=== PATIENT | female | born 1955 | race Caucasian/White ===

== ENCOUNTER → 2017-10-01 | Outpatient (CLI) | payer OTHER ==
[~2017-10-01] MED LIST: ACEON8 MG PO; ALIGN4 MG PO; ALINIA500 MG PO; ATIVAN1 MG PO; BENEFIBER; BENEFIBER1 EACH; BENTYL10 MG PO; BUDESONIDE EC3 MG PO; CARAFATE1 GM PO; CARAFATE1 GM/10 ML PO; CRESTOR20 MG PO; DEXILANT60 MG PO; DIFLUCAN100 MG PO; DIFLUCAN200 MG PO; DOMPERIDONE1 GM PO; ENTOCORT EC3 MG PO; FLAGYL250 MG PO; FLORASTOR250 MG; FLORASTOR250 MG PO; FUROSEMIDE20 MG PO; GLIMEPIRIDE2 MG PO; GLIMEPIRIDE4 MG PO; HUMIRA SQ; HYOSCYAMINE0.125 MG SL; HYOSCYAMINE0.375 MG PO; IRON325 M1; JANUVIA100 MG; JANUVIA100 MG PO; KEFLEX500 MG PO; LAMOTRIGINE PO; LAMOTRIGINE100 MG PO; LAMOTRIGINE25 MG PO; LASIX20 MG PO; LEVOTHYROXINE112 MCG PO; LEVOXYL112 MCG PO; LEVSIN0.125 MG; LIBRAX CAPSULE1 EACH PO; LORAZEPAM2 MG PO; MAXALT10 MG PO; METFORMIN HCL1000 MG PO; METFORMIN HCL500 MG PO; METOCLOPRAMIDE10 MG PO; MIRALAX PO; MIRALAX17 GM; MIRALAX17 GM PO; MULTI-VITAMIN1 EACH; MULTIVITAMIN; MULTIVITAMINS1 EAC7 PO; NORCO; NORCO 10-325 T1 EACH PO; NORCO PO; OSCIMIN SL0.125 MG SL; PAXIL20 MG PO; PENTASA250 MG PO; PENTASA500 MG PO; PERINDOPRIL ERBU8 MG PO; PREDNISONE10 MG PO; PREDNISONE5 MG PO; PRESTIQ PO; PRISTIQ ER100 MG; PRISTIQ ER100 MG PO; PRISTIQ50 MG PO; PROBIOTIC & AC1 EACH; PROTONIX IV40 MG PO; QUETIAPINE FUM100 MG PO; QUETIAPINE FUMA50 MG; REGLAN10 MG PO; REMICADE100 MG/VIA IM; SEROQUEL100 MG PO; SEROQUEL50 MG PO; SUMATRIPTAN INJ; Sumatriptan PO; TOPAMAX100 MG PO; TOPAMAX50 MG PO; TOPIRAGEN50 MG; TOPIRAMATE100 MG PO; TREXIMET 85-501 EACH PO; TRICOR145 MG PO; Z LAMICTAL PO; Z LEVOXYL PO; Z.0.AMARYL4 MG PO; Z.0.AMITIZA8 MCG PO; Z.0.CRESTOR20 MG PO; Z.0.DEXILANT60 MG PO; Z.0.JANUVIA100 MG PO; Z.0.MAXALT10 MG PO; Z.0.NAPROXEN500 MG PO; Z.0.SEROQUEL25 MG PO; Z.0.TOPIRAMATE50 MG PO; Z.0.TRICOR145 MG PO; Z.1.METFORMIN HCL100 PO; ZOFRAN ODT4 MG; ZOFRAN ODT4 MG SL; [UNRECOGNIZED DRUG - OTHER]; [UNRECOGNIZED DRUG - OTHER] PO; [UNRECOGNIZED DRUG - OTHER] PO; [UNRECOGNIZED DRUG - OTHER] PO; [UNRECOGNIZED DRUG - OTHER] PO; [UNRECOGNIZED DRUG - OTHER] PO; [UNRECOGNIZED DRUG - OTHER] PO; miralax PO; viberzi PO
--- NOTE | 2017-10-01 14:06 | Diagnostic Imaging Report ---
PROCEDURE: CT ABDOMEN AND PELVIS WITHOUT CONTRAST COMPARISON:[facility], CT, CT ABDOMEN/PELVIS WO, 12/28/2015, 17:12. INDICATIONS:Lower abdominal pain. TECHNIQUE: Routine protocol Volumetric CT abdomen after ministration of 900 mL dilute positive enteric contrast. No intravenous contrast. Multiplanar reformatted images. DLP: 613.75 FINDINGS: Two sub-4 mm pulmonary nodules at the right lower lobe. Lung bases otherwise clear. lung bases. No pleural effusions. Normal heart size. Liver: Diffuse low-attenuation; otherwise, normal Gallbladder: Cholecystectomy Pancreas: Normal Spleen: Normal Adrenal glands: Normal Kidneys: Normal Ureters and urinary bladder: Normal Uterus and adnexa: Normal Bowel: Normal caliber. Mild jejunal wall thickening without dilation. Moderate stool volume in a redundant sigmoid colon. Appendectomy. Peritoneum: Normal Vasculature: Trace infrarenal aortic atherosclerosis. Mild multifocal diffuse arteriosclerosis. Normal caliber. Lymph nodes: Normal Skeleton: Intact. Mild degenerative changes in the shoulders. Mild multilevel degenerative disc disease and facet arthropathy with post notable on the left at L5-S1. Soft tissues: Normal CONCLUSION: 1. Mild thickening of the jejunum which may be secondary to enteritis. 2. Otherwise, no conspicuous etiology for lower abdominal pain. 3. Study is limited by lack of intravenous contrast. Dictated by: Mika Remy M.D. on 10/01/2017 at 14:14 Electronically approved by: Mika Remy M.D. on 10/01/2017 at 14:14
== END ==
LOC: CT 11:53
PROVIDERS: ATTEND Internal Medicine Gastroenterology
DX: R10.9 Unspecified abdominal pain (principal)
CPT/HCPCS: 74176

== ENCOUNTER → 2017-10-23 | Outpatient (CLI) | payer OTHER ==
[~2017-10-23] MED LIST changes: +FUROSEMIDE40 MG PO
--- NOTE | 2017-10-23 11:56 | Diagnostic Imaging Report ---
PROCEDURE: SMALL BOWEL SERIES Fluoroscopy time: 0.4 minutes Air Kerma: 28.34 mGy Comparison: CT abdomen and pelvis without contrast 10/01/2017, fluoroscopic small bowel series 12/21/2016.. Indications: ENTERITIS Technique: Small bowel follow through exam was performed using oral barium. Preliminary image was obtained before administration of contrast and serial overhead images were obtained after administration of oral barium. Fluoroscopy was performed and spot images were obtained. Findings: SMALL BOWEL FOLLOW THROUGH: Small bowel loops are normal in caliber and distribution. Spot compression views of the terminal ileum are normal. The transit time was normal. IMPRESSION: Unremarkable fluoroscopic small bowel series. Dictated by: Luis A Saunders M.D. on 10/23/2017 at 11:55 Electronically approved by: Lui sA Saunders M.D. on 10/23/2017 at 11:55
== END ==
LOC: DX 07:04
PROVIDERS: ATTEND Internal Medicine Gastroenterology
DX: K52.9 Noninfective gastroenteritis and colitis, unspecified (principal)
CPT/HCPCS: 74250

== ENCOUNTER → 2017-12-10 | Outpatient (CLI) | payer OTHER ==
[~2017-12-10] MED LIST changes: -FUROSEMIDE40 MG PO
--- NOTE | 2017-12-10 17:47 | Diagnostic Imaging Report ---
PROCEDURE:ABDOMEN COMP INCL UPR OR DECUB INDICATION:Colitis, Crohn's, Abdominal pain. COMPARISON:CT 10/01/2017 FINDINGS: Large amount of stool in the colon. Non-obstructed bowel gas pattern. No free air under the diaphragm or suspicious air-fluid levels on upright view. Cholecystectomy clips. No calcifications project over the renal silhouettes or expected course of the ureters or bladder. Hepatic silhouette appears enlarged, likely related to hepatic steatosis on prior CT. Bones and soft tissues are grossly unremarkable. CONCLUSION: Non-obstructed bowel gas pattern. Large amount of stool in the colon. Dictated by: Omar Dinh M.D. on 12/10/2017 at 17:48 Electronically approved by: Omar Dinh M.D. on 12/10/2017 at 17:48
== END ==
LOC: RAD 15:32
PROVIDERS: ATTEND Internal Medicine Gastroenterology
DX: R11.0 Nausea (principal); K50.90 Crohn's disease, unspecified, without complications

== ENCOUNTER → 2018-04-18 | Day surgery (SDC) | payer OTHER ==
[~2018-04-18] MED LIST changes: +FENTANYL CITRATE/PF 100MCG/2 ML INJ ONE; +FUROSEMIDE40 MG PO; +LIDOCAINE HCL 2% LOCAL INJ 5 ML SDV VIAL INJ ONE; +MIDAZOLAM HCL 2 MG/2 ML VIAL ONE; +PROPOFOL IV EMULSION 10 MG/ML 50 ML VIAL ONE
[2018-04-18 13:15] VITALS: BP 117/77
[2018-04-18 13:33] LABS: WBC,FECAL (FECAL LACTOFERRIN) NEGATIVE (NEGATIVE)
--- NOTE | 2018-04-18 14:05 | Operative Report ---
DATE OF PROCEDURE: April 18, 2018 REFERRING PHYSICIAN: Dr. Luis A Tinoco. PROCEDURES PERFORMED: 1. Esophagogastroduodenoscopy with esophageal dilatation and biopsies. 2. Colonoscopy with polypectomy and biopsies. INDICATIONS FOR ESOPHAGOGASTRODUODENOSCOPY: Dysphagia, upper abdominal pain, nausea. INDICATIONS FOR COLONOSCOPY: Lower abdominal pain, history of colon polyps, loose stools. MEDICATION: Patient was done under MAC. Please see anesthesiologist's note. PROCEDURE: With the patient in the left lateral decubitus position, the flexible fiberoptic Olympus gastroscope was introduced into the esophagus under direct visualization without any difficulty. There was some patchy erythema noted in the distal esophagus. There was a mild stricture noted at the GE junction, and the esophagus was dilated to size 52-Dominican Chapa. The scope was then advanced with ease into the stomach. Mucosa overlying the antrum and the body revealed some diffuse erythema and moderate edema, and biopsies were obtained and sent to stain for H. pylori. The pylorus was of normal contour and shape, was intubated with ease, and the scope was advanced all the way to the 2nd portion of the duodenum. The scope was withdrawn slowly. The duodenum was somewhat irritable. Biopsies were obtained from the proximal 2nd portion to rule out sprue. Mucosa overlying the duodenal bulb appeared to be within normal limits. The scope was then withdrawn back into the stomach and retroflexed, and the mucosa overlying the fundus and the cardia appeared to be within normal limits. The scope was then straightened out. It was subsequently withdrawn. Patient tolerated the procedure well. IMPRESSION: 1. Distal esophagitis. 2. Esophageal stricture at gastroesophageal junction dilated to a size 52-Dominican Chapa. 3. Gastritis biopsied. Biopsies sent to stain for H. pylori. 4. Rule out sprue. PLAN: Follow up histology. Initiate Carafate 1 gram p.o. a.c. t.i.d. and nightly. Continue Dexilant 60 mg 1 p.o. a.c. b.i.d. Patient was then turned around and after adequate lubrication of the anal canal, a flexible fiberoptic Olympus colonoscope was inserted into the rectum with ease and advanced all the way to the cecum. The ileocecal valve was intubated, and the scope was advanced into the terminal ileum. Biopsies were obtained. The scope was then withdrawn slowly. Mucosa overlying the ascending, transverse, descending, sigmoid and rectum revealed some patchy areas of intense erythema and low-grade to moderate edema, and random biopsies were obtained. One polyp was snared from the descending colon. The scope was then retroflexed into the distal rectum and small internal hemorrhoids were noted, none of which was actively bleeding. The scope was then straightened out. It was subsequently withdrawn. Patient tolerated the procedure well. IMPRESSION: 1. Colitis, mild, patchy. Random biopsies obtained. 2. Descending colon polyp snared. 3. Small internal hemorrhoids, none actively bleeding. PLAN: Follow up histology. Follow up stool studies. Patient might benefit from a followup colonoscopy in 5 years. Job#: [id number] EV cc:LUIS A TINOCO MD
[2018-04-19 14:36] LABS: C DIFFICILE TOXIN A&B AMP PROB NEGATIVE (NEGATIVE)
== END | disposition home or self-care (01) ==
LOC: ENDO 09:54
PROVIDERS: ATTEND Internal Medicine Gastroenterology
DX: K52.9 Noninfective gastroenteritis and colitis, unspecified (principal); K63.5 Polyp of colon; K29.70 Gastritis, unspecified, without bleeding; K22.2 Esophageal obstruction; K20.9 Esophagitis, unspecified; K64.8 Other hemorrhoids; E03.9 Hypothyroidism, unspecified; E78.6 Lipoprotein deficiency; E11.9 Type 2 diabetes mellitus without complications; I10 Essential (primary) hypertension; F31.9 Bipolar disorder, unspecified; F41.9 Anxiety disorder, unspecified; Z88.6 Allergy status to analgesic agent; Z88.8 Allergy status to other drugs, medicaments and biological substances; Z91.041 Radiographic dye allergy status; Z91.013 Allergy to seafood; Z01.810 Encounter for preprocedural cardiovascular examination; Z79.84 Long term (current) use of oral hypoglycemic drugs; Z87.01 Personal history of pneumonia (recurrent)
CPT/HCPCS: 36415; 43239; 43450; 45380; 45385; 82948; 83630; 83993; 87045; 87177; 87328; 87493; 93005; J2001; J2250

== ENCOUNTER → 2019-02-05 | Outpatient (CLI) | payer OTHER ==
[~2019-02-05] MED LIST changes: -FENTANYL CITRATE/PF 100MCG/2 ML INJ ONE; -LIDOCAINE HCL 2% LOCAL INJ 5 ML SDV VIAL INJ ONE; -MIDAZOLAM HCL 2 MG/2 ML VIAL ONE; -PROPOFOL IV EMULSION 10 MG/ML 50 ML VIAL ONE
[2019-02-05 12:14] LABS: BILIRUBIN,URINE NEGATIVE (NEGATIVE); CLARITY,URINE CLEAR (CLEAR); COLOR,URINE YELLOW (YELLOW); KETONES,URINE NEGATIVE (NEGATIVE); LEUKOCYTE ESTERASE ,URINE NEGATIVE (NEGATIVE); NITRITE,URINE NEGATIVE (NEGATIVE); PROTEIN,URINE DIPSTICK NEGATIVE (NEGATIVE); URINE UROBILINOGEN 0.2 mg/dL (0.2 - 1)
[2019-02-05 12:15] LABS: BASOPHILS % 0.5 % (0.0-1.0); EOSINOPHILS # (AUTO) 0.4 (0.0-0.4); EOSINOPHILS % 9.5 % (0.0-6.0); HEMATOCRIT 36.1 % (34.2-44.1); HEMOGLOBIN 11.7 g/dL (12.0-16.0); LYMPHOCYTES # (AUTO) 1.3 (1.0-3.2); LYMPHOCYTES % 35.4 % (18.0-39.1); MEAN CORPUSCULAR HEMOGLOBIN 28.5 pg (28-32); MEAN CORPUSCULAR HGB CONC 32.4 g/dL (31-35); MEAN CORPUSCULAR VOLUME 87.8 fL (81-99); MONOCYTES # (AUTO) 0.3 (0.2-0.8); MONOCYTES % 6.9 % (4.4-11.3); NEUTROPHILS # (AUTO) 1.8 (2.1-6.9); NEUTROPHILS % 47.2 % (38.7-80.0); PLATELET COUNT 198 x10e3/uL (140-360); RED BLOOD COUNT 4.11 x10e6/uL (3.6-5.1); RED CELL DISTRIBUTION WIDTH 13.9 % (11.7-14.4)
[2019-02-05 12:48] LABS: ALBUMIN 4.3 g/dL (3.5-5.0); ALBUMIN/GLOBULIN RATIO 1.1 (0.8-2.0); ANION GAP 14.1 mmol/L (8-16); CALCIUM 10.6 mg/dL (8.4-10.2); CREATININE, SERUM 1.64 mg/dL (0.57-1.11)
[2019-02-05 13:21] LABS: POTASSIUM 5.1 mmol/L (3.5-5.1)
--- NOTE | 2019-02-05 15:49 | Diagnostic Imaging Report ---
EXAM: CT ABDOMEN AND PELVIS without IV CONTRAST DATE: 02/05/2019 Time stamp on Exam: 1:02 PM INDICATION: Abdominal pain COMPARISON: 04/17/2015 TECHNIQUE: The abdomen and pelvis were scanned using a multidetector helical scanner. Coronal and sagittal reformations were obtained. Routine protocol performed. Technique modification was utilized to maintain the lowest dose possible to the patient. IV Contrast: None Oral Contrast: Gastrografin intermixed with water Radiation Dose: Total DLP 732.81 mGy*cm Estimated effective dose: DLP x 0.015 x size factor FINDINGS: LOWER THORAX: No consolidations LIVER: No masses BILIARY: The gallbladder is absent. No ductal dilatation. SPLEEN: No masses PANCREAS: No masses ADRENALS: No nodules KIDNEYS: Symmetric perfusion. No enhancing masses. No hydronephrosis. GI TRACT: No distention, wall thickening or evidence of obstruction. VESSELS: Splenic artery calcification and scattered calcification within the aorta. PERITONEUM/RETROPERITONEUM: No free air or fluid LYMPH NODES: No lymphadenopathy REPRODUCTIVE ORGANS: Unremarkable BLADDER: Unremarkable SOFT TISSUES: Unremarkable BONES: No suspicious bone lesions. Degenerative changes of the spine. IMPRESSION: No significant abnormality within the abdomen or pelvis. Signed by: Dr. Emigdio Hernandez DO on 02/05/2019 3:45 PM
== END ==
LOC: CT 11:20
PROVIDERS: ATTEND Internal Medicine Gastroenterology
DX: R10.9 Unspecified abdominal pain (principal)
CPT/HCPCS: 36415; 74176; 80053; 81003; 85025

== ENCOUNTER → 2019-07-29 | Outpatient (CLI) | payer OTHER ==
[2019-07-29 14:19] LABS: CREATININE, SERUM 1.34 mg/dL (0.57-1.11)
--- NOTE | 2019-07-29 17:46 | Diagnostic Imaging Report ---
MRI abdomen/pelvis without contrast HISTORY: Abdominal pain Comparison: CT abdomen/pelvis without contrast from 02/05/2019, MRI abdomen/pelvis without with contrast from 11/26/2012. Technique: Multiplanar and multisequence MRI images of the abdomen were obtained without contrast. FINDINGS: The visualized intrathoracic contents are unremarkable. There is dropout of signal on out of phase imaging compatible with hepatic steatosis. The liver is otherwise normal in size and attenuation. No focal lesion is identified on this noncontrast enhanced examination. The gallbladder is surgically absent. There is no intra or extrahepatic biliary ductal dilatation. There is a stable small hiatal hernia present. The stomach is otherwise unremarkable. The spleen and bilateral adrenal glands are unremarkable. The pancreas demonstrates no significant abnormalities. There is no pancreatic ductal dilatation. The kidneys are normal in size and location. There is no evidence for hydronephrosis. The urinary bladder demonstrates no significant abnormalities. The uterus and adnexa are unremarkable. The abdominal aorta is normal course and caliber. The IVC is normal in caliber. The visualized loops of small and large bowel demonstrate no evidence for wall thickening, adjacent findings are unchanged, or obstruction. Please note the examination is limited without the use of contrast material. There is no ascites. No abnormally enlarged lymph nodes are identified within the abdomen or pelvis. There are degenerative changes of the spine. There is no evidence for acute fracture or destructive process. Impression: Diffuse hepatic steatosis. Otherwise, no significant abnormality identified on this noncontrast enhanced MRI of the abdomen and pelvis. Signed by: Dr. Jimy Atkins MD on 07/29/2019 5:42 PM
== END ==
LOC: MRI 13:33
PROVIDERS: ATTEND Internal Medicine Gastroenterology
DX: R10.9 Unspecified abdominal pain (principal)
CPT/HCPCS: 36415; 72195; 74181; 82565; 84520

== ENCOUNTER → 2020-01-13 | Day surgery (SDC) | payer OTHER ==
[~2020-01-13] MED LIST changes: +CALTRATE 600 W1 EACH PO; +FENTANYL CITRATE/PF 100MCG/2 ML INJ ONE; +LIDOCAINE HCL 2% LOCAL INJ 5 ML SDV VIAL INJ ONE; +LOMOTIL TABLET1 EACH PO; +METOCLOPRAMIDE HCL 10 MG/2ML VIAL ONE; +MIDAZOLAM HCL 2 MG/2 ML VIAL ONE; +PANTOPRAZOLE 40 MG 10ML VIAL ONE; +PROPOFOL IV EMULSION 10 MG/ML 20 ML VIAL ONE; +iron PO; +vit c PO
--- OUTSIDE RECORDS SUMMARY | 2020-01-13 11:04 | XMS REPORT ---
Author Author [facility] t Organization [facility] Address [address] [place] [address] Phone Unavailable Care Team Providers Care Freight Inspector Name Role Phone CHOLO SINGH Zohaib Unavailable Payers Payer Name Policy Type Policy Number Effective Date Expiration Date S ource Problems This patient has no known problems. Allergies, Adverse Reactions, Alerts Allergy Name Allergy Type Status Severity Reaction(s) Onset Date Inacti ve Date Treating Clinician Comments Source Iodinated Contrast Media - IV Dye DA Active U 2017-12-19 00:00:00 [facility] NSAIDS (Non-Steroidal Anti-Inflamma DA Active U 2017-11-26 5 00:00:00 [facility] iodine DA Active U 2017-12-19 00:00:00 [facility] mesalamine DA Active U 2017-12-19 00:00:00 [facility] cephalexin DA Active U 2017-12-19 00:00:00 [facility] promethazine DA Active U 2017-12-19 00:00:00 [facility] meperidine DA Active U 2017-12-19 00:00:00 [facility] shellfish derived DA Active U 2017-12-19 00:00:00 [facility] Medications This patient has no known medications. Procedures This patient has no known procedures. Results Test Description Test Time Test Comments Results Result Comments Source MRI ABDOMEN WO 2019-07-29 17:35:00 [facility] [address] [id number] Patient Name: ROBBIE GILES MR #: [id number] : 1955 Age/Sex: 64/F Req #: [id number] Adm Physician: Ordered by: CHOLO SINGH MD Report #: [id number] Location: MRI Room/Bed: Procedure: [id number] MRI/MRI ABDOMEN WO Exam Date: Exam Time: REPORT STATUS: Signed MRI abdomen/pelvis without contrast HISTORY: Abdominal pain Comparison: CT abdomen/pelvis without contrast from 02/05/2019, MRI abdomen/pelvis without with contrast from 11/26/2012. Technique: Multiplanar and multisequence MRI images of the abdomen were obt ained without contrast. FINDINGS: The visualized intrathoracic contents are unremarkable. There is dropout of signal on out of phase imaging compatible with hepatic steatosis. The liver is otherwise normal in size and attenuation. No focal lesion is identified on this noncontrast enhanced examination. The gallbladder is surgically absent. There is no intra or extrahepatic biliary ductal dilatation. There is a stable small hiatal hernia present. The stomach is otherwise unremarkable. The spleen and bilateral adrenal glands are unremarkable. The pancreas demonstrates no s ignificant abnormalities. There is no pancreatic ductal dilatation. The kidneys are normal in size and location. There is no evidence for hydronephrosis. The urinary bladder demonstrates no significant abnormalities. The uterus and adnexa are unremarkable. The abdominal aorta is normal course and caliber. The IVC is normal in caliber. The visualized loops of small and large bowel demonstrate no evidence for wall thickening, adjacent findings are unchanged, or obstruction. Please note the examination is limited without the use of contrast material. There is no ascites. No abnormally enlarged lymph nodes are identified within the abdomen or pelvis. There are degenerative changes of the spine. There is no evidence for acute fracture or destructive process. Impression: Diffuse hepatic steatosis. Otherwise, no significant abnormality identified on this noncontrast enhanced MRI of the abdomen and pelvis. Signed by: Dr. Jimy Atkins MD on 07/29/2019 5:42 PM Dictated By: JIMY ATKINS MD 41 Transcribed By: CAMELIA on 07/29/191741 COPY TO: CHOLO SINGH MD MRI PELVIS WO 2019-07-29 17:35:00 [place] [address] Patient Name: ROBBIE GILES MR #: [id number] : 1955 Age/Sex: 64/F Req #: [id number] Adm Physician: Ordered by: CHOLO SINGH MD Report #: [id number] Location: MRI Room/Bed: Procedure: [id number] MRI/MRI PELVIS WO Exam Date: Exam Time: REPORT STATUS: Signed MRI abdomen/pelvis without contrast HISTORY: Abdominal pain Comparison: CT abdomen/pelvis without contrast from 02/05/2019, MRI abdomen/pelvis without with contrast from 11/26/2012. Technique: Multiplanar and multisequence MRI images of the abdomen were obta ined without contrast. FINDINGS: The visualized intrathoracic contents are unremarkable. There is dropout of signal on out of phase imaging compatible with hepatic steatosis. The liver is otherwise normal in size and attenuation. No focal lesion is identified on this noncontrast enhanced examination. The gallbladder is surgically absent. There is no intra or extrahepatic biliary ductal dilatation. There is a stable small hiatal hernia present. The stomach is otherwise unremarkable. The spleen and bilateral adrenal glands are unremarkable. The pancreas demonstrates no si gnificant abnormalities. There is no pancreatic ductal dilatation. The kidneys are normal in size and location. There is no evidence for hydronephrosis. The urinary bladder demonstrates no significant abnormalities. The uterus and adnexa are unremarkable. The abdominal aorta is normal course and caliber. The IVC is normal in caliber. The visualized loops of small and large bowel demonstrate no evidence for wall thickening, adjacent findings are unchanged, or obstruction. Please note the examination is limited without the use of contrast material. There is no ascites. No abnormally enlarged lymph nodes are identified within the abdomen or pelvis. There are degenerative changes of the spine. There is no evidence for acute fracture or destructive process. Impression: Diffuse hepatic steatosis. Otherwise, no significant abnormality identified on this noncontrast enhanced MRI of the abdomen and pelvis. Signed by: Dr. Jimy Atkins MD on 07/29/2019 5:42 PM Dictated By: JIMY ATKINS MD 41 Transcribed By: CAMELIA on 07/29/191741 COPY TO: CHOLO SINGH MD CT ABDOMEN/PELVIS WO 2019-02-05 15:36:00 [place] [address] Patient Name: ROBBIE GILES MR #: [id number] : 1955 Age/Sex: 63/F Req #: [id number] Adm Physician: Ordered by: CHOLO SINGH MD Report #: [id number] Location: CT Room/Bed: Procedure: [id number] CT/CT ABDOMEN/PELVIS WO Exam Date: 02/05/19 Exam Time: 1300 REPORT STATUS: Signed EXAM: CT ABDOMEN AND PELVIS without IV CONTRAST DATE: 02/05/2019 Time stamp on Exam: 1:02 PM INDICATION: Abdominal pain COMPARISON: 04/17/2015 TECHNIQUE: The abdomen and pelvis were scanned using a multidetector helical scanner. Coronal and sagittal reformations were obtained. Routine protocol performed. Technique modification was utilized to maintain the lowest dose possible to the patient. IV Contrast: None Oral Contrast: Gastrografin intermixed with water Radiation Dose: Total DLP 732.81 mGy*cm Estimated effective dose: DLP x 0.015 x size factor FINDINGS: LOWER THORAX: No consolidations LIVER: No masses BILIARY: The gallbladder is absent. No ductal dilatation. SPLEEN: No masses PANCREAS: No masses ADRENALS: No nodules KIDNEYS: Symmetric perfusion. No enhancing masses. No hydronephrosis. GI TRACT: No distention, wall thickening or evidence of obstruction. VESSELS: Splenic artery calcification and scattered calcification within the aorta. PERITONEUM/RETROPERITONEUM: No tremaine e air or fluid LYMPH NODES: No lymphadenopathy REPRODUCTIVE ORGANS: Unremarkable BLADDER: Unremarkable SOFT TISSUES: Unremarkable BONES: No suspicious bone lesions. Degenerative changes of the spine. IMPRESSION: No significant abnormality within the abdomen or pelvis. Signed by: Dr. Emigdio Hernandez DO on 02/05/2019 3:45 PM Dictated By: EMIGDIO HERNANDEZ DO 1541 Transcribed By: CAMELIA on 02/05/19 1548 COPY TO: CHOLO SINGH MD ABDOMEN COMP INCL UPR or DECUB [place] [address] Patient Name: ROBBIE GILES MR #: [id number] : 1955 Age/Sex: 62/F Req #: [id number] Adm Physician: Ordered by: CHOLO SINGH MD Report #: [id number] Location: [facility] Room/Bed: Procedure: [id number] DX/ABDOMEN COMP INCL UPR or DECUB Exam Date: 12/10/17 Exam Time: 1610 REPORT STATUS: Signed PROCEDURE: ABDOMEN COMP INCL UPR OR DECUB INDICATION: Colitis, Crohn's, Abdominal pain. COMPARISON: CT 10/01/2017 FINDINGS: Large amount of stool in the colon. Non-obstructed bowel gas pattern. No free air under the diaphragm or suspicious air-fluid levels on upright view. Cholecystectomy clips. No calcifications project over the renal silhouettes or expected course of the ureters or bladder. Hepatic silhouette appears enlarged, likely related to hepatic steatosis on prior CT. Bones and soft tissues are grossly unremarkable. CONCLUSION: Non-obstructed bowel gas pattern. Large amount of stool in the colon. Dictated by: Omar Cárdenas M.D. on 12/10/2017 at 17:48 Electronically approved by: Omar Cárdenas M.D. on 12/10/2017 at 17:48 Dictated By: OMAR CÁRDENAS MD 47 Transcribed By: RAMAN on 12/10/171747 COPY TO: CHOLO SINGH MD SMALL BOWEL SERIES [place] [address] Patient Name: ROBBIE GILES MR #: [id number] : 1955 Age/Sex: 62/F Req #: [id number] Adm Physician: Ordered by: CHOLO SINGH MD Report #: [id number] Location: DX Room/Bed: Procedure: [id number] DX/SMALL BOWEL SERIES Exam Date: 10/23/17 Exam Time: 0800 REPORT STATUS: Signed PROCEDURE: SMALL BOWEL SERIES Fluoroscopy time: 0.4 minutes Air Kerma: 28.34 mGy Comparison: CT abdomen and pelvis without contrast 10/01/2017, fluoroscopic small bowel series 12/21/2016.. Indications: ENTERITIS Technique: Small bowel follow through exam was performed using oral barium. Preliminary image was obtained before administration of contrast and serial overhead images were obtained after administration of oral barium. Fluoroscopy was performed and spot images were obtained. Findings: SMALL BOWEL FOLLOW THROUGH: Small bowel loops are normal in caliber and distribution. Spot compression views of the terminal ileum are normal. The transit time was normal. IMPRESSION: Unremarkable fluoroscopic small bowel series. Dictated by: Freedom Perry M.D. on 10/23/2017 at 11:55 Electronically approved by: Freedom Perry M.D. on 10/23/2017 at 11:55 Dictated By: FREEDOM PERRY MD 1155 Transcribed By: RAMAN on 10/23/17 1155 COPY TO: CHOLO SINGH MD CT ABDOMEN/PELVIS WO [place] [address] Patient Name: ROBBIE GILES MR #: [id number] : 1955 Age/Sex: 62/F Req #: [id number] Adm Physician: Ordered by: CHOLO SINGH MD Report #: [id number] Location: CT Room/Bed: Procedure: [id number] CT/CT ABDOMEN/PELVIS WO Exam Date: 10/01/17 Exam Time: 1337 REPORT STATUS: Signed PROCEDURE: CT ABDOMEN AND PELVIS WITHOUT CONTRAST COMPARISON: [facility], CT, CT ABDOMEN/PELVIS WO, 12/28/2015, 17:12. INDICATIONS: Lower abdominal pain. TECHNIQUE: Routine protocol Volumetric CT abdomen after ministration of 900 mL dilute positive enteric contrast. No intravenous contrast. Multiplanar reformatted images. DLP: 613.75 FINDINGS: Two sub-4 mm pulmonary nodules at the right lower lobe. Lung bases otherwise clear. lung bases. No pleural effusions. Normal heart size. Liver: Diffuse low-attenuation; otherwise, normal Gallbladder: Cholecystectomy Pancreas: Normal Spleen: Normal Adrenal glands: Normal Kidneys: Normal Ureters and urinary bladder: Normal Uterus and adnexa: Normal Bowel: Normal caliber. Mild jejunal wall thickening without dilation. Moderate stool volume in a redundant sigmoid colon. Appendectomy. Peritoneum: Normal Vasculature: Trace infrarenal aortic atherosclerosis. Mild multifocal diffuse arteriosclerosis. Normal caliber. Lymph nodes: Normal Skeleton: Intact. Mild degenerative changes in the shoulders. Mild multilevel degenerative disc disease and facet arthropathy with post notable on the left at L5-S1. Soft tissues: Normal CONCLUSION: 1. Mild thickening of the jejunum which may be secondary to enteritis. 2. Otherwise, no conspicuous etiology for lower abdominal pain. 3. Study is limited by lack of intravenous contrast. Dictated by: John Remy M.D. on 10/01/2017 at 14:14 Electronically approved by: John Remy M.D. on 10/01/2017 at 14:14 Dictated By: JOHN REMY MD 1414 Transcribed By: RAMAN on 10/01/17 1414 COPY TO: CHOLO SINGH MD
--- OUTSIDE RECORDS SUMMARY | 2020-01-13 11:04 | XMS REPORT | Continuity of Care Document ---
Author Author [facility] Address Unknown Phone Unavailable Care Team Providers Care Balance Clerk Name Role Phone [employer] Unavailable Un available Problems Problem Status Onset Date Classification Date Reported Comments Source CROHN'S DISEASE 555.9 Active 09/27/2012 [facility] 388.70 - [place] NOS Active 02/23/2012 [facility] CHRONIC LEFT EAR PAIN Active 02/23/2012 [facility] Medications Medication Details Route Status Patient Instructions Ordering Provider Order Date Source Remicade + Sodium Chloride 0.9% IV 250 mL 400 mg, Route: IV, Drug form: PDR/INJ, ONCALL, Start date: 10/28/12 10:00:00, Stop date: 03/31/13 10:59:00 IV No Longer Active Mackenzie 10/28/2012 [facility] Sodium Chloride 0.9% IV IV, 50 0 ml/hr, PRN, PRN Other - See Comment, Start date: 10/25/12 12:57:00, Duration: 30, 500 ml IV No Longer Active Mackenzie 10/25/2012 [facility] SoluCortef 100 mg, 2 mL, Route : IVP, Drug form: PDR/INJ, PRN, PRN Other -See Comment, Start date: 10/25/12 12:56:00, Duration: 30 day, Stop date: 11/24/12 13:55:00 IVP No Longer Active Mackenzie 10/25/2012 [facility] Benadryl 50 mg, 1 mL, Route: I LOG SAWYER, Drug form: INJ, PRN, PRN Other -See Comment, Start date: 10/25/12 12:55:00, Duration: 30 day, Stop date: 11/24/12 13:54:00 IVP No Longer Active Mackenzie 10/25/2012 [facility] epinephrine 0.5 mg, 0.5 mL, Ro [place]: SUB-Q, Drug form: INJ, PRN, PRN Other -See Comment, Start date: 10/25/12 12:54:00, Duration: 30 day, Stop date: 11/24/12 13:53:00 SUB-Q No Longer Active Mackenzie 10/25/2012 [facility] Tylenol 650 mg, 2 tab, Route: PO, Drug form: TAB, PRN, PRN Other -See Comment, Start date: 10/25/12 12:52:00, Duration: 30 day, Stop date: 11/24/12 13:51:00 PO No Longer Active Mackenzie 10/25/2012 [facility] Benadryl 25 mg, 1 tab, Route: PO, Drug form: TAB, PRN, PRN Other -See Comment, Start date: 10/25/12 12:51:00, Duration: 30 day, Stop date: 11/24/12 13:50:00 PO No Longer Active Mackenzie 10/25/2012 [facility] Allergies, Adverse Reactions, Alerts Substance Category Reaction Severity Reaction type Status Date Reported Comments Source Demerol HCl [facility] Immunizations No Data Provided for This Section Results No Data Provided for This Section Pathology Reports No Data Provided for This Section Diagnostic Reports No Data Provided for This Section Consultation Notes No Data Provided for This Section Discharge Summaries No Data Provided for This Section History and Physicals No Data Provided for This Section Vital Signs Vital Sign Value Date Comments Source Height 149.86 cm 10/25/2012 [facility] Weight 80.909 10/25/2012 [facility] Encounters Location Location Details Encounter Type Encounter Number Reason For Visit Attending Provider ADM Date DC Date Status Source [facility] Outpatient [id number] CHRONIC LEFT EAR PAIN TERRYL CROSS 02/24/2012 [facility] [place] [id number] CROHN'S DISEASE 5 55.9 CHOLO MACKENZIE 10/28/2012 Active [facility] [id number] ARELIS DAVIS 03/24/2015 Active [facility] Outpatient [id number] ARELISSUSAN DAVIS 06/14/2015 Active [facility] OD [id number] 388.70 - [place] NOS [facility]YL CROSS [facility] Procedures No Data Provided for This Section Assessment and Plan No Data Provided for This Section Plan of Care No Data Provided for This Section Social History No Data Provided for This Section Family History No Data Provided for This Section Advance Directives No Data Provided for This Section Functional Status No Data Provided for This Section
[2020-01-13 14:10] VITALS: BP 116/82
--- NOTE | 2020-01-13 15:44 | Operative Report ---
DATE OF PROCEDURE: 01/13/2020 SURGEON: Wu Mackenzie MD PROCEDURE: An EGD with balloon dilatation of the pyloric channel and biopsies. INDICATIONS FOR EGD: Upper abdominal pain, nausea, vomiting, bloating. MEDICATIONS: The patient was done under MAC. Please see anesthesiologist's note. PROCEDURE IN DETAIL: With the patient in the left lateral decubitus position, a flexible fiberoptic Olympus gastroscope was introduced into the esophagus under direct visualization without any difficulty. There was some patchy erythema noted in distal esophagus. The scope was then advanced with ease into the stomach. Mucosa overlying the antrum and the body revealed some patchy intense erythema and low-grade to moderate edema and biopsies were obtained, sent to stain for H. pylori. Pylorus was probably mildly stenotic and that was dilated to size 20 mm per TTS balloon dilators. The scope was then advanced with ease into the second portion of the duodenum. Biopsies were obtained from the proximal second portion and duodenal bulb to rule out sprue. The scope was then withdrawn back into the stomach and retroflexed, and mucosa overlying the fundus and the cardia appeared to be within normal limits. The scope was then straightened out. Of note, there was a significant amount of retained fluids in the stomach in the beginning of the exam, which was sectioned. This could be reflective of some degree of gastroparesis. The scope was subsequently withdrawn. The patient tolerated the procedure well. IMPRESSION: 1. Distal esophagitis, mild. 2. Gastritis, biopsied. Biopsies sent to stain for Helicobacter pylori. 3. Xtjcnwrg-ch-zikag amount of retained fluid in the stomach, reflective of some degree of gastroparesis. 4. Pyloric channel, dilated to size 20 mm per TTS balloon dilators. 5. Rule out sprue. PLAN: Follow up histology. Continue Dexilant 60 mg one p.o. a.c. b.i.d. and add Carafate 2 g p.o. a.c. b.i.d. Wu Mackenzie MD [facility] [place]/MODL /[id number] cc: Luis A Tinoco
== END | disposition home or self-care (01) ==
LOC: OR 10:55
PROVIDERS: ATTEND Internal Medicine Gastroenterology
DX: K29.70 Gastritis, unspecified, without bleeding (principal); K31.7 Polyp of stomach and duodenum; K31.84 Gastroparesis; K21.0 Gastro-esophageal reflux disease with esophagitis; K31.89 Other diseases of stomach and duodenum; K50.90 Crohn's disease, unspecified, without complications; E11.9 Type 2 diabetes mellitus without complications; I45.10 Unspecified right bundle-branch block; I10 Essential (primary) hypertension; Z88.8 Allergy status to other drugs, medicaments and biological substances; Z88.6 Allergy status to analgesic agent; Z91.041 Radiographic dye allergy status; Z01.810 Encounter for preprocedural cardiovascular examination; Z01.812 Encounter for preprocedural laboratory examination; Z11.59 Encounter for screening for other viral diseases; Z79.84 Long term (current) use of oral hypoglycemic drugs; Z68.31 Body mass index [BMI] 31.0-31.9, adult
CPT/HCPCS: 36415; 43239; 43245; 82948; 87635; 93005 ×2; C9113; J2001; J2250; J2704; J2765; J3010

== ENCOUNTER 2020-02-02 17:52 | Emergency (ER) | payer OTHER ==
[~2020-02-02] VITALS: Ht 147.3 cm; Wt 69.4 kg
[~2020-02-02 17:52] MED LIST changes: -FENTANYL CITRATE/PF 100MCG/2 ML INJ ONE; -LIDOCAINE HCL 2% LOCAL INJ 5 ML SDV VIAL INJ ONE; -METOCLOPRAMIDE HCL 10 MG/2ML VIAL ONE; -MIDAZOLAM HCL 2 MG/2 ML VIAL ONE; -PANTOPRAZOLE 40 MG 10ML VIAL ONE; -PROPOFOL IV EMULSION 10 MG/ML 20 ML VIAL ONE
--- OUTSIDE RECORDS SUMMARY | 2020-02-02 17:57 | XMS REPORT | Continuity of Care Document ---
Author Author [facility] Address Unknown Phone Unavailable Care Team Providers Care Qualification Engineer Name Role Phone [employer] Unavailable Un available Problems Problem Status Onset Date Classification Date Reported Comments Source CROHN'S DISEASE 555.9 Active 09/27/2012 [facility] 388.70 - OT[place] NOS Active 02/23/2012 [facility] [place] CHRONIC LEFT EAR PAIN Active 02/23/2012 [facility] Medications Medication Details Route Status Patient Instructions Ordering Provider Order Date Source Remicade + Sodium Chloride 0.9% IV 250 mL 400 mg, Route: IV, Drug form: PDR/INJ, ONCALL, Start date: 10/28/12 10:00:00, Stop date: 03/31/13 10:59:00 IV No Longer Active Mackenzie 10/28/2012 [facility] Sodium Chloride 0.9% IV IV, 50 0 ml/hr, PRN, PRN Other - See Comment, Start date: 10/25/12 12:57:00, Duration: 30, 500 ml IV No Longer Active Mackenzie 10/25/2012 [facility] SoluCortef 100 mg, 2 mL, Route : IVP, Drug form: PDR/INJ, PRN, PRN Other -See Comment, Start date: 10/25/12 12:56:00, Duration: 30 day, Stop date: 11/24/12 13:55:00 IVP No Longer Active Mackenzie 10/25/2012 [facility] Benadryl 50 mg, 1 mL, Route: I 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, Drug form: INJ, PRN, PRN Other -See Comment, Start date: 10/25/12 12:55:00, Duration: 30 day, Stop date: 11/24/12 13:54:00 IVP No Longer Active Mackenzie 10/25/2012 [facility] epinephrine 0.5 mg, 0.5 mL, Ro [place]: SUB-Q, Drug form: INJ, PRN, PRN Other -See Comment, Start date: 10/25/12 12:54:00, Duration: 30 day, Stop date: 11/24/12 13:53:00 SUB-Q No Longer Active Mackenzie 10/25/2012 [facility] Tylenol 650 mg, 2 tab, Route: PO, Drug form: TAB, PRN, PRN Other -See Comment, Start date: 10/25/12 12:52:00, Duration: 30 day, Stop date: 11/24/12 13:51:00 PO No Longer Active Mackenzie 10/25/2012 [facility] Benadryl 25 mg, 1 tab, Route: PO, Drug form: TAB, PRN, PRN Other -See Comment, Start date: 10/25/12 12:51:00, Duration: 30 day, Stop date: 11/24/12 13:50:00 PO No Longer Active Mackenzie 10/25/2012 [facility] Allergies, Adverse Reactions, Alerts Substance Category Reaction Severity Reaction type Status Date Reported Comments Source Demerol HCl drug [facility] Immunizations No Data Provided for This Section [...] Date Comments Source Height 149.86 cm 10/25/2012 [facility] Weight 80.909 10/25/2012 [facility] Encounters Location Location Details Encounter Type Encounter Number Reason For Visit Attending Provider ADM Date DC Date Status Source [facility] Outpatient [id number] CHRONIC LEFT EAR PAIN TERRYL CROSS 02/24/2012 [place] [facility] [place] [id number] CROHN'S DISEASE 5 55.9 CHOLO MACKENZIE 10/28/2012 Active [facility] Outpatient [id number] ARELIS DAVIS 03/24/[address] [facility] Outpatient [id number] ARELISSUSAN DAVIS 06/14/[address] [facility] OD [id number] 388.70 - [place] NOS TERRYL CROSS Cancel [facility] [place] Procedures No Data Provided for This Section [...]
--- OUTSIDE RECORDS SUMMARY | 2020-02-02 17:57 | XMS REPORT | Continuity of Care Document ---
Author Author [facility] t Organization [facility] Address [address] [place] [address] Phone Unavailable Care Team Providers Care Retail Store Assistant Name Role Phone CHOLO MACKENZIE Unavailable Payers Payer Name Policy Type Policy Number Effective Date Expiration Date S ource Problems Condition Name Condition Details Condition Category Status Onset Date Resolution Date Last Treatment Date Treating Clinician Comments Source CROHN'S DISEASE 555.9 CRO N'S DISEASE 555.9 Active 09/27/2012 [facility] Active 2012-09-27 08:00:00 2012-10-28 10:44: 00 Soto Kowalski 388.70 - [place] NOS 388. 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 LEFT EAR PAIN Active 02/23/2012 [facility] Diagnosis Active 2012-02-23 00:00:00 2012-02-24 11:02: 00 Soto Kowalski Allergies, Adverse Reactions, Alerts Allergy Name Allergy Type Status Severity Reaction(s) Onset Date Inacti ve Date Treating Clinician Comments Source Iodinated Contrast Media - IV Dye DA Active U 2017-12-19 00:00:00 [facility] NSAIDS (Non-Steroidal Anti-Inflamma DA Active U 2017-11-26 00:00:00 [facility] iodine DA Active U 2017-12-19 00:00:00 [facility] mesalamine DA Active U 2017-12-19 00:00:00 [facility] cephalexin DA Active U 2017-12-19 00:00:00 [facility] promethazine DA Active U 2017-12-19 00:00:00 [facility] meperidine DA Active U 2017-12-19 00:00:00 [facility] shellfish derived DA Active U 2017-12-19 00:00:00 [facility] Demerol HCl Demerol HCl Active [facility] iodine iodine Active [facility] Medications Ordered Medication Name Filled Medication Name Start Date Stop Da te Current Medication? Ordering Clinician Indication Dosage Frequency Signature (SIG) Comments Components Source Remicade + Sodium Chloride 0.9% IV 250 mL 2012-10-28 16:00 :00 No Cholo Sadik Mackenzie 400 mg, Route: I V, Drug form: PDR/INJ, ONCALL, Start date: 10/28/12 10:00:00, Stop date: 03/31/13 10:59:00 [facility] Sodium Chloride 0.9% IV 2012-10-25 18:57:00 No Cholo Sadik Mackenzie IV, 500 ml/hr, PRN, PRN Other -See Comment, Start date: 10/25/12 12:57:00, Duration: 30, 500 ml [facility] SoluCortef 2012-10-25 18:56:00 No Cholo Sadik Mackenzie 100 mg, 2 mL, Route: IVP, Drug form: PDR/INJ, PRN, PRN Other -See Comment, Start date: 10/25/12 12:56:00, Duration: 30 day, Stop date: 11/24/12 13:55:00 [facility] Benadryl 2012-10-25 18:55:00 No Cholo Sadik Mackenzie 50 mg, 1 mL, Route: IVP, Drug form: INJ, PRN, PRN Other -See Comment, Start date: 10/25/12 12:55:00, Duration: 30 day, Stop date: 11/24/12 13:54:00 [facility] epinephrine 2012-10-25 18:54:00 No Cholo Sadik Mackenzie 0.5 mg, 0.5 mL, Route: SUB-Q, Drug form: INJ, PRN, PRN Other -See Comment, Start date: 10/25/12 12:54:00, Duration: 30 day, Stop date: 11/24/12 13:53:00 [facility] Tylenol 2012-10-25 18:52:00 No Cholo Pulido Mackenzie 650 mg, 2 tab, Route: PO, Drug form: TAB, PRN, PRN Other -See Comment, Start date: 10/25/12 12:52:00, Duration: 30 day, Stop date: 11/24/12 13:51:00 [facility] Benadryl 2012-10-25 18:51:00 No Chologeni Pulido Mackenzie 25 mg, 1 tab, Route: PO, Drug form: TAB, PRN, PRN Other -See Comment, Start date: 10/25/12 12:51:00, Duration: 30 day, Stop date: 11/24/12 13:50:00 [facility] Vital Signs Vital Name Observation Time Observation Value Comments Source Height 2012-10-25 17:17:00 149.86 cm [facility] Weight 2012-10-25 17:17:00 [facility] Procedures This patient has no known procedures. Results Test Description Test Time Test Comments Results Result Comments Source MRI ABDOMEN WO 2019-07-29 17:35:00 [place] [address] Patient Name: ROBBIE GILES MR #: [id number] : 1955 Age/Sex: 64/F Req #: [id number] Adm Physician: Ordered by: CHOLO MACKENZIE MD Report #: [id number] Location: MRI Room/Bed: Procedure: [id number] MRI/MRI ABDOMEN WO Exam Date: Exam Time: [...] By: CAMELIA on 07/29/191741 COPY TO: CHOLO MACKENZIE MD MRI PELVIS WO 2019-07-29 17:35:00 [place] [address] Patient Name: ROBBIE GILES MR #: [id number] : 1955 Age/Sex: 64/F Req #: [id number] Adm Physician: Ordered by: CHOLO MACKENZIE MD Report #: [id number] Location: MRI Room/Bed: Procedure: [id number] MRI/MRI PELVIS WO Exam Date: Exam Time: [...] By: CAMELIA on 07/29/191741 COPY TO: CHOLO MACKENZIE MD CT ABDOMEN/PELVIS WO 2019-02-05 15:36:00 [facility] [address] [place] [address] Patient Name: ROBBIE GILES MR #: [id number] : 1955 Age/Sex: 63/F Req #: [id number] Adm Physician: Ordered by: CHOLO MACKENZIE MD Report #: [id number] Location: CT Room/Bed: Procedure: [id number] CT/CT ABDOMEN/PELVIS WO Exam Date: 02/05/19 Exam [...] 3:45 PM Dictated By: EMIGDIO HERNANDEZ DO 154 Transcribed By: CAMELIA on 02/05/191544 COPY TO: CHOLO MACKENZIE MD ABDOMEN COMP INCL UPR or DECUB [place] [address] Patient Name: ROBBIE GILES MR #: [id number] : 1955 Age/Sex: 62/F Req #: [id number] Adm Physician: Ordered by: CHOLO MACKENZIE MD Report #: [id number] Location: [facility] Room/Bed: Procedure: [id number] DX/ABDOMEN COMP INCL UPR or DECUB Exam [...] By: RAMAN on 12/10/171747 COPY TO: CHOLO MACKENZIE MD SMALL BOWEL SERIES [place] [address] Patient Name: ROBBIE GILES MR #: [id number] : 1955 Age/Sex: 62/F Req #: [id number] Adm Physician: Ordered by: CHOLO MACKENZIE MD Report #: [id number] Location: DX Room/Bed: Procedure: [id number] DX/SMALL BOWEL SERIES Exam Date: 10/23/17 Exam [...] RAMAN on 10/23/17 1155 COPY TO: CHOLO MACKENZIE MD CT ABDOMEN/PELVIS WO [place] [id number] [place] [address] Patient Name: ROBBIE GILES MR #: [id number] : 1955 Age/Sex: 62/F Req #: [id number] Adm Physician: Ordered by: CHOLO MACKENZIE MD Report #: [id number] Location: CT Room/Bed: Procedure: [id number] CT/CT ABDOMEN/PELVIS WO Exam Date: 10/01/17 Exam Time: 1337 REPORT STATUS: Signed PROCEDURE: CT ABDOMEN AND PELVIS WITHOUT CONTRAST COMPARISON: [facility], CT, CT ABDOMEN/PELVIS WO, 12/28/2015, 17:12. [...] lack of intravenous contrast. Dictated by: John Liang M.D. on 10/01/2017 at 14:14 Electronically approved by: John Liang M.D. on 10/01/2017 at 14:14 Dictated By: JOHN LIANG MD 1414 Transcribed By: RAMAN on 10/01/17 1414 COPY TO: CHOLO MACKENZIE MD
[2020-02-02] MEDS ORDERED: SODIUM CHLORIDE 0.9% 1000ML 1,000 ML ONE (18:40)
--- NOTE | 2020-02-02 18:54 | Emergency Department Note ---
History of Present Illnes History of Present Illness Chief Complaint: Abdominal Complaints History of Present Illness This is a 64 year old female with a history of hypertension, [id number] diabetes mellitus, Crohn's disease, lupus, depression, bipolar disorder and migraine headaches who was sent here by her GI doctor, Dr. Mackenzie, after evaluation in the clinic where she was seen for a one-week history of diarrhea, nausea, and worsening lower abdominal pain. Patient states over the weekend she had 10-12 small stools per day containing mucus, but no blood or melena. She was taking up to 5 Lomotil per day, and she has had no diarrhea today. Pt has continued to have lower abdominal pain that is "sharp, stabbing, and crampy." She denies any fever, chills, vomiting, or dysuria. She has had some urinary frequency. Patient had an EGD in December 2019 that showed "distal esophagitis" and the pyloric channel was dilated. Patient has not had a colonoscopy in several years. Patient takes an injectable biologic for treatment of Crohn's disease. Dr. Mackenzie was concerned that patient may be dehydrated and/or have an electrolyte disturbance because she was complaining of feeling "weak and dizzy," when in his office. Patient states that she has felt "lightheaded" upon standing, but no vertigo and no syncopal or presyncopal symptoms. Patient's abdominal surgeries include a cholecystectomy, appendectomy, and lysis of adhesions. She denies any history of hysterectomy or bowel resection. Historian: Patient, Family Member (spouse) Arrival Mode: Car Perfumer Required: No Onset (how long ago): week(s) (1) Location: lower abdomen Quality: sharp, stabbing, crampy pain Radiation: non-radiation Severity: moderate Onset quality: gradual Duration (how long): week(s) (1) Timing of current episode: constant Progression: worsening Chronicity: recurrent Context: other (denies recent illness, surgery, travel, trauma or new medications. ) Relieving factors: none (various medications that she takes has not been effe ctive) Exacerbating factors: none Associated symptoms: denies other symptoms Treatments prior to arrival: none Risk factors: hx if crohn's disease Past Medical/Family History Physician Review I have reviewed the patient's past medical and family history. Any updates have been documented here. Past Medical History Recent Fever: No Clinical Suspicion of Infectio: No New/Unexplained Change in Ment: No Past Medical History: Hypertension, Diabetes, Anxiety, Depression, GERD Other Medical History: ANXIETY DEPRESSION BIPOLAR PANIC ATTACKS THYROID D/O CROHN'S IBS LUPUS-2016 Other Surgery: ADHESIONS OVARIAN CYST HEMRHOIDECTOMY FISSURE REPAIR LEFT KNEE SURGERY Social History Smoking Cessation: Never Smoker Counseling Performed: No Alcohol Use: None Any Illegal Drug Use: No TB Exposure/Symptoms: No Physically hurt or threatened: No Family History Family history of heart diseas: No Other Last Tetanus: OOD Any Pre-Existing Lines (PICC,: No Is patient up to date on immun: Yes Last Flu: unk Last Pneumovax: unk Review of Systems Review of Systems Constitutional: no symptoms EENTM: no symptoms Cardiovascular: no symptoms Respiratory: no symptoms Gastrointestinal: abdominal pain, diarrhea (Pt with "10 episodes of diarrhea" each day over the weekend, with mucous without blood. She took Lomotil, without any diarrhea today. ), nausea Genitourinary: frequency (without dysuria) Musculoskeletal: no symptoms Neurological: no symptoms Psychological: no symptoms Endocrine: no symptoms Review of other systems All other systems reviewed and negative. Physical Exam Related Data Allergies: Coded Allergies: Shellfish (Verified Allergy, Severe, RED, ITCHING, 04/17/18) SHELLFISH ALLERGY iodine (Verified Allergy, Intermediate, RED, ITCHING, 04/17/18) meperidine (Verified Allergy, Intermediate, anxiety attack, itching, 04/17/18) promethazine (Verified Allergy, Unknown, ANXIETY, RASH, 04/17/18) Triage Vital Signs Vital Signs Date Time Temp Pulse Resp B/P (MAP) Pulse Ox O2 Delivery O2 Flow Rate FiO2 02/02/20 18:43 99.6 97 18 120/67 98 Vital signs reviewed: Yes Physical Exam CONSTITUTIONAL Constitutional: well-developed, well-nourished, obese HENT HENT: normocephalic, atraumatic, oropharynx clear/moist, nose normal HENT L/R: left ext ear normal, right ext ear normal EYES Eyes: PERRL, conjunctivae normal NECK Neck: ROM normal PULMONARY Pulmonary: effort normal, breath sounds normal CARDIOVASCULAR Cardiovascular: regular rhythm, heart sounds normal, capillary refill normal, normal rate GASTROINTESTINAL Abdominal: soft, tender (hyperactive bowel sounds, with diffuse lower abdominal tenderness to palpation with no rebound or guarding.) GENITOURINARY Genitourinary: exam deferred SKIN Skin: warm, dry MUSCULOSKELETAL Musculoskeletal: ROM normal NEUROLOGICAL Neurological: alert, oriented x 3, no gross motor or sensory deficits PSYCHOLOGICAL Psychological: mood/affect normal, judgement normal Results Laboratory Laboratory cbc nl ,except for mild anemia, H/H = 11.5/35.4 CMP - nl, except for gluc = 213, Ca = 10.4, TP = 8.5 UA - blo - small, kayleigh - large (urine sent for C&S) Lab results reviewed: Yes Imaging Imaging results reviewed: Yes Impressions [place] [address] Patient Name: ROBBIE GILES MR #: [id number] : 1955 Age/Sex: 64/F Req #: [id number] Adm Physician: Ordered by: ABEBE CLEMENTS MD Report #: [id number] Location: [facility] Room/Bed: Procedure: [id number] HOPD/CT ABD/PEL WO CONTRAST-HOPD Exam Date: 02/02/20 Exam Time: 1940 REPORT STATUS: Signed EXAM: CT Abdomen and Pelvis WITHOUT contrast INDICATION: ^lower abdominal pain, low grade fever, hx of chron's ^[id number] ^1940 COMPARISON: Abdominal MRI, 07/29/2019; CT abdomen/pelvis, 02/05/2019 TECHNIQUE: Abdomen and pelvis were scanned utilizing a multidetector helical scanner from the lung base to the pubic symphysis without administration of IV contrast. Absence of intravenous contrast decreases sensitivity for detection of focal lesions and vascular pathology. Coronal and sagittal reformations were obtained. Routine protocol was performed. Dose modulation, iterative reconstruction, and/or weight based adjustment of the mA/kV was utilized to reduce the radiation dose to as low as reasonably achievable. IV CONTRAST: None. ORAL CONTRAST: None RADIATION DOSE: Total DLP: 1024.31 mGy*cm Estimated effective dose: (DLP x 0.015 x size factor) mSv COMPLICATIONS: None FINDINGS: LINES and TUBES: None. LOWER THORAX: Lung bases are clear. There are scattered 2 to 3 mm nodular densities in the right middle lobe which are unchanged from previous exam. Heart size normal. Calcifications at the aortic valve are seen. Small hiatus hernia. HEPATOBILIARY: No focal hepatic lesions. No biliary ductal dilation. GALLBLADDER: Surgical absence of the gallbladder with cholecystectomy clips. SPLEEN: No splenomegaly. PANCREAS: No focal masses or ductal dilatation. ADRENALS: No adrenal nodules KIDNEYS/URETERS: No hydronephrosis. No cystic or solid mass lesions. No stones. GI TRACT: No abnormal distention, wall thickening, or evidence of bowel obstruction. Again noted is suture from apparent bowel surgery in the distal small bowel with adjacent mild distention of a bowel loop. Proximally there is no small bowel dilatation and there is moderately large volume of stool throughout the colon with no specific evidence for bowel obstruction. The appendix is not visualized. PELVIC ORGANS/BLADDER: Urinary bladder unremarkable. Uterus is anteverted. LYMPH NODES: No dominant lymph node mass is seen in the abdomen, retroperitoneum or pelvis. VESSELS: The abdominal aorta is atherosclerotic with scattered calcified plaques. No aneurysm. PERITONEUM / RETROPERITONEUM: No pneumoperitoneum or ascites. BONES: No acute or suspicious bony lesions. There are degenerative changes in the thoracolumbar spine. SOFT TISSUES: Superficial surrounding soft tissue unremarkable. IMPRESSION: 1. There is no evidence for bowel obstruction, but there is fluid-filled mild distention of the distal small bowel, possibly terminal ileum, adjacent to an apparent surgical anastomosis in the right lower quadrant. There is a moderately large volume of stool throughout the colon which may be seen with constipation. There is a moderately large volume of fluid in the nondilated small bowel. 2. No other change from previous exam. Staff: Arturo Signed by: Dr. Hernesto Thayer M.D. on 02/02/2020 8:30 PM Dictated By: HERNESTO THAYER MD 29 Transcribed By: CAMELIA on 02/02/202029 COPY TO: ABEBE CLEMENTS MD~ Diagnostics Tests Diagnostic test(s) reviewed: Yes Procedures 12 Lead ECG Interpretation Perfumer: Interpreted by ED physician Date: Feb 02, 2020 Time: 18:07 Prior MOGUL OPERATOR tracings: reviewed Rhythm: sinus rhythm Rate: normal BPM: 94 QRS axis: left ST segments normal: No ST segment flattening: II, V5, V6 T waves normal: No T waves flattening: V4, V5, V6 Clinical Impression: abnormal ECG Critical Care Time Subsequent provider I assumed direction of critical care for this patient from another provider of my specialty. Assessment & Plan Assessment & Plan Final Impression: (1) Acute abdominal pain (2) Diarrhea (3) UTI (urinary tract infection) (4) Nausea & vomiting (5) Generalized weakness (6) Crohn's disease Assessment & Plan - Discussed results of diagnostic evaluation in the ED with the patient and sp ouse. Explained that her labs looked good, with no evidence of anemia, elevated white blood cell count, electrolyte abnormality or significant dehydration. Her urine suggestive of possible urinary tract infection. Her primary symptom is urinary frequency. Patient received 1 g of Rocephin IV, while in the ED, and will complete a course of Macrobid. This antibiotic was chosen, as it had a lower risk of interaction with her various medications. Urine culture has been sent. - Discussed that the CT scan did not reveal any signs of obstruction or definite colitis. There are several "fluid-filled areas of the distal small bowel," of unclear significance. There is also a "large volume of stool seen throughout the colon," which can be seen with constipation. It is unclear, if patient is having multiple loose stools due to a possible flare of her colitis, though there were no inflammatory changes seen around the bowel the CT scan, versus patient could be passing liquid stool around an area of firm stool. Explained that patient needs to follow up with Dr. Mackenzie tomorrow, either in the clinic or by phone, for further direction. Pt and spouse voiced understanding of the plan. Call placed through Dr. Mackenzie's answering service. Drink plenty of fluids. Williamson Diet. Follow-up with Dr. Wu Mackenzie tomorrow, regarding ER evaluation and results of CT scan of abdomen. Return to the ER, if symptoms worsen. Depart Disposition: HOME, SELF-CARE Last Vital Signs Date Time Temp Pulse Resp B/P (MAP) Pulse Ox O2 Delivery O2 Flow Rate FiO2 02/02/20 18:43 99.6 97 18 120/67 98 Home Meds Active Scripts Fluconazole (DIFLUCAN) 150 Mg Tablet, 150 MG PO ONCE for yeast infection, #1 TAB 0 Refills Prov:ABEBE CLEMENTS MD 02/02/20 Nitrofurantoin Monohyd/M-Cryst (MACROBID 100 MG CAPSULE) 100 Mg Capsule, 1 TAB PO BID for urine infection, #10 20ML 0 Refills Prov:ABEBE CLEMENTS MD 02/02/20 Reported Medications Diphenoxylate Hcl/Atropine (LOMOTIL TABLET) 1 Each Tablet, 1 TAB PO Q6HR PRN for DIARRHEA, TAB 01/09/20 [vit c] No Conflict Check, PO DAILY 01/09/20 [iron ] No Conflict Check, PO DAILY 01/09/20 Calcium Carbonate/Vitamin D3 (CALTRATE 600 W-D TABLET) 1 Each Tablet, PO DAILY 01/09/20 [viberzi] No Conflict Check, 100 MG PO DAILY 02/10/16 [miralax] No Conflict Check, 1 CAP PO BID 02/07/16 Lamotrigine (LAMOTRIGINE) 100 Mg Tablet, 75 MG PO BID, #30 TAB 02/07/16 [Humira] No Conflict Check, 40 MG SQ UD ONCE A WEEK ON 12/28/15 Chlordiazepoxide/Clidinium Br (LIBRAX CAPSULE) 1 Each Capsule, PO PRN 08/06/15 Hyoscyamine Sulfate (LEVSIN) 0.125 Mg Tablet, 2 TAB .ROUTE PRN 08/06/15 [Yakult] No Conflict Check, 2.7 OZ PO DAILY 08/06/15 Glimepiride (GLIMEPIRIDE) 4 Mg Tablet, 4 MG PO DAILY 08/06/15 Desvenlafaxine Succinate (PRISTIQ ER) 100 Mg Tab.er.24h, 100 MG PO DAILY 05/24/15 Quetiapine Fumarate (SEROQUEL) 100 Mg Tablet, 100 MG PO BID 05/24/15 Multivitamin (MULTI-VITAMIN DAILY) 1 Each Tablet 03/10/15 Metformin Hcl (METFORMIN HCL) 500 Mg Tablet, 1000 MG PO BID, #60 TAB 03/10/15 Topiramate (TOPIRAMATE) 100 Mg Tablet, 100 MG PO DAILY, #30 TAB 03/10/15 Hydrocodone Bit/Acetaminophen (NORCO 10-325 TABLET) 1 Each Tablet, 1 TAB PO Q6 HRS PRN 03/31/14 Ondansetron (ZOFRAN ODT) 4 Mg Tab.rapdis, 8 MG SL QID PRN NAUSEA 01/24/14 Lorazepam (LORAZEPAM) 2 Mg Tablet, 1 MG PO QID PRN ANXIETY 01/24/14 Rosuvastatin Calcium (CRESTOR) 20 Mg Tablet, 20 MG PO EVERY EVENING 01/24/14 Levothyroxine Sodium (LEVOTHYROXINE SODIUM) 112 Mcg Tablet, 125 MCG PO DAILY 01/24/14 Fenofibrate (TRICOR) 145 Mg Tab, 145 MG PO DAILY 01/24/14 Sitagliptin Phosphate (JANUVIA) 100 Mg Tablet, 100 MG PO DAILY 01/24/14 Perindopril Erbumine (ACEON) 8 Mg Tablet, 8 MG PO DAILY 01/24/14 Dexlansoprazole (DEXILANT) 60 Mg Gilbert.mp, 60 MG PO BID 01/24/14 Medications in the ED Sodium Chloride 1,000 ml @ [facility]-MED ONCE .ROUTE ; Start 02/02/20 at 18:40; Stop 02/02/20 at 18:37; Status DC ABEBE CLEMENTS MD Feb 02, 2020 18:54
[2020-02-02] MEDS ORDERED: SODIUM CHLORIDE 0.9% 1000ML 1,000 ML IV SCH (19:00)
[2020-02-02] MEDS ORDERED: MORPHINE SULFATE INJ 4 MG/ML INJ 1ML IV STA (19:17)
[2020-02-02] MEDS ORDERED: ONDANSETRON HCL INJ 2MG/ML 2ML 2 MG/ML VIAL IV STA (19:17)
[2020-02-02] MEDS ORDERED: MORPHINE SULFATE INJ 4 MG/ML INJ 1ML ONE (19:27)
[2020-02-02] MEDS ORDERED: SODIUM CHLORIDE 0.9% 500ML 500 ML ONE (19:29)
[2020-02-02] MEDS ORDERED: SODIUM CHLORIDE 0.9% 500ML 500 ML IV ONE (19:30)
--- NOTE | 2020-02-02 20:34 | Diagnostic Imaging Report ---
EXAM: CT Abdomen and Pelvis WITHOUT contrast INDICATION: ^lower abdominal pain, low grade fever, hx of chron's ^[id number] ^1940 COMPARISON: Abdominal MRI, 07/29/2019; CT abdomen/pelvis, 02/05/2019 TECHNIQUE: Abdomen and pelvis were scanned utilizing a multidetector helical scanner from the lung base to the pubic symphysis without administration of IV contrast. Absence of intravenous contrast decreases sensitivity for detection of focal lesions and vascular pathology. Coronal and sagittal reformations were obtained. Routine protocol was performed. Dose modulation, iterative reconstruction, and/or weight based adjustment of the mA/kV was utilized to reduce the radiation dose to as low as reasonably achievable. IV CONTRAST: None. ORAL CONTRAST: None RADIATION DOSE: Total DLP: 1024.31 mGy*cm Estimated effective dose: (DLP x 0.015 x size factor) mSv COMPLICATIONS: None FINDINGS: LINES and TUBES: None. LOWER THORAX: Lung bases are clear. There are scattered 2 to 3 mm nodular densities in the right middle lobe which are unchanged from previous exam. Heart size normal. Calcifications at the aortic valve are seen. Small hiatus hernia. HEPATOBILIARY: No focal hepatic lesions. No biliary ductal dilation. GALLBLADDER: Surgical absence of the gallbladder with cholecystectomy clips. SPLEEN: No splenomegaly. PANCREAS: No focal masses or ductal dilatation. ADRENALS: No adrenal nodules KIDNEYS/URETERS: No hydronephrosis. No cystic or solid mass lesions. No stones. GI TRACT: No abnormal distention, wall thickening, or evidence of bowel obstruction. Again noted is suture from apparent bowel surgery in the distal small bowel with adjacent mild distention of a bowel loop. Proximally there is no small bowel dilatation and there is moderately large volume of stool throughout the colon with no specific evidence for bowel obstruction. The appendix is not visualized. PELVIC ORGANS/BLADDER: Urinary bladder unremarkable. Uterus is anteverted. LYMPH NODES: No dominant lymph node mass is seen in the abdomen, retroperitoneum or pelvis. VESSELS: The abdominal aorta is atherosclerotic with scattered calcified plaques. No aneurysm. PERITONEUM / RETROPERITONEUM: No pneumoperitoneum or ascites. BONES: No acute or suspicious bony lesions. There are degenerative changes in the thoracolumbar spine. SOFT TISSUES: Superficial surrounding soft tissue unremarkable. IMPRESSION: 1. There is no evidence for bowel obstruction, but there is fluid-filled mild distention of the distal small bowel, possibly terminal ileum, adjacent to an apparent surgical anastomosis in the right lower quadrant. There is a moderately large volume of stool throughout the colon which may be seen with constipation. There is a moderately large volume of fluid in the nondilated small bowel. 2. No other change from previous exam. Staff: Arturo Signed by: Dr. Bao Morris M.D. on 02/02/2020 8:30 PM
--- NOTE | 2020-02-02 21:15 | NUR ---
CALLED DR SINGH, ANSWERING SERVICE WILL PAGE HIM. AT DR CLEMENTS REQUEST.
--- NOTE | 2020-02-02 21:20 | NUR ---
PT RESTING QUIETLY, BOTH RAILS UP. SPOUSE AT BEDSIDE
--- NOTE | 2020-02-02 21:30 | NUR ---
UP TO RESTROOM ASSISTED BY SPOUSE
[2020-02-02] MEDS ORDERED: MACROBID 100 M100 MG PO (22:10)
[2020-02-02] MEDS ORDERED: DIFLUCAN150 MG PO (22:12)
[2020-02-02 22:34] VITALS: BP 117/70
[2020-02-03] MEDS ORDERED: BACITRACIN ZINC 15 GM OINT TOP SCH (09:00)
== END 2020-02-02 22:30 | disposition home or self-care (01) ==
LOC: FSED 17:52
DX: R10.30 Lower abdominal pain, unspecified (principal); R11.2 Nausea with vomiting, unspecified; R19.7 Diarrhea, unspecified; N39.0 Urinary tract infection, site not specified; R53.1 Weakness; K50.90 Crohn's disease, unspecified, without complications
CPT/HCPCS: 74176; 80053; 81003; 85025; 87086; 93005; 96374; 96376; 99283; J2270; J2405; J7030; J7040

== ENCOUNTER → 2020-02-17 | Outpatient (CLI) | payer OTHER ==
[~2020-02-17] MED LIST changes: +DIFLUCAN150 MG PO; +MACROBID 100 M100 MG PO
--- NOTE | 2020-02-17 17:13 | Diagnostic Imaging Report ---
EXAM: Abdomen Radiograph INDICATION: Abdominal pain. COMPARISON: CT abdomen and pelvis dated 02/02/2020. FINDINGS: TUBES and LINES: None. LOWER CHEST: No abnormalities in the lower chest. ABDOMEN: Cholecystectomy clips are seen. The bowel loops are unremarkable with no dilatation or signs of obstruction. volume of stool in the colon. No pneumoperitoneum. No abnormal abdominal calcifications. BONES AND SOFT TISSUES: No acute osseous lesion. Soft tissues are unremarkable. IMPRESSION: No acute abdominal radiographic abnormality. Signed by: Wallace Brannon MD on 02/17/2020 5:10 PM
== END ==
LOC: RAD 16:35
PROVIDERS: ATTEND Internal Medicine Gastroenterology
DX: R19.7 Diarrhea, unspecified (principal); K20.9 Esophagitis, unspecified; K29.70 Gastritis, unspecified, without bleeding
CPT/HCPCS: 74018

== ENCOUNTER 2020-02-18 17:32 | Inpatient (IN) | payer OTHER ==
[~2020-02-18] VITALS: Ht 147.3 cm; Wt 69.4 kg
[2020-02-18] MEDS ORDERED: ONDANSETRON HCL INJ 2MG/ML 2ML 2 MG/ML VIAL IV STA (17:40)
[2020-02-18] MEDS ORDERED: MORPHINE SULFATE 2 MG/ML SYR 1ML IV STA (17:40)
[2020-02-18] MEDS ORDERED: DICYCLOMINE HCL 20 MG/2 ML VIAL IM ONE ×2 (17:45→18:19)
[2020-02-18] MEDS ORDERED: ONDANSETRON HCL INJ 2MG/ML 2ML 2 MG/ML VIAL ONE ×2 (18:18→19:32)
[2020-02-18] MEDS ORDERED: MORPHINE SULFATE INJ 4 MG/ML INJ 1ML ONE (18:19)
--- NOTE | 2020-02-18 18:52 | Diagnostic Imaging Report ---
EXAM: CT Abdomen and Pelvis WITHOUT contrast INDICATION: ^pain COMPARISON: Abdominal MRI, 07/29/2019; CT abdomen/pelvis, 02/17/2019 TECHNIQUE: Abdomen and pelvis were scanned utilizing a multidetector helical scanner from the lung base to the pubic symphysis without administration of IV contrast. Absence of intravenous contrast decreases sensitivity for detection of focal lesions and vascular pathology. Coronal and sagittal reformations were obtained. Routine protocol was performed. IV CONTRAST: None. ORAL CONTRAST: None RADIATION DOSE: Total DLP: 841.32 mGy*cm Estimated effective dose: (DLP x 0.015 x size factor) mSv COMPLICATIONS: None FINDINGS: LINES and TUBES: None. LOWER THORAX: Lung bases are clear. The previously reported 2 to 3 mm nodular densities in the right middle lobe is not seen on this exam. HEPATOBILIARY: No focal hepatic lesions. No biliary ductal dilation. GALLBLADDER: Surgical absence of the gallbladder with cholecystectomy clips. A dropped cholecystectomy clip is seen abutting the posterior medial aspect of the liver capsule. SPLEEN: No splenomegaly. PANCREAS: No focal masses or ductal dilatation. ADRENALS: No adrenal nodules KIDNEYS/URETERS: No hydronephrosis. No cystic or solid mass lesions. No stones. GI TRACT: No abnormal distention, wall thickening, or evidence of bowel obstruction. PELVIC ORGANS/BLADDER: Urinary bladder unremarkable. Uterus is anteverted. LYMPH NODES: Slightly prominent mesenteric lymph nodes measuring up to 0.6 cm (series 2, image 33) unchanged from prior exam and nonspecific could be infectious or inflammatory. VESSELS: The abdominal aorta is atherosclerotic with scattered calcified plaques. No aneurysm. PERITONEUM / RETROPERITONEUM: No pneumoperitoneum or ascites. Mild haziness of the retroperitoneal is unchanged. (series 2, image 26) Foci of calcifications in the right lower quadrant could represent vascular or lymph node calcifications. BONES: There are degenerative changes in the lumbar spine. SOFT TISSUES: Superficial surrounding soft tissue unremarkable. IMPRESSION: Mild haziness of the retroperitoneum and slightly prominent mesenteric lymph nodes are unchanged could be infectious or inflammatory. A dropped cholecystectomy clip is seen abutting the posterior medial aspect of the liver capsule. Signed by: Wallace Brannon MD on 02/18/2020 6:48 PM
[2020-02-18] MEDS ORDERED: SODIUM CHLORIDE 0.9% 1000ML 1,000 ML IV SCH (19:15)
--- NOTE | 2020-02-18 19:15 | Emergency Department Note ---
History of Present Illnes History of Present Illness Chief Complaint: Abdominal Complaints History of Present Illness This is a 64 year old female . Chief Complaint Comment ABD PAIN SEVERAL DAYS. THIRD TRIP TO ER FOR SAME. STATES CT DONE AND HAS RETAINED STOOL. STATES HX OF CHRONIC CONSTIPATION. NO N/V/D/F/ Historian: Patient, Family Member Arrival Mode: Car Onset (how long ago): day(s) (3) Location: ABDOMEN Quality: SHARP Radiation: Reports non-radiation Severity: moderate Onset quality: gradual Duration (how long): day(s) (3) Timing of current episode: constant Progression: worsening Chronicity: new Context: Denies recent illness, Denies recent surgery, Denies recent immobilization, Denies recent travel, Denies trauma/injury, Denies new medications, Denies hx of DVT/PE, Denies non-compliance w/ medications, Denies other Relieving factors: none Exacerbating factors: none Associated symptoms: Reports denies other symptoms Treatments prior to arrival: none Past Medical/Family History Physician Review I have reviewed the patient's past medical and family history. Any updates have been documented here. Past Medical History Recent Fever: No Clinical Suspicion of Infectio: No New/Unexplained Change in Ment: No Past Medical History: Hypertension, Diabetes, Anxiety, Depression, GERD Other Medical History: ANXIETY DEPRESSION BIPOLAR PANIC ATTACKS THYROID D/O CROHN'S IBS LUPUS-2016 Other Surgery: ADHESIONS OVARIAN CYST HEMRHOIDECTOMY FISSURE REPAIR LEFT KNEE SURGERY Social History Smoking Cessation: Never Smoker Family History Family history of heart diseas: No Other Last Tetanus: OOD Review of Systems Review of Systems Constitutional: Reports no symptoms EENTM: Reports no symptoms Cardiovascular: Reports no symptoms Respiratory: Reports no symptoms Gastrointestinal: Reports abdominal pain Genitourinary: Reports no symptoms Musculoskeletal: Reports no symptoms Integumentary: Reports no symptoms Neurological: Reports no symptoms Psychological: Reports no symptoms Endocrine: Reports no symptoms Hematological/Lymphatic: Reports no symptoms Physical Exam Related Data Allergies: Coded Allergies: Shellfish (Verified Allergy, Severe, RED, ITCHING, 04/17/18) SHELLFISH ALLERGY iodine (Verified Allergy, Intermediate, RED, ITCHING, 04/17/18) meperidine (Verified Allergy, Intermediate, anxiety attack, itching, 04/17/18) promethazine (Verified Allergy, Unknown, ANXIETY, RASH, 04/17/18) Triage Vital Signs Vital Signs Date Time Temp Pulse Resp B/P (MAP) Pulse Ox O2 Delivery O2 Flow Rate FiO2 02/18/20 17:32 97.8 88 16 146/81 97 Vital signs reviewed: Yes Physical Exam CONSTITUTIONAL Constitutional: Present well-developed, Present well-nourished HENT HENT: Present normocephalic, Present atraumatic, Present oropharynx clear/moist, Present nose normal HENT L/R: Present left ext ear normal, Present right ext ear normal EYES Eyes: Reports PERRL, Reports conjunctivae normal NECK Neck: Present ROM normal PULMONARY Pulmonary: Present effort normal, Present breath sounds normal CARDIOVASCULAR Cardiovascular: Present regular rhythm, Present heart sounds normal, Present capillary refill normal, Present normal rate GASTROINTESTINAL Abdominal: Present soft, Present bowel sounds normal GENITOURINARY Genitourinary: Present exam deferred SKIN Skin: Present warm, Present dry MUSCULOSKELETAL Musculoskeletal: Present ROM normal NEUROLOGICAL Neurological: Present alert, Present oriented x 3, Present no gross motor or sensory deficits PSYCHOLOGICAL Psychological: Present mood/affect normal, Present judgement normal Results Laboratory Lab results reviewed: Yes Imaging Imaging results reviewed: Yes Assessment & Plan Medical Decision Making MDM BOOWEL OBSTRUCTION ,, CONSTIPATION Reassessment Reassessment time: 19:12 Reassessment BETTER Assessment & Plan Final Impression: (1) Abdominal pain (2) Acute abdominal pain Depart Disposition: ADMITTED Last Vital Signs Date Time Temp Pulse Resp B/P (MAP) Pulse Ox O2 Delivery O2 Flow Rate FiO2 02/18/20 17:32 97.8 88 16 146/81 97 Home Meds Active Scripts Fluconazole (DIFLUCAN) 150 Mg Tablet, 150 MG PO ONCE for yeast infection, #1 TAB 0 Refills Prov:ABEBE CLEMENTS MD 02/02/20 Nitrofurantoin Monohyd/M-Cryst (MACROBID 100 MG CAPSULE) 100 Mg Capsule, 1 TAB PO BID for urine infection, #10 20ML 0 Refills Prov:ABEBE CLEMENTS MD 02/02/20 Reported Medications Diphenoxylate Hcl/Atropine (LOMOTIL TABLET) 1 Each Tablet, 1 TAB PO Q6HR PRN for DIARRHEA, TAB 01/09/20 [vit c] No Conflict Check, PO DAILY 01/09/20 [iron ] No Conflict Check, PO DAILY 01/09/20 Calcium Carbonate/Vitamin D3 (CALTRATE 600 W-D TABLET) 1 Each Tablet, PO DAILY 01/09/20 [viberzi] No Conflict Check, 100 MG PO DAILY 02/10/16 [miralax] No Conflict Check, 1 CAP PO BID 02/07/16 Lamotrigine (LAMOTRIGINE) 100 Mg Tablet, 75 MG PO BID, #30 TAB 02/07/16 [Humira] No Conflict Check, 40 MG SQ UD ONCE A WEEK ON 12/28/15 Chlordiazepoxide/Clidinium Br (LIBRAX CAPSULE) 1 Each Capsule, PO PRN 08/06/15 Hyoscyamine Sulfate (LEVSIN) 0.125 Mg Tablet, 2 TAB .ROUTE PRN 08/06/15 [Yakult] No Conflict Check, 2.7 OZ PO DAILY 08/06/15 Glimepiride (GLIMEPIRIDE) 4 Mg Tablet, 4 MG PO DAILY 08/06/15 Desvenlafaxine Succinate (PRISTIQ ER) 100 Mg Tab.er.24h, 100 MG PO DAILY 05/24/15 Quetiapine Fumarate (SEROQUEL) 100 Mg Tablet, 100 MG PO BID 05/24/15 Multivitamin (MULTI-VITAMIN DAILY) 1 Each Tablet 03/10/15 Metformin Hcl (METFORMIN HCL) 500 Mg Tablet, 1000 MG PO BID, #60 TAB 03/10/15 Topiramate (TOPIRAMATE) 100 Mg Tablet, 100 MG PO DAILY, #30 TAB 03/10/15 Hydrocodone Bit/Acetaminophen (NORCO 10-325 TABLET) 1 Each Tablet, 1 TAB PO Q6 HRS PRN 03/31/14 Ondansetron (ZOFRAN ODT) 4 Mg Tab.rapdis, 8 MG SL QID PRN NAUSEA 01/24/14 Lorazepam (LORAZEPAM) 2 Mg Tablet, 1 MG PO QID PRN ANXIETY 01/24/14 Rosuvastatin Calcium (CRESTOR) 20 Mg Tablet, 20 MG PO EVERY EVENING 01/24/14 Levothyroxine Sodium (LEVOTHYROXINE SODIUM) 112 Mcg Tablet, 125 MCG PO DAILY 01/24/14 Fenofibrate (TRICOR) 145 Mg Tab, 145 MG PO DAILY 01/24/14 Sitagliptin Phosphate (JANUVIA) 100 Mg Tablet, 100 MG PO DAILY 01/24/14 Perindopril Erbumine (ACEON) 8 Mg Tablet, 8 MG PO DAILY 01/24/14 Dexlansoprazole (DEXILANT) 60 Mg , 60 MG PO BID 01/24/14 Medications in the ED Morphine Sulfate 2 mg NOW STAT IV Last administered on 02/18/20at 18:46; Admin Dose 2 MG; Start 02/18/20 at 17:40; Stop 02/18/20 at 17:45; Status DC Ondansetron HCl 4 mg NOW STAT IV Last administered on 02/18/20at 18:46; Admin Dose 4 MG; Start 02/18/20 at 17:40; Stop 02/18/20 at 17:45; Status DC Dicyclomine HCl 20 mg ONCE ONCE IM Last administered on 02/18/20at 18:46; Admin Dose 20 MG; Start 02/18/20 at 17:45; Stop 02/18/20 at 17:46; Status DC Ondansetron HCl 4 mg STK-MED ONCE .ROUTE ; Start 02/18/20 at 18:18; Stop 02/18/20 at 18:13; Status DC Dicyclomine HCl 20 mg STK-MED ONCE IM ; Start 02/18/20 at 18:19; Stop 02/18/20 at 18:13; Status DC Morphine Sulfate 4 mg STK-MED ONCE .ROUTE ; Start 02/18/20 at 18:19; Stop 02/18/20 at 18:14; Status DC CARMELLA GRIFFITHS MD Feb 18, 2020 19:15
[2020-02-18] MEDS ORDERED: ONDANSETRON HCL INJ 2MG/ML 2ML 2 MG/ML VIAL IV ONE (19:21)
[2020-02-18] MEDS ORDERED: CEFTRIAXONE SOD 1 GM/NS 50 ML 50 ML IV ONE ×2 (19:30→20:02)
[2020-02-18] MEDS ORDERED: PROMETHAZINE HCL (IM) 25 MG/ML VIAL IM ONE (19:30)
[2020-02-18] MEDS ORDERED: CEFTRIAXONE SOD 1 GM VIAL IV SCH (19:30)
[2020-02-18] MEDS ORDERED: DIPHENHYDRAMINE HCL INJ 50 MG/ML VIAL IV ONE (19:45)
[2020-02-18] MEDS ORDERED: DIPHENHYDRAMINE HCL INJ 50 MG/ML VIAL ONE (19:48)
--- NOTE | 2020-02-18 21:55 | NUR ---
PATIENT RECEIVED FROM [facility]. PATIENT IS AAOX3, RESP EVEN AND UNLABORED. NO ACUTE DISTRESS NOTED. REPORT RECEIVED THAT ER NURSE HAD GIVEN PATIENT PHENERGAN WHICH PATIENT IS ALLERGIC TO. NO SIGN AND SYMPTOM OF REACTION NOTED. CONTINUE TO MONITOR CLOSELY. ORIENTED TO ROOM. BED LOW/LOCKED. SIDE RAIL UP X2.
[2020-02-18 22:00] VITALS: BP 109/66
[2020-02-18] MEDS: MORPHINE SULFATE 2 MG/ML SYR 1ML IV PRN (22:30)
[2020-02-18] MEDS: ONDANSETRON HCL INJ 2MG/ML 2ML 2 MG/ML VIAL IV PRN (22:30)
[2020-02-18] MEDS ORDERED: PANTOPRAZOLE 40 MG 10ML VIAL IV STA (23:38)
[2020-02-19] VITALS (8 sets, daily range): BP systolic 109–130; BP diastolic 62–76
[2020-02-19] MEDS ORDERED: METRONIDAZOLE 500MG/NS 100ML 100 ML IV SCH
--- NOTE | 2020-02-19 00:05 | NUR ---
DR SINGH MADE ROUND. NEW ORDER RECEIVED
[2020-02-19] MEDS: LACTATED RINGER'S 1,000 ML INJ SCH ×4 (00:29→23:45)
[2020-02-19] MEDS: PANTOPRAZOLE INJ 40 MG in SODIUM CHLORIDE 0.9% 50ML 50 ML IV SCH ×5 (00:29→19:45)
[2020-02-19] MEDS: METOCLOPRAMIDE HCL 10 MG/2ML VIAL IV SCH ×4 (00:29→17:50)
[2020-02-19] MEDS: ONDANSETRON HCL INJ 2MG/ML 2ML 2 MG/ML VIAL IV PRN ×3 (04:45→21:30)
[2020-02-19] MEDS: MORPHINE SULFATE 2 MG/ML SYR 1ML IV PRN ×3 (04:45→21:30)
[2020-02-19] MEDS: METRONIDAZOLE 500MG/NS 100ML 100 ML IV SCH ×3 (05:10→17:49)
[2020-02-19 06:06] LABS: BASOPHILS # (AUTO) 0.1 (0.0-0.1); BASOPHILS % 0.8 % (0.0-1.0); EOSINOPHILS # (AUTO) 0.6 (0.0-0.4); EOSINOPHILS % 10.2 % (0.0-6.0); HEMATOCRIT 31.7 % (34.2-44.1); HEMOGLOBIN 9.9 g/dL (12.0-16.0); LYMPHOCYTES % 31.9 % (18.0-39.1); MEAN CORPUSCULAR HEMOGLOBIN 27.2 pg (28-32); MEAN CORPUSCULAR HGB CONC 31.2 g/dL (31-35); MEAN CORPUSCULAR VOLUME 87.1 fL (81-99); MONOCYTES # (AUTO) 0.5 (0.2-0.8); MONOCYTES % 8.5 % (4.4-11.3); PLATELET COUNT 209 x10e3/uL (140-360); RED BLOOD COUNT 3.64 x10e6/uL (3.6-5.1); RED CELL DISTRIBUTION WIDTH 14.5 % (11.7-14.4)
[2020-02-19 06:51] LABS: ALBUMIN 3.5 g/dL (3.5-5.0); ALBUMIN/GLOBULIN RATIO 1.1 (0.8-2.0); ANION GAP 12.3 mmol/L (8-16); CALCIUM 8.6 mg/dL (8.4-10.2); CREATININE, SERUM 1.33 mg/dL (0.57-1.11); POTASSIUM 4.3 mmol/L (3.5-5.1)
[2020-02-19 07:07] LABS: RETICULOCYTE % 2.1 % (0.8-2.2)
[2020-02-19 07:32] LABS: FERRITIN 75.1 ng/mL (4.63-204.00)
--- NOTE | 2020-02-19 13:18 | NUR ---
ASSESSMENT: Spiritual distress Director Decision Support referred by staff. Pt overwhelmed by chronic illness and news of niece's COVID-19 diagnosis. Pt expressed emotions thru words and tears. Pt states she has suffered from illness since she was 16. Pt states her 18 y/o niece was just diagnosed as COVID positive. 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 Intervention: Provided unhurried empathic listening and prayer. Facilitated storytelling. Outcome: Pt expressed appreciation for visit. Provided information on how to reach schedule clerk, if needed. SANTANA DELEON Director Decision Support Spiritual Care Department O: [phone]
[2020-02-19] MEDS: LORAZEPAM 1 MG TAB PO PRN (13:21)
[2020-02-19] MEDS ORDERED: CHLORDIAZEPOXIDE/CLIDINIUM 1 CAP PO PRN (15:45)
[2020-02-19] MEDS ORDERED: DIPHENOXYLATE/ATROPINE TAB PO PRN (15:45)
[2020-02-19] MEDS ORDERED: PANTOPRAZOLE SOD 40 MG TABEC PO SCH (17:00)
[2020-02-19] MEDS: METFORMIN HCL 500 MG TAB PO SCH (17:49)
[2020-02-19] MEDS: LAMOTRIGINE 25 MG TAB PO SCH (17:49)
[2020-02-19] MEDS: NITROFURANTOIN MACROCRYSTALS 100 MG CAP PO SCH (17:49)
[2020-02-19] MEDS: QUETIAPINE FUMARATE 100 MG TAB PO SCH (17:49)
--- NOTE | 2020-02-19 18:47 | NUR ---
patient resting in bed, alert with no distress, Dr Cleve Mackenzie had rounds this afternoon, call light in reach, on IV Protonix and IV fluids
[2020-02-19] MEDS: CEFTRIAXONE SOD 1 GM/NS 50 ML 50 ML IV SCH (19:30)
--- NOTE | 2020-02-19 19:36 | NUR ---
Received change of shift report from AM nurse. Walking rounds completed.
[2020-02-19] MEDS: HYOSCYAMINE 0.125 MG TAB PO PRN (21:30)
[2020-02-19] MEDS ORDERED: RIFAXIMIN 550 MG TABLET PO STA (23:45)
[2020-02-20] VITALS (9 sets, daily range): BP systolic 128–154; BP diastolic 51–74
--- NOTE | 2020-02-20 | NUR ---
Patient received pain meds as needed for abdominal pain. Also received ativan for anxiety. Continue monitor.
[2020-02-20] MEDS: PANTOPRAZOLE INJ 40 MG in SODIUM CHLORIDE 0.9% 50ML 50 ML IV SCH ×5 (00:45→20:15)
[2020-02-20] MEDS: LORAZEPAM 1 MG TAB PO PRN ×3 (01:30→20:31)
--- NOTE | 2020-02-20 02:00 | NUR ---
Patient states she feel better. Patient resting quitly at this time.
[2020-02-20 03:43] LABS: CLARITY,URINE CLEAR (CLEAR); COLOR,URINE YELLOW (YELLOW)
[2020-02-20 03:44] LABS: BACTERIA,URINE FEW /HPF; BILIRUBIN,URINE NEGATIVE (NEGATIVE); EPITHELIAL CELLS,URINE FEW /LPF; KETONES,URINE NEGATIVE (NEGATIVE); LEUKOCYTE ESTERASE ,URINE NEGATIVE (NEGATIVE); NITRITE,URINE NEGATIVE (NEGATIVE); PROTEIN,URINE DIPSTICK NEGATIVE (NEGATIVE); RBC,URINE 0-5 /HPF (0-5); URINE UROBILINOGEN 0.2 mg/dL (0.2 - 1)
[2020-02-20 04:21] LABS: RENAL EPITHELIAL CELLS,URINE FEW; TRANSITIONAL EPI CELLS,URINE FEW
[2020-02-20] MEDS: METRONIDAZOLE 500MG/NS 100ML 100 ML IV SCH ×4 (05:39→18:13)
[2020-02-20] MEDS: LEVOTHYROXINE SODIUM 125 MCG TAB PO SCH (05:39)
[2020-02-20] MEDS: METOCLOPRAMIDE HCL 10 MG/2ML VIAL IV SCH ×4 (05:39→18:13)
[2020-02-20] MEDS: MORPHINE SULFATE 2 MG/ML SYR 1ML IV PRN (05:40)
[2020-02-20] MEDS: ONDANSETRON HCL INJ 2MG/ML 2ML 2 MG/ML VIAL IV PRN (05:40)
[2020-02-20] MEDS ORDERED: RIFAXIMIN 200 MG TAB PO SCH (06:00)
[2020-02-20 06:26] LABS: FERRITIN 92.38 ng/mL (4.63-204.00)
[2020-02-20] MEDS: LACTATED RINGER'S 1,000 ML INJ SCH ×2 (07:45→13:46)
[2020-02-20] MEDS: METFORMIN HCL 500 MG TAB PO SCH ×2 (08:00→18:13)
--- NOTE | 2020-02-20 08:54 | NUR ---
spoke with Radiology who will come get pt for small bowel series at 0930.
[2020-02-20] MEDS: NITROFURANTOIN MACROCRYSTALS 100 MG CAP PO SCH ×2 (09:00→18:13)
[2020-02-20] MEDS: QUETIAPINE FUMARATE 100 MG TAB PO SCH ×2 (09:00→18:13)
[2020-02-20] MEDS: LAMOTRIGINE 25 MG TAB PO SCH ×2 (09:00→18:13)
--- NOTE | 2020-02-20 09:39 | NUR ---
PT LEFT FOR SMALL BOWEL SERIES. ESCORTED WITH ROLL FORMING MACHINE SET UP MECHANIC VIA WHEELCHAIR, LEFT IN STABLE CONDITION.
[2020-02-20 09:51] LABS: WBC,FECAL (FECAL LACTOFERRIN) POSITIVE (NEGATIVE)
--- NOTE | 2020-02-20 12:02 | NUR ---
pt back to room, in stable condition.
[2020-02-20] MEDS: HYDROCODONE/APAP 10MG-325MG TAB PO PRN (12:18)
[2020-02-20] MEDS: RIFAXIMIN 550 MG TABLET PO SCH ×2 (13:47→21:30)
[2020-02-20] MEDS: TOPIRAMATE 100 MG TAB PO SCH (13:48)
[2020-02-20] MEDS: SITAGLIPTIN 100 MG TAB PO SCH (13:48)
[2020-02-20] MEDS: FENOFIBRATE 145 MG TAB PO SCH (13:48)
[2020-02-20 14:52] LABS: C DIFFICILE TOXIN A&B AMP PROB NEGATIVE (NEGATIVE)
--- NOTE | 2020-02-20 15:12 | Diagnostic Imaging Report ---
SMALL BOWEL FOLLOW THROUGH HISTORY: Abdominal pain DAIRY EQUIPMENT INSTALLER(S): Stephanie Wooten MD Comparison: CT abdomen/Pelvis 02/18/2020 Procedure: Small bowel follow through exam was performed using oral barium. Preliminary image was obtained before administration of contrast and serial overhead images were obtained after administration of oral barium. Fluoroscopy was performed and spot images were obtained. DISCUSSION: TAXATION CONSULTANT: The bowel gas pattern is non-obstructive. ESOPHAGUS: Within normal limits. GASTROESOPHAGEAL JUNCTION: No evidence of hiatal hernia. GASTROESOPHAGEAL REFLUX: None observed. STOMACH: Normally distensible and demonstrates normal contours and mucosal pattern. DUODENUM: Bulb and sweep are normal. Duodenal-jejunal junction is in the normal expected position. Small bowel loops are normal in caliber and distribution. There is no evidence of fistula, mucosal changes, stricture or dilation. The transit time was within normal limits. IMPRESSION: Unremarkable exam. Signed by: Stephanie Wooten MD on 02/20/2020 3:08 PM
--- NOTE | 2020-02-20 19:00 | NUR ---
change of shift report given to night shift manager nurse. pt in stable condition.
--- NOTE | 2020-02-20 19:15 | NUR ---
RECEIVED REPORT FROM PREVIOUS NURSE. CALL LIGHT WITHIN REACH. PATIENT IN BED. PATIENT IN NO PAIN OR DISTRESS.
[2020-02-20] MEDS: CEFTRIAXONE SOD 1 GM/NS 50 ML 50 ML IV SCH (20:03)
[2020-02-20] MEDS ORDERED: CYANOCOBALAMIN INJ 1,000 MCG/ML VIAL IM STA (23:58)
[2020-02-21] VITALS (8 sets, daily range): BP systolic 128–157; BP diastolic 68–88
[2020-02-21] MEDS ORDERED: IRON SUCROSE 100 MG in SODIUM CHLORIDE 0.9% 100 ML 100 ML IV SCH ×2
[2020-02-21] MEDS: METOCLOPRAMIDE HCL 10 MG/2ML VIAL IV SCH ×5 (00:37→23:49)
[2020-02-21] MEDS: METRONIDAZOLE 500MG/NS 100ML 100 ML IV SCH ×5 (00:37→23:49)
[2020-02-21] MEDS: PANTOPRAZOLE INJ 40 MG in SODIUM CHLORIDE 0.9% 50ML 50 ML IV SCH ×4 (03:13→22:51)
[2020-02-21] MEDS: LEVOTHYROXINE SODIUM 125 MCG TAB PO SCH (06:14)
[2020-02-21] MEDS: RIFAXIMIN 550 MG TABLET PO SCH ×3 (06:14→21:41)
[2020-02-21] MEDS: LACTATED RINGER'S 1,000 ML INJ SCH ×2 (06:23→08:39)
--- NOTE | 2020-02-21 07:00 | NUR ---
RECEIVED PATIENT AWAKE RESTING IN BED NO S/S OF DISTRESS. BED LOW, WHEELS LOCKED, SIDE RAILS X2. CALL LIGHT IN REACH WILL CONTINUE TO MONITOR PATIENT.
--- NOTE | 2020-02-21 07:22 | NUR ---
GAVE BEDSIDE SHIFT REPORT TO ONCOMING NURSE. CALL LIGHT WITHIN REACH. PATIENT IN BED. HOURLY ROUNDING PERFORMED.
[2020-02-21] MEDS: FENOFIBRATE 145 MG TAB PO SCH (08:41)
[2020-02-21] MEDS: LAMOTRIGINE 25 MG TAB PO SCH ×2 (08:42→18:07)
[2020-02-21] MEDS: METFORMIN HCL 500 MG TAB PO SCH ×2 (08:42→18:06)
[2020-02-21] MEDS: CYANOCOBALAMIN INJ 1,000 MCG/ML VIAL IM SCH (08:42)
[2020-02-21] MEDS: TOPIRAMATE 100 MG TAB PO SCH (08:42)
[2020-02-21] MEDS: QUETIAPINE FUMARATE 100 MG TAB PO SCH ×2 (08:42→18:07)
[2020-02-21] MEDS: NITROFURANTOIN MACROCRYSTALS 100 MG CAP PO SCH ×2 (08:42→18:07)
[2020-02-21] MEDS: SITAGLIPTIN 100 MG TAB PO SCH (08:42)
[2020-02-21] MEDS: HYDROCODONE/APAP 10MG-325MG TAB PO PRN ×2 (08:51→15:40)
[2020-02-21] MEDS: IRON SUCROSE 100 MG in SODIUM CHLORIDE 0.9% 100 ML 100 ML IV SCH (09:59)
--- NOTE | 2020-02-21 13:45 | Progress Note ---
DATE: Internal Medicine Progress Note SUBJECTIVE: The patient is complaining of feeling well. Having abdominal pain, frequent urination. PHYSICAL EXAMINATION: VITAL SIGNS: Blood pressure 142/78, temperature 98.1, heart rate 78 per minute, respiratory rate 18 per minute, and O2 saturation 99%. HEART: Showed regular rhythm. Normal S1, S2 sound. LUNGS: Clear bilaterally. ABDOMEN: Soft. EXTREMITIES: Show no edema. LABORATORY STUDIES: CBC; white count 6.27, hemoglobin 9.9, hematocrit 31.7, and platelet count 208,000. Blood sugar 148. The last BMP; sodium 138, potassium 4.3, chloride 106, CO2 of 24, BUN 22, creatinine 1.33, glucose 76. Iron 39, TIBC 483, transferrin 345, ferritin normal at 75. AST 32, ALT 18, alkaline phosphatase 434, total protein 6.8, albumin 3.5 globin 3.3. Vitamin B12 is 403, which is completely normal and folic acid is 20, which is normal. IMPRESSION: 1. Crohn disease exacerbation. 2. Abdominal pain most likely secondary to Crohn disease exacerbation. 3. Hypertension. 4. Uncontrolled diabetes mellitus type 2 with diabetic nephropathy. 5. Chronic renal failure, stage 3, most likely due to diabetic nephropathy. 6. Anemia of chronic disease. PLAN: The patient denied infusion. Continue the current IV antibiotic therapy, supervised by Dr. Wu Mackenzie, tour conductor. Continue ceftriaxone 1 g IV once a day. Continue iron sucrose which is Venofer 100 mg IV once a day. Continue taking lactated Ringer's 125 mL an hour, continue metronidazole 500 mg IV q.6 hours, Protonix drip, continue Librax one tablet daily as needed, vitamin B12 of 1000 mcg once and then 1000 mcg IM daily, Lomotil 1 tablet q.6 hours as needed for diarrhea, fenofibrate 145 mg daily, [place] 10/325 q.6 hours as needed for moderate pain. Levsin 0.125 mg daily as needed for GI disorder. Lamictal 75 mg twice a day, levothyroxine 125 mcg daily, lorazepam 1 mg q.6 hours as needed for anxiety, metformin 1000 mg twice a day, metoclopramide IV 10 mg IV q.6 hours, morphine 2 mg IV q.6 hours as needed, nitrofurantoin 100 mg twice a day, Zofran 4 mg IV q.4 hours as needed for nausea and vomiting, Seroquel 100 mg twice a day, Xifaxan 550 mg q.8 hours, Januvia 100 mg daily, Topamax 100 mg daily. The patient is complaining of overactive bladder, so we are going to start her on VESIcare. I am going to discontinue the fluid as she is taking. I am going to continue with her frequent urination. Dr. Wu Mackenzie is on the case for Gastroenterology since this is a very difficult case. MD ROJAS Dela Cruz/AKHIL /[id number]
[2020-02-21] MEDS: LORAZEPAM 1 MG TAB PO PRN ×2 (14:11→20:26)
[2020-02-21] MEDS: ONDANSETRON HCL INJ 2MG/ML 2ML 2 MG/ML VIAL IV PRN ×2 (15:40→20:30)
--- NOTE | 2020-02-21 15:40 | NUR ---
PATIENT COMPLAINING OF ABDOMINAL PAIN AND DRY HEAVING. MEDICATED PATIENT WITH ZOFRAN AND HYDROCODONE. AT BEDSIDE. CALL LIGHT IN REACH WILL CONTINUE TO MONITOR PATIENT.
--- NOTE | 2020-02-21 19:00 | NUR ---
RECEIVED REPORT FROM PREVIOUS NURSE. CALL LIGHT WITHIN REACH. PATIENT IN BED. BEDSIDE REPORT PERFORMED
[2020-02-21] MEDS: CEFTRIAXONE SOD 1 GM/NS 50 ML 50 ML IV SCH (19:34)
[2020-02-21] MEDS: HYOSCYAMINE 0.125 MG TAB PO PRN (19:54)
[2020-02-21] MEDS: MORPHINE SULFATE 2 MG/ML SYR 1ML IV PRN (20:29)
[2020-02-22] VITALS (8 sets, daily range): BP systolic 128–152; BP diastolic 66–80
[2020-02-22] MEDS: HYDROCODONE/APAP 10MG-325MG TAB PO PRN ×3 (01:25→16:37)
[2020-02-22] MEDS: PANTOPRAZOLE INJ 40 MG in SODIUM CHLORIDE 0.9% 50ML 50 ML IV SCH ×5 (04:32→21:59)
[2020-02-22] MEDS: METRONIDAZOLE 500MG/NS 100ML 100 ML IV SCH ×4 (05:45→23:24)
[2020-02-22] MEDS: LEVOTHYROXINE SODIUM 125 MCG TAB PO SCH (05:45)
[2020-02-22] MEDS: RIFAXIMIN 550 MG TABLET PO SCH ×3 (05:45→21:59)
[2020-02-22] MEDS: METOCLOPRAMIDE HCL 10 MG/2ML VIAL IV SCH ×4 (05:45→23:24)
[2020-02-22 06:01] LABS: BASOPHILS % 0.6 % (0.0-1.0); EOSINOPHILS # (AUTO) 0.4 (0.0-0.4); EOSINOPHILS % 7.7 % (0.0-6.0); HEMATOCRIT 32.9 % (34.2-44.1); HEMOGLOBIN 10.4 g/dL (12.0-16.0); LYMPHOCYTES # (AUTO) 1.6 (1.0-3.2); LYMPHOCYTES % 31.9 % (18.0-39.1); MEAN CORPUSCULAR HEMOGLOBIN 27.3 pg (28-32); MEAN CORPUSCULAR HGB CONC 31.6 g/dL (31-35); MEAN CORPUSCULAR VOLUME 86.4 fL (81-99); MONOCYTES # (AUTO) 0.4 (0.2-0.8); MONOCYTES % 7.5 % (4.4-11.3); NEUTROPHILS # (AUTO) 2.6 (2.1-6.9); NEUTROPHILS % 51.9 % (38.7-80.0); PLATELET COUNT 199 x10e3/uL (140-360); RED BLOOD COUNT 3.81 x10e6/uL (3.6-5.1); RED CELL DISTRIBUTION WIDTH 14.5 % (11.7-14.4)
[2020-02-22] MEDS: MORPHINE SULFATE 2 MG/ML SYR 1ML IV PRN ×2 (06:03→22:00)
[2020-02-22] MEDS: ONDANSETRON HCL INJ 2MG/ML 2ML 2 MG/ML VIAL IV PRN (06:03)
--- NOTE | 2020-02-22 06:21 | NUR ---
CALLED DR. QUIROS OFFICE AND TALKED TO ROBBIE AND TOLD HER THAT DR. Bernard SINGH CONSULTED DR. QUIROS FOR HAZINESS OF RETROPERITONEUM, MESENTERIC LN
[2020-02-22 06:23] LABS: ALBUMIN 3.9 g/dL (3.5-5.0); ALBUMIN/GLOBULIN RATIO 1.1 (0.8-2.0); ANION GAP 14.7 mmol/L (8-16); CALCIUM 9.3 mg/dL (8.4-10.2); CREATININE, SERUM 1.18 mg/dL (0.57-1.11); POTASSIUM 3.7 mmol/L (3.5-5.1)
--- NOTE | 2020-02-22 07:00 | NUR ---
RECEIVED PATIENT AWAKE RESTING IN BED NO S/S OF DISTRESS. BED LOW, WHEELS LOCKED, SIDE RAILS X2. CALL LIGHT IN REACH WILL CONTINUE TO MONITOR PATIENT.
[2020-02-22] MEDS: LORAZEPAM 1 MG TAB PO PRN ×2 (07:09→14:48)
--- NOTE | 2020-02-22 07:10 | NUR ---
GAVE BEDSIDE SHIFT REPORT TO ONCOMING NURSE. CALL LIGHT WITHIN REACH. PATIENT IN BED. HOURLY ROUNDING PERFORMED
[2020-02-22] MEDS: FENOFIBRATE 145 MG TAB PO SCH (08:40)
[2020-02-22] MEDS: LAMOTRIGINE 25 MG TAB PO SCH ×2 (08:40→16:37)
[2020-02-22] MEDS: METFORMIN HCL 500 MG TAB PO SCH ×2 (08:40→16:37)
[2020-02-22] MEDS: TOPIRAMATE 100 MG TAB PO SCH (08:40)
[2020-02-22] MEDS: QUETIAPINE FUMARATE 100 MG TAB PO SCH ×2 (08:40→16:37)
[2020-02-22] MEDS: IRON SUCROSE 100 MG in SODIUM CHLORIDE 0.9% 100 ML 100 ML IV SCH (08:40)
[2020-02-22] MEDS: NITROFURANTOIN MACROCRYSTALS 100 MG CAP PO SCH ×2 (08:40→16:37)
[2020-02-22] MEDS: SITAGLIPTIN 100 MG TAB PO SCH (08:40)
[2020-02-22] MEDS: CYANOCOBALAMIN INJ 1,000 MCG/ML VIAL IM SCH (08:40)
[2020-02-22] MEDS: SOLIFENACIN SUCCINATE 5 MG TAB PO SCH (09:44)
--- NOTE | 2020-02-22 14:04 | Progress Note ---
DATE: Internal Medicine Progress Note SUBJECTIVE: The patient is doing well. No significant complaint. PHYSICAL EXAMINATION: HEART: Showed regular rhythm. Normal S1 and S2 sound. LUNGS: Clear bilaterally. ABDOMEN: Soft. EXTREMITIES: Show no edema. VITAL SIGNS: Blood pressure 147/66, temperature 98 degrees, heart rate 92 per minute, respiratory rate 18 per minute, and oxygen saturation 100%. LABORATORY DATA: On the CBC; white blood count 4.95, hemoglobin 10.4, hematocrit 32.9, and platelet count 199,000. On the BMP; sodium 140, potassium 3.7, chloride 109, CO2 20, BUN 5, creatinine 1.18, GFR 46, calcium 9.3, and blood sugar 133. AST 33, ALT 22, and total bilirubin 0.2. Globulin 3.6, albumin 3.9, and total protein 7.5. COVID-19 is still pending. CBC negative. FINAL IMPRESSION: 1. Crohn disease exacerbation. 2. Abdominal pain. 3. Obesity. 4. Hypertension. 5. Uncontrolled diabetes mellitus type 2 with diabetic nephropathy. 6. Chronic renal failure, stage 3 secondary to diabetic nephropathy. 7. Anemia of chronic disease. PLAN OF TREATMENT: We will continue with current medication regimen, which include ceftriaxone 1 g IV once a day, iron sucrose 100 mg IV once a day, metronidazole 500 g IV q.6 hours, Protonix drip, Librax one tablet daily, vitamin B12 1000 mcg IM daily, Lomotil one tablet q.6 hours as needed for diarrhea, fenofibrate 145 mg daily, [place] 10/325 q.6 hours as needed for [id number]-[id number] pain, Lamictal 75 mg twice a day, levothyroxine 125 mcg daily, lorazepam 1 mg as needed q.6 hours as needed for anxiety, metformin 1000 mg twice a day, metoclopramide 10 mg IV q.6 hours, morphine 2 mg IV q.6 hours as needed, nitrofurantoin 100 mg twice a day, Seroquel 100 mg twice a day, Zofran 4 mg IV q.4 hours as needed for nausea and vomiting, Xifaxan 550 mg q.8 hours, Januvia 100 mg daily, VESIcare 10 mg daily, and Topamax 100 mg daily. MD ROJAS Dela Cruz/AKHIL /[id number]
[2020-02-22] MEDS: CEFTRIAXONE SOD 1 GM/NS 50 ML 50 ML IV SCH (19:40)
--- NOTE | 2020-02-22 19:43 | NUR ---
RECEIVED ORDER FROM DR. Bernard SINGH TO CONSULT DR. Cody SMITH FOR POSSIBLE LAPAROSCOPY. SPOKE WITH DR. Aron SMITH LOGISTICS MANAGER FOR TODAY. WILL SEE PATIENT TOMORROW.
--- NOTE | 2020-02-22 19:54 | Diagnostic Imaging Report ---
Exam: Abdominal film Clinical History: Abdominal discomfort, lower abdomen Comparison: CT abdomen and pelvis without contrast 6 02/18/2020, fluoroscopy exam 02/20/2020 DISCUSSION: Frontal view of the abdomen shows a nonobstructive bowel gas pattern with mild amount of retained stool.There are no dilated, air-filled loops of bowel. No pneumoperitoneum. Scattered radiopaque densities projecting in the right lower quadrant likely represent previously administered oral contrast.No acute bone abnormality. IMPRESSION: 1. Nonobstructive bowel gas pattern. The staff physician below has personally reviewed this exam on the date of dictation. Signed by: Dr. Last Marrero M.D. on 02/22/2020 7:51 PM
[2020-02-23] VITALS (8 sets, daily range): BP systolic 126–148; BP diastolic 60–79
[2020-02-23] MEDS: LORAZEPAM 1 MG TAB PO PRN ×3 (00:50→18:05)
[2020-02-23] MEDS: PANTOPRAZOLE INJ 40 MG in SODIUM CHLORIDE 0.9% 50ML 50 ML IV SCH ×4 (03:45→21:28)
[2020-02-23] MEDS: HYDROCODONE/APAP 10MG-325MG TAB PO PRN ×3 (04:34→22:05)
[2020-02-23] MEDS: METRONIDAZOLE 500MG/NS 100ML 100 ML IV SCH ×4 (05:52→23:58)
[2020-02-23] MEDS: LEVOTHYROXINE SODIUM 125 MCG TAB PO SCH (05:52)
[2020-02-23] MEDS: METOCLOPRAMIDE HCL 10 MG/2ML VIAL IV SCH ×4 (05:52→23:58)
[2020-02-23] MEDS: RIFAXIMIN 550 MG TABLET PO SCH ×3 (05:53→21:28)
[2020-02-23] MEDS: SITAGLIPTIN 100 MG TAB PO SCH (09:06)
[2020-02-23] MEDS: METFORMIN HCL 500 MG TAB PO SCH ×2 (09:06→18:05)
[2020-02-23] MEDS: QUETIAPINE FUMARATE 100 MG TAB PO SCH ×2 (09:07→18:05)
[2020-02-23] MEDS: FENOFIBRATE 145 MG TAB PO SCH (09:07)
[2020-02-23] MEDS: TOPIRAMATE 100 MG TAB PO SCH (09:07)
[2020-02-23] MEDS: LAMOTRIGINE 25 MG TAB PO SCH ×2 (09:07→18:05)
[2020-02-23] MEDS: NITROFURANTOIN MACROCRYSTALS 100 MG CAP PO SCH ×2 (09:07→18:05)
[2020-02-23] MEDS: SOLIFENACIN SUCCINATE 5 MG TAB PO SCH (09:09)
[2020-02-23] MEDS: IRON SUCROSE 100 MG in SODIUM CHLORIDE 0.9% 100 ML 100 ML IV SCH (09:13)
[2020-02-23] MEDS: CYANOCOBALAMIN INJ 1,000 MCG/ML VIAL IM SCH (09:13)
--- NOTE | 2020-02-23 11:27 | Consultation ---
DATE OF CONSULTATION: 02/22/[address] Efrain Mackenzie. HISTORY OF PRESENT ILLNESS: Nina Solis is a 64-year-old white female, who has been referred to me for possible peritoneal metastases. The patient had presented with abdominal pain, subsequently had a CT scan of the abdomen and pelvis. A comparison was made to 07/29/2019. This was done on 02/18/2020. The patient's liver did not show any lesions. Gallbladder was absent. Spleen was normal. Pancreas, adrenal gland, kidney, and GI tract were normal. Pelvic organs were reported essentially normal, however, there were slightly prominent mesenteric lymph nodes up to 0.6 cm, unchanged from the previous exams. Peritoneum, there was mild haziness of the retroperitoneal structures, foci of calcifications in the right lower quadrant. There was no significant change in the lumbar spine. There was a drop cholecystectomy clip in the posterior medial aspect of the liver capsule. The patient also had a small-bowel follow-through. This was reported essentially normal. Abdominal x-rays were done, which were also reported essentially normal. SOCIAL HISTORY: Noncontributory. FAMILY HISTORY: Noncontributory. ALLERGIES: REPORTED NONE. MEDICATIONS: At this time, 1. Topamax. 2. VESIcare. 3. Januvia. 4. Xifaxan. 5. Seroquel. 6. Ondansetron. 7. Nitrofurantoin. 8. Morphine. 9. Metformin. 10. Ativan. 11. Synthroid. 12. Lamictal. 13. Levaquin. 14. Hydrocodone. 15. Fenofibrate. 16. Librax. 17. Cyanocobalamin. 18. Protonix drip. 19. Metronidazole. 20. Venofer. 21. Ceftriaxone. REVIEW OF SYSTEMS: HEENT: Normal. CARDIAC: Normal. RESPIRATORY: Normal. GI: History of Crohn disease. The patient has been on biologics for the last seven years. : Normal. MUSCULOSKELETAL: Normal. SKIN AND BREAST: The patient did not have a mammogram for the last two years. NEUROENDOCRINE: History of hypothyroidism and diabetes mellitus. PHYSICAL EXAMINATION: GENERAL: A moderately built female. No adenopathy. HEART: Within normal limits. LUNGS: Clear. BREASTS: Normal. ABDOMEN: Soft. RECTAL: Deferred. VAGINAL: Deferred. CENTRAL NERVOUS SYSTEM: Essentially normal. EXTREMITIES: Essentially normal. LABORATORY DATA: Hemoglobin of 9.9, hematocrit of 31.7, white count of 6270, platelets are reported at 209,000, MCV 87.1, MCHC 31.2, RDW slightly high at 14.5, ESR high at 42, and retic response is reasonable at 2.1%. Chemistry shows sodium of 138, potassium 4.3, chloride 106, CO2 of 24, BUN 22, and creatinine 1.3, bilirubin 0.2, SGOT 32, SGPT 18, and alkaline phosphatase 34. B12 level high at 921. Folic acid level is not available at this time for review. ANCA has been done. However, this is not available at this time for review. Clostridium difficile antitoxin was reported essentially negative. IMPRESSION: 1. History of Crohn disease, on Humira. 2. History of hypertension. 3. History of diabetes mellitus. 4. Chronic renal failure with a slightly high creatinine of 1.33. 5. Iron deficiency anemia. 6. Transient hyperglobulinemia. 7. Degenerative arthritis of lumbar spine. 8. Slightly prominent mesenteric lymph nodes, however, 0.6 cm. PLAN, COMMENTS, AND SUGGESTIONS: Suggest an LDH level as this is a marker for lymphoma. However, I am not suspecting lymphoma in this patient as the lymph nodes are still 0.6 cm. The LDH is reported low at 4. CA-125 is not available at this time for review. Index of suspicion for an underlying malignancy is low. However, if any findings laparoscopy would be suggested at this time. At this time, I do not suggest laparoscopy. I will follow this patient closely with you. If any lymph nodes outside would crop up, the patient should require a biopsy. However, again index of suspicion is low that the patient has any underlying malignancy. MD ISAAC Holland/MODL /[id number] cc: Wu Mackenzie MD
--- NOTE | 2020-02-23 14:54 | Progress Note ---
DATE: 02/23/2020 SUBJECTIVE: Ms. Solis is a 64-year-old female, referred to me for possible peritoneal metastases and/or lymphoma. The patient's CA-125 is still missing LDH; however, which is a marker for lymphoma, is normal. Since the lymph nodes are only 0.6 cm, this is not in the definition of malignant adenopathy, which should be more than 2 cm, however, I realize the lymphoma starts at some place. The patient is at high risk also because of being on biologics for Crohn disease for the last approximately 7 years. If the CA-125 remains normal, the patient does not require any laparoscopy. However, the patient should be followed up closely as she is on biologics. MD ISAAC Holland/MODL /[id number] cc: MD Efrain Heath MD
[2020-02-23] MEDS: ONDANSETRON HCL INJ 2MG/ML 2ML 2 MG/ML VIAL IV PRN ×2 (15:19→20:02)
--- NOTE | 2020-02-23 19:00 | NUR ---
RECEIVED PATIENT IN BEDSIDE SHIFT REPORT. PATIENT AMBULATING AT THIS TIME, MILD ABDOMINAL PAIN REPORTED. STEADY GAIT NOTED. NO S&S OF DISTRESS NOTED. BED LOCKED IN LOWEST POSITION, SIDE RAILS UPX2, CALL LIGHT IN REACH.
[2020-02-23] MEDS: CEFTRIAXONE SOD 1 GM/NS 50 ML 50 ML IV SCH (20:02)
[2020-02-24] VITALS: BP 138/73
[2020-02-24] MEDS: ONDANSETRON HCL INJ 2MG/ML 2ML 2 MG/ML VIAL IV PRN (00:51)
[2020-02-24] MEDS: LORAZEPAM 1 MG TAB PO PRN ×3 (00:51→17:19)
--- NOTE | 2020-02-24 00:51 | NUR ---
PATIENT CALLED, STATING HER STOMACH HURT AGAIN AND SHE "JUST FELT SICK," STATES IT BEGAN WHEN MIDNIGHT DOSE OF FLAGYL STARTED. STOPPED MEDICATION AT THIS TIME. PATIENT STATES SHE DOES NOT THINK SHE WANTS TO TAKE THE FLAGYL ANY MORE.
[2020-02-24] MEDS: PANTOPRAZOLE INJ 40 MG in SODIUM CHLORIDE 0.9% 50ML 50 ML IV SCH ×4 (03:00→16:55)
[2020-02-24] MEDS: HYDROCODONE/APAP 10MG-325MG TAB PO PRN (04:15)
[2020-02-24] MEDS: METRONIDAZOLE 500MG/NS 100ML 100 ML IV SCH ×3 (06:00→17:07)
[2020-02-24] MEDS: RIFAXIMIN 550 MG TABLET PO SCH ×2 (06:07→13:13)
[2020-02-24] MEDS: LEVOTHYROXINE SODIUM 125 MCG TAB PO SCH (06:07)
[2020-02-24] MEDS: METOCLOPRAMIDE HCL 10 MG/2ML VIAL IV SCH ×3 (06:07→17:07)
--- NOTE | 2020-02-24 07:06 | NUR ---
ASSESSMENT: Spiritual concern Pt anxious. Pt states she feels anxious and isn't sure of why. Pt visited in [facility] office. Pt states she wasn't able to sleep and feels uneasy. Pt hopeful to be d/c home soon. Pt looking to marli for support. Intervention: Provided calming presence and encouragement. Outcome: Will follow as able. SANTANA DELEON [facility] Spiritual Care Department O: [phone]
[2020-02-24 08:00] VITALS: BP 90/69
[2020-02-24] MEDS: METFORMIN HCL 500 MG TAB PO SCH ×2 (09:06→16:55)
[2020-02-24] MEDS: SITAGLIPTIN 100 MG TAB PO SCH (09:06)
[2020-02-24] MEDS: IRON SUCROSE 100 MG in SODIUM CHLORIDE 0.9% 100 ML 100 ML IV SCH (09:06)
[2020-02-24] MEDS: CYANOCOBALAMIN INJ 1,000 MCG/ML VIAL IM SCH (09:06)
[2020-02-24] MEDS: LAMOTRIGINE 25 MG TAB PO SCH ×2 (09:07→16:55)
[2020-02-24] MEDS: NITROFURANTOIN MACROCRYSTALS 100 MG CAP PO SCH ×2 (09:07→16:55)
[2020-02-24] MEDS: TOPIRAMATE 100 MG TAB PO SCH (09:07)
[2020-02-24] MEDS: SOLIFENACIN SUCCINATE 5 MG TAB PO SCH (09:07)
[2020-02-24] MEDS: FENOFIBRATE 145 MG TAB PO SCH (09:07)
[2020-02-24] MEDS: QUETIAPINE FUMARATE 100 MG TAB PO SCH ×2 (09:07→16:55)
[2020-02-24 09:33] VITALS: BP 90/69
[2020-02-24] MEDS ORDERED: DESVENLAFAXINE SUCCINATE 50 MG TAB.SR.24H PO SCH (11:00)
[2020-02-24 11:14] VITALS: BP 146/67
[2020-02-24 15:21] VITALS: BP 139/72
--- NOTE | 2020-02-24 16:57 | NUR ---
Nutrition Screen Note RD Recommendation for Physician: - Recommend adding 1500 ADA to current diet per BG trend and hx of DM Plan of Care: RD following, monitoring for tolerance and adequacy Nutrition reason for involvement: LOS Primary Diagnose(s): acute abd pain PMH: crohn's disease, IBS, HTN, DM2, CKD3, anemia Ht: 58 in Wt: 153 lb BMI: 32 kg/m2 IBW: [address] Assessment: (02/23) 64 YOF admitted for acute abdominal pain, pt seen today for LOS. Pt reports fluctuating po intake x 3 months [employer] 2/2 crohn's fare. Pt reports tolerating diet and eating well currently. Pt denies any N/V/C/D. Pt reports UBW of 150-155#, no wt loss noted. Pt with no questions or concerns at time of visit. Chart reviewed. Labs and meds reviewed. Will continue to monitor. Current Diet: GI Soft Malnutrition Evaluation (02/24/20) The patient does not meet criteria for a specified degree of malnutrition at this time. Will re-evaluate at follow-up as appropriate. Energy intake: moderate <75% of estimated energy requirements for >3 months Weight loss: none No wt loss reported, UBW 150-155# Fat loss: none, ample skinfold thickness Muscle loss: none, clavicle not visible Supporting Evidence: Fluid accumulation: none Functional Status: not assessed Diet Education Needs Assessment: Diet education not indicated. Diet tolerance: tolerating po Nutrition Care Level: low Signed: Odalis Mcbride RD, LD, [facility]
--- NOTE | 2020-02-24 19:51 | NUR ---
pt discharged home resp even and unlabored at this time no distress noted, no prescriptions, pt was asked to follow up with PCP. iv site removed at this time no swelling no redness to site.
[2020-02-25] MEDS ORDERED: DESVENLAFAXINE SUCCINATE 50 MG TAB.SR.24H PO SCH (09:00)
--- NOTE | 2020-03-22 12:43 | Discharge Summary ---
CHIEF COMPLAINT: Abdominal pain. FINAL DIAGNOSIS: Abdominal pain. HOSPITAL COURSE: A 64-year-old female with past medical history of hypertension, diabetes type 2, anxiety, major depressive disorder, and hypothyroidism brought to the ER with 3 to 4 day history of generalized abdominal pain associated with nausea and occasional vomiting. Had been seen in the ER 2 times prior to this review, having no chest pains or shortness of breath, no fever or chills. She was demonstrating diffuse tenderness, with review of the abdomen there was no rebound noted and following further evaluation the patient was admitted for treatment regarding the complaints of abdominal pain, constipation, major depressive disorder, anxiety, diabetes type 2, and hypertension. We will maintain n.p.o. status with admission and will be requesting a GI followup. Home medications will continue. The patient was being seen by Dr. Mace during the stay for Oncology to evaluation for possible findings of peritoneal metastasis and with his review his findings were history of Crohn disease on Humira, history of hypertension, history of diabetes mellitus, chronic renal failure with a slightly high creatinine of 1.33, iron deficiency anemia, transit hyperglobulinemia, degenerative arthritis of the lumbar spine, slightly prominent mesenteric lymph nodes however at 0.6 cm. Suggest an LDH level as this is a marker for lymphoma, however, not suspecting lymphoma. We will review CA-125 level when it is available, index of suspicion for an underlying malignancy is low, however, currently do not suggest a laparoscopy, would benefit from a biopsy of lymph node if suspicion is high. She was also reviewed by GI with her history of Crohn disease with the complaints currently of nausea and vomiting along with some diarrhea and following Dr. Wu Mackenzie's evaluation, impression was made of critical Crohn's disease. We will be checking CRP, sedimentation rate, calcium currently on Humira weekly, was started on Xifaxan. We will check small bowel series. The patient was on the Med-Surg floor receiving a clear liquid diet, continuing to have the complaints of abdominal pain and nausea. Medications are being presented. The patient was on IV fluids. Lab studies were being reviewed. Home medications were continued as well. She was developing continued abdominal pain with abdominal bloating, concerned for findings of prominent mesenteric lymph nodes, which led to Her diet was being slowly advanced, she was showing to be tolerant. Discussion to be placed for discharge planning. She improved. She was in no further acute distress, abdominal pain had subsided. She was clear for discharge and she was released home in stable condition. IMAGING: Abdomen and pelvis CT reveals mild haziness of the retroperitoneum and slightly prominent mesenteric lymph nodes, could be infectious or inflammatory. A cholecystectomy clip is seen abutting the posterior medial aspect of the liver capsule. Small bowel x-ray reveals an unremarkable study. Final image, followup abdomen compared to previous study reveals nonobstructive bowel gas pattern. Blood studies begin with a CBC showing initial study to be unremarkable. Followup CBC was stable. Urinalysis shows 11-20 wbc's by high-power field, few bacteria electrolytes appeared stable. Kidney function stable. Iron studies were conducted regarding the patient's slightly low hemoglobin that was in the 9s. Iron was low at 39, TIBC was elevated at 43, percent saturation was low at 8. Followup imaging reveals a followup iron panel to be normal. Glucose levels were as high as 203, final glucose 140. Final electrolytes stable. CA-125 returned at 18.8. The patient responded to care and was discharged in good condition. She was released home. She will continue on her current diet. No equipments or supplies are necessary. No drains or [place] was needed. Activity level as directed by myself as well as Dr. Wu Macknezie, Dr. Mace as well as Dr. Jones. She will be following up with her PCP within 7-10 days. She will continue on her multiple home medications. If the symptoms return or if she has any further questions that develop she will contact her PCP. Dictated by [employer] [employer] Efrain Mackenzie MD CC/AKHIL /[id number]
--- OUTSIDE RECORDS SUMMARY | 2020-03-26 00:53 | XMS REPORT | Continuity of Care Document ---
Author Author [facility] t Organization [facility] Address 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[facility] [id number] 2016 00:00:00 [facility] Cdc Review [id number] [facility] [id number] 2019 00:00:00 [facility] Problems Condition Name Condition Details Condition Category Status Onset Date Resolution Date Last Treatment Date Treating Clinician Comments Source Nausea and vomiting Problem Active 2015-04-17 00:00:00 [facility] Weakness Problem Active 2015-04-17 00:00:00 [facility] Diabetes mellitus Problem Active 2015-04-17 00:00:00 [facility] Acute abdominal pain Problem Active 2014-06-13 00:00:00 [facility] Crohn's disease Problem Active 2014-06-13 00:00:00 [facility] CROHN'S DISEASE 555.9 CROH N'S DISEASE 555.9 Active 09/27/2012 [facility] Active 2012-09-27 08:00:00 2012-10-28 10:44: 00 [facility] 388.70 - OTALGIA NOS 388. 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 LEFT EAR PAIN Active 02/23/2012 [facility] Active 2012-02-23 00:00:00 2012-02-24 11:02: 00 [facility] Diarrhea Problem Active [facility] Urinary tract infection Problem Active [facility] Abdominal pain Problem Active [facility] Injury of head Problem Active [facility] Neck sprain Problem Active [facility] Contusion of shoulder Problem Active [facility] Allergies, Adverse Reactions, Alerts Allergy Name Allergy Type Status Severity Reaction(s) Onset Date Inacti ve Date Treating Clinician Comments Source Shellfish Allergy to substance Active Severe RED, ITCHING 2018-04-17 0 0:00:00 [facility] Iodine Allergy to substance Active Moderate RED, ITCHING 2018-04-17 00 :00:00 [facility] Promethazine Allergy to substance Active ANXIETY, RASH 00:00:00 [facility] Meperidine Allergy to substance Active Moderate anxiety attack, itching 2018-04-17 00:00:00 [facility] Iodinated Contrast Media - IV Dye DA Active U 2017-12-19 00:00:00 [facility] NSAIDS (Non-Steroidal Anti-Inflamma DA Active U 2017-11-26 5 00:00:00 [facility] iodine DA Active U 2017-12-19 00:00:00 [facility] mesalamine DA Active U 2017-12-19 00:00:00 [facility] cephalexin DA Active U 2017-12-19 00:00:00 [facility] promethazine DA Active U 2017-12-19 00:00:00 [facility] meperidine DA Active U 2017-12-19 00:00:00 [facility] shellfish derived DA Active U 2017-12-19 00:00:00 [facility] Demerol HCl Demerol HCl Active [facility] iodine iodine Active [facility] Social History Social Habit Start Date Stop Date Quantity Comments Source Sex Assigned At 1955 00:00:00 1955 00:00:00 Female [facility] Medications Ordered Medication Name Filled Medication Name Start Date Stop Da te Current Medication? Ordering Clinician Indication Dosage Frequency Signature (SIG) Comments Components Source Fluconazole (Diflucan) 150 Mg TABLET Fluconazole (Diflucan) 150 Mg TABLET 2020-02-02 22:12:00 Yes 150 Once for Yeast Inf ection [facility] Nitrofurantoin Monohyd/M-Cryst (Macrobid 100 Mg Capsul e) 100 Mg CAPSULE Nitrofurantoin Monohyd/M-Cryst (Macrobid 100 Mg Capsule) 100 Mg CAPSULE 2020-02-02 22:10:00 Yes 1 Twice A Day for Ur ine Infection [facility] Remicade + Sodium Chloride 0.9% IV 250 mL 2012-10-28 16:00 :00 No Wu Sadik Mackenzie 400 mg, Route: I V, Drug form: PDR/INJ, ONCALL, Start date: 10/28/12 10:00:00, Stop date: 03/31/13 10:59:00 [facility] Sodium Chloride 0.9% IV 2012-10-25 18:57:00 No Wu Sadik Mackenzie IV, 500 ml/hr, PRN, PRN Other -See Comment, Start date: 10/25/12 12:57:00, Duration: 30, 500 ml [facility] SoluCortef 2012-10-25 18:56:00 No Wu Sadik Mackenzie 100 mg, 2 mL, Route: IVP, Drug form: PDR/INJ, PRN, PRN Other -See Comment, Start date: 10/25/12 12:56:00, Duration: 30 day, Stop date: 11/24/12 13:55:00 [facility] Benryl 2012-10-25 18:55:00 No Uw Sadik Mackenzie 50 mg, 1 mL, Route: IVP, Drug form: INJ, PRN, PRN Other -See Comment, Start date: 10/25/12 12:55:00, Duration: 30 day, Stop date: 11/24/12 13:54:00 [facility] 2012-10-25 18:54:00 No Wu Sadik Mackenzie 0.5 mg, 0.5 mL, Route: SUB-Q, Drug form: INJ, PRN, PRN Other -See Comment, Start date: 10/25/12 12:54:00, Duration: 30 day, Stop date: 11/24/12 13:53:00 [facility] Tylenol 2012-10-25 18:52:00 No Wu Sadik Mackenzie 650 mg, 2 tab, Route: PO, Drug form: TAB, PRN, PRN Other -See Comment, Start date: 10/25/12 12:52:00, Duration: 30 day, Stop date: 11/24/12 13:51:00 [facility] 2012-10-25 18:51:00 No Wu Sadik Mackenzie 25 mg, 1 tab, Route: PO, Drug form: TAB, PRN, PRN Other -See Comment, Start date: 10/25/12 12:51:00, Duration: 30 day, Stop date: 11/24/12 13:50:00 [facility] Calcium Carbonate/Vitamin D3 (Caltrate 600 W-D Tablet) 1 Each TABLET Calcium Carbonate/Vitamin D3 (Caltrate 600 W-D Tablet) 1 Each TABLET Yes Daily [facility] Chlordiazepoxide/Clidinium Br (Librax Capsule) 1 Each CAPSULE Chlordiazepoxide/Clidinium Br (Librax Capsule) 1 Each CAPSULE Ye s As Needed [facility] Desvenlafaxine Succinate (Pristiq Er) 100 Mg TAB.ER.24 H Desvenlafaxine Succinate (Pristiq Er) 100 Mg TAB.ER.24H Yes 100 Daily [facility] Dexlansoprazole (Dexilant) 60 Mg CAP. Dexlansopra zole (Dexilant) 60 Mg CAP. Yes 60 Twice A Day [facility] Diphenoxylate Hcl/Atropine (Lomotil Tablet) 1 Each TAB LET Diphenoxylate Hcl/Atropine (Lomotil Tablet) 1 Each TABLET Yes 1 Every 6 Hours as needed for Diarrhea [facility] Fenofibrate (Tricor) 145 Mg TAB Fenofibrate (Tricor) 145 Mg TAB Yes 145 Daily [facility] Glimepiride Glimepiride Yes 4 Daily [facility] Humira Humira Yes 40 Use As Directed [facility] Hydrocodone Bit/Acetaminophen ([place] 10-325 Tablet) 1 Each TABLET Hydrocodone Bit/Acetaminophen ([place] 10-325 Tablet) 1 Each TABLET Yes 1 Q6 Hrs Prn [facility] Hyoscyamine Sulfate (Levsin) 0.125 Mg TABLET Hyoscyami ne Sulfate (Levsin) 0.125 Mg TABLET Yes 2 As Needed [facility] Iron Iron Yes Daily [facility] Lamotrigine Lamotrigine Yes 75 Twice A Day [facility] Levothyroxine Sodium Levothyroxine Sodium Yes 125 Daily [facility] Lorazepam Lorazepam Yes 1 Qid Prn Anxiety [facility] Metformin Hcl Metformin Hcl Yes 1000 Twice A Day [facility] Miralax Miralax Yes 1 Twice A Day [facility] Multivitamin (Multi-Vitamin Daily) 1 Each TABLET Multi vitamin (Multi-Vitamin Daily) 1 Each TABLET Yes [facility] Ondansetron (Zofran Odt) 4 Mg TAB.RAPDIS Ondansetron ( Zofran Odt) 4 Mg TAB.RAPDIS Yes 8 Qid Prn Nausea [facility] Perindopril Erbumine (Aceon) 8 Mg TABLET Perindopril E rbumine (Aceon) 8 Mg TABLET Yes 8 Daily [facility] Quetiapine Fumarate (Seroquel) 100 Mg TABLET Quetiapin e Fumarate (Seroquel) 100 Mg TABLET Yes 100 Twice A Day [facility] Rosuvastatin Calcium (Crestor) 20 Mg TABLET Rosuvastat in Calcium (Crestor) 20 Mg TABLET Yes 20 [facility] Sitagliptin Phosphate (Januvia) 100 Mg TABLET Sitaglip tin Phosphate (Januvia) 100 Mg TABLET Yes 100 Daily [facility] Topiramate Topiramate Yes 100 Daily [facility] Viberzi Viberzi Yes 100 Daily [facility] Vit C Vit C Yes Daily [facility] Yakult Yakult Yes 2.7 Daily [facility] Furosemide Furosemide 2020-01-09 00:00:00 No 20 Daina ly [facility] Mesalamine (Pentasa) 500 Mg CAPCR Mesalamine (Pentasa) 500 Mg CA PCR 2020-01-09 00:00:00 No 2 Four Times Daily [facility] Topiramate Topiramate 2020-01-09 00:00:00 No 150 Bed time [facility] Sumatriptan Sumatriptan 2018-04-18 00:00:00 No 2 Daily as needed for Migraine [facility] Bifidobacterium Infantis (Align) 4 Mg CAPSULE Bifidoba cterium Infantis (Align) 4 Mg CAPSULE 2018-04-17 00:00:00 No 4 Daily [facility] Rizatriptan Benzoate (Maxalt) 10 Mg TABLET Rizatriptan Benzoate (Maxalt) 10 Mg TABLET 2018-04-17 00:00:00 No 2 Q24hr Prn Migrain e [facility] Furosemide Furosemide 2016-02-07 00:00:00 No 20 As Needed [facility] Lamotrigine Lamotrigine 2016-02-07 00:00:00 No T wice A Day [facility] Polyethylene Glycol 3350 (Miralax) 17 Gm POWD.PACK [place] yethylene Glycol 3350 (Miralax) 17 Gm POWD.PACK 2016-02-07 00:00:00 No 1 Twice A Day [facility] Chlordiazepoxide/Clidinium Br (Librax Capsule) 1 Each CAPSULE Chlordiazepoxide/Clidinium Br (Librax Capsule) 1 Each CAPSULE 2015-08-06 00:00:00 No Three Times A Day [facility] Glimepiride Glimepiride 2015-08-06 00:00:00 No 2 D aily [facility] Guar Gum (Benefiber) 1 Each PACKET Guar Gum (Benefiber) 1 Each P ACKET 2015-08-06 00:00:00 No Daily [facility] Lamotrigine Lamotrigine 2015-08-06 00:00:00 No 50 T wice A Day [facility] Sumatriptan Succ/Naproxen Sod (Treximet 85-500 Mg Tabl et) 1 Each TABLET Sumatriptan Succ/Naproxen Sod (Treximet 85-500 Mg Tablet) 1 Each TABLET 2015-08-06 00:00:00 No 2 As Needed as needed for Migraine [facility] Topiramate (Topamax*) 100 Mg TABLET Topiramate (Topamax*) 100 Mg TABLET 2015-08-06 00:00:00 No 150 Bedtime [facility] Budesonide (Budesonide Ec) 3 Mg CAPDR...ER Budesonide (Budesonide Ec) 3 Mg CAPDR...ER 2015-05-24 00:00:00 No 9 Daily [facility] Fluconazole (Diflucan) 200 Mg TABLET Fluconazole (Diflucan) 200 Mg TABLET 2015-05-24 00:00:00 No 1 Daily [facility] Hyoscyamine Sulfate Hyoscyamine Sulfate 2015-05-24 00:00:00 No 1 Q4hrs Prn Cramping [facility] Lactobac Cmb #3/Fos/Pantethine (Probiotic & Acidophilu s Cap) 1 Each CAPSULE Lactobac Cmb #3/Fos/Pantethine (Probiotic & Acidophilus Cap) 1 Each CAPSULE 2015-05-24 00:00:00 No [facility] Prednisone Prednisone 2015-05-24 00:00:00 No 10 Daina ly [facility] Prestiq Sr Prestiq Sr 2015-05-24 00:00:00 No 100 Daina ly [facility] Quetiapine Fumarate (Seroquel) 50 Mg TABLET Quetiapine Fumarate (Seroquel) 50 Mg TABLET 2015-05-24 00:00:00 No 50 Daily [facility] Mesalamine (Pentasa) 250 Mg CAPSULE.ER Mesalamine (Pentasa) 250 Mg CAPSULE.ER 2015-04-17 00:00:00 No Daily [facility] Prednisone Prednisone 2015-04-17 00:00:00 No Daina ly [facility] Topiramate Topiramate 2015-04-17 00:00:00 No 150 Bed time [facility] Budesonide (Budesonide Ec) 3 Mg CAPDR...ER Budesonide (Budesonide Ec) 3 Mg CAPDR...ER 2015-03-20 00:00:00 No 6 Daily [facility] Budesonide (Budesonide Ec) 3 Mg CAPDR...ER Budesonide (Budesonide Ec) 3 Mg CAPDR...ER 2015-03-10 00:00:00 No 9 Every Morning [facility] Desvenlafaxine Succinate (Pristiq Er) 100 Mg TAB.ER.24 H Desvenlafaxine Succinate (Pristiq Er) 100 Mg TAB.ER.24H 2015-03-10 00:00:00 No 100 Every Morning [facility] Dicyclomine Hcl (Bentyl) 10 Mg CAPSULE Dicyclomine Hcl (Bentyl) 10 Mg CAPSULE 2015-03-10 00:00:00 No 20 Four Times Daily [facility] Ferrous Sulfate (Iron) 325 Mg TABLET Ferrous Sulfate (Iron) 325 Mg TABLET 2015-03-10 00:00:00 No Daily [facility] Fluconazole (Diflucan) 200 Mg TABLET Fluconazole (Diflucan) 200 Mg TABLET 2015-03-10 00:00:00 No Daily [facility] Furosemide (Lasix) 20 Mg TABLET Furosemide (Lasix) 20 Mg TABLET 2015-03-10 00:00:00 No 20 Daily [facility] Lamotrigine Lamotrigine 2015-03-10 00:00:00 No 50 T wice A Day [facility] Metformin Hcl Metformin Hcl 2015-03-10 00:00:00 No 1000 Twice A Day [facility] Multivitamin (Multivitamins) 1 Each CAPSULE Multivitam in (Multivitamins) 1 Each CAPSULE 2015-03-10 00:00:00 No 1 Daily [facility] Quetiapine Fumarate (Seroquel) 100 Mg TABLET Quetiapin e Fumarate (Seroquel) 100 Mg TABLET 2015-03-10 00:00:00 No 100 Every Night [facility] Saccharomyces Boulardii (Florastor) 250 Mg CAPSULE Sac charomyces Boulardii (Florastor) 250 Mg CAPSULE 2015-03-10 00:00:00 No 250 Twice A Day [facility] Sucralfate (Carafate) 1 Gm/10 Ml ORAL.SUSP Sucralfate (Carafate) 1 Gm/10 Ml ORAL.SUSP 2015-03-10 00:00:00 No 1 Before Meals A nd At Bedtime [facility] Sumatriptan Injection Sumatriptan Injection 2015-03-10 00:00:00 No 2 Q24hr Prn Migraine [facility] Topiramate Topiramate 2015-03-10 00:00:00 No 100 Twi ce A Day [facility] Pantoprazole Sodium (Protonix Iv) 40 Mg VIAL Pantopraz ole Sodium (Protonix Iv) 40 Mg VIAL 2014-06-22 00:00:00 No 40 Before Meals And At Bedtime [facility] Chlordiazepoxide/Clidinium Br (Librax Capsule) 1 Each CAPSULE Chlordiazepoxide/Clidinium Br (Librax Capsule) 1 Each CAPSULE 2014-06-13 00:00:00 No Three Times A Day [facility] Valentni Daily Vitamin Valentin Daily Vitamin 2014-03-10 00:00:00 No Daily [facility] Florastar Florastar 2014-03-10 00:00:00 No 250 Twice A Day [facility] Miralax Miralax 2014-03-10 00:00:00 No Daily [facility] [place] 2014-03-10 00:00:00 No [facility] Rosuvastatin Calcium (Crestor) 20 Mg TABLET Rosuvastat in Calcium (Crestor) 20 Mg TABLET 2014-03-10 00:00:00 No 20 Daily [facility] Fluconazole (Diflucan) 100 Mg TABLET Fluconazole (Diflucan) 100 Mg TABLET 2014-02-06 00:00:00 No 100 Daily [facility] Nitazoxanide (Alinia) 500 Mg TABLET Nitazoxanide (Alinia) 500 Mg TABLET 2014-01-25 00:00:00 No 500 Twice A Day [facility] Domperidone Domperidone 2013-08-12 00:00:00 No 2 0 Before Meals And At Bedtime [facility] Levothyroxine Sodium (Levoxyl) 150 Mcg TABLET Levothyr oxine Sodium (Levoxyl) 150 Mcg TABLET 2013-08-12 00:00:00 No 150 Mon-Sat [facility] Hyoscyamine Sulfate Hyoscyamine Sulfate 2013-07-26 00:00:00 No 1 Twice A Day [facility] Lubiprostone (Amitiza) 8 Mcg CAPSULE Lubiprostone (Amitiza) 8 Mc g CAPSULE 2013-07-26 00:00:00 No 8 Twice A Day [facility] Mesalamine (Pentasa) 500 Mg CAPCR Mesalamine (Pentasa) 500 Mg CA PCR 2013-07-26 00:00:00 No 1000 Four Times Daily [facility] Metoclopramide Hcl (Reglan) 10 Mg TABLET Metoclopramid e Hcl (Reglan) 10 Mg TABLET 2013-07-26 00:00:00 No 1 Before Meals And At Bedtime [facility] Sucralfate (Carafate) 1 Gm TABLET Sucralfate (Carafate) 1 Gm TAB LET 2013-07-26 00:00:00 No 1 Before Meals And At Bedtime [facility] Budesonide (Budesonide Ec) 3 Mg CAPDR...ER Budesonide (Budesonide Ec) 3 Mg CAPDR...ER 2013-01-28 00:00:00 No 3 Daily [facility] Cephalexin Monohydrate (Keflex) 500 Mg CAPSULE Cephale magaly Monohydrate (Keflex) 500 Mg CAPSULE 2013-01-28 00:00:00 No 500 Twice A D ay [facility] Infliximab (Remicade) 100 Mg/Vial VIAL Infliximab (Remicade) 100 Mg/Vial VIAL 2013-01-28 00:00:00 No 100 Every Other Month [facility] Metronidazole (Flagyl) 250 Mg TABLET Metronidazole (Flagyl) 250 Mg TABLET 2013-01-28 00:00:00 No 250 Three Times A Day [facility] Naproxen Naproxen 2013-01-28 00:00:00 No 500 As Need ed [facility] Paroxetine Hcl (Paxil) 20 Mg TABLET Paroxetine Hcl (Paxil) 20 Mg TABLET 2013-01-28 00:00:00 No 20 Daily [facility] Metoclopramide Hcl Metoclopramide Hcl 2013-01-27 00:00:00 No 10 Before Meals And At Bedtime [facility] Pregabalin (Lyrica) 25 Mg CAPSULE Pregabalin (Lyrica) 25 Mg CAPS ULE 2013-01-27 00:00:00 No 25 Twice A Day [facility] Topiramate Topiramate 2013-01-27 00:00:00 No 50 Twi ce A Day [facility] Desvenlafaxine Succinate (Pristiq) 50 Mg TAB.SR.24H De svenlafaxine Succinate (Pristiq) 50 Mg TAB.SR.24H 2012-12-02 00:00:00 No 100 Daily [facility] Quetiapine Fumarate (Seroquel) 25 Mg TABLET Quetiapine Fumarate (Seroquel) 25 Mg TABLET 2012-12-02 00:00:00 No 25 Four Times Daily as needed [facility] Calcium Carb/Vit D3/Minerals (Caltrate 600+D Plus Tab Chew) 1 Each TAB.CHEW Calcium Carb/Vit D3/Minerals (Caltrate 600+D Plus Tab Chew) 1 Each TAB.CHEW 2012-05-20 00:00:00 No [facility] Vital Signs Vital Name Observation Time Observation Value Comments Source Body Temperature 2020-03-17 15:05:00 98.1 [degF] [facility] Weight 2020-03-17 13:15:00 154 [lb_av] [facility] BMI (Body Mass Index) 2020-03-17 13:15:00 31.1 kg/m2 [facility] Body Temperature 2020-02-24 15:21:00 97.6 [degF] [facility] BMI (Body Mass Index) 2020-02-18 22:00:00 32.0 kg/m2 [facility] Weight 2020-02-18 17:32:00 153 [lb_av] [facility] Body Temperature 2020-02-02 22:34:00 98.8 [degF] [facility] Weight 2020-02-02 18:43:00 153 [lb_av] [facility] BMI (Body Mass Index) 2020-02-02 18:43:00 32.0 kg/m2 [facility] Height 2012-10-25 17:17:00 149.86 cm [facility] Weight 2012-10-25 17:17:00 [facility] Procedures Procedure Date / Time Performed Performing Clinician Sourc e EMERGENCY DEPT VISIT 2020-02-02 00:00:00 [facility] EGD BIOPSY SINGLE/MULTIPLE 2020-01-13 00:00:00 [facility] EGD DILATE STRICTURE 2020-01-13 00:00:00 [facility] Magnetic resonance imaging of abdomen without contrast 3 00:00:00 [facility] Magnetic resonance imaging of pelvis without contrast 2019-07-29 00:00:00 [facility] Plan of Care Planned Activity Planned Date Details Comments Source Instructions Concussion/Head Injury - Adult [facility] Instructions Contusion [facility] Encounters Start Date/Time End Date/Time Encounter Type Admission Type Attendi [facility] Care Department Encounter ID Source 2020-03-17 13:41:00 2020-03-17 15:10:00 Departed Emergency Room 1 CARMELLA GRIFFITHS [facility] [id number] [facility] 2020-02-18 19:19:00 2020-02-24 21:25:00 Discharged Inpatient 1 SAMANTHAANNI [facility] [id number] [facility] 2020-02-17 16:35:00 2020-02-17 16:35:00 Registered Clinic 3 MACKENZIE [facility] [id number] [facility] 2020-02-02 17:52:00 2020-02-02 22:30:00 Departed Emergency Room 1 TRUYADIRAAronABEBE [facility] [id number] [facility] 2020-01-13 10:55:00 2020-01-13 10:55:00 Registered Surgical Day Care [facility] [id number] [facility] 2019-07-29 12:33:00 2019-07-29 12:33:00 Registered Clinic 3 WU MACKENZIE [facility] [id number] [facility] Results Test Description Test Time Test Comments Results Result Comments Source CT C-SPINE W/O - HOPD 2020-03-17 14:38:00 [facility] [address] [address] Patient Name: ROBBIE GILES MR #: [id number] : 1955 Age/Sex: 64/F Req #: [id number] Adm Physician: Ordered by: CARMELLA GRIFFITHS MD Report #: [id number] Location: [facility] Room/Bed: Procedure: [id number] HOPD/CT C-SPINE W/O - HOPD Exam Date: 03/17/20 Exam Time: 1400 REPORT STATUS: Signed EXAMINATION: Head and cervical spine CT without contrast. HISTORY: Status post fall, hit the headache 2 hours ago, trauma, pain COMPARISON: Not available TECHNIQUE: Multidetector axial images were obtained without contrast from the foramen magnum to the vertex and through the cervical spine. Thin section brain and C-spine images were reformatted into coronal and sagittal planes. Dose modulation, iterative reconstruction, and/or weight based adjustment of the mA/kV was utilized to reduce the radiation dose to as low as reasonably achievable. HEAD CT FINDINGS: Skull/scalp: Right frontotemporal scalp swelling/hematoma with out underlying fractures or contrecoup injuries. Parenchyma: Normal. No mass, hemorrhage or CT evidence of acute vascular insult. Brain volume: Normal for age. Ventricles: No hydrocephalus or displacement. Arteries: No density suggestive of thrombus. Dural sinuses: No abnormal density. Extra-axial spaces: No abnormal density. Foramen magnum: No mass, Chiari malformation, or basilar invagination. Sella: No obvious mass. Paranasal/mastoid sinuses: Imaged portions unremarkable. CERVICAL SPINE CT FINDINGS: Alignment:Normal alignment and lordosis. Soft tissues: Normal. Vertebrae: Normal height and density. No acute fracture, infection or neoplasm. 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 Degenerative changes: C1-C2: Normal C2-C3: Disc osteophyte complex formation. Moderate canal stenosis. C3-C4: Disc osteophyte complex formation. Mild ca nal stenosis. C4-C5: Disc osteophyte complex formation and OPLL resulting being moderately severe spinal canal stenosis and flattening of the ventral cord. C5-C6: Disc osteophyte complex formation and OPLL as well as uncovertebral. Moderate spinal canal and right greater than left foraminal stenoses. C6-C7: Disc osteophyte complex formation, uncovertebral and facet arthrosis. Moderately severe spinal canal stenosis in the left. Mild foraminal stenoses C7-T1: Normal IMPRESSION: Head CT: 1. No acute postraumatic intracranial hemorrhage. 2. Right frontotemporal scalp hematoma without underlying fractures. Cervical spine CT: 1. No acute fractures or dislocations. 2. Chronic degenerative changes and OPLL as described. Note: Acute post traumatic spinal cord, vascular or ligamentous injury cannot adequately be assessed with CT. Signed by: Dr. Chilo Sanchez M.D. on 03/17/2020 2:48 PM Dictated By: CHILO SANCHEZ MD [id number] Transcribed By: CAMELIA on 03/17/20 1448 COPY TO: CARMELLA GRIFFITHS MD CT [facility]IN [facility] 2020-03-17 14:38:[address] [address] Patient Name: ROBBIE GILES MR #: [id number] : 1955 Age/Sex: 64/F Req #: [id number] Adm Physician: Ordered by: CARMELLA GRIFFITHS MD Report #: [id number] Location: [facility] Room/Bed: Procedure: [id number] HOPD/CT BRAIN WO-HOP Exam Date: 03/17/20 Exam Time: 1400 REPORT STATUS: Signed EXAMINATION: Head and cervical spine CT without contrast. HISTORY: Status post fall, hit the headache 2 hours ago, trauma, pain COMPARISON: Not available TECHNIQUE: Multidetector axial images were obtained without contrast from the foramen magnum to the vertex and through the cervical spine. Thin section brain and C-spine images were reformatted into coronal and sagittal planes. Dose modulation, iterative reconstruction, and/or weight based adjustment of the mA/kV was utilized to reduce the radiation dose to as low as reasonably achievable. HEAD CT FINDINGS: Skull/scalp: Right frontotemporal scalp swelling/hematoma without underlying fractures or contrecoup injuries. Parenchyma: Normal. No mass, hemorrhage or CT evidence of acute vascular insult. Brain volume: Normal for age. Ventricles: No hydrocephalus or displacement. Arteries: No density suggestive of thrombus. Dural sinuses: No abnormal density. Extra-axial spaces: No abnormal density. Foramen magnum: No mass, Chiari malformation, or basilar invagination. Sella: No obvious mass. Paranasal/mastoid sinuses: Imaged portions unremarkable. CERVICAL SPINE CT FINDINGS: Alignment:Normal alignment and lordosis. Soft tissues: Normal. Vertebrae: Normal height and density. No acute fracture, infection or neoplasm. 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 Degenerative changes: C1-C2: Normal C2-C3: Disc osteophyte complex formation. Moderate canal stenosis. C3-C4: Disc osteophyte complex formation. Mild canal stenosis. C4-C5: Disc osteophyte complex formation and OPLL resulting being moderately severe spinal canal stenosis and flattening of the ventral cord. C5-C6: Disc osteophyte complex formation and OPLL as well as uncovertebral. Moderate spinal canal and right greater than left foraminal stenoses. C6-C7: Disc osteophyte complex formation, uncovertebral and facet arthrosis. Moderately severe spinal canal stenosis in the left. Mild foraminal stenoses C7-T1: Normal IMPRESSION: Head CT: 1. No acute postraumatic intracranial hemorrhage. 2. Right frontotemporal scalp hematoma without underlying fractures. Cervical spine CT: 1. No acute fractures or dislocations. 2. Chronic degenerative changes and OPLL as described. Note: Acute post traumatic spin al cord, vascular or ligamentous injury cannot adequately be assessed with CT. Signed by: Dr. Chilo Sanchez M.D. on 03/17/2020 2:48 PM Dictated By: CHILO SANCHEZ MD 1448 Transcribed By: CAMELIA on 03/17/20 1448 COPY TO: CARMELLA GRIFFITHS MD SHOULDER 2+VW RT - HOPD 2020-03-17 14:29:00 [place] [address] Patient Name: ROBBIE GILES MR #: [id number] : 1955 Age/Sex: 64/F Req #: [id number] Adm Physician: Ordered by: CARMELLA GRIFFITHS MD Report #: [id number] Location: [facility] Room/Bed: Procedure: [id number] HOPD/SHOULDER 2+VW RT - HOPD Exam Date: Exam Time: REPORT STATUS: Signed Exam: Right shoulder 2 views History: Pain, fall Comparison: None. Findings: No displaced fracture. Glenohumeral joint aligned. Acromioclavicular arthrosis with inferior projecting osteophytes and subacromial spurring. Enthesophyte change at the greater tuberosity. Focus of calcific tendinopathy overlying the infraspinatus. Impression: No acute osseous abnormality Signed by: Dr. Ni Rosario M.D. on 03/17/2020 2:30 PM Dictated By: NI ROSARIO MD 1430 Transcribed By: CAMELIA on 03/17/201429 COPY TO: CARMELLA GRIFFITHS MD Capillary blood glucose measurement by glucometer (mas s/volume) 2020-02-24 15:06:00 Test Item Bedside Glucose (test code = 39198-0) 140 70-120 Meter ID: [id number] [facility] by [facility] (mass/volume)2020-02-24 15:06:00* Test Item Value Reference Range Interpretation Comments Bedside Glucose (test code = 70147-3) 140 70-120 Meter ID: [id number] [facility] Centererum or plasma cancer antigen 125 measurement (units/volume)2020-02-23 06:40:00* Test Item Value Reference Range Interpretation Comments CA 125 Antigen (test code = 79543-0) 18.8 0.0-38.1 [facility] Electrochemiluminescence Immunoassay(ECLIA)Values obtained wit h different assay methods or kits cannotbe used interchangeably. Results cannot be interpreted asabsolute evidence of the presence or absence of malignantdisea se.Performed at: [facility] [facility] [id number] City Council Member: Lewis Torrez MD, Phone: [phone] Memorial Hospitalerum or plasma cancer antigen 125 measurement (units/volume)2020-02-23 06:40:00* Test Item Value Reference Range Interpretation Comments CA 125 Antigen (test code = 94698-9) 18.8 0.0-38.1 [facility] Electrochemiluminescence Immunoassay(ECLIA)Values obtained wit h different assay methods or kits cannotbe used interchangeably. Results cannot be interpreted asabsolute evidence of the presence or absence of malignantdisea se.Performed at: - [facility] [id number] City Council Member: Lewis Torrez MD, Phone: [phone] 2 [id number] 19:49:00 [place] [address] Patient Name: ROBBIE GILES MR #: [id number] : 1955 Age/Sex: 64/F Req #: [id number] Adm Physician: ANNI MACKENZIE MD Ordered by: WU MACKENZIE MD Report #: [id number] Location: MED/SURG2 Room/Bed: [facility] Procedure: [id number] DX/ABD OMEN 2 VIEW Exam Date: 02/22/20 Exam Time: 0755 REPORT STATUS: Signed Exam: Abdom inal film Clinical History: Abdominal discomfort, lower abdomen Garret rison: CT abdomen and pelvis without contrast 6 02/18/2020, fluoroscopy exam DISCUSSION: Frontal view of the abdomen shows a nonobstructive rickey l gas pattern with mild amount of retained stool.There are no dilated, air-weston led loops of bowel. No pneumoperitoneum. Scattered radiopaque densities projec ting in the right lower quadrant likely represent previously administered oral contrast.No acute bone abnormality. IMPRESSION: 1. Nonobstructive b owel gas pattern. The staff physician below has personally reviewed this ex am on the date of dictation. Signed by: Dr. Last doherty M.D. on 02/22/2020 7:51 PM Dictated By: LAST GONZALEZ MD Electronic ally Signed By: LAST GONZALEZ MD on 02/22/201950 Transcribed By: CAMELIA on 0 02/22/201950 COPY TO: WU MACKENZIE MD Serum or plasma lactate dehydrogenase measurement (enzymatic activity/volume)2020-02-22 13:45:00* Test Item Value Reference Range Interpretation Comments Lactate Dehydrogenase (test code = 417242562) 148 125-220 [facility] Hospitalerum or plasma lactate dehydrogenase measurement (enzymatic activity/volume)2020-02-22 13:45:00* Test Item Value Reference Range Interpretation Comments Lactate Dehydrogenase (test code = 414547594) 148 125-220 [facility] leukocytes automated count (number/volume)2020-02-22 05:05:00* Test Item Value Reference Range Interpretation Comments White Blood Count (test code = 6690-2) 4.95 4.8-10.8 [facility]Blood erythrocytes automated count (number/volume)2020-02-22 05:05:00* Test Item Value Reference Range Interpretation Comments Red Blood Count (test code = 789-8) 3.81 3.6-5.1 [facility] HospitalBlood hemoglobin measurement (moles/volume)2020-02-22 05:05:00* Test Item Value Reference Range Interpretation Comments Hemoglobin (test code = 72229-9) 10.4 12.0-16.0 [facility] HospitalAutomated blood hematocrit (volume fraction)2020-02-22 05:05:00* Test Item Value Reference Range Interpretation Comments Hematocrit (test code = 4544-3) 32.9 34.2-44.1 [facility] HospitalAutomated erythrocyte mean corpuscular asiwpw0958-65-83 05:05:00* Test Item Value Reference Range Interpretation Comments Mean Corpuscular Volume (test code = 787-2) 86.4 81-99 [facility] HospitalAutomated erythrocyte mean corpuscular hemoglobin (mass per erythrocyte)2020-02-22 05:05:00* Test Item Value Reference Range Interpretation Comments Mean Corpuscular Hemoglobin (test code = 785-6) 27.3 28-32 [facility] HospitalAutomated erythrocyte mean corpuscular hemoglobin concentration measurement (mass/volume)2020-02-22 05:05:00* Test Item Value Reference Range Interpretation Comments Mean Corpuscular Hemoglobin Concent (test code = 786-4) 31.6 31-35 [facility] HospitalRDW DkvAw-Mli7263-23-28 05:05:00* Test Item Value Reference Range Interpretation Comments Red Cell Distribution Width (test code = 78548-1) 14.5 11.7 -14.4 [facility] HospitalAutomated blood platelet count (count/volume)2020-02-22 05:05:00* Test Item Value Reference Range Interpretation Comments Platelet Count (test code = 777-3) 199 140-360 [facility] HospitalAutomated blood segmented neutrophil count as percentage of total nifrqxsfih9312-33-64 05:05:00* Test Item Value Reference Range Interpretation Comments Neutrophils (%) (Auto) (test code = 69157-1) 51.9 38.7-80.0 [facility] HospitalAutomated blood lymphocyte count as percentage ot total wfkfmiodtc3675-91-89 05:05:00* Test Item Value Reference Range Interpretation Comments Lymphocytes (%) (Auto) (test code = 736-9) 31.9 18.0-39.1 [facility] HospitalAutomated blood monocyte count as percentage of total tegyzuadmj5020-52-07 05:05:00* Test Item Value Reference Range Interpretation Comments Monocytes (%) (Auto) (test code = 5905-5) 7.5 4.4-11.3 [facility] HospitalAutomated blood eosinophil count as percentage of total uyhkbbszbd3020-96-35 05:05:00* Test Item Value Reference Range Interpretation Comments Eosinophils (%) (Auto) (test code = 713-8) 7.7 0.0-6.0 [facility] HospitalAutomated blood basophil count as percentage of total xjppsuaeyk4101-35-50 05:05:00* Test Item Value Reference Range Interpretation Comments Basophils (%) (Auto) (test code = 706-2) 0.6 0.0-1.0 [facility] HospitalFluoroscopic procedure less than one hour iekorpiy7320-19-56 05:05:00* Test Item Value Reference Range Interpretation Comments IM GRANULOCYTES % (test code = IM GRANULOCYTES %) 0.4 0.0- 1.0 [facility] HospitalAutomated blood neutrophil count 2020-02-22 05:05:00* Test Item Value Reference Range Interpretation Comments Neutrophils # (Auto) (test code = 751-8) 2.6 2.1-6.9 [facility] HospitalBlood lymphocytes count (number/volume) 2020-02-22 05:05:00* Test Item Value Reference Range Interpretation Comments Lymphocytes # (Auto) (test code = 70365-5) 1.6 1.0-3.2 [facility] HospitalBlood monocytes automated count (number/volume)2020-02-22 05:05:00* Test Item Value Reference Range Interpretation Comments Monocytes # (Auto) (test code = 742-7) 0.4 0.2-0.8 [facility] HospitalAutomated blood eosinophil count 2020-02-22 05:05:00* Test Item Value Reference Range Interpretation Comments Eosinophils # (Auto) (test code = 711-2) 0.4 0.0-0.4 [facility] HospitalAutomated blood basophil count (count/volume)2020-02-22 05:05:00* Test Item Value Reference Range Interpretation Comments Basophils # (Auto) (test code = 704-7) 0.0 0.0-0.1 [facility] HospitalFluoroscopic procedure less than one hour vxhmeika7231-72-95 05:05:00* Test Item Value Reference Range Interpretation Comments Absolute Immature Granulocyte (auto (christie t code = Absolute Immature Granulocyte (auto) 0.02 0-0.1 [facility] Hospitalerum or plasma sodium measurement (moles/volume)2020-02-22 05:05:00* Test Item Value Reference Range Interpretation Comments Sodium Level (test code = 2951-2) 140 136-145 [facility] Hospitalerum or plasma potassium measurement (moles/volume)2020-02-22 05:05:00* Test Item Value Reference Range Interpretation Comments Potassium Level (test code = 2823-3) 3.7 3.5-5.1 [facility] Hospitalerum or plasma chloride measurement (moles/volume)2020-02-22 05:05:00* Test Item Value Reference Range Interpretation Comments Chloride Level (test code = 2075-0) 109 98-107 [facility] Hospitalerum or plasma carbon dioxide, total measurement (moles/volume)2020-02-22 05:05:00* Test Item Value Reference Range Interpretation Comments Carbon Dioxide Level (test code = 2028-9) 20 22-29 [facility] Hospitalerum or plasma anion raf8889-15-72 05:05:00* Test Item Value Reference Range Interpretation Comments Anion Gap (test code = 60114-3) 14.7 8-16 [facility] Hospitalerum or plasma urea nitrogen measurement (mass/volume)2020-02-22 05:05:00* Test Item Value Reference Range Interpretation Comments Blood Urea Nitrogen (test code = 3094-0) 5 7-26 [facility] Hospitalerum or plasma creatinine measurement (mass/volume)2020-02-22 05:05:00* Test Item Value Reference Range Interpretation Comments Creatinine (test code = 2160-0) 1.18 0.57-1.11 [facility] Hospitalerum or plasma urea nitrogen/creatinine mass jfkjm5710-22-08 05:05:00* Test Item Value Reference Range Interpretation Comments BUN/Creatinine Ratio (test code = 3097-3) 4 6-25 [facility] HospitalEstimated glomerular filtration rate (GFR) koiivyxowzqwf5620-73-51 05:05:00* Test Item Value Reference Range Interpretation Comments Estimat Glomerular Filtration Rate (test code = 193480914) 46 >60 Ranges were taken from the National Kidney Disease Education Program and the [facility] literature.Reference ranges:60 or greater: Ivrosy12-26 ( for 3 consecutive months): Chronic kidney disease 15 or less: Kidney failureCHRISTUS Saint Michael HospitalGlucose vwdjbrsfkat4331-84-84 05:05:00* Test Item Value Reference Range Interpretation Comments Glucose Level (test code = PIF0022) 130 74-118 [facility] Hospitalerum or plasma calcium measurement (mass/volume)2020-02-22 05:05:00* Test Item Value Reference Range Interpretation Comments Calcium Level (test code = 16805-6) 9.3 8.4-10.2 [facility] Hospitalerum or plasma total bilirubin measurement (mass/volume)2020-02-22 05:05:00* Test Item Value Reference Range Interpretation Comments Total Bilirubin (test code = 1975-2) 0.2 0.2-1.2 [facility] HospitalFluoroscopic procedure less than one hour xomcqubt5493-61-44 05:05:00* Test Item Value Reference Range Interpretation Comments Aspartate Amino Transf (AST/SGOT) (test code = Aspartate Amino Transf (AST/SGOT)) 33 5-34 [facility] Hospitalerum or plasma alanine aminotransferase measurement (enzymatic activity/volume)2020-02-22 05:05:00* Test Item Value Reference Range Interpretation Comments Alanine Aminotransferase (ALT/SGPT) (test code = 1742-6) 22 0-55 [facility] Hospitalerum or plasma protein measurement (mass/volume)2020-02-22 05:05:00* Test Item Value Reference Range Interpretation Comments Total Protein (test code = 2885-2) 7.5 6.5-8.1 [facility] Hospitalerum or plasma albumin measurement (mass/volume)2020-02-22 05:05:00* Test Item Value Reference Range Interpretation Comments Albumin (test code = 1751-7) 3.9 3.5-5.0 [facility] HospitalPlasma globulin measurement (mass/volume) 2020-02-22 05:05:00* Test Item Value Reference Range Interpretation Comments Globulin (test code = 88712-0) 3.6 2.3-3.5 [facility] Hospitalerum or plasma albumin/globulin mass qjdhx8528-32-12 05:05:00* Test Item Value Reference Range Interpretation Comments Albumin/Globulin Ratio (test code = 1759-0) 1.1 0.8-2.0 [facility] Hospitalerum or plasma alkaline phosphatase measurement (enzymatic activity/volume)2020-02-22 05:05:00* Test Item Value Reference Range Interpretation Comments Alkaline Phosphatase (test code = 6768-6) 34 40-150 [facility] HospitalBlood leukocytes automated count (number/volume)2020-02-22 05:05:00* Test Item Value Reference Range Interpretation Comments White Blood Count (test code = 6690-2) 4.95 4.8-10.8 [facility] HospitalBlood erythrocytes automated count (number/volume)2020-02-22 05:05:00* Test Item Value Reference Range Interpretation Comments Red Blood Count (test code = 789-8) 3.81 3.6-5.1 [facility] HospitalBlood hemoglobin measurement (moles/volume)2020-02-22 05:05:00* Test Item Value Reference Range Interpretation Comments Hemoglobin (test code = 83060-2) 10.4 12.0-16.0 [facility] HospitalAutomated blood hematocrit (volume fraction)2020-02-22 05:05:00* Test Item Value Reference Range Interpretation Comments Hematocrit (test code = 4544-3) 32.9 34.2-44.1 [facility] HospitalAutomated erythrocyte mean corpuscular kukrti5452-57-83 05:05:00* Test Item Value Reference Range Interpretation Comments Mean Corpuscular Volume (test code = 787-2) 86.4 81-99 [facility] HospitalAutomated erythrocyte mean corpuscular hemoglobin (mass per erythrocyte)2020-02-22 05:05:00* Test Item Value Reference Range Interpretation Comments Mean Corpuscular Hemoglobin (test code = 785-6) 27.3 28-32 [facility] HospitalAutomated erythrocyte mean corpuscular hemoglobin concentration measurement (mass/volume)2020-02-22 05:05:00* Test Item Value Reference Range Interpretation Comments Mean Corpuscular Hemoglobin Concent (test code = 786-4) 31.6 31-35 [facility] HospitalRDW TztSw-Lnm9141-10-28 05:05:00* Test Item Value Reference Range Interpretation Comments Red Cell Distribution Width (test code = 97896-6) 14.5 11.7 -14.4 [facility] HospitalAutomated blood platelet count (count/volume)2020-02-22 05:05:00* Test Item Value Reference Range Interpretation Comments Platelet Count (test code = 777-3) 199 140-360 [facility] blood segmented neutrophil count as percentage of total atvmnwsqfy8811-34-30 05:05:00* Test Item Value Reference Range Interpretation Comments Neutrophils (%) (Auto) (test code = 66740-7) 51.9 38.7-80.0 [facility] HospitalAutomated blood lymphocyte count as percentage ot total jrcscpcarz7132-74-29 05:05:00* Test Item Value Reference Range Interpretation Comments Lymphocytes (%) (Auto) (test code = 736-9) 31.9 18.0-39.1 [facility] HospitalAutomated blood monocyte count as percentage of total dwonyywbyw8863-21-64 05:05:00* Test Item Value Reference Range Interpretation Comments Monocytes (%) (Auto) (test code = 5905-5) 7.5 4.4-11.3 [facility] HospitalAutomated blood eosinophil count as percentage of total dmvpinzcja0611-64-94 05:05:00* Test Item Value Reference Range Interpretation Comments Eosinophils (%) (Auto) (test code = 713-8) 7.7 0.0-6.0 [facility] HospitalAutwatauga medical centered blood basophil count as percentage of total chijmjmhlg7016-93-42 05:05:00* Test Item Value Reference Range Interpretation Comments Basophils (%) (Auto) (test code = 706-2) 0.6 0.0-1.0 [facility] HospitalFluoroscopic procedure less than one hour oxqrozip2905-26-25 05:05:00* Test Item Value Reference Range Interpretation Comments IM GRANULOCYTES % (test code = IM GRANULOCYTES %) 0.4 0.0- 1.0 [facility] HospitalAutwatauga medical centered blood neutrophil count 2020-02-22 05:05:00* Test Item Value Reference Range Interpretation Comments Neutrophils # (Auto) (test code = 751-8) 2.6 2.1-6.9 [facility] HospitalBlood lymphocytes count (number/volume) 2020-02-22 05:05:00* Test Item Value Reference Range Interpretation Comments Lymphocytes # (Auto) (test code = 49711-7) 1.6 1.0-3.2 [facility] HospitalBlood monocytes automated count (number/volume)2020-02-22 05:05:00* Test Item Value Reference Range Interpretation Comments Monocytes # (Auto) (test code = 742-7) 0.4 0.2-0.8 [facility] blood eosinophil count 2020-02-22 05:05:00* Test Item Value Reference Range Interpretation Comments Eosinophils # (Auto) (test code = 711-2) 0.4 0.0-0.4 [facility] HospitalAutomated blood basophil count (count/volume)2020-02-22 05:05:00* Test Item Value Reference Range Interpretation Comments Basophils # (Auto) (test code = 704-7) 0.0 0.0-0.1 [facility] HospitalFluoroscopic procedure less than one hour rdlkjlby2906-73-03 05:05:00* Test Item Value Reference Range Interpretation Comments Absolute Immature Granulocyte (auto (christie t code = Absolute Immature Granulocyte (auto) 0.02 0-0.1 [facility] Hospitalerum or plasma sodium measurement (moles/volume)2020-02-22 05:05:00* Test Item Value Reference Range Interpretation Comments Sodium Level (test code = 2951-2) 140 136-145 [facility] Hospitalerum or plasma potassium measurement (moles/volume)2020-02-22 05:05:00* Test Item Value Reference Range Interpretation Comments Potassium Level (test code = 2823-3) 3.7 3.5-5.1 [facility] Hospitalerum or plasma chloride measurement (moles/volume)2020-02-22 05:05:00* Test Item Value Reference Range Interpretation Comments Chloride Level (test code = 2075-0) 109 98-107 [facility] Hospitalerum or plasma carbon dioxide, total measurement (moles/volume)2020-02-22 05:05:00* Test Item Value Reference Range Interpretation Comments Carbon Dioxide Level (test code = 2028-9) 20 22-29 [facility] Hospitalerum or plasma anion mkk8811-22-15 05:05:00* Test Item Value Reference Range Interpretation Comments Anion Gap (test code = 19368-9) 14.7 8-16 [facility] Hospitalerum or plasma urea nitrogen measurement (mass/volume)2020-02-22 05:05:00* Test Item Value Reference Range Interpretation Comments Blood Urea Nitrogen (test code = 3094-0) 5 7-26 [facility] Hospitalerum or plasma creatinine measurement (mass/volume)2020-02-22 05:05:00* Test Item Value Reference Range Interpretation Comments Creatinine (test code = 2160-0) 1.18 0.57-1.11 [facility] Hospitalerum or plasma urea nitrogen/creatinine mass tjxsh2133-65-47 05:05:00* Test Item Value Reference Range Interpretation Comments BUN/Creatinine Ratio (test code = 3097-3) 4 6-25 [facility] HospitalEstimated glomerular filtration rate (GFR) xgbjjzinmkggc5572-46-41 05:05:00* Test Item Value Reference Range Interpretation Comments Estimat Glomerular Filtration Rate (test code = 543537331) 46 >60 Ranges were taken from the National Kidney Disease Education Program and the [facility] literature.Reference ranges:60 or greater: Xghonr19-77 ( for 3 consecutive months): Chronic kidney disease 15 or less: Kidney failureCHRISTUS Saint Michael HospitalGlucose utnkshwmquw3857-19-84 05:05:00* Test Item Value Reference Range Interpretation Comments Glucose Level (test code = FYP4635) 130 74-118 [facility] Hospitalerum or plasma calcium measurement (mass/volume)2020-02-22 05:05:00* Test Item Value Reference Range Interpretation Comments Calcium Level (test code = 86394-6) 9.3 8.4-10.2 [facility] Hospitalerum or plasma total bilirubin measurement (mass/volume)2020-02-22 05:05:00* Test Item Value Reference Range Interpretation Comments Total Bilirubin (test code = 1975-2) 0.2 0.2-1.2 [facility] HospitalFluoroscopic procedure less than one hour iwhnaoyw2590-91-06 05:05:00* Test Item Value Reference Range Interpretation Comments Aspartate Amino Transf (AST/SGOT) (test code = Aspartate Amino Transf (AST/SGOT)) 33 5-34 [facility] Hospitalerum or plasma alanine aminotransferase measurement (enzymatic activity/volume)2020-02-22 05:05:00* Test Item Value Reference Range Interpretation Comments Alanine Aminotransferase (ALT/SGPT) (test code = 1742-6) 22 0-55 [facility] Hospitalerum or plasma protein measurement (mass/volume)2020-02-22 05:05:00* Test Item Value Reference Range Interpretation Comments Total Protein (test code = 2885-2) 7.5 6.5-8.1 [facility] Hospitalerum or plasma albumin measurement (mass/volume)2020-02-22 05:05:00* Test Item Value Reference Range Interpretation Comments Albumin (test code = 1751-7) 3.9 3.5-5.0 [facility] HospitalPlasma globulin measurement (mass/volume) 2020-02-22 05:05:00* Test Item Value Reference Range Interpretation Comments Globulin (test code = 06659-9) 3.6 2.3-3.5 [facility] [facility] albumin/globulin mass ysdwy3357-55-36 05:05:00* Test Item Value Reference Range Interpretation Comments Albumin/Globulin Ratio (test code = 1759-0) 1.1 0.8-2.0 [facility] alkaline phosphatase measurement (enzymatic activity/volume)2020-02-22 05:05:00* Test Item Value Reference Range Interpretation Comments Alkaline Phosphatase (test code = 6768-6) 34 40-150 [facility] HospitalMALL BOWEL KEXRPB2630-70-17 15:06:00 [facility] [address] [address] Patient Name: ROBBIE GILES MR #: [id number] : 1955 Age/Sex: 64/F Req #: [id number] Adm Physician: ANNI MACKENZIE MD Ordered by: WU MACKENZIE MD Report #: [id number] Location: [facility] Room/Bed: [facility] Procedure: [id number] DX/SMA LL BOWEL SERIES Exam Date: 02/20/20 Exam Time: 1120 REPORT STATUS: Signed SMALL RICKEY L FOLLOW THROUGH HISTORY: Abdominal pain TOOL CHECKER(S): Bernard Patten Comparison: CT abdomen/Pelvis 02/18/2020 Procedure: Small bowel fol low through exam was performed using oral barium. Preliminary image was obtai latia before administration of contrast and serial overhead images were obtained after administration of oral barium. Fluoroscopy was performed and spot imag es were obtained. DISCUSSION: INJECTION MAINTENANCE TECHNICIAN: The bowel gas pattern is non-obst ructive. ESOPHAGUS: Within normal limits. GASTROESOPHAGEAL JUNCTION : No evidence of hiatal hernia. GASTROESOPHAGEAL REFLUX: None observed. STOMACH: Normally distensible and demonstrates normal contours and mucosal pattern. DUODENUM: Bulb and sweep are normal. Duodenal-jejunal j unction is in the normal expected position. Small bowel loops are normal in caliber and distribution. There is no evidence of fistula, mucosal mckeon es, stricture or dilation. The transit time was within normal limits. IMP RESSION: Unremarkable exam. Signed by: Aurora Nance MD on 02/20/2020 3: 08 PM Dictated By: AURORA NANCE MD 1508 Transcribed By: CAMELIA on 02/20/20 1508 COPY TO: WU ELAM MD Automated reticulocyte count as percentage of total wqhddtxzyjox9535-76-18 04:40:00* Test Item Value Reference Range Interpretation Comments Percent Reticulocyte Count (test code = 96238-0) 2.0 0.8-2 .2 [facility] iron measurement (mass/volume)2020-02-20 04:40:00* Test Item Value Reference Range Interpretation Comments Iron Level (test code = 2498-4) 83 50-170 [facility] plasma iron binding capacity measurement (mass/volume)2020-02-20 04:40:00* Test Item Value Reference Range Interpretation Comments Total Iron Binding Capacity (test code = 2500-7) 449 261-4 78 [facility] plasma iron saturation measurement (mass fraction)2020-02-20 04:40:00* Test Item Value Reference Range Interpretation Comments Percent Iron Saturation (test code = 2502-3) 18 15-50 [facility] or plasma transferrin measurement (mass/volume)2020-02-20 04:40:00* Test Item Value Reference Range Interpretation Comments Transferrin (test code = 3034-6) 321 180-382 [facility] plasma ferritin measurement (mass/volume)2020-02-20 04:40:00* Test Item Value Reference Range Interpretation Comments Ferritin (test code = 2276-4) 92.38 4.63-204.00 [facility] plasma lipase measurement (enzymatic activity/volume)2020-02-20 04:40:00* Test Item Value Reference Range Interpretation Comments Lipase (test code = 3040-3) 20 8-78 [facility] (vitamin B12) measurement (mass/volume)2020-02-20 04:40:00* Test Item Value Reference Range Interpretation Comments Vitamin B12 Level (test code = 35276-7) 403 213-816 [facility]er[facility] vernon's yeast IgG antibody assay (units/volume)2020-02-20 04:40:00* Test Item Value Reference Range Interpretation Comments Saccharomyces cerevisiae IgG Ab (test code = 6713-2) 41.9 0 .0-24.9 Negative <20.0 Equivocal 20.1 - 24.9 Positive >or= 25.0[facility] vernon's yeast IgA antibody assay (units/volume)2020-02-20 04:40:00* Test Item Value Reference Range Interpretation Comments Saccharomyces cerevisiae IgA Ab (test code = 80118-8) 29.6 0.0-24.9 Negative <20.0 Equivocal 20.1 - 24.9 Positive >or= 25.0IgA and IgG antibody testing for S. cerevisiae isuseful adjunct testing for differentiating Crohn'sdisease and ulcerative colitis. Close to 80% ofCrohn's disease patients are positive for eitherIgA or IgG. In ulcerative colitis, less than 15% arepositive for IgG and less than 2% are positive forIgA. Fewer than 5% are positive for either IgG orIgA antibody, and no healthy controls had antib odyfor both.[facility] Hospitalerum atypical perinuclear neutrophil cytoplasmic antibody titer by aiagymwitlkpnomizu5097-12-65 04:40:00* Test Item Value Reference Range Interpretation Comments Atypical p-ANCA (test code = 90216-1) <1:20 Neg:<1:20 The atypical pANCA pattern has been observed in asignificant percentage of patie nts with ulcerative colitis,primary sclerosing cholangitis and autoimmune hepati tis. ASCA+/PANCA- Suggestive of Crohn's disease ASCA-/PANCA+ S uggestive of Ulcerative colitisPerformed at: - [facility] [address] [id number] Director: Zohreh Laws MD, Phone: [phone]er[facility] plasma folate measurement (mass/volume)2020-02-20 04:40:00* Test Item Value Reference Range Interpretation Comments Folate (test code = 2284-8) >20.0 >3.0 A serum folate concentration of less than 3.1 ng/mL isconsidered to represent cl inical deficiency.Performed at: - [facility] [address] [id number] Director: Lewis Torrez MD, Phone: [phone] Saint [facility] HospitalAutomated reticulocyte count as percentage of total tleheelsjvkx2358-02-90 04:40:00* Test Item Value Reference Range Interpretation Comments Percent Reticulocyte Count (test code = 55229-2) 2.0 0.8-2 .2 [facility] plasma iron measurement (mass/volume)2020-02-20 04:40:00* Test Item Value Reference Range Interpretation Comments Iron Level (test code = 2498-4) 83 50-170 [facility] plasma iron binding capacity measurement (mass/volume)2020-02-20 04:40:00* Test Item Value Reference Range Interpretation Comments Total Iron Binding Capacity (test code = 2500-7) 449 261-4 78 [facility] plasma iron saturation measurement (mass fraction)2020-02-20 04:40:00* Test Item Value Reference Range Interpretation Comments Percent Iron Saturation (test code = 2502-3) 18 15-50 [facility] or plasma transferrin measurement (mass/volume)2020-02-20 04:40:00* Test Item Value Reference Range Interpretation Comments Transferrin (test code = 3034-6) 321 180-382 [facility] or plasma ferritin measurement (mass/volume)2020-02-20 04:40:00* Test Item Value Reference Range Interpretation Comments Ferritin (test code = 2276-4) 92.38 4.63-204.00 [facility] plasma lipase measurement (enzymatic activity/volume)2020-02-20 04:40:00* Test Item Value Reference Range Interpretation Comments Lipase (test code = 3040-3) 20 8-78 [facility] HospitalBlood cobalamin (vitamin B12) measurement (mass/volume)2020-02-20 04:40:00* Test Item Value Reference Range Interpretation Comments Vitamin B12 Level (test code = 31362-9) 403 213-816 [facility] vernon's yeast IgG antibody assay (units/volume)2020-02-20 04:40:00* Test Item Value Reference Range Interpretation Comments Saccharomyces cerevisiae IgG Ab (test code = 6713-2) 41.9 0 .0-24.9 Negative <20.0 Equivocal 20.1 - 24.9 Positive >or= 25.0[facility] vernon's yeast IgA antibody assay (units/volume)2020-02-20 04:40:00* Test Item Value Reference Range Interpretation Comments Saccharomyces cerevisiae IgA Ab (test code = 67595-8) 29.6 0.0-24.9 Negative <20.0 Equivocal 20.1 - 24.9 Positive >or= 25.0IgA and IgG antibody testing for S. cerevisiae isuseful adjunct testing for differentiating Crohn'sdisease and ulcerative colitis. Close to 80% ofCrohn's disease patients are positive for eitherIgA or IgG. In ulcerative colitis, less than 15% arepositive for IgG and less than 2% are positive forIgA. Fewer than 5% are positive for either IgG orIgA antibody, and no healthy controls had antib odyfor both.[facility] Hospitalerum atypical perinuclear neutrophil cytoplasmic antibody titer by tikdojmmsqlahakzcl5675-21-07 04:40:00* Test Item Value Reference Range Interpretation Comments Atypical p-ANCA (test code = 38678-0) <1:20 Neg:<1:20 The atypical pANCA pattern has been observed in asignificant percentage of patie nts with ulcerative colitis,primary sclerosing cholangitis and autoimmune hepati tis. ASCA+/PANCA- Suggestive of Crohn's disease ASCA-/PANCA+ S uggestive of Ulcerative colitisPerformed at: - [facility] [address] [id number] Director: Zohreh Laws MD, Phone: [phone] Hospitaler[facility] or plasma folate measurement (mass/volume)2020-02-20 04:40:00* Test Item Value Reference Range Interpretation Comments Folate (test code = 2284-8) >20.0 >3.0 A serum folate concentration of less than 3.1 ng/mL isconsidered to represent cl inical deficiency.Performed at: [facility] [id number] Director: Lewis Torrez MD, Phone: [phone] Saint [facility] HospitalUrine color gbjarwxeikgyc5021-40-73 03:26:00* Test Item Value Reference Range Interpretation Comments Urine Color (test code = 5778-6) YELLOW YELLOW [facility] HospitalUrine dqztsie2581-87-88 03:26:00* Test Item Value Reference Range Interpretation Comments Urine Clarity (test code = 18670-7) CLEAR CLEAR [facility] Hospitalpecific gravity of Urine by Test strip 2020-02-20 03:26:00* Test Item Value Reference Range Interpretation Comments Urine Specific [place] (test code = 5811-5) 1.015 1.010-1.02 5 [facility] HospitalU[facility] pH measurement by automated test nszac8254-11-05 03:26:00* Test Item Value Reference Range Interpretation Comments Urine pH (test code = 96490-1) 7 5-7 [facility] HospitalUrine leukocyte esterase detection by yezdozha7447-78-14 03:26:00* Test Item Value Reference Range Interpretation Comments Urine Leukocyte Esterase (test code = 5799-2) NEGATIVE NEGATIVE [facility] HospitalUrine nitrite jylaadydt0901-01-06 03:26:00* Test Item Value Reference Range Interpretation Comments Urine Nitrite (test code = 92516-2) NEGATIVE NEGATIVE [facility] HospitalU[facility] protein measurement by test strip (mass/volume)2020-02-20 03:26:00* Test Item Value Reference Range Interpretation Comments Urine Protein (test code = 5804-0) NEGATIVE NEGATIVE [facility] HospitalUrine glucose kmypzmwaq5343-02-91 03:26:00* Test Item Value Reference Range Interpretation Comments Urine Glucose (UA) (test code = 2349-9) NEGATIVE NEGATIVE [facility] HospitalUrine ketones detection by automated test mltjf9715-12-44 03:26:00* Test Item Value Reference Range Interpretation Comments Urine Ketones (test code = 69309-1) NEGATIVE NEGATIVE [facility] HospitalUrine urobilinogen measurement by test strip (mass/volume)2020-02-20 03:26:00* Test Item Value Reference Range Interpretation Comments Urine Urobilinogen (test code = 28927-8) 0.2 0.2-1 [facility] HospitalU[facility] total bilirubin measurement (mass/volume)2020-02-20 03:26:00* Test Item Value Reference Range Interpretation Comments Urine Bilirubin (test code = 1978-6) NEGATIVE NEGATIVE [facility] HospitalUrine erythrocytes riszwqgur5792-47-29 03:26:00* Test Item Value Reference Range Interpretation Comments Urine Blood (test code = 83074-8) NEGATIVE NEGATIVE [facility] HospitalAutomated urine sediment leukocyte count by microscopy (number/high power field)2020-02-20 03:26:00* Test Item Value Reference Range Interpretation Comments Urine WBC (test code = 5821-4) 11-20 0-5 [facility] HospitalErythrocytes detection in urine sediment by light iizcepunrs1330-19-48 03:26:00* Test Item Value Reference Range Interpretation Comments Urine RBC (test code = 10829-4) 0-5 0-5 [facility] HospitalBacteria detection in urine sediment by light vghaujxgoy9225-07-28 03:26:00* Test Item Value Reference Range Interpretation Comments Urine Bacteria (test code = 17493-9) FEW NONE [facility] HospitalEpithelial cells detection in urine sediment by light smcvfzvddd3474-02-76 03:26:00* Test Item Value Reference Range Interpretation Comments Urine Epithelial Cells (test code = 51500-7) FEW NONE [facility] HospitalTransitional cells detection in urine sediment by light lexnouiksy6903-18-29 03:26:00* Test Item Value Reference Range Interpretation Comments Urine Transitional Epithelial Cells (test code = 8249-5) FEW NONE [facility] HospitalRenal epithelial cells detection in urine sediment by light nspbdtbpsg5264-29-54 03:26:00* Test Item Value Reference Range Interpretation Comments Urine Renal Epithelial Cells (test code = 01970-3) FEW NON E [facility] HospitalUrine color hmyuvomwixwxk8193-41-64 03:26:00* Test Item Value Reference Range Interpretation Comments Urine Color (test code = 5778-6) YELLOW YELLOW [facility] HospitalUrine yvzktfu6213-02-82 03:26:00* Test Item Value Reference Range Interpretation Comments Urine Clarity (test code = 22424-9) CLEAR CLEAR [facility] Hospitalpecific gravity of Urine by Test strip 2020-02-20 03:26:00* Test Item Value Reference Range Interpretation Comments Urine Specific [place] (test code = 5811-5) 1.015 1.010-1.02 5 [facility] HospitalUrine pH measurement by automated test vfnfp0981-07-65 03:26:00* Test Item Value Reference Range Interpretation Comments Urine pH (test code = 00427-9) 7 5-7 [facility] HospitalUrine leukocyte esterase detection by xyubjlex0902-84-22 03:26:00* Test Item Value Reference Range Interpretation Comments Urine Leukocyte Esterase (test code = 5799-2) NEGATIVE NEGATIVE [facility] HospitalUrine nitrite nuxgtlyxs3631-65-33 03:26:00* Test Item Value Reference Range Interpretation Comments Urine Nitrite (test code = 40656-2) NEGATIVE NEGATIVE [facility] HospitalUrine protein measurement by test strip (mass/volume)2020-02-20 03:26:00* Test Item Value Reference Range Interpretation Comments Urine Protein (test code = 5804-0) NEGATIVE NEGATIVE [facility] HospitalUrine glucose fnodzcgwt3658-98-47 03:26:00* Test Item Value Reference Range Interpretation Comments Urine Glucose (UA) (test code = 2349-9) NEGATIVE NEGATIVE [facility] HospitalUrine ketones detection by automated test pqlni9535-00-16 03:26:00* Test Item Value Reference Range Interpretation Comments Urine Ketones (test code = 79029-4) NEGATIVE NEGATIVE [facility] HospitalUrine urobilinogen measurement by test strip (mass/volume)2020-02-20 03:26:00* Test Item Value Reference Range Interpretation Comments Urine Urobilinogen (test code = 34757-1) 0.2 0.2-1 [facility] HospitalUrine total bilirubin measurement (mass/volume)2020-02-20 03:26:00* Test Item Value Reference Range Interpretation Comments Urine Bilirubin (test code = 1978-6) NEGATIVE NEGATIVE [facility] HospitalUrine erythrocytes xyojvpzxt4997-02-40 03:26:00* Test Item Value Reference Range Interpretation Comments Urine Blood (test code = 62140-3) NEGATIVE NEGATIVE [facility] HospitalAutomated urine sediment leukocyte count by microscopy (number/high power field)2020-02-20 03:26:00* Test Item Value Reference Range Interpretation Comments Urine WBC (test code = 5821-4) 11-20 0-5 [facility] HospitalErythrocytes detection in urine sediment by light ujleubxwpw2651-66-30 03:26:00* Test Item Value Reference Range Interpretation Comments Urine RBC (test code = 37447-1) 0-5 0-5 [facility] HospitalBacteria detection in urine sediment by light bprnbhyrcv0116-56-79 03:26:00* Test Item Value Reference Range Interpretation Comments Urine Bacteria (test code = 49107-9) FEW NONE [facility] HospitalEpithelial cells detection in urine sediment by light wzlcakvdlv6812-97-96 03:26:00* Test Item Value Reference Range Interpretation Comments Urine Epithelial Cells (test code = 91136-7) FEW NONE [facility] HospitalTransitional cells detection in urine sediment by light lijipeiwar8850-91-86 03:26:00* Test Item Value Reference Range Interpretation Comments Urine Transitional Epithelial Cells (test code = 8249-5) FEW NONE [facility] HospitalRenal epithelial cells detection in urine sediment by light qxcmheeipr5349-54-78 03:26:00* Test Item Value Reference Range Interpretation Comments Urine Renal Epithelial Cells (test code = 66365-6) FEW NON E [facility] Hospitaltool lactoferrin ncgfkyovv2721-03-12 08:15:00* Test Item Value Reference Range Interpretation Comments Stool Lactoferrin (LAB) (test code = 82377-0) POSITIVE NEGATIVE Testing on stool aspirate specimens is outside drill rig operator helper claims since specime n type not validated on this assay.[facility] Clostridium difficile A and B toxin oaryv3290-20-73 08:15:00* Test Item Value Reference Range Interpretation Comments Clostridium Difficile Toxin A & B (test code = 803859032) NEGATIVE NEGATIVE Testing on stool aspirate specimens is outside drill rig operator helper claims since specime n type not validated on this assay.[facility] Hospitaltool lactoferrin gweotpmqq2744-63-59 08:15:00* Test Item Value Reference Range Interpretation Comments Stool Lactoferrin (LAB) (test code = 86019-8) POSITIVE NEGATIVE Testing on stool aspirate specimens is outside drill rig operator helper claims since specime n type not validated on this assay.[facility] Hospitaltool calprotectin measurement (mass/mass)2020-02-19 08:15:00* Test Item Value Reference Range Interpretation Comments Stool Calprotectin (test code = 31471-4) 33 0-120 Concentration Interpretation Follow-Up<16 - 50 ug/g Normal None>50 -120 ug/g Borderline Re-evaluate in 4-6 weeks >120 ug/g Abnormal Repeat as clinically indicatedPerformed at: [facility] [id number] Director: Zohreh Laws MD, Phone: [phone] Saint Michael HospitalClostridium difficile A and B toxin rdmek7246-49-16 08:15:00* Test Item Value Reference Range Interpretation Comments Clostridium Difficile Toxin A & B (test code = 873939851) NEGATIVE NEGATIVE Testing on stool aspirate specimens is outside drill rig operator helper claims since specime n type not validated on this assay.[facility] Erythrocyte sedimentation rate by Westergren nqnxwm8188-78-07 05:20:00* Test Item Value Reference Range Interpretation Comments Erythrocyte Sedimentation Rate (test code = 4537-7) 42 0- 20 [facility]er[facility] or plasma C reactive protein measurement (mass/volume)2020-02-19 05:20:00* Test Item Value Reference Range Interpretation Comments C-Reactive Protein (test code = 1988-5) 8 0-10 Performed at: [facility] [employer] [id number] Director: Lewis Torrez MD, Phone: [phone] Saint [facility] HospitalErythrocyte sedimentation rate by Westergren ozwiom8980-36-65 05:20:00* Test Item Value Reference Range Interpretation Comments Erythrocyte Sedimentation Rate (test code = 4537-7) 42 0- 20 [facility]er[facility] or plasma C reactive protein measurement (mass/volume)2020-02-19 05:20:00* Test Item Value Reference Range Interpretation Comments C-Reactive Protein (test code = 1987-5) 8 0-10 Performed at: [facility] [id number] Director: Lewis Torrez MD, Phone: [phone] Saint [facility] HospitalFluoroscopic procedure less than one hour hgsokygg5949-74-26 21:15:00* Test Item Value Reference Range Interpretation Comments Coronavirus (PCR) (test code = Coronavirus (PCR)) NOT DETECTED NOTD ETECTED SARS-COV-2 (COVID19), HIGHRISK, RT-PCRNegative results do not preclude SARS-CoV- 2 infection and should not be used as the sole basis for patient management deci sions. Negative results must be combined with clinical observations, patient his tory, and epidemiological information. Optimum specimen types and timing for pea k viral levels during infections caused by SARS-CoV-2 have not been determined. Collection of multiple specimens ot types of specimens may be necessary to detec t virus. Improper specimen collection and handling, sequence variability under p rimers/probes, or organism present below the limit of detection may lead to fals e negative results. Positive and negative predictive values of testing are highl y dependent on prevalance. False negative test results are more likely when prev alence is high.The expected result is negative (not detected).The SARS-CoV-2 christie t is intended for the qualitative detection of nucleic acid from SARS-CoV-2 in n asopharyngeal and oropharyngeal swab samples from patients who meet COVID-19 cli nical and or epidemiological criteria. For lower respiratory tract specimens, th e assay is submitted for authoriztion by FDA under an Emergency Use Authorizatio n (EUA). Testing methodology is real time RT-PCR. If received as separate collec tion devices, nasopharygeal and oropharyngeal specimens are combined for analysi s. Additional specimens may be split to a separate accession for analysi and rep orting as this test includes a single unit of service.Test results must be corre lated with clinical presentation and evaluated in the context of other laborator y and epidemiologic data. Test performance can be affected because the epidemiol ogy and clinical spectrum of infection caused by SARS-CoV-2 is not fully known. For example, the optimum types of specimens to collect and when during the cours e of infection these specimens are most likely to contain detectable viral RNA m ay not be known.This test has not been Food and Drug Administration (FDA) cleare d or approved and has been authorized by FDA under an Emergency Use Authorizatio n (EUA). The test is only authorized for the duration of the declaration that ci rcumstances exist justifying the authorization of emergency use of in vitro diag nostic tests for detection and/or diagnosis of SARS-CoV-2 under section 564(b) o f the Act, 21 U.S.C. section 360bbb-3(b)(1), unless the authorization is termina polina or revoked sooner. [facility] are certified under the C linical Laboratory Improvement Amendments of 1988 (CLIA), 42 U.S.C. section 263a , to perform high complexity tests.Testing performed by [facility] [address] [id number] Director: Jose E Pop M.D.CLIA # [id number] Fluoroscopic procedure less than one hour zjwsbcsy7708-45-37 21:15:00* Test Item Value Reference Range Interpretation Comments Coronavirus (PCR) (test code = Coronavirus (PCR)) NOT DETECTED NOTD ETECTED SARS-COV-2 (COVID19), HIGHRISK, RT-PCRNegative results do not preclude SARS-CoV- 2 infection and should not be used as the sole basis for patient management deci sions. Negative results must be combined with clinical observations, patient his tory, and epidemiological information. Optimum specimen types and timing for pea k viral levels during infections caused by SARS-CoV-2 have not been determined. Collection of multiple specimens ot types of specimens may be necessary to detec t virus. Improper specimen collection and handling, sequence variability under p rimers/probes, or organism present below the limit of detection may lead to fals e negative results. Positive and negative predictive values of testing are highl y dependent on prevalance. False negative test results are more likely when prev alence is high.The expected result is negative (not detected).The SARS-CoV-2 christie t is intended for the qualitative detection of nucleic acid from SARS-CoV-2 in n asopharyngeal and oropharyngeal swab samples from patients who meet COVID-19 cli nical and or epidemiological criteria. For lower respiratory tract specimens, th e assay is submitted for authoriztion by FDA under an Emergency Use Authorizatio n (EUA). Testing methodology is real time RT-PCR. If received as separate collec tion devices, nasopharygeal and oropharyngeal specimens are combined for analysi s. Additional specimens may be split to a separate accession for analysi and rep orting as this test includes a single unit of service.Test results must be corre lated with clinical presentation and evaluated in the context of other laborator y and epidemiologic data. Test performance can be affected because the epidemiol ogy and clinical spectrum of infection caused by SARS-CoV-2 is not fully known. For example, the optimum types of specimens to collect and when during the cours e of infection these specimens are most likely to contain detectable viral RNA m ay not be known.This test has not been Food and Drug Administration (FDA) cleare d or approved and has been authorized by FDA under an Emergency Use Authorizatio n (EUA). The test is only authorized for the duration of the declaration that ci rcumstances exist justifying the authorization of emergency use of in vitro diag nostic tests for detection and/or diagnosis of SARS-CoV-2 under section 564(b) o f the Act, 21 U.S.C. section 360bbb-3(b)(1), unless the authorization is termina polina or revoked sooner. [facility] are certified under the C linical Laboratory Improvement Amendments of 1988 (CLIA), 42 U.S.C. section 263a , to perform high complexity tests.Testing performed by [facility] [address] [phone] Director: Jose E Pop M.D.CLIA # [id number] [facility] [id number] 18:27:00 [place] [address] Patient Name: ROBBIE GILES MR #: [id number] : 1955 Age/Sex: 64/F Req #: [id number] Adm Physician: Ordered by: CARMELLA GRIFFITHS MD Report #: [id number] Location: [facility] Room/Bed: Procedure: [id number] HOPD/ CT ABD/PEL WO CONTRAST-HOPD Exam Date: 02/18/20 Exam Time: 1823 REPORT STATUS: Signed EXAM: CT Abdomen and Pelvis WITHOUT contrast INDICATION: pain COMPARISO N: Abdominal MRI, 07/29/2019; CT abdomen/pelvis, 02/17/2019 TECHNIQUE: Abdomen a nd pelvis were scanned utilizing a multidetector helical scanner from the lung base to the pubic symphysis without administration of IV contrast. Absence of intravenous contrast decreases sensitivity for detection of focal lesions and vascular pathology. Coronal and sagittal reformations were obtained. Routine protocol was performed. IV CONTRAST: None. ORAL CONTRAST: None RADIATION DOSE: Total DLP: 841.32 mGy*cm Estimated effective dose: (DLP x 0.015 x size factor) mSv COM PLICATIONS: None FINDINGS: LINES and TUBES: None. LOWER THORAX: Lung bases are clear. The previously reported 2 to 3 mm nodular densities in t he right middle lobe is not seen on this exam. HEPATOBILIARY: No foca l hepatic lesions. No biliary ductal dilation. GALLBLADDER: Surgical absen ce of the gallbladder with cholecystectomy clips. A dropped cholecystectomy c lip is seen abutting the posterior medial aspect of the liver capsule. SP JAMES: No splenomegaly. PANCREAS: No focal masses or ductal dilatation. ADRENALS: No adrenal nodules KIDNEYS/URETERS: No hydronephrosis. N o cystic or solid mass lesions. No stones. GI TRACT: No abnormal distent ion, wall thickening, or evidence of bowel obstruction. PELVIC ORGANS/SE DDER: Urinary bladder unremarkable. Uterus is anteverted. LYMPH NODES: Slig htly prominent mesenteric lymph nodes measuring up to 0.6 cm (series 2, image 33) unchanged from prior exam and nonspecific could be infectious or inflammat ory. VESSELS: The abdominal aorta is atherosclerotic with scattered calcifi ed plaques. No aneurysm. PERITONEUM / RETROPERITONEUM: No pneumoperitoneu m or ascites. Mild haziness of the retroperitoneal is unchanged. (series 2, im age 28) Foci of calcifications in the right lower quadrant could represent vas cular or lymph node calcifications. BONES: There are degenerative changes in the lumbar spine. SOFT TISSUES: Superficial surrounding soft tissue unr emarkable. IMPRESSION: Mild haziness of the retroperitone um and slightly prominent mesenteric lymph nodes are unchanged could be infect ious or inflammatory. A dropped cholecystectomy clip is seen abutting the p osterior medial aspect of the liver capsule. Signed by: Wallace anderson MD on 02/18/2020 6:48 PM Dictated By: WALLACE MICHELLE MD Electron ically Signed By: WALLACE MICHELLE MD on 02/18/20 9900 Transcribed By: CAMELIA on 02/18/201847 COPY TO: CARMELLA GRIFFITHS MD ABDOMEN-1VIEW (KUB)2020-02-17 17:08:00 [place] [address] Patient Name: ROBBIE GILES MR #: [id number] : 1955 Age/Sex: 64/F Req #: [id number] Adm Physician: Ordered by: WU MACKENZIE MD Report #: [id number] Location: [facility] Room/Bed: Procedure: [id number] DX/ABD OMEN-1VIEW (KUB) Exam Date: 02/17/20 Exam Time: 1650 REPORT STATUS: Signed EXAM: Abd omen Radiograph INDICATION: Abdominal pain. COMPARISON: CT abdomen and pelv is dated 02/02/2020. FINDINGS: TUBES and LINES: None. LOWE R CHEST: No abnormalities in the lower chest. ABDOMEN: Cholecystectomy clip s are seen. The bowel loops are unremarkable with no dilatation or signs of ob struction. volume of stool in the colon. No pneumoperitoneum. No abnormal abdominal calcifications. BONES AND SOFT TISSUES: No acute osseous lesion. Soft tissues are unremarkable. IMPRESSION: No acute abdominal radiogra phic abnormality. Signed by: Wallace Michelle MD on 02/17/2020 5:10 PM Dictated By: WALLACE MICHELLE MD 09 Transcribed By: CAMELIA on 02/17/201709 COPY TO: WU MACKENZIE MD CT ABD/PEL WO [id number] 20:17:00 [facility] [address] [place] [address] Patient Name: ROBBIE GILES MR #: [id number] : 1955 Age/Sex: 64/F Req #: [id number] Adm Physician: Ordered by: ABEBE CLEMENTS MD Report #: [id number] Location: [facility] Room/Bed: Procedure: [id number] HOPD/C T ABD/PEL WO CONTRAST-HOPD Exam Date: 02/02/20 Exam Time: 1940 REPORT STATUS: Signed EXAM: CT Abdomen and Pelvis WITHOUT contrast INDICATION: lower ab dominal pain, low grade fever, hx of chron's [id number] COMPARISON: A bdominal MRI, 07/29/2019; CT abdomen/pelvis, 02/05/2019 TECHNIQUE: Abdomen and p mimi were scanned utilizing a multidetector helical scanner from the lung bas e to the pubic symphysis without administration of IV contrast. Absence of int ravenous contrast decreases sensitivity for detection of focal lesions and vas cular pathology. Coronal and sagittal reformations were obtained. Routine prot ocol was performed. Dose modulation, iterative reconstruction, and/or weig ht based adjustment of the mA/kV was utilized to reduce the radiation dose to as low as reasonably achievable. IV CONTRAST: None. ORAL CONTRAST: None RADIATION DOSE: Total DLP: 1024.31 mGy*c m Estimated effective dose: (DLP x 0.015 x size factor) mSv COMPLICATIONS: None FINDINGS: LINES and TUBES: None. LOW ER THORAX: Lung bases are clear. There are scattered 2 to 3 mm nodular densit ies in the right middle lobe which are unchanged from previous exam. Heart siz e normal. Calcifications at the aortic valve are seen. Small hiatus hernia. HEPATOBILIARY: No focal hepatic lesions. No biliary ductal dilation. GALLBLADDER: Surgical absence of the gallbladder with cholecystectomy clips. SPLEEN: No splenomegaly. PANCREAS: No focal masses or ductal d ilatation. ADRENALS: No adrenal nodules KIDNEYS/URETERS: No hyd ronephrosis. No cystic or solid mass lesions. No stones. GI TRACT: No ab normal distention, wall thickening, or evidence of bowel obstruction. Again n oted is suture from apparent bowel surgery in the distal small bowel with palak cent mild distention of a bowel loop. Proximally there is no small bowel dilat ation and there is moderately large volume of stool throughout the colon with no specific evidence for bowel obstruction. The appendix is not visualized. PELVIC ORGANS/BLADDER: Urinary bladder unremarkable. Uterus is anteverted. LYMPH NODES: No dominant lymph node mass is seen in the abdomen, retroperi toneum or pelvis. VESSELS: The abdominal aorta is atherosclerotic with scat tered calcified plaques. No aneurysm. PERITONEUM / RETROPERITONEUM: No pn eumoperitoneum or ascites. BONES: No acute or suspicious bony lesions. Ther e are degenerative changes in the thoracolumbar spine. SOFT TISSUES: Supe rficial surrounding soft tissue unremarkable. IMPRESSION: 1. There is no evidence for bowel obstruction, but there is fluid-filled mild d istention of the distal small bowel, possibly terminal ileum, adjacent to an a pparent surgical anastomosis in the right lower quadrant. There is a moderatel y large volume of stool throughout the colon which may be seen with constipati on. There is a moderately large volume of fluid in the nondilated small bowel. 2. No other change from previous exam. Staff: Arturo Signed b y: Dr. Hernesto Morris M.D. on 02/02/2020 8:30 PM Dictated By: HERNESTO MORRIS MD 29 Transcribed By : CAMELIA on 02/02/202029 COPY TO: ABEBE CLEMENTS MD Capillary blood glucose measurement by glucometer (mass/volume)2020-01-13 11:22:00* Test Item Value Reference Range Interpretation Comments Bedside Glucose (test code = 26711-2) 161 70-120 Meter ID: [id number] [facility] HospitalFluoroscopic procedure less than one hour [id number] 13:10:00* Test Item Value Reference Range Interpretation Comments Coronavirus (PCR) (test code = Coronavirus (PCR)) NOT DETECTED NOTD ETECTED SARS-COV-2 (COVID19), HIGHRISK, RT-PCRNegative results do not preclude SARS-CoV- 2 infection and should not be used as the sole basis for patient management deci sions. Negative results must be combined with clinical observations, patient his tory, and epidemiological information. Optimum specimen types and timing for pea k viral levels during infections caused by SARS-CoV-2 have not been determined. Collection of multiple specimens ot types of specimens may be necessary to detec t virus. Improper specimen collection and handling, sequence variability under p rimers/probes, or organism present below the limit of detection may lead to fals e negative results. Positive and negative predictive values of testing are highl y dependent on prevalance. False negative test results are more likely when prev alence is high.The expected result is negative (not detected).The SARS-CoV-2 christie t is intended for the qualitative detection of nucleic acid from SARS-CoV-2 in n asopharyngeal and oropharyngeal swab samples from patients who meet COVID-19 cli nical and or epidemiological criteria. For lower respiratory tract specimens, th e assay is submitted for authoriztion by FDA under an Emergency Use Authorizatio n (EUA). Testing methodology is real time RT-PCR. If received as separate collec tion devices, nasopharygeal and oropharyngeal specimens are combined for analysi s. Additional specimens may be split to a separate accession for analysi and rep orting as this test includes a single unit of service.Test results must be corre lated with clinical presentation and evaluated in the context of other laborator y and epidemiologic data. Test performance can be affected because the epidemiol ogy and clinical spectrum of infection caused by SARS-CoV-2 is not fully known. For example, the optimum types of specimens to collect and when during the cours e of infection these specimens are most likely to contain detectable viral RNA m ay not be known.This test has not been Food and Drug Administration (FDA) cleare d or approved and has been authorized by FDA under an Emergency Use Authorizatio n (EUA). The test is only authorized for the duration of the declaration that ci rcumstances exist justifying the authorization of emergency use of in vitro diag nostic tests for detection and/or diagnosis of SARS-CoV-2 under section 564(b) o f the Act, 21 U.S.C. section 360bbb-3(b)(1), unless the authorization is termina polina or revoked sooner. [facility] are certified under the C linical Laboratory Improvement Amendments of 1988 (CLIA), 42 U.S.C. section 263a , to perform high complexity tests.Testing performed by [facility] [id number] [place], [place] [phone] Director: Jose E Pop M.D.CLIA # [id number] [facility] HospitalMRI ABDOMEN [id number] 17:35:00 [place] [address] Patient Name: ROBBIE GILES MR #: [id number] : 1955 Age/Sex: 64/F Req #: [id number] Adm Physician: Ordered by: WU MACKENZIE MD Report #: [id number] Location: MRI Room/Bed: Procedure: [id number] MRI /MRI ABDOMEN WO Exam Date: Exam Time: REPORT STATUS: Signed MRI abdomen/pelvis wit hout contrast HISTORY: Abdominal pain Comparison: CT abdomen/pelvis w ithout contrast from 02/05/2019, MRI abdomen/pelvis without with contrast from 11/26/2012. Technique: Multiplanar and multisequence MRI images of the abdome n were obtained without contrast. FINDINGS: The visualized intrathorac ic contents are unremarkable. There is dropout of signal on out of phase im aging compatible with hepatic steatosis. The liver is otherwise normal in size and attenuation. No focal lesion is identified on this noncontrast enhanced e xamination. The gallbladder is surgically absent. There is no intra or extrahe patic biliary ductal dilatation. There is a stable small hiatal hernia pr esent. The stomach is otherwise unremarkable. The spleen and bilateral adrenal glands are unremarkable. The pancreas demonstrates no significant abnormaliti es. There is no pancreatic ductal dilatation. The kidneys are normal in s ize and location. There is no evidence for hydronephrosis. The urinary bladder demonstrates no significant abnormalities. The uterus and adnexa are unremark able. The abdominal aorta is normal course and caliber. The IVC is normal i n caliber. The visualized loops of small and large bowel demonstrate no magen dence for wall thickening, adjacent findings are unchanged, or obstruction. Pl ease note the examination is limited without the use of contrast material. The re is no ascites. No abnormally enlarged lymph nodes are identified within the abdomen or pelvis. There are degenerative changes of the spine. There is no evidence for acute fracture or destructive process. Impression: Diffuse hepatic steatosis. Otherwise, no significant abnormality identi fied on this noncontrast enhanced MRI of the abdomen and pelvis. Signed b y: Dr. Jimy Atkins MD on 07/29/2019 5:42 PM Dictated By: JIMY ATKINS MD 41 Transcribed By: GALILEO JACKSON on 07/29/191741 COPY TO: WU MACKENZIE MD MRI PELVIS WO 2019-07-29 17:35:00 [place] [address] Patient Name: ROBBIE GILES MR #: [id number] : 1955 Age/Sex: 64/F Req #: [id number] Adm Physician: Ordered by: WU MACKENZIE MD Report #: [id number] Location: MRI Room/Bed: Procedure: [id number] MRI /MRI PELVIS WO Exam Date: Exam Time: REPORT STATUS: Signed MRI abdomen/pelvis with out contrast HISTORY: Abdominal pain Comparison: CT abdomen/pelvis wi thout contrast from 02/05/2019, MRI abdomen/pelvis without with contrast from . Technique: Multiplanar and multisequence MRI images of the abdomen were obtained without contrast. FINDINGS: The visualized intrathoraci c contents are unremarkable. There is dropout of signal on out of phase xochitl ging compatible with hepatic steatosis. The liver is otherwise normal in size and attenuation. No focal lesion is identified on this noncontrast enhanced ex amination. The gallbladder is surgically absent. There is no intra or extrahep atic biliary ductal dilatation. There is a stable small hiatal hernia pre sent. The stomach is otherwise unremarkable. The spleen and bilateral adrenal glands are unremarkable. The pancreas demonstrates no significant abnormalitie s. There is no pancreatic ductal dilatation. The kidneys are normal in si ze and location. There is no evidence for hydronephrosis. The urinary bladder demonstrates no significant abnormalities. The uterus and adnexa are unremarka ble. The abdominal aorta is normal course and caliber. The IVC is normal in caliber. The visualized loops of small and large bowel demonstrate no evid ence for wall thickening, adjacent findings are unchanged, or obstruction. Ple ase note the examination is limited without the use of contrast material. Ther e is no ascites. No abnormally enlarged lymph nodes are identified within the abdomen or pelvis. There are degenerative changes of the spine. There is no evidence for acute fracture or destructive process. Impression: Diffuse hepatic steatosis. Otherwise, no significant abnormality identif ied on this noncontrast enhanced MRI of the abdomen and pelvis. Signed by : Dr. Jimy Atkins MD on 07/29/2019 5:42 PM Dictated By: JIMY ATKINS MD 41 Transcribed By: MEAGAN STOUT on 07/29/191741 COPY TO: WU MACKENZIE MD Serum or plasma urea nitrogen measurement (mass/volume)2019-07-29 12:53:00* Test Item Value Reference Range Interpretation Comments Blood Urea Nitrogen (test code = 3094-0) 25 03-21 [facility] creatinine measurement (mass/volume)2019-07-29 12:53:00* Test Item Value Reference Range Interpretation Comments Creatinine (test code = 2160-0) 1.34 0.57-1.11 [facility] plasma urea nitrogen/creatinine mass [id number] 12:53:00* Test Item Value Reference Range Interpretation Comments BUN/Creatinine Ratio (test code = 3097-3) 02-18 [facility] HospitalEstimated [facility] filtration rate (GFR) [id number] 12:53:00* Test Item Value Reference Range Interpretation Comments Estimat Glomerular Filtration Rate (test code = 144066578) 40 >60 Ranges were taken from the National Kidney Disease Education Program and the [facility] literature.Reference ranges:60 or greater: Eyplzl06-71 ( for 3 consecutive months): Chronic kidney disease 15 or less: Kidney failureCHI [facility] HospitalCT ABDOMEN/PELVIS [id number] 15:36:00 [place] [address] Patient Name: ROBBIE GILES MR #: [id number] : 1955 Age/Sex: 63/F Req #: [id number] Adm Physician: Ordered by: WU MACKENZIE MD Report #: [id number] Location: CT Room/Bed: Procedure: [id number] CT/ CT ABDOMEN/PELVIS WO Exam Date: 02/05/19 Exam Time: 1300 REPORT STATUS: Signed EXAM: CT ABDOMEN AND PELVIS without IV CONTRAST DATE: 02/05/2019 Time stamp on Exam: 1:02 PM INDICATION: Abdominal pain COMPARISON: 04/17/2015 TECHNIQUE: The abdomen and pelvis were scanned using a multidetector helical scanner. [place] l and sagittal reformations were obtained. Routine protocol performed. Te chnique modification was utilized to maintain the lowest dose possible to the patient. IV Contrast: None Oral Contrast: Gastrografin intermixed with wa ter Radiation Dose: Total DLP 732.81 mGy*cm Estimated effective dose: DLP x 0.015 x size factor FINDINGS: LOWER THORAX: No consolidations LIVER: No masses BILIARY: The gallbladder is absent. No ductal dilatation. SPL EEN: No masses PANCREAS: No masses ADRENALS: No nodules KIDNEYS: Symmet isabel perfusion. No enhancing masses. No hydronephrosis. GI TRACT: No distent ion, wall thickening or evidence of obstruction. VESSELS: Splenic arter y calcification and scattered calcification within the aorta. PERITONEUM/RET ROPERITONEUM: No free air or fluid LYMPH NODES: No lymphadenopathy REPROD UCTIVE ORGANS: Unremarkable BLADDER: Unremarkable SOFT TISSUES: Unremarka ble BONES: No suspicious bone lesions. Degenerative changes of the spine. IMPRESSION: No significant abnormality within the abdomen or pelvis. Sig latia by: Dr. Aneesh Fam DO on 02/05/2019 3:45 PM Dictated By: ANEESH AMOS DO 1545 Transcribe d By: CAMELAI on 02/05/19 1547 COPY TO: WU MACKENZIE MD ABDOMEN COMP INCL UPR or DECUB [place] [address] Patient Name: ROBBIE GILES MR #: [id number] : 1955 Age/Sex: 62/F Req #: [id number] Adm Physician: Ordered by: WU MACKENZIE MD Report #: [id number] Location: [facility] Room/Bed: Procedure: [id number] DX/ABDOMEN COMP INCL UPR or D ECUB Exam Date: 12/10/17 Exam Time: 1610 REPOR T STATUS: Signed PROCEDURE: ABDOMEN COMP INCL UPR OR DECUB INDICATION: Colitis, Crohn's, Abdominal pain. COMPARISON: CT 10/01/2017 FINDINGS: Large amount of stool in the colon. Non-obstructed bowel gas pattern. No fr ee air under the diaphragm or suspicious air-fluid levels on upright view. Ch olecystectomy clips. No calcifications project over the renal silhouettes or expected course of the ureters or bladder. Hepatic silhouette appears enlarge d, likely related to hepatic steatosis on prior CT. Bones and soft tissues a re grossly unremarkable. CONCLUSION: Non-obstructed bowel gas patte rn. Large amount of stool in the colon. Dictated by: Omar Cárdenas M.D. on 12/10/2017 at 17:48 Electronically approved by: Omar santillan M.D. on 12/10/2017 at 17:48 Dictated By: OMAR CÁRDENAS MD 47 Transcribed By: RAIZA EATON on 12/10/171747 COPY TO: WU MACKENZIE MD SMALL BOWEL SERIES [place] [address] Patient Name: ROBBIE GILES MR #: [id number] : 0 1955 Age/Sex: 62/F Req #: [id number] Adm Physician: Ordered by: WU MACKENZIE MD Report #: [id number] Location: DX Room/Bed : Procedure: [id number] DX/SMALL BOWEL SERIES Exam Da te: 10/23/17 Exam Time: 0800 REPORT STATUS: Sig latia PROCEDURE: SMALL BOWEL SERIES Fluoroscopy time: 0.4 minutes Air Kerma: 28.34 mGy Comparison: CT abdomen and pelvis without contrast 10/01/2017 , fluoroscopic small bowel series 12/21/2016.. Indications: ENTERITI S Technique: Small bowel follow through exam was performed using oral barium. Preliminary image was obtained before administration of contrast and serial overhead images were obtained after administration of oral barium. F luoroscopy was performed and spot images were obtained. Findings: SMALL BOWEL FOLLOW THROUGH: Small bowel loops are normal in caliber and di stribution. Spot compression views of the terminal ileum are normal. Th e transit time was normal. IMPRESSION: Unremarkable fluoroscopi c small bowel series. Dictated by: Freedom Saunders M.D. on 10/23/2017 at 1 1:55 Electronically approved by: Freedom Saunders M.D. on 10/23/2017 at 11:55 Dictated By: FREEDOM SAUNDERS MD 1155 Transcribed By: RAMAN on 10/23/17 1155 COPY TO: WU MACKENZIE MD CT ABDOMEN/PELVIS [place] [address] Patient Name: ROBBIE GILES MR #: [id number] : 1955 Age/Sex: 62/F Req #: [id number] Adm Physician: Ordered by: WU MACKENZIE MD Report #: [id number] Location: CT Room/Bed: Procedure: [id number] CT/CT ABDOMEN/PELVIS WO Exam Date: 10/01/17 Exam Time: 1337 REPORT STATUS: S igned PROCEDURE: CT ABDOMEN AND PELVIS WITHOUT CONTRAST COMPARISON: [facility], CT, CT ABDOMEN/PELVIS WO, 12/28/2015, 17:12. INDICATI ONS: Lower abdominal pain. TECHNIQUE: Routine protocol Volumetric CT abdo men after ministration of 900 mL dilute positive enteric contrast. No intrave nous contrast. Multiplanar reformatted images. DLP: 613.75 FINDINGS: Two sub-4 mm pulmonary nodules at the right lower lobe. Lung bases otherwise clear. lung bases. No pleural effusions. Normal heart size. Liver: Diffuse low-attenuation; otherwise, normal Gallbladder: Cholecystectomy Pancreas: N ormal Spleen: Normal Adrenal glands: Normal Kidneys: Normal Ureters and urinary bladder: Normal Uterus and adnexa: Normal Bowel: Normal christa emy. Mild jejunal wall thickening without dilation. Moderate stool volume in a redundant sigmoid colon. Appendectomy. Peritoneum: Normal Vasculature: Trace infrarenal aortic atherosclerosis. Mild multifocal diffuse arterioscle rosis. Normal caliber. Lymph nodes: Normal Skeleton: Intact. Mild degene rative changes in the shoulders. Mild multilevel degenerative disc disease an d facet arthropathy with post notable on the left at L5-S1. Soft tissues: N ormal CONCLUSION: 1. Mild thickening of the jejunum which may be s econdary to enteritis. 2. Otherwise, no conspicuous etiology for lower abdomin al pain. 3. Study is limited by lack of intravenous contrast. Dicta polina by: John Remy M.D. on 10/01/2017 at 14:14 Electronically ap proved by: John Remy M.D. on 10/01/2017 at 14:14 Dic tated By: JOHN REMY MD [id number] COPY TO: ELICIA MACKENZIE MD
--- OUTSIDE RECORDS SUMMARY | 2020-03-26 00:58 | XMS REPORT | Continuity of Care Document ---
Author Author [facility] t Organization [facility] Address [address] [place] [address] Phone Unavailable Care Team Providers Care Claim Administrator Name Role Phone HILL, (NON STAFF) FREEDOM PCP [phone] CARMELLA GRIFFITHS Attphys Unavailable MACKENZIE, SOUHEIL Attphys Unavailable MACKENZIE, WU Attphys Unavailable DUCHAMP, A ABEBE Attphys Unavailable MACKENZIE, SOUHEIL Admphys Unavailable Payers Payer Name Policy Type Policy Number Effective Date Expiration Date Cleve [employer] [id number] 2016 00:00:00 [facility] Cdc Review Covid19 [id number] [facility] [id number] 2019 00:00:00 [facility] Problems Condition Name Condition Details Condition Category Status Onset Date Resolution Date Last Treatment Date Treating Clinician Comments Source Nausea and vomiting Problem Active 2015-04-17 00:00:00 [facility] Weakness Problem Active 2015-04-17 00:00:00 [facility] Diabetes mellitus Problem Active 2015-04-17 00:00:00 [facility] Acute abdominal pain Problem Active 2014-06-13 00:00:00 [facility] Crohn's disease Problem Active 2014-06-13 00:00:00 [facility] CROHN'S DISEASE 555.9 CROH N'S DISEASE 555.9 Active 09/27/2012 [facility] Active 2012-09-27 08:00:00 2012-10-28 10:44: 00 [facility] 388.70 - OTALGIA NOS 388. 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 02/23/2012 [facility] Active 2012-02-23 00:00:00 2012-02-24 11:02: 00 [facility] Diarrhea Problem Active [facility] Urinary tract infection Problem Active [facility] Abdominal pain Problem Active [facility] Injury of head Problem Active [facility] Neck sprain Problem Active [facility] Contusion of shoulder Problem Active [facility] Allergies, Adverse Reactions, Alerts Allergy Name Allergy Type Status Severity Reaction(s) Onset Date Inacti ve Date Treating Clinician Comments Source Shellfish Allergy to substance Active Severe RED, ITCHING 2018-04-17 0 0:00:00 [facility] Iodine Allergy to substance Active Moderate RED, ITCHING 2018-04-17 00 :00:00 [facility] Promethazine Allergy to substance Active ANXIETY, RASH 00:00:00 [facility] Meperidine Allergy to substance Active Moderate anxiety attack, itching 2018-04-17 00:00:00 [facility] Iodinated Contrast Media - IV Dye DA Active U 2017-12-19 00:00:00 [facility] NSAIDS (Non-Steroidal Anti-Inflamma DA Active U 2017-11-26 5 00:00:00 [facility] iodine DA Active U 2017-12-19 00:00:00 [facility] mesalamine DA Active U 2017-12-19 00:00:00 [facility] cephalexin DA Active U 2017-12-19 00:00:00 [facility] promethazine DA Active U 2017-12-19 00:00:00 [facility] meperidine DA Active U 2017-12-19 00:00:00 [facility] shellfish derived DA Active U 2017-12-19 00:00:00 [facility] Demerol HCl Demerol HCl Active [facility] iodine iodine Active [facility] Social History Social Habit Start Date Stop Date Quantity Comments Source Sex Assigned At 1955 00:00:00 1955 00:00:00 Female [facility] Medications Ordered Medication Name Filled Medication Name Start Date Stop Da te Current Medication? Ordering Clinician Indication Dosage Frequency Signature (SIG) Comments Components Source Fluconazole (Diflucan) 150 Mg TABLET Fluconazole (Diflucan) 150 Mg TABLET 2020-02-02 22:12:00 Yes 150 Once for Yeast Inf ection [facility] Nitrofurantoin Monohyd/M-Cryst (Macrobid 100 Mg Capsul e) 100 Mg CAPSULE Nitrofurantoin Monohyd/M-Cryst (Macrobid 100 Mg Capsule) 100 Mg CAPSULE 2020-02-02 22:10:00 Yes 1 Twice A Day for Ur ine Infection [facility] Remicade + Sodium Chloride 0.9% IV 250 mL 2012-10-28 16:00 :00 No Wu Sadik Mackenzie 400 mg, Route: I V, Drug form: PDR/INJ, ONCALL, Start date: 10/28/12 10:00:00, Stop date: 03/31/13 10:59:00 [facility] Sodium Chloride 0.9% IV 2012-10-25 18:57:00 No Wu Sadik Mackenzie IV, 500 ml/hr, PRN, PRN Other -See Comment, Start date: 10/25/12 12:57:00, Duration: 30, 500 ml [facility] SoluCortef 2012-10-25 18:56:00 No Wu Sadik Mackenzie 100 mg, 2 mL, Route: IVP, Drug form: PDR/INJ, PRN, PRN Other -See Comment, Start date: 10/25/12 12:56:00, Duration: 30 day, Stop date: 11/24/12 13:55:00 [facility] Benryl 2012-10-25 18:55:00 No Wu Sadik Mackenzie 50 mg, 1 mL, Route: IVP, Drug form: INJ, PRN, PRN Other -See Comment, Start date: 10/25/12 12:55:00, Duration: 30 day, Stop date: 11/24/12 13:54:00 [facility] 2012-10-25 18:54:00 No Wu Sadik Mackenzie 0.5 mg, 0.5 mL, Route: SUB-Q, Drug form: INJ, PRN, PRN Other -See Comment, Start date: 10/25/12 12:54:00, Duration: 30 day, Stop date: 11/24/12 13:53:00 [facility] Tylenol 2012-10-25 18:52:00 No Wu Sadik Mackenzie 650 mg, 2 tab, Route: PO, Drug form: TAB, PRN, PRN Other -See Comment, Start date: 10/25/12 12:52:00, Duration: 30 day, Stop date: 11/24/12 13:51:00 [facility] 2012-10-25 18:51:00 No Wu Sadik Mackenzie 25 mg, 1 tab, Route: PO, Drug form: TAB, PRN, PRN Other -See Comment, Start date: 10/25/12 12:51:00, Duration: 30 day, Stop date: 11/24/12 13:50:00 [facility] Calcium Carbonate/Vitamin D3 (Caltrate 600 W-D Tablet) 1 Each TABLET Calcium Carbonate/Vitamin D3 (Caltrate 600 W-D Tablet) 1 Each TABLET Yes Daily [facility] Chlordiazepoxide/Clidinium Br (Librax Capsule) 1 Each CAPSULE Chlordiazepoxide/Clidinium Br (Librax Capsule) 1 Each CAPSULE Ye s As Needed [facility] Desvenlafaxine Succinate (Pristiq Er) 100 Mg TAB.ER.24 H Desvenlafaxine Succinate (Pristiq Er) 100 Mg TAB.ER.24H Yes 100 Daily [facility] Dexlansoprazole (Dexilant) 60 Mg CAP. Dexlansopra zole (Dexilant) 60 Mg CAP. Yes 60 Twice A Day [facility] Diphenoxylate Hcl/Atropine (Lomotil Tablet) 1 Each TAB LET Diphenoxylate Hcl/Atropine (Lomotil Tablet) 1 Each TABLET Yes 1 Every 6 Hours as needed for Diarrhea [facility] Fenofibrate (Tricor) 145 Mg TAB Fenofibrate (Tricor) 145 Mg TAB Yes 145 Daily [facility] Glimepiride Glimepiride Yes 4 Daily [facility] Humira Humira Yes 40 Use As Directed [facility] Hydrocodone Bit/Acetaminophen (Carolina 10-325 Tablet) 1 Each TABLET Hydrocodone Bit/Acetaminophen (Carolina 10-325 Tablet) 1 Each TABLET Yes 1 Q6 Hrs Prn [facility] Hyoscyamine Sulfate (Levsin) 0.125 Mg TABLET Hyoscyami ne Sulfate (Levsin) 0.125 Mg TABLET Yes 2 As Needed [facility] Iron Iron Yes Daily [facility] Lamotrigine Lamotrigine Yes 75 Twice A Day [facility] Levothyroxine Sodium Levothyroxine Sodium Yes 125 Daily [facility] Lorazepam Lorazepam Yes 1 Qid Prn Anxiety [facility] Metformin Hcl Metformin Hcl Yes 1000 Twice A Day [facility] Miralax Miralax Yes 1 Twice A Day [facility] Multivitamin (Multi-Vitamin Daily) 1 Each TABLET Multi vitamin (Multi-Vitamin Daily) 1 Each TABLET Yes [facility] Ondansetron (Zofran Odt) 4 Mg TAB.RAPDIS Ondansetron ( Zofran Odt) 4 Mg TAB.RAPDIS Yes 8 Qid Prn Nausea [facility] Perindopril Erbumine (Aceon) 8 Mg TABLET Perindopril E rbumine (Aceon) 8 Mg TABLET Yes 8 Daily [facility] Quetiapine Fumarate (Seroquel) 100 Mg TABLET Quetiapin e Fumarate (Seroquel) 100 Mg TABLET Yes 100 Twice A Day [facility] Rosuvastatin Calcium (Crestor) 20 Mg TABLET Rosuvastat in Calcium (Crestor) 20 Mg TABLET Yes [address] [facility] Sitagliptin Phosphate (Januvia) 100 Mg TABLET Sitaglip tin Phosphate (Januvia) 100 Mg TABLET Yes 100 Daily [facility] Topiramate Topiramate Yes 100 Daily [facility] Viberzi Viberzi Yes 100 Daily [facility] Vit C Vit C Yes Daily [facility] Yakult Yakult Yes 2.7 Daily [facility] Furosemide Furosemide 2020-01-09 00:00:00 No 20 Daina ly [facility] Mesalamine (Pentasa) 500 Mg CAPCR Mesalamine (Pentasa) 500 Mg CA PCR 2020-01-09 00:00:00 No 2 Four Times Daily [facility] Topiramate Topiramate 2020-01-09 00:00:00 No 150 Bed time [facility] Sumatriptan Sumatriptan 2018-04-18 00:00:00 No 2 Daily as needed for Migraine [facility] Bifidobacterium Infantis (Align) 4 Mg CAPSULE Bifidoba cterium Infantis (Align) 4 Mg CAPSULE 2018-04-17 00:00:00 No 4 Daily [facility] Rizatriptan Benzoate (Maxalt) 10 Mg TABLET Rizatriptan Benzoate (Maxalt) 10 Mg TABLET 2018-04-17 00:00:00 No 2 Q24hr Prn Migrain e [facility] Furosemide Furosemide 2016-02-07 00:00:00 No 20 As Needed [facility] Lamotrigine Lamotrigine 2016-02-07 00:00:00 No T wice A Day [facility] Polyethylene Glycol 3350 (Miralax) 17 Gm POWD.PACK [place] yethylene Glycol 3350 (Miralax) 17 Gm POWD.PACK 2016-02-07 00:00:00 No 1 Twice A Day [facility] Chlordiazepoxide/Clidinium Br (Librax Capsule) 1 Each CAPSULE Chlordiazepoxide/Clidinium Br (Librax Capsule) 1 Each CAPSULE 2015-08-06 00:00:00 No Three Times A Day [facility] Glimepiride Glimepiride 2015-08-06 00:00:00 No 2 D aily [facility] Guar Gum (Benefiber) 1 Each PACKET Guar Gum (Benefiber) 1 Each P ACKET 2015-08-06 00:00:00 No Daily [facility] Lamotrigine Lamotrigine 2015-08-06 00:00:00 No 50 T wice A Day [facility] Sumatriptan Succ/Naproxen Sod (Treximet 85-500 Mg Tabl et) 1 Each TABLET Sumatriptan Succ/Naproxen Sod (Treximet 85-500 Mg Tablet) 1 Each TABLET 2015-08-06 00:00:00 No 2 As Needed as needed for Migraine [facility] Topiramate (Topamax*) 100 Mg TABLET Topiramate (Topamax*) 100 Mg TABLET 2015-08-06 00:00:00 No 150 Bedtime [facility] Budesonide (Budesonide Ec) 3 Mg CAPDR...ER Budesonide (Budesonide Ec) 3 Mg CAPDR...ER 2015-05-24 00:00:00 No 9 Daily [facility] Fluconazole (Diflucan) 200 Mg TABLET Fluconazole (Diflucan) 200 Mg TABLET 2015-05-24 00:00:00 No 1 Daily [facility] Hyoscyamine Sulfate Hyoscyamine Sulfate 2015-05-24 00:00:00 No 1 Q4hrs Prn Cramping [facility] Lactobac Cmb #3/Fos/Pantethine (Probiotic & Acidophilu s Cap) 1 Each CAPSULE Lactobac Cmb #3/Fos/Pantethine (Probiotic & Acidophilus Cap) 1 Each CAPSULE 2015-05-24 00:00:00 No [facility] Prednisone Prednisone 2015-05-24 00:00:00 No 10 Daina ly [facility] Prestiq Sr Prestiq Sr 2015-05-24 00:00:00 No 100 Daina ly [facility] Quetiapine Fumarate (Seroquel) 50 Mg TABLET Quetiapine Fumarate (Seroquel) 50 Mg TABLET 2015-05-24 00:00:00 No 50 Daily [facility] Mesalamine (Pentasa) 250 Mg CAPSULE.ER Mesalamine (Pentasa) 250 Mg CAPSULE.ER 2015-04-17 00:00:00 No Daily [facility] Prednisone Prednisone 2015-04-17 00:00:00 No Daina ly [facility] Topiramate Topiramate 2015-04-17 00:00:00 No 150 Bed time [facility] Budesonide (Budesonide Ec) 3 Mg CAPDR...ER Budesonide (Budesonide Ec) 3 Mg CAPDR...ER 2015-03-20 00:00:00 No 6 Daily [facility] Budesonide (Budesonide Ec) 3 Mg CAPDR...ER Budesonide (Budesonide Ec) 3 Mg CAPDR...ER 2015-03-10 00:00:00 No 9 Every Morning [facility] Desvenlafaxine Succinate (Pristiq Er) 100 Mg TAB.ER.24 H Desvenlafaxine Succinate (Pristiq Er) 100 Mg TAB.ER.24H 2015-03-10 00:00:00 No 100 Every Morning [facility] Dicyclomine Hcl (Bentyl) 10 Mg CAPSULE Dicyclomine Hcl (Bentyl) 10 Mg CAPSULE 2015-03-10 00:00:00 No 20 Four Times Daily [facility] Ferrous Sulfate (Iron) 325 Mg TABLET Ferrous Sulfate (Iron) 325 Mg TABLET 2015-03-10 00:00:00 No Daily [facility] Fluconazole (Diflucan) 200 Mg TABLET Fluconazole (Diflucan) 200 Mg TABLET 2015-03-10 00:00:00 No Daily [facility] Furosemide (Lasix) 20 Mg TABLET Furosemide (Lasix) 20 Mg TABLET 2015-03-10 00:00:00 No 20 Daily [facility] Lamotrigine Lamotrigine 2015-03-10 00:00:00 No 50 T wice A Day [facility] Metformin Hcl Metformin Hcl 2015-03-10 00:00:00 No 1000 Twice A Day [facility] Multivitamin (Multivitamins) 1 Each CAPSULE Multivitam in (Multivitamins) 1 Each CAPSULE 2015-03-10 00:00:00 No 1 Daily [facility] Quetiapine Fumarate (Seroquel) 100 Mg TABLET Quetiapin e Fumarate (Seroquel) 100 Mg TABLET 2015-03-10 00:00:00 No 100 Every Night [facility] Saccharomyces Boulardii (Florastor) 250 Mg CAPSULE Sac charomyces Boulardii (Florastor) 250 Mg CAPSULE 2015-03-10 00:00:00 No 250 Twice A Day [facility] Sucralfate (Carafate) 1 Gm/10 Ml ORAL.SUSP Sucralfate (Carafate) 1 Gm/10 Ml ORAL.SUSP 2015-03-10 00:00:00 No 1 Before Meals A nd At Bedtime [facility] Sumatriptan Injection Sumatriptan Injection 2015-03-10 00:00:00 No 2 Q24hr Prn Migraine [facility] Topiramate Topiramate 2015-03-10 00:00:00 No 100 Twi ce A Day [facility] Pantoprazole Sodium (Protonix Iv) 40 Mg VIAL Pantopraz ole Sodium (Protonix Iv) 40 Mg VIAL 2014-06-22 00:00:00 No 40 Before Meals And At Bedtime [facility] Chlordiazepoxide/Clidinium Br (Librax Capsule) 1 Each CAPSULE Chlordiazepoxide/Clidinium Br (Librax Capsule) 1 Each CAPSULE 2014-06-13 00:00:00 No Three Times A Day [facility] Valentin Daily Vitamin Valentin Daily Vitamin 2014-03-10 00:00:00 No Daily [facility] Florastar Florastar 2014-03-10 00:00:00 No 250 Twice A Day [facility] Miralax Miralax 2014-03-10 00:00:00 No Daily [facility] Carolina Carolina 2014-03-10 00:00:00 No [facility] Rosuvastatin Calcium (Crestor) 20 Mg TABLET Rosuvastat in Calcium (Crestor) 20 Mg TABLET 2014-03-10 00:00:00 No 20 Daily [facility] Fluconazole (Diflucan) 100 Mg TABLET Fluconazole (Diflucan) 100 Mg TABLET 2014-02-06 00:00:00 No 100 Daily [facility] Nitazoxanide (Alinia) 500 Mg TABLET Nitazoxanide (Alinia) 500 Mg TABLET 2014-01-25 00:00:00 No 500 Twice A Day [facility] Domperidone Domperidone 2013-08-12 00:00:00 No 2 0 Before Meals And At Bedtime [facility] Levothyroxine Sodium (Levoxyl) 150 Mcg TABLET Levothyr oxine Sodium (Levoxyl) 150 Mcg TABLET 2013-08-12 00:00:00 No 150 Mon-Sat [facility] Hyoscyamine Sulfate Hyoscyamine Sulfate 2013-07-26 00:00:00 No 1 Twice A Day [facility] Lubiprostone (Amitiza) 8 Mcg CAPSULE Lubiprostone (Amitiza) 8 Mc g CAPSULE 2013-07-26 00:00:00 No 8 Twice A Day [facility] Mesalamine (Pentasa) 500 Mg CAPCR Mesalamine (Pentasa) 500 Mg CA PCR 2013-07-26 00:00:00 No 1000 Four Times Daily [facility] Metoclopramide Hcl (Reglan) 10 Mg TABLET Metoclopramid e Hcl (Reglan) 10 Mg TABLET 2013-07-26 00:00:00 No 1 Before Meals And At Bedtime [facility] Sucralfate (Carafate) 1 Gm TABLET Sucralfate (Carafate) 1 Gm TAB LET 2013-07-26 00:00:00 No 1 Before Meals And At Bedtime [facility] Budesonide (Budesonide Ec) 3 Mg CAPDR...ER Budesonide (Budesonide Ec) 3 Mg CAPDR...ER 2013-01-28 00:00:00 No 3 Daily [facility] Cephalexin Monohydrate (Keflex) 500 Mg CAPSULE Cephale magaly Monohydrate (Keflex) 500 Mg CAPSULE 2013-01-28 00:00:00 No 500 Twice A D ay [facility] Infliximab (Remicade) 100 Mg/Vial VIAL Infliximab (Remicade) 100 Mg/Vial VIAL 2013-01-28 00:00:00 No 100 Every Other Month [facility] Metronidazole (Flagyl) 250 Mg TABLET Metronidazole (Flagyl) 250 Mg TABLET 2013-01-28 00:00:00 No 250 Three Times A Day [facility] Naproxen Naproxen 2013-01-28 00:00:00 No 500 As Need ed [facility] Paroxetine Hcl (Paxil) 20 Mg TABLET Paroxetine Hcl (Paxil) 20 Mg TABLET 2013-01-28 00:00:00 No 20 Daily [facility] Metoclopramide Hcl Metoclopramide Hcl 2013-01-27 00:00:00 No 10 Before Meals And At Bedtime [facility] Pregabalin (Lyrica) 25 Mg CAPSULE Pregabalin (Lyrica) 25 Mg CAPS ULE 2013-01-27 00:00:00 No 25 Twice A Day [facility] Topiramate Topiramate 2013-01-27 00:00:00 No 50 Twi ce A Day [facility] Desvenlafaxine Succinate (Pristiq) 50 Mg TAB.SR.24H De svenlafaxine Succinate (Pristiq) 50 Mg TAB.SR.24H 2012-12-02 00:00:00 No 100 Daily [facility] Quetiapine Fumarate (Seroquel) 25 Mg TABLET Quetiapine Fumarate (Seroquel) 25 Mg TABLET 2012-12-02 00:00:00 No 25 Four Times Daily as needed [facility] Calcium Carb/Vit D3/Minerals (Caltrate 600+D Plus Tab Chew) 1 Each TAB.CHEW Calcium Carb/Vit D3/Minerals (Caltrate 600+D Plus Tab Chew) 1 Each TAB.CHEW 2012-05-20 00:00:00 No [facility] Vital Signs Vital Name Observation Time Observation Value Comments Source Body Temperature 2020-03-17 15:05:00 98.1 [degF] [facility] Weight 2020-03-17 13:15:00 154 [lb_av] [facility] BMI (Body Mass Index) 2020-03-17 13:15:00 31.1 kg/m2 [facility] Body Temperature 2020-02-24 15:21:00 97.6 [degF] [facility] BMI (Body Mass Index) 2020-02-18 22:00:00 32.0 kg/m2 [facility] Weight 2020-02-18 17:32:00 153 [lb_av] [facility] Body Temperature 2020-02-02 22:34:00 98.8 [degF] [facility] Weight 2020-02-02 18:43:00 153 [lb_av] [facility] BMI (Body Mass Index) 2020-02-02 18:43:00 32.0 kg/m2 [facility] Height 2012-10-25 17:17:00 149.86 cm [facility] Weight 2012-10-25 17:17:00 [facility] Procedures Procedure Date / Time Performed Performing Clinician Sourc e EMERGENCY DEPT VISIT 2020-02-02 00:00:00 [facility] EGD BIOPSY SINGLE/MULTIPLE 2020-01-13 00:00:00 [facility] EGD DILATE STRICTURE 2020-01-13 00:00:00 [facility] Magnetic resonance imaging of abdomen without contrast 3 00:00:00 [facility] Magnetic resonance imaging of pelvis without contrast 2019-07-29 00:00:00 [facility] Plan of Care Planned Activity Planned Date Details Comments Source Instructions Concussion/Head Injury - Adult [facility] Instructions Contusion [facility] Encounters Start Date/Time End Date/Time Encounter Type Admission Type [facility] Care Department Encounter ID Source 2020-03-17 13:41:00 2020-03-17 15:10:00 Departed Emergency Room 1 CARMELLA GRIFFITHS [facility] [id number] [facility] 2020-02-18 19:19:00 2020-02-24 21:25:00 Discharged Inpatient 1 SAMANTHAANNI [facility] [id number] [facility] 2020-02-17 16:35:00 2020-02-17 16:35:00 Registered Clinic 3 MACKENZIE [facility] [id number] [facility] 2020-02-02 17:52:00 2020-02-02 22:30:00 Departed Emergency Room 1 TRUYADIRAAronABEBE [facility] [id number] [facility] 2020-01-13 10:55:00 2020-01-13 10:55:00 Registered Surgical Day Care [facility] [id number] [facility] 2019-07-29 12:33:00 2019-07-29 12:33:00 Registered Clinic 3 WU MACKENZIE [facility] [id number] [facility] Results Test Description Test Time Test Comments Results Result Comments Source CT C-SPINE W/O - HOPD 2020-03-17 14:38:00 [facility] [address] [address] Patient Name: ROBBIE GILES MR #: [id number] : 1955 Age/Sex: 64/F Req #: [id number] Adm Physician: Ordered by: CARMELLA GRIFFITHS MD Report #: [id number] Location: [facility] Room/Bed: Procedure: [id number] HOPD/CT C-SPINE W/O - [facility]OP[facility] Exam Date: [...] COPY TO: CARMELLA GRIFFITHS MD CT BRAIN -[facility] 2020-03-17 14:38:[address] [address] Patient Name: ROBBIE GILES MR #: [id number] : 1955 Age/Sex: 64/F Req #: [id number] Adm Physician: Ordered by: CARMELLA GRIFFITHS MD Report #: [id number] Location: [facility] Room/Bed: Procedure: [id number] HOPD/CT BRAIN WO-HOP Exam Date: 03/17/20 Exam [...] SHOULDER 2+VW RT - HOPD 2020-03-17 14:29:[address] [address] Patient Name: ROBBIE GILES MR #: [id number] : 1955 Age/Sex: 64/F Req #: [id number] Adm Physician: Ordered by: CARMELLA GRIFFITHS MD Report #: [id number] Location: [facility] Room/Bed: Procedure: [id number] HOPD/SHOULDER 2+VW RT - HOPD Exam Date: [...] Test Item Bedside Glucose (test code = 48402-4) 140 70-120 Meter ID: [id number] [facility] measurement by glucometer (mass/volume)2020-02-24 15:06:00* Test Item Value Reference Range Interpretation Comments Bedside Glucose (test code = 11045-4) 140 70-120 Meter ID: [id number] [facility] plasma cancer antigen 125 measurement (units/volume)2020-02-23 06:40:00* Test Item Value Reference Range Interpretation Comments [place] 125 Antigen (test code = 46709-7) 18.8 0.0-38.1 [facility] Electrochemiluminescence Immunoassay(ECLIA)Values obtained wit h different assay methods or kits cannotbe used interchangeably. Results cannot be interpreted asabsolute evidence of the presence or absence of malignantdisea se.Performed at: [id number] [id number] Supply Chain Director: Lewis Torrez MD, Phone: [phone] [facility] Hospitalerum or plasma cancer antigen 125 measurement (units/volume)2020-02-23 06:40:00* Test Item Value Reference Range Interpretation Comments CA 125 Antigen (test code = 07538-1) 18.8 0.0-38.1 [facility] Electrochemiluminescence Immunoassay(ECLIA)Values obtained wit h different assay methods or kits cannotbe used interchangeably. Results cannot be interpreted asabsolute evidence of the presence or absence of malignantdisea se.Performed at: - [facility] [id number] Supply Chain Director: Lewis Torrez MD, Phone: [phone] Regional [facility] 2 [id number] 19:49:00 [place] [address] Patient Name: ROBBIE GILES MR #: [id number] : 1955 Age/Sex: 64/F Req #: [id number] Adm Physician: ANNI MACKENZIE MD Ordered by: WU MACKENZIE MD Report #: [id number] Location: MED/SURG2 Room/Bed: [facility] Procedure: [id number] DX/ABD OMEN 2 VIEW Exam Date: 02/22/20 [...] Interpretation Comments Lactate Dehydrogenase (test code = 307128580) 148 125-220 [facility] or [facility] lactate dehydrogenase measurement (enzymatic activity/volume)2020-02-22 13:45:00* Test Item Value Reference Range Interpretation Comments Lactate Dehydrogenase (test code = 802512808) 148 125-220 [facility] leukocytes automated count (number/volume)2020-02-22 05:05:00* Test Item Value Reference Range Interpretation Comments White Blood Count (test code = 6690-2) 4.95 4.8-10.8 [facility] erythrocytes automated count (number/volume)2020-02-22 05:05:00* Test Item Value Reference Range Interpretation Comments Red Blood Count (test code = 789-8) 3.81 3.6-5.1 [facility]Blood hemoglobin measurement (moles/volume)2020-02-22 05:05:00* Test Item Value Reference Range Interpretation Comments Hemoglobin (test code = 31353-1) 10.4 12.0-16.0 [facility] CampusAutomated blood hematocrit (volume fraction)2020-02-22 05:05:00* Test Item Value Reference Range Interpretation Comments Hematocrit (test code = 4544-3) 32.9 34.2-44.1 [facility] CampusAutomated erythrocyte mean corpuscular uafdsy1337-12-21 05:05:00* Test Item Value Reference Range Interpretation Comments Mean Corpuscular Volume (test code = 787-2) 86.4 81-99 [facility] CampusAutomated erythrocyte mean corpuscular hemoglobin (mass per erythrocyte)2020-02-22 05:05:00* Test Item Value Reference Range Interpretation Comments Mean Corpuscular Hemoglobin (test code = 785-6) 27.3 28-32 [facility] CampusAutomated erythrocyte mean corpuscular hemoglobin concentration measurement (mass/volume)2020-02-22 05:05:00* Test Item Value Reference Range Interpretation Comments Mean Corpuscular Hemoglobin Concent (test code = 786-4) 31.6 31-35 [facility] CampusRDW EhxDa-Wcq2953-47-28 05:05:00* Test Item Value Reference Range Interpretation Comments Red Cell Distribution Width (test code = 33458-4) 14.5 11.7 -14.4 [facility] CampusAutomated blood platelet count (count/volume)2020-02-22 05:05:00* Test Item Value Reference Range Interpretation Comments Platelet Count (test code = 777-3) 199 140-360 [facility] CampusAutomated blood segmented neutrophil count as percentage of total pojoogsnnv2382-23-69 05:05:00* Test Item Value Reference Range Interpretation Comments Neutrophils (%) (Auto) (test code = 99462-0) 51.9 38.7-80.0 [facility] CampusAutomated blood lymphocyte count as percentage ot total wrqysxlgnh3250-05-28 05:05:00* Test Item Value Reference Range Interpretation Comments Lymphocytes (%) (Auto) (test code = 736-9) 31.9 18.0-39.1 [facility] CampusAutomated blood monocyte count as percentage of total kgugldvzrb7057-96-89 05:05:00* Test Item Value Reference Range Interpretation Comments Monocytes (%) (Auto) (test code = 5905-5) 7.5 4.4-11.3 [facility] CampusAutomated blood eosinophil count as percentage of total rapnbplvxd0700-34-32 05:05:00* Test Item Value Reference Range Interpretation Comments Eosinophils (%) (Auto) (test code = 713-8) 7.7 0.0-6.0 [facility] CampusAutomated blood basophil count as percentage of total izbrvyijuk2382-16-40 05:05:00* Test Item Value Reference Range Interpretation Comments Basophils (%) (Auto) (test code = 706-2) 0.6 0.0-1.0 [facility] CampusFluoroscopic procedure less than one hour tunwlflo2637-47-44 05:05:00* Test Item Value Reference Range Interpretation Comments IM GRANULOCYTES % (test code = IM GRANULOCYTES %) 0.4 0.0- 1.0 [facility] CampusAutomated blood neutrophil count 2020-02-22 05:05:00* Test Item Value Reference Range Interpretation Comments Neutrophils # (Auto) (test code = 751-8) 2.6 2.1-6.9 [facility] CampusBlood lymphocytes count (number/volume) 2020-02-22 05:05:00* Test Item Value Reference Range Interpretation Comments Lymphocytes # (Auto) (test code = 18781-3) 1.6 1.0-3.2 [facility] CampusBlood monocytes automated count (number/volume)2020-02-22 05:05:00* Test Item Value Reference Range Interpretation Comments Monocytes # (Auto) (test code = 742-7) 0.4 0.2-0.8 [facility] CampusAutomated blood eosinophil count 2020-02-22 05:05:00* Test Item Value Reference Range Interpretation Comments Eosinophils # (Auto) (test code = 711-2) 0.4 0.0-0.4 [facility] CampusAutomated blood basophil count (count/volume)2020-02-22 05:05:00* Test Item Value Reference Range Interpretation Comments Basophils # (Auto) (test code = 704-7) 0.0 0.0-0.1 [facility] CampusFluoroscopic procedure less than one hour wtpvicro0745-45-51 05:05:00* Test Item Value Reference Range Interpretation Comments Absolute Immature Granulocyte (auto (christie t code = Absolute Immature Granulocyte (auto) 0.02 0-0.1 [facility] Hospitaler[facility] or plasma sodium measurement (moles/volume)2020-02-22 05:05:00* Test Item Value Reference Range Interpretation Comments Sodium Level (test code = 2951-2) 140 136-145 [facility] Hospitalerum or plasma potassium measurement (moles/volume)2020-02-22 05:05:00* Test Item Value Reference Range Interpretation Comments Potassium Level (test code = 2823-3) 3.7 3.5-5.1 [facility] Hospitalerum or plasma chloride measurement (moles/volume)2020-02-22 05:05:00* Test Item Value Reference Range Interpretation Comments Chloride Level (test code = 2075-0) 109 98-107 [facility] Hospitalerum or plasma carbon dioxide, total measurement (moles/volume)2020-02-22 05:05:00* Test Item Value Reference Range Interpretation Comments Carbon Dioxide Level (test code = 2028-9) 20 22-29 [facility] Hospitalerum or plasma anion auz8997-47-28 05:05:00* Test Item Value Reference Range Interpretation Comments Anion Gap (test code = 94959-7) 14.7 8-16 [facility] Hospitalerum or plasma urea nitrogen measurement (mass/volume)2020-02-22 05:05:00* Test Item Value Reference Range Interpretation Comments Blood Urea Nitrogen (test code = 3094-0) 5 7-26 [facility] Hospitalerum or plasma creatinine measurement (mass/volume)2020-02-22 05:05:00* Test Item Value Reference Range Interpretation Comments Creatinine (test code = 2160-0) 1.18 0.57-1.11 [facility] Hospitalerum or plasma urea nitrogen/creatinine mass icfib3271-65-76 05:05:00* Test Item Value Reference Range Interpretation Comments BUN/Creatinine Ratio (test code = 3097-3) 4 6-25 [facility] CampusEstimated glomerular filtration rate (GFR) xfwootwkbycbq2567-85-30 05:05:00* Test Item Value Reference Range Interpretation Comments Estimat Glomerular Filtration Rate (test code = 369050931) 46 >60 Ranges were taken from the National Kidney Disease Education Program and the [facility] Kidney Foundation literature.Reference ranges:60 or greater: Ibojgs12-34 ( for 3 consecutive months): Chronic kidney disease 15 or less: Kidney failureThe Hospitals of Providence Memorial CampusGlucose xkkvueyyshi9741-34-37 05:05:00* Test Item Value Reference Range Interpretation Comments Glucose Level (test code = NJV3876) 130 74-118 [facility] Hospitalerum or plasma calcium measurement (mass/volume)2020-02-22 05:05:00* Test Item Value Reference Range Interpretation Comments Calcium Level (test code = 94699-6) 9.3 8.4-10.2 [facility] Hospitalerum or plasma total bilirubin measurement (mass/volume)2020-02-22 05:05:00* Test Item Value Reference Range Interpretation Comments Total Bilirubin (test code = 1975-2) 0.2 0.2-1.2 [facility] CampusFluoroscopic procedure less than one hour nxuuiaco2719-85-11 05:05:00* Test Item Value Reference Range Interpretation Comments Aspartate Amino Transf (AST/SGOT) (test code = Aspartate Amino Transf (AST/SGOT)) 33 5-34 [facility] Hospitalerum or plasma alanine aminotransferase measurement (enzymatic activity/volume)2020-02-22 05:05:00* Test Item Value Reference Range Interpretation Comments Alanine Aminotransferase (ALT/SGPT) (test code = 1742-6) 22 0-55 [facility] Hospitalerum or plasma protein measurement (mass/volume)2020-02-22 05:05:00* Test Item Value Reference Range Interpretation Comments Total Protein (test code = 2885-2) 7.5 6.5-8.1 [facility] Hospitalerum or plasma albumin measurement (mass/volume)2020-02-22 05:05:00* Test Item Value Reference Range Interpretation Comments Albumin (test code = 1751-7) 3.9 3.5-5.0 [facility] CampusPlasma globulin measurement (mass/volume) 2020-02-22 05:05:00* Test Item Value Reference Range Interpretation Comments Globulin (test code = 68527-5) 3.6 2.3-3.5 [facility] Hospitalerum or plasma albumin/globulin mass mhdtt7817-40-49 05:05:00* Test Item Value Reference Range Interpretation Comments Albumin/Globulin Ratio (test code = 1759-0) 1.1 0.8-2.0 [facility] Hospitalerum or plasma alkaline phosphatase measurement (enzymatic activity/volume)2020-02-22 05:05:00* Test Item Value Reference Range Interpretation Comments Alkaline Phosphatase (test code = 6768-6) 34 40-150 [facility] CampusBlood leukocytes automated count (number/volume)2020-02-22 05:05:00* Test Item Value Reference Range Interpretation Comments White Blood Count (test code = 6690-2) 4.95 4.8-10.8 [facility] CampusBlood erythrocytes automated count (number/volume)2020-02-22 05:05:00* Test Item Value Reference Range Interpretation Comments Red Blood Count (test code = 789-8) 3.81 3.6-5.1 [facility] CampusBlood hemoglobin measurement (moles/volume)2020-02-22 05:05:00* Test Item Value Reference Range Interpretation Comments Hemoglobin (test code = 81026-4) 10.4 12.0-16.0 [facility] CampusAutomated blood hematocrit (volume fraction)2020-02-22 05:05:00* Test Item Value Reference Range Interpretation Comments Hematocrit (test code = 4544-3) 32.9 34.2-44.1 [facility] CampusAutomated erythrocyte mean corpuscular tkfaie4415-38-12 05:05:00* Test Item Value Reference Range Interpretation Comments Mean Corpuscular Volume (test code = 787-2) 86.4 81-99 [facility] CampusAutomated erythrocyte mean corpuscular hemoglobin (mass per erythrocyte)2020-02-22 05:05:00* Test Item Value Reference Range Interpretation Comments Mean Corpuscular Hemoglobin (test code = 785-6) 27.3 28-32 [facility] CampusAutomated erythrocyte mean corpuscular hemoglobin concentration measurement (mass/volume)2020-02-22 05:05:00* Test Item Value Reference Range Interpretation Comments Mean Corpuscular Hemoglobin Concent (test code = 786-4) 31.6 31-35 [facility] CampusRDW XbbMx-Ovx7056-24-28 05:05:00* Test Item Value Reference Range Interpretation Comments Red Cell Distribution Width (test code = 49833-1) 14.5 11.7 -14.4 [facility] CampusAutomated blood platelet count (count/volume)2020-02-22 05:05:00* Test Item Value Reference Range Interpretation Comments Platelet Count (test code = 777-3) 199 140-360 [facility] blood segmented neutrophil count as percentage of total vxvnzkgytk9260-52-30 05:05:00* Test Item Value Reference Range Interpretation Comments Neutrophils (%) (Auto) (test code = 26716-5) 51.9 38.7-80.0 [facility] CampusAutomated blood lymphocyte count as percentage ot total twoufgktos3838-49-61 05:05:00* Test Item Value Reference Range Interpretation Comments Lymphocytes (%) (Auto) (test code = 736-9) 31.9 18.0-39.1 [facility] CampusAutomated blood monocyte count as percentage of total yfsyxwvnde2514-74-59 05:05:00* Test Item Value Reference Range Interpretation Comments Monocytes (%) (Auto) (test code = 5905-5) 7.5 4.4-11.3 [facility] CampusAutomated blood eosinophil count as percentage of total cajqnlkylk1228-20-88 05:05:00* Test Item Value Reference Range Interpretation Comments Eosinophils (%) (Auto) (test code = 713-8) 7.7 0.0-6.0 [facility] CampusAutfrye [facility] blood basophil count as percentage of total kjxaxnvgkf1354-47-42 05:05:00* Test Item Value Reference Range Interpretation Comments Basophils (%) (Auto) (test code = 706-2) 0.6 0.0-1.0 [facility] CampusFluoroscopic procedure less than one hour rbbzbdvz3827-80-59 05:05:00* Test Item Value Reference Range Interpretation Comments IM GRANULOCYTES % (test code = IM GRANULOCYTES %) 0.4 0.0- 1.0 [facility] CampusAutfrye [facility] blood neutrophil count 2020-02-22 05:05:00* Test Item Value Reference Range Interpretation Comments Neutrophils # (Auto) (test code = 751-8) 2.6 2.1-6.9 [facility] CampusBlood lymphocytes count (number/volume) 2020-02-22 05:05:00* Test Item Value Reference Range Interpretation Comments Lymphocytes # (Auto) (test code = 18557-3) 1.6 1.0-3.2 [facility] CampusBlood monocytes automated count (number/volume)2020-02-22 05:05:00* Test Item Value Reference Range Interpretation Comments Monocytes # (Auto) (test code = 742-7) 0.4 0.2-0.8 [facility] 2020-02-22 05:05:00* Test Item Value Reference Range Interpretation Comments Eosinophils # (Auto) (test code = 711-2) 0.4 0.0-0.4 [facility] CampusAutomated blood basophil count (count/volume)2020-02-22 05:05:00* Test Item Value Reference Range Interpretation Comments Basophils # (Auto) (test code = 704-7) 0.0 0.0-0.1 [facility] CampusFluoroscopic procedure less than one hour kctzyxav9621-76-24 05:05:00* Test Item Value Reference Range Interpretation Comments Absolute Immature Granulocyte (auto (christie t code = Absolute Immature Granulocyte (auto) 0.02 0-0.1 [facility] Hospitalerum or plasma sodium measurement (moles/volume)2020-02-22 05:05:00* Test Item Value Reference Range Interpretation Comments Sodium Level (test code = 2951-2) 140 136-145 [facility] Hospitalerum or plasma potassium measurement (moles/volume)2020-02-22 05:05:00* Test Item Value Reference Range Interpretation Comments Potassium Level (test code = 2823-3) 3.7 3.5-5.1 [facility] Hospitalerum or plasma chloride measurement (moles/volume)2020-02-22 05:05:00* Test Item Value Reference Range Interpretation Comments Chloride Level (test code = 2075-0) 109 98-107 [facility] Hospitalerum or plasma carbon dioxide, total measurement (moles/volume)2020-02-22 05:05:00* Test Item Value Reference Range Interpretation Comments Carbon Dioxide Level (test code = 2028-9) 20 22-29 [facility] Hospitalerum or plasma anion hvw7217-31-45 05:05:00* Test Item Value Reference Range Interpretation Comments Anion Gap (test code = 13369-4) 14.7 8-16 [facility] Hospitalerum or plasma urea nitrogen measurement (mass/volume)2020-02-22 05:05:00* Test Item Value Reference Range Interpretation Comments Blood Urea Nitrogen (test code = 3094-0) 5 7-26 [facility] Hospitalerum or plasma creatinine measurement (mass/volume)2020-02-22 05:05:00* Test Item Value Reference Range Interpretation Comments Creatinine (test code = 2160-0) 1.18 0.57-1.11 [facility] Hospitalerum or plasma urea nitrogen/creatinine mass hnyka0195-06-08 05:05:00* Test Item Value Reference Range Interpretation Comments BUN/Creatinine Ratio (test code = 3097-3) 4 6-25 [facility] CampusEstimated glomerular filtration rate (GFR) dusdxtpgbhvcs9137-18-10 05:05:00* Test Item Value Reference Range Interpretation Comments Estimat Glomerular Filtration Rate (test code = 922278441) 46 >60 Ranges were taken from the National Kidney Disease Education Program and the [facility] Kidney Foundation literature.Reference ranges:60 or greater: Rjeplb20-05 ( for 3 consecutive months): Chronic kidney disease 15 or less: Kidney failureThe Hospitals of Providence Memorial CampusGlucose pqnnydjogdu8505-06-41 05:05:00* Test Item Value Reference Range Interpretation Comments Glucose Level (test code = SJY0804) 130 74-118 [facility] Hospitaler[facility] or plasma calcium measurement (mass/volume)2020-02-22 05:05:00* Test Item Value Reference Range Interpretation Comments Calcium Level (test code = 21335-4) 9.3 8.4-10.2 [facility] Hospitalerum or plasma total bilirubin measurement (mass/volume)2020-02-22 05:05:00* Test Item Value Reference Range Interpretation Comments Total Bilirubin (test code = 1975-2) 0.2 0.2-1.2 [facility] CampusFluoroscopic procedure less than one hour pujgzzkx0232-04-24 05:05:00* Test Item Value Reference Range Interpretation Comments Aspartate Amino Transf (AST/SGOT) (test code = Aspartate Amino Transf (AST/SGOT)) 33 5-34 [facility] Hospitalerum or plasma alanine aminotransferase measurement (enzymatic activity/volume)2020-02-22 05:05:00* Test Item Value Reference Range Interpretation Comments Alanine Aminotransferase (ALT/SGPT) (test code = 1742-6) 22 0-55 [facility] Hospitalerum or plasma protein measurement (mass/volume)2020-02-22 05:05:00* Test Item Value Reference Range Interpretation Comments Total Protein (test code = 2885-2) 7.5 6.5-8.1 [facility] Hospitalerum or plasma albumin measurement (mass/volume)2020-02-22 05:05:00* Test Item Value Reference Range Interpretation Comments Albumin (test code = 1751-7) 3.9 3.5-5.0 [facility] CampusPlasma globulin measurement (mass/volume) 2020-02-22 05:05:00* Test Item Value Reference Range Interpretation Comments Globulin (test code = 32288-1) 3.6 2.3-3.5 [facility] Hospitalerum or plasma albumin/globulin mass tjtms2176-44-51 05:05:00* Test Item Value Reference Range Interpretation Comments Albumin/Globulin Ratio (test code = 1759-0) 1.1 0.8-2.0 [facility] Hospitalerum or plasma alkaline phosphatase measurement (enzymatic activity/volume)2020-02-22 05:05:00* Test Item Value Reference Range Interpretation Comments Alkaline Phosphatase (test code = 6768-6) 34 40-150 [facility] HospitalMALL BOWEL OOHDLB4727-07-30 15:06:00 [facility] [address] [address] Patient Name: ROBBIE GILES MR #: [id number] : 1955 Age/Sex: 64/F Req #: [id number] Adm Physician: ANNI MACKENZIE MD Ordered by: WU MACKENZIE MD Report #: [id number] Location: [facility] Room/Bed: [facility] Procedure: [id number] DX/SMA LL BOWEL SERIES Exam Date: 02/20/20 Exam Time: 1120 REPORT STATUS: Signed SMALL RICKEY L FOLLOW THROUGH HISTORY: Abdominal pain PRODUCT TESTER(S): Bernard Patten Comparison: CT abdomen/Pelvis 02/18/2020 Procedure: Small bowel fol low through exam was performed using oral barium. Preliminary image was [place] before administration of contrast and serial overhead images were obtained after administration of oral barium. Fluoroscopy was performed and spot imag es were obtained. 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 [...] Automated reticulocyte count as percentage of total ynngmxjzttcg3455-07-25 04:40:00* Test Item Value Reference Range Interpretation Comments Percent Reticulocyte Count (test code = 83185-4) 2.0 0.8-2 .2 [facility]erum or plasma iron measurement (mass/volume)2020-02-20 04:40:00* Test Item Value Reference Range Interpretation Comments Iron Level (test code = 2498-4) 83 50-170 [facility] Hospitalerum or plasma iron binding capacity measurement (mass/volume)2020-02-20 04:40:00* Test Item Value Reference Range Interpretation Comments Total Iron Binding Capacity (test code = 2500-7) 449 261-4 78 [facility] Hospitalerum or plasma iron saturation measurement (mass fraction)2020-02-20 04:40:00* Test Item Value Reference Range Interpretation Comments Percent Iron Saturation (test code = 2502-3) 18 15-50 [facility] Hospitalerum or plasma transferrin measurement (mass/volume)2020-02-20 04:40:00* Test Item Value Reference Range Interpretation Comments Transferrin (test code = 3034-6) 321 180-382 [facility] Hospitalerum or plasma ferritin measurement (mass/volume)2020-02-20 04:40:00* Test Item Value Reference Range Interpretation Comments Ferritin (test code = 2276-4) 92.38 4.63-204.00 [facility] Hospitalerum or plasma lipase measurement (enzymatic activity/volume)2020-02-20 04:40:00* Test Item Value Reference Range Interpretation Comments Lipase (test code = 3040-3) 20 8-78 [facility] CampusBlood cobalamin (vitamin B12) measurement (mass/volume)2020-02-20 04:40:00* Test Item Value Reference Range Interpretation Comments Vitamin B12 Level (test code = 76269-4) 403 213-816 [facility] Hospitalerum vernon's yeast IgG antibody assay (units/volume)2020-02-20 04:40:00* Test Item Value Reference Range Interpretation Comments Saccharomyces cerevisiae IgG Ab (test code = 6713-2) 41.9 0 .0-24.9 Negative <20.0 Equivocal 20.1 - 24.9 Positive >or= 25.0[facility] Hospitalerum vernon's yeast IgA antibody assay (units/volume)2020-02-20 04:40:00* Test Item Value Reference Range Interpretation Comments Saccharomyces cerevisiae IgA Ab (test code = 91790-6) 29.6 0.0-24.9 Negative <20.0 Equivocal 20.1 - [...] and no healthy controls had antib odyfor both.[facility] Hospitalerum atypical perinuclear neutrophil cytoplasmic antibody titer by tlmpxwiawnzcxcqesz7694-66-73 04:40:00* Test Item Value Reference Range Interpretation Comments Atypical p-ANCA (test code = 52199-6) <1:20 Neg:<1:20 The atypical pANCA pattern has been observed in asignificant percentage of patie nts with ulcerative colitis,primary sclerosing cholangitis and autoimmune hepati tis. ASCA+/PANCA- Suggestive of Crohn's disease ASCA-/PANCA+ S uggestive of Ulcerative colitisPerformed at: - [facility] [address] [id number] Director: Zohreh Laws MD, Phone: [phone] Hospitalerum or plasma folate measurement (mass/volume)2020-02-20 04:40:00* Test Item Value Reference Range Interpretation Comments Folate (test code = 2284-8) >20.0 >3.0 A serum folate concentration of less than 3.1 ng/mL isconsidered to represent cl inical deficiency.Performed at: - [facility] [address] [id number] Director: Lewis Torrez MD, Phone: [phone] Hospitals of Providence Memorial CampusAutomated reticulocyte count as percentage of total znzeaquojetn3334-60-63 04:40:00* Test Item Value Reference Range Interpretation Comments Percent Reticulocyte Count (test code = 25564-2) 2.0 0.8-2 .2 [facility] Hospitalerum or plasma iron measurement (mass/volume)2020-02-20 04:40:00* Test Item Value Reference Range Interpretation Comments Iron Level (test code = 2498-4) 83 50-170 [facility] Hospitaler[facility] or plasma iron binding capacity measurement (mass/volume)2020-02-20 04:40:00* Test Item Value Reference Range Interpretation Comments Total Iron Binding Capacity (test code = 2500-7) 449 261-4 78 [facility] Hospitalerum or plasma iron saturation measurement (mass fraction)2020-02-20 04:40:00* Test Item Value Reference Range Interpretation Comments Percent Iron Saturation (test code = 2502-3) 18 15-50 [facility] Hospitaler[facility] or plasma transferrin measurement (mass/volume)2020-02-20 04:40:00* Test Item Value Reference Range Interpretation Comments Transferrin (test code = 3034-6) 321 180-382 [facility] Hospitalerum or plasma ferritin measurement (mass/volume)2020-02-20 04:40:00* Test Item Value Reference Range Interpretation Comments Ferritin (test code = 2276-4) 92.38 4.63-204.00 [facility]er[facility] or plasma lipase measurement (enzymatic activity/volume)2020-02-20 04:40:00* Test Item Value Reference Range Interpretation Comments Lipase (test code = 3040-3) 20 8-78 [facility] CampusBlood cobalamin (vitamin B12) measurement (mass/volume)2020-02-20 04:40:00* Test Item Value Reference Range Interpretation Comments Vitamin B12 Level (test code = 45256-9) 403 213-816 [facility] Hospitalerum vernon's yeast IgG antibody assay (units/volume)2020-02-20 04:40:00* Test Item Value Reference Range Interpretation Comments Saccharomyces cerevisiae IgG Ab (test code = 6713-2) 41.9 0 .0-24.9 Negative <20.0 Equivocal 20.1 - 24.9 Positive >or= 25.0[facility] Hospitalerum vernon's yeast IgA antibody assay (units/volume)2020-02-20 04:40:00* Test Item Value Reference Range Interpretation Comments Saccharomyces cerevisiae IgA Ab (test code = 88073-9) 29.6 0.0-24.9 Negative <20.0 Equivocal 20.1 - [...] and no healthy controls had antib odyfor both.[facility] Hospitalerum atypical perinuclear neutrophil cytoplasmic antibody titer by zfwolsoeskxwlxlnuv3647-29-08 04:40:00* Test Item Value Reference Range Interpretation Comments Atypical p-ANCA (test code = 40360-0) <1:20 Neg:<1:20 The atypical pANCA pattern has been observed in asignificant percentage of patie nts with ulcerative colitis,primary sclerosing cholangitis and autoimmune hepati tis. ASCA+/PANCA- Suggestive of Crohn's disease ASCA-/PANCA+ S uggestive of Ulcerative colitisPerformed at: - [facility] [address] [id number] Director: Zohreh Laws MD, Phone: [phone] Hospitalerum or plasma folate measurement (mass/volume)2020-02-20 04:40:00* Test Item Value Reference Range Interpretation Comments Folate (test code = 2284-8) >20.0 >3.0 A serum folate concentration of less than 3.1 ng/mL isconsidered to represent cl inical deficiency.Performed at: [facility] - [facility] [id number] Director: Lewis Torrez MD, Phone: [phone] Hospitals of Providence Memorial CampusUrine color gdfamnhnsxsjj2672-40-05 03:26:00* Test Item Value Reference Range Interpretation Comments Urine Color (test code = 5778-6) YELLOW YELLOW [facility] CampusUrine dopsptn8659-37-78 03:26:00* Test Item Value Reference Range Interpretation Comments Urine Clarity (test code = 95393-5) CLEAR CLEAR [facility] Hospitalpecific gravity of Urine by Test strip 2020-02-20 03:26:00* Test Item Value Reference Range Interpretation Comments Urine Specific [place] (test code = 5811-5) 1.015 1.010-1.02 5 [facility] CampusUrine pH measurement by automated test yspam9720-34-13 03:26:00* Test Item Value Reference Range Interpretation Comments Urine pH (test code = 44174-3) 7 5-7 [facility] CampusUrine leukocyte esterase detection by bcklreiv4596-38-98 03:26:00* Test Item Value Reference Range Interpretation Comments Urine Leukocyte Esterase (test code = 5799-2) NEGATIVE NEGATIVE [facility] CampusUrine nitrite sgthtoxtt8819-46-32 03:26:00* Test Item Value Reference Range Interpretation Comments Urine Nitrite (test code = 94709-8) NEGATIVE NEGATIVE [facility] CampusUrine protein measurement by test strip (mass/volume)2020-02-20 03:26:00* Test Item Value Reference Range Interpretation Comments Urine Protein (test code = 5804-0) NEGATIVE NEGATIVE [facility] CampusUrine glucose ugeaxsxdc6464-14-75 03:26:00* Test Item Value Reference Range Interpretation Comments Urine Glucose (UA) (test code = 2349-9) NEGATIVE NEGATIVE [facility] CampusUrine ketones detection by automated test hiusk0568-23-89 03:26:00* Test Item Value Reference Range Interpretation Comments Urine Ketones (test code = 43807-3) NEGATIVE NEGATIVE [facility] CampusUrine urobilinogen measurement by test strip (mass/volume)2020-02-20 03:26:00* Test Item Value Reference Range Interpretation Comments Urine Urobilinogen (test code = 39170-7) 0.2 0.2-1 [facility] CampusUrine total bilirubin measurement (mass/volume)2020-02-20 03:26:00* Test Item Value Reference Range Interpretation Comments Urine Bilirubin (test code = 1978-6) NEGATIVE NEGATIVE [facility] CampusUrine erythrocytes oxjpxsfrj6430-80-94 03:26:00* Test Item Value Reference Range Interpretation Comments Urine Blood (test code = 22246-3) NEGATIVE NEGATIVE [facility] CampusAutomated urine sediment leukocyte count by microscopy (number/high power field)2020-02-20 03:26:00* Test Item Value Reference Range Interpretation Comments Urine WBC (test code = 5821-4) 11-20 0-5 [facility] CampusErythrocytes detection in urine sediment by light rdrrjecaea2029-10-94 03:26:00* Test Item Value Reference Range Interpretation Comments Urine RBC (test code = 20847-1) 0-5 0-5 [facility] CampusBacteria detection in urine sediment by light ixtbinfabd2700-32-42 03:26:00* Test Item Value Reference Range Interpretation Comments Urine Bacteria (test code = 90815-9) FEW NONE [facility] CampusEpithelial cells detection in urine sediment by light brzafgmbpt4950-70-14 03:26:00* Test Item Value Reference Range Interpretation Comments Urine Epithelial Cells (test code = 47695-8) FEW NONE [facility] CampusTransitional cells detection in urine sediment by light buesxfaqdl4268-44-25 03:26:00* Test Item Value Reference Range Interpretation Comments Urine Transitional Epithelial Cells (test code = 8249-5) FEW NONE [facility] CampusRenal epithelial cells detection in urine sediment by light blxllkaals0271-58-45 03:26:00* Test Item Value Reference Range Interpretation Comments Urine Renal Epithelial Cells (test code = 47920-3) FEW NON E [facility] CampusUrine color hslhhkvqmivps2339-34-99 03:26:00* Test Item Value Reference Range Interpretation Comments Urine Color (test code = 5778-6) YELLOW YELLOW [facility] CampusUrine iuuiogj2407-01-20 03:26:00* Test Item Value Reference Range Interpretation Comments Urine Clarity (test code = 42929-2) CLEAR CLEAR [facility] Hospitalpecific gravity of Urine by Test strip 2020-02-20 03:26:00* Test Item Value Reference Range Interpretation Comments Urine Specific [place] (test code = 5811-5) 1.015 1.010-1.02 5 [facility] CampusUrine pH measurement by automated test nilzc3716-52-46 03:26:00* Test Item Value Reference Range Interpretation Comments Urine pH (test code = 48231-7) 7 5-7 [facility] CampusUrine leukocyte esterase detection by kbvaghvt2848-00-50 03:26:00* Test Item Value Reference Range Interpretation Comments Urine Leukocyte Esterase (test code = 5799-2) NEGATIVE NEGATIVE [facility] CampusUrine nitrite pgmabvuhg6118-72-18 03:26:00* Test Item Value Reference Range Interpretation Comments Urine Nitrite (test code = 71693-2) NEGATIVE NEGATIVE [facility] CampusUrine protein measurement by test strip (mass/volume)2020-02-20 03:26:00* Test Item Value Reference Range Interpretation Comments Urine Protein (test code = 5804-0) NEGATIVE NEGATIVE [facility] CampusUrine glucose ityifruuz4581-06-04 03:26:00* Test Item Value Reference Range Interpretation Comments Urine Glucose (UA) (test code = 2349-9) NEGATIVE NEGATIVE [facility] CampusUrine ketones detection by automated test nkilh8410-80-50 03:26:00* Test Item Value Reference Range Interpretation Comments Urine Ketones (test code = 19742-2) NEGATIVE NEGATIVE [facility] CampusUrine urobilinogen measurement by test strip (mass/volume)2020-02-20 03:26:00* Test Item Value Reference Range Interpretation Comments Urine Urobilinogen (test code = 45769-9) 0.2 0.2-1 [facility] CampusUrine total bilirubin measurement (mass/volume)2020-02-20 03:26:00* Test Item Value Reference Range Interpretation Comments Urine Bilirubin (test code = 1978-6) NEGATIVE NEGATIVE [facility] CampusUrine erythrocytes zmoxxhddv7004-57-69 03:26:00* Test Item Value Reference Range Interpretation Comments Urine Blood (test code = 89609-0) NEGATIVE NEGATIVE [facility] CampusAutomated urine sediment leukocyte count by microscopy (number/high power field)2020-02-20 03:26:00* Test Item Value Reference Range Interpretation Comments Urine WBC (test code = 5821-4) 11-20 0-5 [facility] CampusErythrocytes detection in urine sediment by light naufyusgxi4524-12-80 03:26:00* Test Item Value Reference Range Interpretation Comments Urine RBC (test code = 25186-3) 0-5 0-5 [facility] CampusBacteria detection in urine sediment by light xplpdmbngy9193-15-22 03:26:00* Test Item Value Reference Range Interpretation Comments Urine Bacteria (test code = 33881-7) FEW NONE [facility] CampusEpithelial cells detection in urine sediment by light jpzfteugzl6935-19-99 03:26:00* Test Item Value Reference Range Interpretation Comments Urine Epithelial Cells (test code = 28387-6) FEW NONE [facility] CampusTransitional cells detection in urine sediment by light hxmtbzhrpm1805-87-96 03:26:00* Test Item Value Reference Range Interpretation Comments Urine Transitional Epithelial Cells (test code = 8249-5) FEW NONE [facility] CampusRenal epithelial cells detection in urine sediment by light uuznnjvisg5904-84-61 03:26:00* Test Item Value Reference Range Interpretation Comments Urine Renal Epithelial Cells (test code = 34421-3) FEW NON E [facility] Hospitaltool lactoferrin luusdshss6333-67-41 08:15:00* Test Item Value Reference Range Interpretation Comments Stool Lactoferrin (LAB) (test code = 15251-9) POSITIVE NEGATIVE Testing on stool aspirate specimens is outside wall taper helper claims since specime n type not validated on this assay.[facility] Clostridium difficile A and B toxin gfapn8409-78-81 08:15:00* Test Item Value Reference Range Interpretation Comments Clostridium Difficile Toxin A & B (test code = 522832275) NEGATIVE NEGATIVE Testing on stool aspirate specimens is outside wall taper helper claims since specime n type not validated on this assay.[facility] Hospitaltool lactoferrin yplwncalj3908-21-19 08:15:00* Test Item Value Reference Range Interpretation Comments Stool Lactoferrin (LAB) (test code = 46604-4) POSITIVE NEGATIVE Testing on stool aspirate specimens is outside wall taper helper claims since specime n type not validated on this assay.[facility] Hospitaltool calprotectin measurement (mass/mass)2020-02-19 08:15:00* Test Item Value Reference Range Interpretation Comments Stool Calprotectin (test code = 82159-8) 33 0-120 Concentration Interpretation Follow-Up<16 - 50 ug/g Normal None>50 -120 ug/g Borderline Re-evaluate in 4-6 weeks >120 ug/g Abnormal Repeat as clinically indicatedPerformed at: [facility] [id number] Director: Zohreh Laws MD, Phone: [phone] Hospitals of Providence Memorial CampusClostridium difficile A and B toxin tolgr6411-67-32 08:15:00* Test Item Value Reference Range Interpretation Comments Clostridium Difficile Toxin A & B (test code = 458301460) NEGATIVE NEGATIVE Testing on stool aspirate specimens is outside wall taper helper claims since specime n type not validated on this assay.[facility] Erythrocyte sedimentation rate by Westergren upiwfo0949-41-25 05:20:00* Test Item Value Reference Range Interpretation Comments Erythrocyte Sedimentation Rate (test code = 4537-7) 42 0- 20 [facility] Hospitalerum or plasma C reactive protein measurement (mass/volume)2020-02-19 05:20:00* Test Item Value Reference Range Interpretation Comments C-Reactive Protein (test code = 1988-5) 8 0-10 Performed at: [facility] [id number] Director: Lewis Torrez MD, Phone: [phone] Hospitals of Providence Memorial CampusErythrocyte sedimentation rate by Westergren hevcal2101-08-16 05:20:00* Test Item Value Reference Range Interpretation Comments Erythrocyte Sedimentation Rate (test code = 4537-7) 42 0- 20 [facility] Hospitalerum or plasma C reactive protein measurement (mass/volume)2020-02-19 05:20:00* Test Item Value Reference Range Interpretation Comments C-Reactive Protein (test code = 1987-5) 8 0-10 Performed at: [facility] [id number] Director: Lewis Torrez MD, Phone: [phone] Hospitals of Providence Memorial CampusFluoroscopic procedure less than one hour pfrfsfzv5076-53-39 21:15:00* Test Item Value Reference Range Interpretation [...] complexity tests.Testing performed by [facility] [address] [phone] Director: Jose E Pop M.D.CLIA # [id number] [facility] Fluoroscopic procedure less than one hour hrmgxrue4774-46-35 21:15:00* Test Item Value Reference Range Interpretation [...] complexity tests.Testing performed by [facility] [address] [phone] Director: Jose E Pop M.D.CLIA # [id number] [facility] PasoCT ABD/PEL WO ZVXSAAPR-WJZG2033-18-24 18:27:00 [place] [address] Patient Name: ROBBIE GILES MR #: [id number] : 1955 Age/Sex: 64/F Req #: [id number] Adm Physician: Ordered by: CARMELLA GRIFFITHS MD Report #: [id number] Location: [facility] Room/Bed: Procedure: [id number] HOPD/ CT ABD/PEL WO CONTRAST-HOPD Exam Date: [...] Signed By: WALLACE MICHELLE MD on 02/18/20 9896 Transcribed By: CAMELIA on 02/18/201847 COPY TO: CARMELLA GRIFFITHS MD ABDOMEN-1VIEW (KUB)2020-02-17 17:08:00 [place] [address] Patient Name: ROBBIE GILES MR #: [id number] : 1955 Age/Sex: 64/F Req #: [id number] Adm Physician: Ordered by: WU MACKENZIE MD Report #: [id number] Location: [facility] Room/Bed: Procedure: [id number] DX/ABD OMEN-1VIEW (KUB) Exam Date: 02/17/20 Exam [...] TO: WU MACKENZIE MD CT ABD/PEL WO WLFCRXIM-CAWG2845-53-08 20:17:00 [facility] [address] [place] [address] Patient Name: ROBBIE GILES MR #: [id number] : 1955 Age/Sex: 64/F Req #: [id number] Adm Physician: Ordered by: ABEBE CLEMENTS MD Report #: [id number] Location: [facility] Room/Bed: Procedure: [id number] HOPD/C T ABD/PEL WO CONTRAST-HOPD Exam Date: [...] Interpretation Comments Bedside Glucose (test code = 25094-8) 161 70-120 Meter ID: [id number] [facility] PasoFluoroscopic procedure less than one hour tmvngznq0004-41-62 13:10:00* Test Item Value Reference Range Interpretation [...] complexity tests.Testing performed by [facility] yxofvtr0225 [place], [place] [phone] Director: Jose E Pop M.D.CLIA # [id number] [facility] PasoMRI ABDOMEN RQ3192-02-00 17:35:00 [place] [address] Patient Name: ROBBIE GILES MR #: [id number] : 1955 Age/Sex: 64/F Req #: [id number] Adm Physician: Ordered by: WU MACKENZIE MD Report #: [id number] Location: MRI Room/Bed: Procedure: [id number] MRI /MRI ABDOMEN WO Exam Date: Exam [...] MACKENZIE MD MRI PELVIS WO 2019-07-29 17:35:00 [place] [address] Patient Name: ROBBIE GILES MR #: [id number] : 1955 Age/Sex: 64/F Req #: [id number] Adm Physician: Ordered by: WU MACKENZIE MD Report #: [id number] Location: MRI Room/Bed: Procedure: [id number] MRI /MRI PELVIS WO Exam Date: Exam [...] Nitrogen (test code = 3094-0) 25 03-21 [facility]er[facility] or plasma creatinine measurement (mass/volume)2019-07-29 12:53:00* Test Item Value Reference Range Interpretation Comments Creatinine (test code = 2160-0) 1.34 0.57-1.11 [facility] Hospitaler[facility] or plasma urea nitrogen/creatinine mass xgrco9932-61-36 12:53:00* Test Item Value Reference Range Interpretation Comments BUN/Creatinine Ratio (test code = 3097-3) 02-18 [facility] CampusEstimated glomerular filtration rate (GFR) omkknzraqbpzm0940-52-65 12:53:00* Test Item Value Reference Range Interpretation Comments Estimat Glomerular Filtration Rate (test code = 698465364) 40 >60 Ranges were taken from the National Kidney Disease Education Program and the [facility] Kid[facility] Foundation literature.Reference ranges:60 or greater: Jllnox64-32 ( for 3 consecutive months): Chronic kidney disease 15 or less: Kidney failureCHI [facility] PasoCT ABDOMEN/PELVIS WI3791-13-22 15:36:00 [place] [address] Patient Name: ROBBIE GILES MR #: [id number] : 1955 Age/Sex: 63/F Req #: [id number] Adm Physician: Ordered by: WU MACKENZIE MD Report #: [id number] Location: CT Room/Bed: Procedure: [id number] CT/ CT ABDOMEN/PELVIS WO Exam Date: 02/05/19 [...] ANEESH AMOS DO 1545 Transcribe d By: CAMELIA on 02/05/19 1540 COPY TO: WU MACKENZIE MD ABDOMEN COMP INCL UPR or DECUB [place] [address] Patient Name: ROBBIE GILES MR #: [id number] : 1955 Age/Sex: 62/F Req #: [id number] Adm Physician: Ordered by: WU MACKENZIE MD Report #: [id number] Location: [facility] Room/Bed: Procedure: [id number] DX/ABDOMEN COMP INCL UPR or D ECUB [...] TO: WU MACKENZIE MD SMALL BOWEL SERIES [place] [address] Patient Name: ROBBIE GILES MR #: [id number] : 0 1955 Age/Sex: 62/F Req #: [id number] Adm Physician: Ordered by: WU MACKENZIE MD Report #: [id number] Location: DX Room/Bed : Procedure: [id number] DX/SMALL BOWEL SERIES Exam Da te: 10/23/17 [...] COPY TO: WU MACKENZIE MD CT ABDOMEN/PELVIS [place] [address] Patient Name: ROBBIE GILES MR #: [id number] : 1955 Age/Sex: 62/F Req #: [id number] Adm Physician: Ordered by: WU MACKENZIE MD Report #: [id number] Location: CT Room/Bed: Procedure: [id number] CT/CT ABDOMEN/PELVIS WO Exam Date: 10/01/17 Exam Time: 1337 REPORT STATUS: S igned PROCEDURE: CT ABDOMEN AND PELVIS WITHOUT CONTRAST COMPARISON: [facility], CT, CT ABDOMEN/PELVIS WO, 12/28/2015, 17:12. INDICATI [...]
== END 2020-02-24 21:25 | disposition home or self-care (01) | DRG 386 ==
LOC: FSED 17:32 → ERHOLD 19:19 → MED/SURG2 22:03
DX: K50.90 Crohn's disease, unspecified, without complications (principal); F32.1 Major depressive disorder, single episode, moderate; E11.21 Type 2 diabetes mellitus with diabetic nephropathy; E11.22 Type 2 diabetes mellitus with diabetic chronic kidney disease; I12.9 Hypertensive chronic kidney disease with stage 1 through stage 4 chronic kidney disease, or unspecified chronic kidney disease; N18.3 Chronic kidney disease, stage 3 (moderate); F41.9 Anxiety disorder, unspecified; K21.9 Gastro-esophageal reflux disease without esophagitis; M32.9 Systemic lupus erythematosus, unspecified; K58.9 Irritable bowel syndrome, unspecified; Z88.8 Allergy status to other drugs, medicaments and biological substances; Z91.041 Radiographic dye allergy status; Z91.013 Allergy to seafood; D63.8 Anemia in other chronic diseases classified elsewhere; N32.81 Overactive bladder; E66.9 Obesity, unspecified; E03.9 Hypothyroidism, unspecified; D50.9 Iron deficiency anemia, unspecified; M47.816 Spondylosis without myelopathy or radiculopathy, lumbar region; Z11.59 Encounter for screening for other viral diseases; Z68.32 Body mass index [BMI] 32.0-32.9, adult; Z90.49 Acquired absence of other specified parts of digestive tract; F32.9 Major depressive disorder, single episode, unspecified; Z79.4 Long term (current) use of insulin
CPT/HCPCS: 36415; 74019; 74176; 74250; 80053; 80076; 81001; 81003; 82607; 82728; 82746; 82948; 83540; 83615; 83630; 83690; 83993; 84466; 85025; 85045; 85651; 86140; 86256; 86304; 86671; 87045; 87086; 87177; 87493; 96365; 96372; 96374; 96376; 99284; J0500; J0696; J1200; J1756; J2270; J2405; J2550; J2765; J3420; J7030; J7121; U0002

== ENCOUNTER 2020-04-12 14:52 | Emergency (ER) | payer OTHER ==
[~2020-04-12] VITALS: Ht 149.9 cm; Wt 69.9 kg
[2020-04-12] MEDS ORDERED: DONNATAL/LIDOCAINE/MAALOX 30 ML SUSP PO ONE (15:25)
[2020-04-12] MEDS ORDERED: KETOROLAC TROMETHAMINE 60 MG/2 ML VIAL IM ONE (15:25)
[2020-04-12] MEDS ORDERED: ALBUTEROL SULFATE HFA 8GM INHALATION AEROSOL INH STA (15:25)
[2020-04-12] MEDS ORDERED: LIDOCAINE VISC 2% SOLN 15 ML UDC ONE (15:43)
[2020-04-12] MEDS ORDERED: BELLADONNA ALK/PHENOBARBITAL 5 ML UDC ONE (15:43)
[2020-04-12] MEDS ORDERED: MAGNESIUM/ALUMINUM/SIMETHICONE 30 ML UDC ONE (15:43)
[2020-04-12] MEDS ORDERED: KETOROLAC TROMETHAMINE 60 MG/2 ML VIAL ONE (15:43)
[2020-04-12] MEDS ORDERED: ALBUTEROL SULFATE HFA 8GM INHALATION AEROSOL INH ONE (15:44)
--- NOTE | 2020-04-12 15:48 | Emergency Department Note ---
History of Present Illnes History of Present Illness Chief Complaint: substernal cp History of Present Illness This is a 64 year old female. was doing well prior to this. then s ubsternal chest tightness. +wheezing. Pt has had similarsymptoms for months and has seen pcp, gi and emergency medicine physician and has had a negative work up including an egd Historian: Patient Arrival Mode: Car History limited by: condition of the patient (normal) Manager Mall Required: No Onset (how long ago): week(s) (1) Location: substernal Quality: tightness Radiation: Reports non-radiation Severity: moderate Onset quality: gradual Duration (how long): week(s) (1) Timing of current episode: constant Progression: unchanged Chronicity: recurrent Context: Denies recent illness, Denies recent surgery, Denies recent immobilization, Denies trauma/injury, Denies new medications, Denies non- compliance w/ medications Relieving factors: none Exacerbating factors: none Associated symptoms: Reports denies other symptoms Treatments prior to arrival: none Past Medical/Family History Physician Review I have reviewed the patient's past medical and family history. Any updates have been documented here. Past Medical History Recent Fever: No Clinical Suspicion of Infectio: No New/Unexplained Change in Ment: No Past Medical History: Hypertension, Diabetes, Hypothyroidism, Migraines, Anxiety, GERD, Hyperlipedemia Other Medical History: CHRONS IBS BIPOLAR Past Surgical History: Cholecysctectomy, Appendectomy Other Surgery: KNEE SCOPE Social History Smoking Cessation: Never Smoker Alcohol Use: None Any Illegal Drug Use: No Other Last Tetanus: OOD Any Pre-Existing Lines (PICC,: No Review of Systems Review of Systems Constitutional: Reports no symptoms EENTM: Reports no symptoms Cardiovascular: Reports as per HPI Respiratory: Reports as per HPI Gastrointestinal: Reports no symptoms Genitourinary: Reports no symptoms Musculoskeletal: Reports no symptoms Integumentary: Reports no symptoms Neurological: Reports no symptoms Psychological: Reports no symptoms Endocrine: Reports no symptoms Hematological/Lymphatic: Reports no symptoms Review of other systems: All other systems negative Physical Exam Related Data Allergies: Coded Allergies: Shellfish (Verified Allergy, Severe, RED, ITCHING, 04/17/18) SHELLFISH ALLERGY iodine (Verified Allergy, Intermediate, RED, ITCHING, 04/17/18) meperidine (Verified Allergy, Intermediate, anxiety attack, itching, 04/17/18) promethazine (Verified Allergy, Unknown, ANXIETY, RASH, 04/17/18) Triage Vital Signs Vital Signs Date Time Temp Pulse Resp B/P (MAP) Pulse Ox O2 Delivery O2 Flow Rate FiO2 04/12/20 15:13 98.0 98 16 148/78 100 Room Air Vital signs reviewed: Yes Physical Exam CONSTITUTIONAL Constitutional: Present well-developed, Present well-nourished HENT HENT: Present normocephalic, Present atraumatic, Present oropharynx clear/moist, Present nose normal HENT L/R: Present left ext ear normal, Present right ext ear normal EYES Eyes: Reports PERRL, Reports conjunctivae normal NECK Neck: Present ROM normal PULMONARY Pulmonary: Present effort normal, Present chest tenderness (SUBSTERNAL/LEFT CW TENDERNESS), Present other (+bilateral wheezes) CARDIOVASCULAR Cardiovascular: Present regular rhythm, Present heart sounds normal, Present capillary refill normal, Present normal rate GASTROINTESTINAL Abdominal: Present soft, Present nontender, Present bowel sounds normal GENITOURINARY Genitourinary: Present exam deferred SKIN Skin: Present warm, Present dry MUSCULOSKELETAL Musculoskeletal: Present ROM normal NEUROLOGICAL Neurological: Present alert, Present oriented x 3, Present no gross motor or sensory deficits PSYCHOLOGICAL Psychological: Present mood/affect normal, Present judgement normal Results Laboratory Lab results reviewed: Yes (CBC,BMP, LFT, TROP ALL NEGATIVE) Imaging Imaging results reviewed: Yes Impressions CXR NORMAL EXCEPT RETROSTERNAL SPACE OBILTERATED Procedures 12 Lead ECG Interpretation ECG Interpretation : ECG: ECG 1 Date: Apr 12, 2020 Time: 15:03 Prior ECG tracings: reviewed Rhythm: sinus rhythm (nsr) Rate: normal BPM: 93 QRS axis: normal Conduction: right bundle branch block Clinical Impression: abnormal ECG Assessment & Plan Medical Decision Making MDM CHEST WALL STRAIN, REACTIVE AIRWAY DISEASE Reassessment Reassessment NO MORE PAIN S/P TORADOL AND GI COCKTAIL Assessment & Plan Final Impression: (1) Chest wall muscle strain (2) Reactive airway disease Depart Disposition: HOME, SELF-CARE Last Vital Signs Date Time Temp Pulse Resp B/P (MAP) Pulse Ox O2 Delivery O2 Flow Rate FiO2 04/12/20 15:13 98.0 98 16 148/78 100 Room Air Home Meds Active Scripts Albuterol Sulf* (PROAIR HFA INHALER*) 8.5 Gm Inh, 2 INH PO Q4HR PRN for WHEEZING, #1 INH PRN WHEEZING, CHEST TIGHTNESS) DISPENSE WITH SPACER Prov:MILTON BANG 04/12/20 Prednisone (PREDNISONE) 20 Mg Tab, 60 MG PO DAILY, #15 TAB take all 3 pills at once Prov:MILTON BANG 04/12/20 Cefdinir (OMNICEF) 300 Mg Capsule, 300 MG PO Q12H, #20 CAP Prov:MILTON BANG 04/12/20 Azithromycin (AZITHROMYCIN) 500 Mg Tablet, 500 TAB PO DAILY, #5 TAB Prov:MILTON BANG 04/12/20 Fluconazole (DIFLUCAN) 150 Mg Tablet, 150 MG PO ONCE for yeast infection, #1 TAB 0 Refills Prov:ABEBE CLEMENTS MD 02/02/20 Nitrofurantoin Monohyd/M-Cryst (MACROBID 100 MG CAPSULE) 100 Mg Capsule, 1 TAB PO BID for urine infection, #10 20ML 0 Refills Prov:ABEBE CLEMENTS MD 02/02/20 Reported Medications Diphenoxylate Hcl/Atropine (LOMOTIL TABLET) 1 Each Tablet, 1 TAB PO Q6HR PRN for DIARRHEA, TAB 01/09/20 [vit c] No Conflict Check, PO DAILY 01/09/20 [iron ] No Conflict Check, PO DAILY 01/09/20 Calcium Carbonate/Vitamin D3 (CALTRATE 600 W-D TABLET) 1 Each Tablet, PO DAILY 01/09/20 [viberzi] No Conflict Check, 100 MG PO DAILY 02/10/16 [miralax] No Conflict Check, 1 CAP PO BID 02/07/16 Lamotrigine (LAMOTRIGINE) 100 Mg Tablet, 75 MG PO BID, #30 TAB 02/07/16 [Humira] No Conflict Check, 40 MG SQ UD ONCE A WEEK ON 12/28/15 Chlordiazepoxide/Clidinium Br (LIBRAX CAPSULE) 1 Each Capsule, PO PRN 08/06/15 Hyoscyamine Sulfate (LEVSIN) 0.125 Mg Tablet, 2 TAB .ROUTE PRN 08/06/15 [Yakult] No Conflict Check, 2.7 OZ PO DAILY 08/06/15 Glimepiride (GLIMEPIRIDE) 4 Mg Tablet, 4 MG PO DAILY 08/06/15 Desvenlafaxine Succinate (PRISTIQ ER) 100 Mg Tab.er.24h, 100 MG PO DAILY 05/24/15 Quetiapine Fumarate (SEROQUEL) 100 Mg Tablet, 100 MG PO BID 05/24/15 Multivitamin (MULTI-VITAMIN DAILY) 1 Each Tablet 03/10/15 Metformin Hcl (METFORMIN HCL) 500 Mg Tablet, 1000 MG PO BID, #60 TAB 03/10/15 Topiramate (TOPIRAMATE) 100 Mg Tablet, 100 MG PO DAILY, #30 TAB 03/10/15 Hydrocodone Bit/Acetaminophen (NORCO 10-325 TABLET) 1 Each Tablet, 1 TAB PO Q6 HRS PRN 03/31/14 Ondansetron (ZOFRAN ODT) 4 Mg Tab.rapdis, 8 MG SL QID PRN NAUSEA 01/24/14 Lorazepam (LORAZEPAM) 2 Mg Tablet, 1 MG PO QID PRN ANXIETY 01/24/14 Rosuvastatin Calcium (CRESTOR) 20 Mg Tablet, 20 MG PO EVERY EVENING 01/24/14 Levothyroxine Sodium (LEVOTHYROXINE SODIUM) 112 Mcg Tablet, 125 MCG PO DAILY 01/24/14 Fenofibrate (TRICOR) 145 Mg Tab, 145 MG PO DAILY 01/24/14 Sitagliptin Phosphate (JANUVIA) 100 Mg Tablet, 100 MG PO DAILY 01/24/14 Perindopril Erbumine (ACEON) 8 Mg Tablet, 8 MG PO DAILY 01/24/14 Dexlansoprazole (DEXILANT) 60 Mg Gilbert., 60 MG PO BID 01/24/14 Medications in the ED Ketorolac Tromethamine 60 mg ONCE ONCE IM ; Start 04/12/20 at 15:25; Stop 04/12/20 at 15:38; Status DC Belladonna Alkaloids/ Phenobarbital 55 ml ONCE ONCE PO ; Start 04/12/20 at 15:25; Stop 04/12/20 at 15:38; Status DC Albuterol 2 gm ONCE STAT INH ; Start 04/12/20 at 15:25; Stop 04/12/20 at 15:33; Status DC Lidocaine HCl 15 ml STK-MED ONCE .ROUTE ; Start 04/12/20 at 15:43; Stop 04/12/20 at 15:38; Status DC Belladonna Alkaloids/ Phenobarbital 5 ml STK-MED ONCE .ROUTE ; Start 04/12/20 at 15:43; Stop 04/12/20 at 15:38; Status DC Ketorolac Tromethamine 60 mg STK-MED ONCE .ROUTE ; Start 04/12/20 at 15:43; Stop 04/12/20 at 15:38; Status DC Magnesium Aluminum Silicate 30 ml STK-MED ONCE .ROUTE ; Start 04/12/20 at 15:43; Stop 04/12/20 at 15:38; Status DC Albuterol 8 gm STK-MED ONCE INH ; Start 04/12/20 at 15:44; Stop 04/12/20 at 15:38; Status DC MILTON BANG Apr 12, 2020 15:48
--- NOTE | 2020-04-12 16:25 | Diagnostic Imaging Report ---
X-ray chest PA and lateral History: Chest pain Comparison: None Findings: Central airways unremarkable. Heart size normal. Mediastinal contours unremarkable. No pleural effusion. No pneumothorax. No focal lung disease. Retrosternal clear space is obliterated. This suggests an anterior mediastinal pathology. Degenerative changes of the shoulder regions bilaterally especially the left. Degenerative changes of the thoracic spine. Surgical nohemy in the upper abdomen seen on the lateral view only. Impression: No acute cardiopulmonary disease. A CT of the chest may be performed on a nonemergent basis. Signed by: Ajay Hendricks MD on 04/12/2020 4:21 PM
--- OUTSIDE RECORDS SUMMARY | 2020-04-12 16:37 | XMS REPORT | Continuity of Care Document ---
Author Author [employer] Address Unknown Phone Unavailable Care Team Providers Care Web Page Designer Name Role Phone [employer] Information [employer] Unavailable Un available Problems Problem Status Onset Date Classification Date Reported Comments Source CROHN'S DISEASE 555.9 Active 09/27/2012 [facility] 388.70 - [place] NOS Active 02/23/2012 [facility] [place] CHRONIC LEFT EAR PAIN Active 02/23/2012 [facility] Medications Medication Details Route Status Patient Instructions Ordering Provider Order Date Source Remicade + Sodium Chloride 0.9% IV 250 mL 400 mg, Route: IV, Drug form: PDR/INJ, ONCALL, Start date: 10/28/12 10:00:00, Stop date: 03/31/13 10:59:00 IV No Longer Active Mackenzie 10/28/2012 [facility] Sodium Chloride 0.9% IV IV, 50 0 ml/hr, PRN, PRN Other - See Comment, Start date: 10/25/12 12:57:00, Duration: 30, 500 ml IV No Longer Active Mackenzie 10/25/2012 [facility] SoluCortef 100 mg, 2 mL, Route : IVP, Drug form: PDR/INJ, PRN, PRN Other -See Comment, Start date: 10/25/12 12:56:00, Duration: 30 day, Stop date: 11/24/12 13:55:00 IVP No Longer Active Mackenzie 10/25/2012 [facility] Benadryl 50 mg, 1 mL, Route: I BAND MANAGER, Drug form: INJ, PRN, PRN Other -See Comment, Start date: 10/25/12 12:55:00, Duration: 30 day, Stop date: 11/24/12 13:54:00 IVP No Longer Active Mackenzie 10/25/2012 [facility] epinephrine 0.5 mg, 0.5 mL, [place]: SUB-Q, Drug form: INJ, PRN, PRN Other -See Comment, Start date: 10/25/12 12:54:00, Duration: 30 day, Stop date: 11/24/12 13:53:00 SUB-Q No Longer Active Mackenzie 10/25/2012 [facility] Tylenol 650 mg, 2 tab, Route: PO, Drug form: TAB, PRN, PRN Other -See Comment, Start date: 10/25/12 12:52:00, Duration: 30 day, Stop date: 11/24/12 13:51:00 PO No Longer Active Mackenzie 10/25/2012 [facility] Benadryl 25 mg, 1 tab, Route: PO, Drug form: TAB, PRN, PRN Other -See Comment, Start date: 10/25/12 12:51:00, Duration: 30 day, Stop date: 11/24/12 13:50:00 PO No Longer Active Mackenzie 10/25/2012 [facility] Allergies, Adverse Reactions, Alerts Substance Category Reaction Severity Reaction type Status Date Reported Comments Source Demerol HCl drug [facility] Immunizations No Data Provided for This [...] Date Comments Source Height 149.86 cm 10/25/2012 [facility] Weight 80.909 10/25/2012 [facility] Encounters Location Location Details Encounter Type Encounter Number Reason For Visit Attending Provider ADM Date DC Date Status Source [facility] Outpatient [id number] CHRONIC LEFT EAR PAIN TERRYL CROSS 02/24/2012 [place] [facility] [place] [id number] CROHN'S DISEASE 5 55.9 CHOLO MACKENZIE 10/28/2012 Active [facility] [id number] ARELIS DAVIS 03/24/2015 Active [facility] Outpatient [id number] ARELISSUSAN DAVIS 06/14/2015 Active [facility] [place] [id number] 388.70 - [place] NOS TERRYL CROSS Cancel [facility] [place] Procedures No Data Provided for This Section [...]
--- OUTSIDE RECORDS SUMMARY | 2020-04-12 16:38 | XMS REPORT | Continuity of Care Document ---
Author Author Formerly [facility] t Organization [facility] Address [address] [place] [address] Phone Unavailable Care Team Providers Care Ruling Machine Feeder Name Role Phone HILL, (NON STAFF) FREEDOM PCP [phone] Madhu BANG Attphys Unavailable KOUSSAYER, TAREK Attphys Unavailable MACKENZIE, SOUHEIL Attphys Unavailable MACKENZIE, WU Attphys Unavailable DUCHAMP, A ABEBE Attphys Unavailable MACKENZIE, SOUHEIL Admphys Unavailable Payers Payer Name Policy Type Policy Number Effective Date Expiration Date Cleve ren[facility] [id number] 2016 00:00:00 [facility] Cdc Review [id number] [facility] [id number] 2019 00:00:00 [facility] Problems Condition Name Condition Details Condition Category Status Onset Date Resolution Date Last Treatment Date Treating Clinician Comments Source Nausea and vomiting Problem Active 2015-04-17 00:00:00 [facility] Weakness Problem Active 2015-04-17 00:00:00 [facility] Diabetes mellitus Problem Active 2015-04-17 00:00:00 [facility] Acute abdominal pain Problem Active 2014-06-13 00:00:00 [facility] Crohn's disease Problem Active 2014-06-13 00:00:00 [facility] CROHN'S DISEASE 555.9 CRO N'S DISEASE 555.9 Active 09/27/2012 [facility] Active 2012-09-27 08:00:00 2012-10-28 10:44: 00 [facility] 388.70 - OTALGIA NOS 388. 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 Active 02/23/2012 [facility] Active 2012-02-23 00:00:00 2012-02-24 11:02: 00 [facility] Diarrhea Problem Active [facility] Urinary tract infection Problem Active [facility] Abdominal pain Problem Active [facility] Injury of head Problem Active [facility] Neck sprain Problem Active [facility] Contusion of shoulder Problem Active [facility] Allergies, Adverse Reactions, Alerts Allergy Name Allergy Type Status Severity Reaction(s) Onset Date Inacti ve Date Treating Clinician Comments Source Shellfish Allergy to substance Active Severe RED, ITCHING 2018-04-17 0 0:00:00 [facility] Iodine Allergy to substance Active Moderate RED, ITCHING 2018-04-17 00 :00:00 [facility] Promethazine Allergy to substance Active ANXIETY, RASH 00:00:00 [facility] Meperidine Allergy to substance Active Moderate anxiety attack, itching 2018-04-17 00:00:00 [facility] Iodinated Contrast Media - IV Dye DA Active U 2017-12-19 00:00:00 [facility] NSAIDS (Non-Steroidal Anti-Inflamma DA Active U 2017-11-26 5 00:00:00 [facility] iodine DA Active U 2017-12-19 00:00:00 [facility] mesalamine DA Active U 2017-12-19 00:00:00 [facility] cephalexin DA Active U 2017-12-19 00:00:00 [facility] promethazine DA Active U 2017-12-19 00:00:00 [facility] meperidine DA Active U 2017-12-19 00:00:00 [facility] shellfish derived DA Active U 2017-12-19 00:00:00 [facility] Demerol HCl Demerol HCl Active [facility] iodine iodine [facility] Social History Social Habit Start Date Stop Date Quantity Comments Source Sex Assigned At 1955 00:00:00 1955 00:00:00 Female [facility] Medications Ordered Medication Name Filled Medication Name Start Date Stop Da te Current Medication? Ordering Clinician Indication Dosage Frequency Signature (SIG) Comments Components Source Fluconazole (Diflucan) 150 Mg TABLET Fluconazole (Diflucan) 150 Mg TABLET 2020-02-02 22:12:00 Yes 150 Once for Yeast Inf ection [facility] Nitrofurantoin Monohyd/M-Cryst (Macrobid 100 Mg Capsul e) 100 Mg CAPSULE Nitrofurantoin Monohyd/M-Cryst (Macrobid 100 Mg Capsule) 100 Mg CAPSULE 2020-02-02 22:10:00 Yes 1 Twice A Day for Ur ine Infection [facility] Remicade + Sodium Chloride 0.9% IV 250 mL 2012-10-28 16:00 :00 No Wu Sadik Mackenzie 400 mg, Route: I V, Drug form: PDR/INJ, ONCALL, Start date: 10/28/12 10:00:00, Stop date: 03/31/13 10:59:00 [facility] Sodium Chloride 0.9% IV 2012-10-25 18:57:00 No Wu Sadik Mackenzie IV, 500 ml/hr, PRN, PRN Other -See Comment, Start date: 10/25/12 12:57:00, Duration: 30, 500 ml [facility] SoluCortef 2012-10-25 18:56:00 No Wu Sadik Mackenzie 100 mg, 2 mL, Route: IVP, Drug form: PDR/INJ, PRN, PRN Other -See Comment, Start date: 10/25/12 12:56:00, Duration: 30 day, Stop date: 11/24/12 13:55:00 [facility] 2012-10-[facility] 18:55:00 No Wu Sadik Mackenzie 50 mg, 1 mL, Route: IVP, Drug form: INJ, PRN, PRN Other -See Comment, Start date: 10/25/12 12:55:00, Duration: 30 day, Stop date: 11/24/12 13:54:00 [facility] 2012-10-25 18:54:00 No Wu Sadik Mackenzie 0.5 mg, 0.5 mL, Route: SUB-Q, Drug form: INJ, PRN, PRN Other -See Comment, Start date: 10/25/12 12:54:00, Duration: 30 day, Stop date: 11/24/12 13:53:00 [facility] Tylenol 2012-10-25 18:52:00 No Wu Sadik Mackenzie 650 mg, 2 tab, Route: PO, Drug form: TAB, PRN, PRN Other -See Comment, Start date: 10/25/12 12:52:00, Duration: 30 day, Stop date: 11/24/12 13:51:00 [facility] 2012-10-25 18:51:00 No Wu Sadik Mackenzie 25 mg, 1 tab, Route: PO, Drug form: TAB, PRN, PRN Other -See Comment, Start date: 10/25/12 12:51:00, Duration: 30 day, Stop date: 11/24/12 13:50:00 [facility] Calcium Carbonate/Vitamin D3 (Caltrate 600 W-D Tablet) 1 Each TABLET Calcium Carbonate/Vitamin D3 (Caltrate 600 W-D Tablet) 1 Each TABLET Yes Daily [facility] Chlordiazepoxide/Clidinium Br (Librax Capsule) 1 Each CAPSULE Chlordiazepoxide/Clidinium Br (Librax Capsule) 1 Each CAPSULE Ye s As Needed [facility] Desvenlafaxine Succinate (Pristiq Er) 100 Mg TAB.ER.24 H Desvenlafaxine Succinate (Pristiq Er) 100 Mg TAB.ER.24H Yes 100 Daily [facility] Dexlansoprazole (Dexilant) 60 Mg CAP. Dexlansopra zole (Dexilant) 60 Mg CAP. Yes 60 Twice A Day [facility] Diphenoxylate Hcl/Atropine (Lomotil Tablet) 1 Each TAB LET Diphenoxylate Hcl/Atropine (Lomotil Tablet) 1 Each TABLET Yes 1 Every 6 Hours as needed for Diarrhea [facility] Fenofibrate (Tricor) 145 Mg TAB Fenofibrate (Tricor) 145 Mg TAB Yes 145 Daily [facility] Glimepiride Glimepiride Yes 4 Daily [facility] Humira Humira Yes 40 Use As Directed [facility] Hydrocodone Bit/Acetaminophen (Beyer 10-325 Tablet) 1 Each TABLET Hydrocodone Bit/Acetaminophen (Beyer 10-325 Tablet) 1 Each TABLET Yes 1 Q6 Hrs Prn [facility] Hyoscyamine Sulfate (Levsin) 0.125 Mg TABLET Hyoscyami ne Sulfate (Levsin) 0.125 Mg TABLET Yes 2 As Needed [facility] Iron Iron Yes Daily [facility] Lamotrigine Lamotrigine Yes 75 Twice A Day [facility] Levothyroxine Sodium Levothyroxine Sodium Yes 125 Daily [facility] Lorazepam Lorazepam Yes 1 Qid Prn Anxiety [facility] Metformin Hcl Metformin Hcl Yes 1000 Twice A Day [facility] Miralax Miralax Yes 1 Twice A Day [facility] Multivitamin (Multi-Vitamin Daily) 1 Each TABLET Multi vitamin (Multi-Vitamin Daily) 1 Each TABLET Yes [facility] Ondansetron (Zofran Odt) 4 Mg TAB.RAPDIS Ondansetron ( Zofran Odt) 4 Mg TAB.RAPDIS Yes 8 Qid Prn Nausea [facility] Perindopril Erbumine (Aceon) 8 Mg TABLET Perindopril E rbumine (Aceon) 8 Mg TABLET Yes 8 Daily [facility] Quetiapine Fumarate (Seroquel) 100 Mg TABLET Quetiapin e Fumarate (Seroquel) 100 Mg TABLET Yes 100 Twice A Day [facility] Rosuvastatin Calcium (Crestor) 20 Mg TABLET Rosuvastat in Calcium (Crestor) 20 Mg TABLET Yes 20 Every Evening [facility] Sitagliptin Phosphate (Januvia) 100 Mg TABLET Sitaglip tin Phosphate (Januvia) 100 Mg TABLET Yes 100 Daily [facility] Topiramate Topiramate Yes [address] [facility] Viberzi Viberzi Yes 100 Daily [facility] Vit C Vit C Yes Daily [facility] Yakult Yakult Yes 2.7 Daily [facility] Furosemide Furosemide 2020-01-09 00:00:00 No 20 Daina ly [facility] Mesalamine (Pentasa) 500 Mg CAPCR Mesalamine (Pentasa) 500 Mg CA PCR 2020-01-09 00:00:00 No 2 Four Times Daily [facility] Topiramate Topiramate 2020-01-09 00:00:00 No 150 Bed time [facility] Sumatriptan Sumatriptan 2018-04-18 00:00:00 No 2 Daily as needed for Migraine [facility] Bifidobacterium Infantis (Align) 4 Mg CAPSULE Bifidoba cterium Infantis (Align) 4 Mg CAPSULE 2018-04-17 00:00:00 No 4 Daily [facility] Rizatriptan Benzoate (Maxalt) 10 Mg TABLET Rizatriptan Benzoate (Maxalt) 10 Mg TABLET 2018-04-17 00:00:00 No 2 Q24hr Prn Migrain e [facility] Furosemide Furosemide 2016-02-07 00:00:00 No 20 As Needed [facility] Lamotrigine Lamotrigine 2016-02-07 00:00:00 No T wice A Day [facility] Polyethylene Glycol 3350 (Miralax) 17 Gm POWD.PACK [place] yethylene Glycol 3350 (Miralax) 17 Gm POWD.PACK 2016-02-07 00:00:00 No 1 Twice A Day [facility] Chlordiazepoxide/Clidinium Br (Librax Capsule) 1 Each CAPSULE Chlordiazepoxide/Clidinium Br (Librax Capsule) 1 Each CAPSULE 2015-08-06 00:00:00 No Three Times A Day [facility] Glimepiride Glimepiride 2015-08-06 00:00:00 No 2 D aily [facility] Guar Gum (Benefiber) 1 Each PACKET Guar Gum (Benefiber) 1 Each P ACKET 2015-08-06 00:00:[address] [facility] Lamotrigine Lamotrigine 2015-08-06 00:00:00 No 50 T wice A Day [facility] Sumatriptan Succ/Naproxen Sod (Treximet 85-500 Mg Tabl et) 1 Each TABLET Sumatriptan Succ/Naproxen Sod (Treximet 85-500 Mg Tablet) 1 Each TABLET 2015-08-06 00:00:00 No 2 As Needed as needed for Migraine [facility] Topiramate (Topamax*) 100 Mg TABLET Topiramate (Topamax*) 100 Mg TABLET 2015-08-06 00:00:00 No 150 Bedtime [facility] Budesonide (Budesonide Ec) 3 Mg CAPDR...ER Budesonide (Budesonide Ec) 3 Mg CAPDR...ER 2015-05-24 00:00:00 No 9 Daily [facility] Fluconazole (Diflucan) 200 Mg TABLET Fluconazole (Diflucan) 200 Mg TABLET 2015-05-24 00:00:00 No 1 Daily [facility] Hyoscyamine Sulfate Hyoscyamine Sulfate 2015-05-24 00:00:00 No 1 Q4hrs Prn Cramping [facility] Lactobac Cmb #3/Fos/Pantethine (Probiotic & Acidophilu s Cap) 1 Each CAPSULE Lactobac Cmb #3/Fos/Pantethine (Probiotic & Acidophilus Cap) 1 Each CAPSULE 2015-05-24 00:00:00 No [facility] Prednisone Prednisone 2015-05-24 00:00:00 No 10 Daina ly [facility] Prestiq Sr Prestiq Sr 2015-05-24 00:00:00 No 100 Daina ly [facility] Quetiapine Fumarate (Seroquel) 50 Mg TABLET Quetiapine Fumarate (Seroquel) 50 Mg TABLET 2015-05-24 00:00:00 No 50 Daily [facility] Mesalamine (Pentasa) 250 Mg CAPSULE.ER Mesalamine (Pentasa) 250 Mg CAPSULE.ER 2015-04-17 00:00:00 No Daily [facility] Prednisone Prednisone 2015-04-17 00:00:00 No Daina ly [facility] Topiramate Topiramate 2015-04-17 00:00:00 No 150 Bed time [facility] Budesonide (Budesonide Ec) 3 Mg CAPDR...ER Budesonide (Budesonide Ec) 3 Mg CAPDR...ER 2015-03-20 00:00:00 No 6 Daily [facility] Budesonide (Budesonide Ec) 3 Mg CAPDR...ER Budesonide (Budesonide Ec) 3 Mg CAPDR...ER 2015-03-10 00:00:00 No 9 Every Morning [facility] Desvenlafaxine Succinate (Pristiq Er) 100 Mg TAB.ER.24 H Desvenlafaxine Succinate (Pristiq Er) 100 Mg TAB.ER.24H 2015-03-10 00:00:00 No 100 Every Morning [facility] Dicyclomine Hcl (Bentyl) 10 Mg CAPSULE Dicyclomine Hcl (Bentyl) 10 Mg CAPSULE 2015-03-10 00:00:00 No 20 Four Times Daily [facility] Ferrous Sulfate (Iron) 325 Mg TABLET Ferrous Sulfate (Iron) 325 Mg TABLET 2015-03-10 00:00:[address] [facility] Fluconazole (Diflucan) 200 Mg TABLET Fluconazole (Diflucan) 200 Mg TABLET 2015-03-10 00:00:[address] [facility] Furosemide (Lasix) 20 Mg TABLET Furosemide (Lasix) 20 Mg TABLET 2015-03-10 00:00:00 No [address] [facility] Lamotrigine Lamotrigine 2015-03-10 00:00:00 No 50 T wice A Day [facility] Metformin Hcl Metformin Hcl 2015-03-10 00:00:00 No 1000 Twice A Day [facility] Multivitamin (Multivitamins) 1 Each CAPSULE Multivitam in (Multivitamins) 1 Each CAPSULE 2015-03-10 00:00:00 No 1 Daily [facility] Quetiapine Fumarate (Seroquel) 100 Mg TABLET Quetiapin e Fumarate (Seroquel) 100 Mg TABLET 2015-03-10 00:00:00 No 100 Every Night [facility] Saccharomyces Boulardii (Florastor) 250 Mg CAPSULE Sac charomyces Boulardii (Florastor) 250 Mg CAPSULE 2015-03-10 00:00:00 No 250 Twice A Day [facility] Sucralfate (Carafate) 1 Gm/10 Ml ORAL.SUSP Sucralfate (Carafate) 1 Gm/10 Ml ORAL.SUSP 2015-03-10 00:00:00 No 1 Before Meals A nd At Bedtime [facility] Sumatriptan Injection Sumatriptan Injection 2015-03-10 00:00:00 No 2 Q24hr Prn Migraine [facility] Topiramate Topiramate 2015-03-10 00:00:00 No 100 Twi ce A Day [facility] Pantoprazole Sodium (Protonix Iv) 40 Mg VIAL Pantopraz ole Sodium (Protonix Iv) 40 Mg VIAL 2014-06-22 00:00:00 No 40 Before Meals And At Bedtime [facility] Chlordiazepoxide/Clidinium Br (Librax Capsule) 1 Each CAPSULE Chlordiazepoxide/Clidinium Br (Librax Capsule) 1 Each CAPSULE 2014-06-13 00:00:00 No Three Times A Day [facility] Valentin Daily Vitamin Valentin Daily Vitamin 2014-03-10 00:00:00 No Daily [facility] Florastar Florastar 2014-03-10 00:00:00 No 250 Twice A Day [facility] Miralax Miralax 2014-03-10 00:00:[address] [facility] Beyer Beyer 2014-03-10 00:00:[address] [facility] Rosuvastatin Calcium (Crestor) 20 Mg TABLET Rosuvastat in Calcium (Crestor) 20 Mg TABLET 2014-03-10 00:00:00 No [address] [facility] Fluconazole (Diflucan) 100 Mg TABLET Fluconazole (Diflucan) 100 Mg TABLET 2014-02-06 00:00:00 No 100 Daily [facility] Nitazoxanide (Alinia) 500 Mg TABLET Nitazoxanide (Alinia) 500 Mg TABLET 2014-01-25 00:00:00 No 500 Twice A Day [facility] Domperidone Domperidone 2013-08-12 00:00:00 No 2 0 Before Meals And At Bedtime [facility] Levothyroxine Sodium (Levoxyl) 150 Mcg TABLET Levothyr oxine Sodium (Levoxyl) 150 Mcg TABLET 2013-08-12 00:00:00 No 150 Mon-Sat [facility] Hyoscyamine Sulfate Hyoscyamine Sulfate 2013-07-26 00:00:00 No 1 Twice A Day [facility] Lubiprostone (Amitiza) 8 Mcg CAPSULE Lubiprostone (Amitiza) 8 Mc g CAPSULE 2013-07-26 00:00:00 No 8 Twice A Day [facility] Mesalamine (Pentasa) 500 Mg CAPCR Mesalamine (Pentasa) 500 Mg CA PCR 2013-07-26 00:00:00 No 1000 Four Times Daily [facility] Metoclopramide Hcl (Reglan) 10 Mg TABLET Metoclopramid e Hcl (Reglan) 10 Mg TABLET 2013-07-26 00:00:00 No 1 Before Meals And At Bedtime [facility] Sucralfate (Carafate) 1 Gm TABLET Sucralfate (Carafate) 1 Gm TAB LET 2013-07-26 00:00:00 No 1 Before Meals And At Bedtime [facility] Budesonide (Budesonide Ec) 3 Mg CAPDR...ER Budesonide (Budesonide Ec) 3 Mg CAPDR...ER 2013-01-28 00:00:00 No 3 Daily [facility] Cephalexin Monohydrate (Keflex) 500 Mg CAPSULE Cephale magaly Monohydrate (Keflex) 500 Mg CAPSULE 2013-01-28 00:00:00 No 500 Twice A D ay [facility] Infliximab (Remicade) 100 Mg/Vial VIAL Infliximab (Remicade) 100 Mg/Vial VIAL 2013-01-28 00:00:00 No 100 Every Other Month [facility] Metronidazole (Flagyl) 250 Mg TABLET Metronidazole (Flagyl) 250 Mg TABLET 2013-01-28 00:00:00 No 250 Three Times A Day [facility] Naproxen Naproxen 2013-01-28 00:00:00 No 500 As Need ed [facility] Paroxetine Hcl (Paxil) 20 Mg TABLET Paroxetine Hcl (Paxil) 20 Mg TABLET 2013-01-28 00:00:00 No 20 Daily [facility] Metoclopramide Hcl Metoclopramide Hcl 2013-01-27 00:00:00 No 10 Before Meals And At Bedtime [facility] Pregabalin (Lyrica) 25 Mg CAPSULE Pregabalin (Lyrica) 25 Mg CAPS ULE 2013-01-27 00:00:00 No 25 Twice A Day [facility] Topiramate Topiramate 2013-01-27 00:00:00 No 50 Twi ce A Day [facility] Desvenlafaxine Succinate (Pristiq) 50 Mg TAB.SR.24H De svenlafaxine Succinate (Pristiq) 50 Mg TAB.SR.24H 2012-12-02 00:00:00 No 100 Daily [facility] Quetiapine Fumarate (Seroquel) 25 Mg TABLET Quetiapine Fumarate (Seroquel) 25 Mg TABLET 2012-12-02 00:00:00 No 25 Four Times Daily as needed [facility] Calcium Carb/Vit D3/Minerals (Caltrate 600+D Plus Tab Chew) 1 Each TAB.CHEW Calcium Carb/Vit D3/Minerals (Caltrate 600+D Plus Tab Chew) 1 Each TAB.CHEW 2012-05-20 00:00:00 No [facility] Vital Signs Vital Name Observation Time Observation Value Comments Source Body Temperature 2020-03-17 15:05:00 98.1 [degF] [facility] Weight 2020-03-17 13:15:00 154 [lb_av] [facility] BMI (Body Mass Index) 2020-03-17 13:15:00 31.1 kg/m2 [facility] Body Temperature 2020-02-24 15:21:00 97.6 [degF] [facility] BMI (Body Mass Index) 2020-02-18 22:00:00 32.0 kg/m2 [facility] Weight 2020-02-18 17:32:00 153 [lb_av] [facility] Body Temperature 2020-02-02 22:34:00 98.8 [degF] [facility] Weight 2020-02-02 18:43:00 153 [lb_av] [facility] BMI (Body Mass Index) 2020-02-02 18:43:00 32.0 kg/m2 [facility] Height 2012-10-25 17:17:00 149.86 cm [facility] Weight 2012-10-25 17:17:00 [facility] Procedures Procedure Date / Time Performed Performing Clinician Sourc e EMERGENCY DEPT VISIT 2020-02-02 00:00:00 [facility] EGD BIOPSY SINGLE/MULTIPLE 2020-01-13 00:00:[address] [facility] EGD DILATE STRICTURE 2020-01-13 00:00:00 [facility] Magnetic resonance imaging of abdomen without contrast 3 00:00:00 [facility] Magnetic resonance imaging of pelvis without contrast 2019-07-29 00:00:00 [facility] Plan of Care Planned Activity Planned Date Details Comments Source Instructions Concussion/Head Injury - Adult [facility] Instructions Contusion [facility] Encounters Start Date/Time End Date/Time Encounter Type Admission Type [facility] Care Department Encounter ID Source 2020-03-17 13:41:00 2020-03-17 15:10:00 Departed Emergency Room 1 CARMELLA GRIFFITHS [facility] [id number] [facility] 2020-02-18 19:19:00 2020-02-24 21:25:00 Discharged Inpatient 1 ANNI MACKENZIE [facility] [id number] [facility] 2020-02-17 16:35:00 2020-02-17 16:35:00 Registered Clinic 3 [facility] [id number] [facility] 2020-02-02 17:52:00 2020-02-02 22:30:00 Departed Emergency Room 1 TRUABEBE RUIZ [facility] [id number] [facility] 2020-01-13 10:55:00 2020-01-13 10:55:00 Registered Surgical Day Care [facility] [id number] [facility] 2019-07-29 12:33:00 2019-07-29 12:33:00 Registered Clinic 3 MACKENZIEWU Beltran [facility] [id number] [facility] Results Test Description Test Time Test Comments Results Result Comments Source CXR 2 VIEW - HOPD 2020-04-12 16:18:00 [place] [address] Patient Name: ROBBIE GILES MR #: [id number] : 1955 Age/Sex: 64/F Req #: [id number] Adm Physician: Ordered by: MILTON BANG Report #: [id number] Location: [facility] Room/Bed: Procedure: [id number] HOPD/CXR 2 VIEW - [facility]OPD Exam Date: 04/12/20 Exam Time: 1551 REPORT STATUS: Signed X-ray chest PA and lateral History: Chest pain Comparison: None Findings: Central airways unremarkable. Heart size normal. Mediastinal contours unremarkable. No pleural effusion. No pneumothorax. No focal lung disease. Retrosternal clear space is obliterated. This suggests an anterior mediastinal pathology. Degenerative changes of the shoulder regions bilaterally especially the left. Degenerative changes of the thoracic spine. Surgical nohemy in the upper abdomen seen on the lateral view only. Impression: No acute cardiopulmonary disease. A CT of the chest may be performed on a nonemergent basis. Signed by: Ajay Scott MD on 04/12/2020 4:21 PM Dictated By: AJAY SCOTT MD 162 Transcribed By: CAMELIA on 04/12/20 1621 COPY TO: MILTON BANG CT C-SPINE W/O - HOPD 2020-03-17 14:38:00 [place] [address] Patient Name: ROBBIE GILES MR #: [id number] : 1955 Age/Sex: 64/F Req #: [id number] [facility] Physician: Ordered by: CARMELLA GRIFFITHS MD Report #: [id number] Location: [facility] Room/Bed: Procedure: [id number] HOPD/CT C-SPINE W/O - HOPD Exam Date: [...] COPY TO: CARMELLA GRIFFITHS MD CT BRAIN WO-HOPD 2020-03-17 14:38:00 [place] [address] Patient Name: ROBBIE GILES MR #: [id number] : 1955 Age/Sex: 64/F Req #: [id number] Adm Physician: Ordered by: CARMELLA GRIFFITHS MD Report #: [id number] Location: [facility] Room/Bed: Procedure: [id number] HOPD/CT BRAIN WO-HOPD Exam Date: 03/17/20 Exam Time: 1400 REPORT [...] 2:48 PM Dictated By: CHILO SANCHEZ MD 47 Transcribed By: CAMELIA on 03/17/201447 COPY TO: CARMELLA GRIFFITHS MD SHOULDER 2+VW RT - HOPD 2020-03-17 14:29:00 [place] [address] Patient Name: ROBBIE GILES MR #: [id number] : 1955 Age/Sex: 64/F Req #: [id number] Adm Physician: Ordered by: CARMELLA GRIFFITHS MD Report #: [id number] Location: [facility] Room/Bed: Procedure: [id number] HOPD/SHOULDER 2+VW RT - HOPD Exam Date: [...] 2:30 PM Dictated By: NI ROSARIO MD 29 Transcribed By: CAMELIA on 03/17/201429 COPY TO: CARMELLA GRIFFITHS MD Capillary blood glucose measurement by glucometer (mas s/volume) 2020-02-24 15:06:00 Test Item Bedside Glucose (test code = 27583-4) 140 70-120 Meter ID: [id number] [facility] by glucometer (mass/volume)2020-02-24 15:06:00* Test Item Value Reference Range Interpretation Comments Bedside Glucose (test code = 58837-4) 140 70-120 Meter ID: [id number] [facility] Campuserum or plasma cancer antigen 125 measurement (units/volume)2020-02-23 06:40:00* Test Item Value Reference Range Interpretation Comments CA 125 Antigen (test code = 53717-8) 18.8 0.0-38.1 [facility] Electrochemiluminescence Immunoassay(ECLIA)Values obtained wit h different assay methods or kits cannotbe used interchangeably. Results cannot be interpreted asabsolute evidence of the presence or absence of malignantdisea se.Performed at: [address] [id number] Mending Carrier: Lewis Torrez MD, Phone: [phone] [facility] Lakeerum or plasma cancer antigen 125 measurement (units/volume)2020-02-23 06:40:00* Test Item Value Reference Range Interpretation Comments CA 125 Antigen (test code = 18182-9) 18.8 0.0-38.1 [facility] Electrochemiluminescence Immunoassay(ECLIA)Values obtained wit h different assay methods or kits cannotbe used interchangeably. Results cannot be interpreted asabsolute evidence of the presence or absence of malignantdisea se.Performed at: [address] [id number] Mending Carrier: Lewis Torrez MD, Phone: [phone] [facility] 2 AQKJ1979-55-82 19:49:00 [place] [address] Patient Name: ROBBIE GILES MR #: [id number] : 1955 Age/Sex: 64/F Req #: [id number] Adm Physician: ANNI MACKENZIE MD Ordered by: WU MACKENZIE MD Report #: [id number] Location: MED/SURG2 Room/Bed: 214 Procedure: [id number] DX/ABD OMEN 2 VIEW Exam Date: 02/22/20 [...] Interpretation Comments Lactate Dehydrogenase (test code = 282183293) 148 125-220 [facility] or plasma lactate dehydrogenase measurement (enzymatic activity/volume)2020-02-22 13:45:00* Test Item Value Reference Range Interpretation Comments Lactate Dehydrogenase (test code = 760403194) 148 125-220 [facility] leukocytes automated count (number/volume)2020-02-22 05:05:00* Test Item Value Reference Range Interpretation Comments White Blood Count (test code = 6690-2) 4.95 4.8-10.8 [facility] erythrocytes automated count (number/volume)2020-02-22 05:05:00* Test Item Value Reference Range Interpretation Comments Red Blood Count (test code = 789-8) 3.81 3.6-5.1 [facility] HospitalBlood hemoglobin measurement (moles/volume)2020-02-22 05:05:00* Test Item Value Reference Range Interpretation Comments Hemoglobin (test code = 03609-8) 10.4 12.0-16.0 [facility] HospitalAutomated blood hematocrit (volume fraction)2020-02-22 05:05:00* Test Item Value Reference Range Interpretation Comments Hematocrit (test code = 4544-3) 32.9 34.2-44.1 [facility] HospitalAutomated erythrocyte mean corpuscular hbsodk2558-24-36 05:05:00* Test Item Value Reference Range Interpretation Comments Mean Corpuscular Volume (test code = 787-2) 86.4 81-99 [facility] HospitalAutomated erythrocyte mean corpuscular hemoglobin (mass per erythrocyte)2020-02-22 05:05:00* Test Item Value Reference Range Interpretation Comments Mean Corpuscular Hemoglobin (test code = 785-6) 27.3 28-32 [facility] HospitalAutomated erythrocyte mean corpuscular hemoglobin concentration measurement (mass/volume)2020-02-22 05:05:00* Test Item Value Reference Range Interpretation Comments Mean Corpuscular Hemoglobin Concent (test code = 786-4) 31.6 31-35 [facility] HospitalRDW IrfFv-Ngo0464-76-28 05:05:00* Test Item Value Reference Range Interpretation Comments Red Cell Distribution Width (test code = 77052-2) 14.5 11.7 -14.4 [facility] HospitalAutomated blood platelet count (count/volume)2020-02-22 05:05:00* Test Item Value Reference Range Interpretation Comments Platelet Count (test code = 777-3) 199 140-360 [facility] HospitalAutomated blood segmented neutrophil count as percentage of total rglujrloze9670-72-46 05:05:00* Test Item Value Reference Range Interpretation Comments Neutrophils (%) (Auto) (test code = 97374-8) 51.9 38.7-80.0 [facility] HospitalAutomated blood lymphocyte count as percentage ot total nlesfwiquq7192-44-44 05:05:00* Test Item Value Reference Range Interpretation Comments Lymphocytes (%) (Auto) (test code = 736-9) 31.9 18.0-39.1 [facility] HospitalAutomated blood monocyte count as percentage of total dzterjzxvn2096-75-83 05:05:00* Test Item Value Reference Range Interpretation Comments Monocytes (%) (Auto) (test code = 5905-5) 7.5 4.4-11.3 [facility] HospitalAutomated blood eosinophil count as percentage of total klooadfcii1545-83-92 05:05:00* Test Item Value Reference Range Interpretation Comments Eosinophils (%) (Auto) (test code = 713-8) 7.7 0.0-6.0 [facility] HospitalAutomated blood basophil count as percentage of total nzdafuebwq1041-01-46 05:05:00* Test Item Value Reference Range Interpretation Comments Basophils (%) (Auto) (test code = 706-2) 0.6 0.0-1.0 [facility] HospitalFluoroscopic procedure less than one hour qazrfwcc0367-40-80 05:05:00* Test Item Value Reference Range Interpretation Comments IM GRANULOCYTES % (test code = IM GRANULOCYTES %) 0.4 0.0- 1.0 [facility] HospitalAutomated blood neutrophil count 2020-02-22 05:05:00* Test Item Value Reference Range Interpretation Comments Neutrophils # (Auto) (test code = 751-8) 2.6 2.1-6.9 [facility] HospitalBlood lymphocytes count (number/volume) 2020-02-22 05:05:00* Test Item Value Reference Range Interpretation Comments Lymphocytes # (Auto) (test code = 91054-9) 1.6 1.0-3.2 [facility] HospitalBlood monocytes automated count (number/volume)2020-02-22 05:05:00* Test Item Value Reference Range Interpretation Comments Monocytes # (Auto) (test code = 742-7) 0.4 0.2-0.8 [facility] HospitalAutomated blood eosinophil count 2020-02-22 05:05:00* Test Item Value Reference Range Interpretation Comments Eosinophils # (Auto) (test code = 711-2) 0.4 0.0-0.4 [facility] HospitalAutomated blood basophil count (count/volume)2020-02-22 05:05:00* Test Item Value Reference Range Interpretation Comments Basophils # (Auto) (test code = 704-7) 0.0 0.0-0.1 [facility] HospitalFluoroscopic procedure less than one hour iusbzphb9704-73-41 05:05:00* Test Item Value Reference Range Interpretation Comments Absolute Immature Granulocyte (auto (christie t code = Absolute Immature Granulocyte (auto) 0.02 0-0.1 [facility] or plasma sodium measurement (moles/volume)2020-02-22 05:05:00* Test Item Value Reference Range Interpretation Comments Sodium Level (test code = 2951-2) 140 136-145 [facility]um or plasma potassium measurement (moles/volume)2020-02-22 05:05:00* Test Item Value Reference Range Interpretation Comments Potassium Level (test code = 2823-3) 3.7 3.5-5.1 [facility]um or plasma chloride measurement (moles/volume)2020-02-22 05:05:00* Test Item Value Reference Range Interpretation Comments Chloride Level (test code = 2075-0) 109 98-107 [facility]erum or plasma carbon dioxide, total measurement (moles/volume)2020-02-22 05:05:00* Test Item Value Reference Range Interpretation Comments Carbon Dioxide Level (test code = 2028-9) 20 22-29 [facility] Lake[facility]um or plasma anion frr0720-61-92 05:05:00* Test Item Value Reference Range Interpretation Comments Anion Gap (test code = 08813-0) 14.7 8-16 [facility]erum or plasma urea nitrogen measurement (mass/volume)2020-02-22 05:05:00* Test Item Value Reference Range Interpretation Comments Blood Urea Nitrogen (test code = 3094-0) 5 7-26 [facility]erum or plasma creatinine measurement (mass/volume)2020-02-22 05:05:00* Test Item Value Reference Range Interpretation Comments Creatinine (test code = 2160-0) 1.18 0.57-1.11 [facility]um or plasma urea nitrogen/creatinine mass vqlsg8989-48-88 05:05:00* Test Item Value Reference Range Interpretation Comments BUN/Creatinine Ratio (test code = 3097-3) 4 6-25 [facility] HospitalEstimated glomerular filtration rate (GFR) wemsqkqevvnpg8239-98-03 05:05:00* Test Item Value Reference Range Interpretation Comments Estimat Glomerular Filtration Rate (test code = 718949588) 46 >60 Ranges were taken from the National Kidney Disease Education Program and the [facility] literature.Reference ranges:60 or greater: Hrhvhr90-89 ( for 3 consecutive months): Chronic kidney disease 15 or less: Kidney failureMemorial Hermann Greater Heights HospitalGlucose tbxwyshgyvv1655-99-77 05:05:00* Test Item Value Reference Range Interpretation Comments Glucose Level (test code = HUK0048) 130 74-118 [facility] or plasma calcium measurement (mass/volume)2020-02-22 05:05:00* Test Item Value Reference Range Interpretation Comments Calcium Level (test code = 17888-3) 9.3 8.4-10.2 [facility]um or plasma total bilirubin measurement (mass/volume)2020-02-22 05:05:00* Test Item Value Reference Range Interpretation Comments Total Bilirubin (test code = 1975-2) 0.2 0.2-1.2 [facility] HospitalFluoroscopic procedure less than one hour cwyodbhj0007-23-50 05:05:00* Test Item Value Reference Range Interpretation Comments Aspartate Amino Transf (AST/SGOT) (test code = Aspartate Amino Transf (AST/SGOT)) 33 5-34 [facility] Lake[facility]um or plasma alanine aminotransferase measurement (enzymatic activity/volume)2020-02-22 05:05:00* Test Item Value Reference Range Interpretation Comments Alanine Aminotransferase (ALT/SGPT) (test code = 1742-6) 22 0-55 [facility] Lakeerum or plasma protein measurement (mass/volume)2020-02-22 05:05:00* Test Item Value Reference Range Interpretation Comments Total Protein (test code = 2885-2) 7.5 6.5-8.1 [facility] Lakeerum or plasma albumin measurement (mass/volume)2020-02-22 05:05:00* Test Item Value Reference Range Interpretation Comments Albumin (test code = 1751-7) 3.9 3.5-5.0 [facility] HospitalPlasma globulin measurement (mass/volume) 2020-02-22 05:05:00* Test Item Value Reference Range Interpretation Comments Globulin (test code = 59183-4) 3.6 2.3-3.5 [facility] Lake[facility]um or plasma albumin/globulin mass clsrz4385-78-37 05:05:00* Test Item Value Reference Range Interpretation Comments Albumin/Globulin Ratio (test code = 1759-0) 1.1 0.8-2.0 [facility] Lake[facility]um or plasma alkaline phosphatase measurement (enzymatic activity/volume)2020-02-22 05:05:00* Test Item Value Reference Range Interpretation Comments Alkaline Phosphatase (test code = 6768-6) 34 40-150 [facility] HospitalBlood leukocytes automated count (number/volume)2020-02-22 05:05:00* Test Item Value Reference Range Interpretation Comments White Blood Count (test code = 6690-2) 4.95 4.8-10.8 [facility] HospitalBlood erythrocytes automated count (number/volume)2020-02-22 05:05:00* Test Item Value Reference Range Interpretation Comments Red Blood Count (test code = 789-8) 3.81 3.6-5.1 [facility] HospitalBlood hemoglobin measurement (moles/volume)2020-02-22 05:05:00* Test Item Value Reference Range Interpretation Comments Hemoglobin (test code = 18823-0) 10.4 12.0-16.0 [facility] HospitalAutomated blood hematocrit (volume fraction)2020-02-22 05:05:00* Test Item Value Reference Range Interpretation Comments Hematocrit (test code = 4544-3) 32.9 34.2-44.1 [facility] HospitalAutomated erythrocyte mean corpuscular yymwow2788-74-09 05:05:00* Test Item Value Reference Range Interpretation Comments Mean Corpuscular Volume (test code = 787-2) 86.4 81-99 [facility] HospitalAutomated erythrocyte mean corpuscular hemoglobin (mass per erythrocyte)2020-02-22 05:05:00* Test Item Value Reference Range Interpretation Comments Mean Corpuscular Hemoglobin (test code = 785-6) 27.3 28-32 [facility] HospitalAutomated erythrocyte mean corpuscular hemoglobin concentration measurement (mass/volume)2020-02-22 05:05:00* Test Item Value Reference Range Interpretation Comments Mean Corpuscular Hemoglobin Concent (test code = 786-4) 31.6 31-35 [facility] HospitalRDW UalNw-Ows8982-35-28 05:05:00* Test Item Value Reference Range Interpretation Comments Red Cell Distribution Width (test code = 38140-9) 14.5 11.7 -14.4 [facility] HospitalAutomated blood platelet count (count/volume)2020-02-22 05:05:00* Test Item Value Reference Range Interpretation Comments Platelet Count (test code = 777-3) 199 140-360 [facility] HospitalAutomated blood segmented neutrophil count as percentage of total aqxcjhdopm1605-77-87 05:05:00* Test Item Value Reference Range Interpretation Comments Neutrophils (%) (Auto) (test code = 45007-2) 51.9 38.7-80.0 [facility] HospitalAutomated blood lymphocyte count as percentage ot total lagnghgdgl8111-61-89 05:05:00* Test Item Value Reference Range Interpretation Comments Lymphocytes (%) (Auto) (test code = 736-9) 31.9 18.0-39.1 [facility] HospitalAutomated blood monocyte count as percentage of total bxeerbtrbd4730-50-83 05:05:00* Test Item Value Reference Range Interpretation Comments Monocytes (%) (Auto) (test code = 5905-5) 7.5 4.4-11.3 [facility] HospitalAutomated blood eosinophil count as percentage of total fknxbbdhoh8414-13-14 05:05:00* Test Item Value Reference Range Interpretation Comments Eosinophils (%) (Auto) (test code = 713-8) 7.7 0.0-6.0 [facility] HospitalAutomated blood basophil count as percentage of total iazzhupeuv0383-66-14 05:05:00* Test Item Value Reference Range Interpretation Comments Basophils (%) (Auto) (test code = 706-2) 0.6 0.0-1.0 [facility] HospitalFluoroscopic procedure less than one hour acdvekqv6035-49-29 05:05:00* Test Item Value Reference Range Interpretation Comments IM GRANULOCYTES % (test code = IM GRANULOCYTES %) 0.4 0.0- 1.0 [facility] HospitalAutomated blood neutrophil count 2020-02-22 05:05:00* Test Item Value Reference Range Interpretation Comments Neutrophils # (Auto) (test code = 751-8) 2.6 2.1-6.9 [facility] HospitalBlood lymphocytes count (number/volume) 2020-02-22 05:05:00* Test Item Value Reference Range Interpretation Comments Lymphocytes # (Auto) (test code = 08434-9) 1.6 1.0-3.2 [facility] HospitalBlood monocytes automated count (number/volume)2020-02-22 05:05:00* Test Item Value Reference Range Interpretation Comments Monocytes # (Auto) (test code = 742-7) 0.4 0.2-0.8 [facility] HospitalAutomated blood eosinophil count 2020-02-22 05:05:00* Test Item Value Reference Range Interpretation Comments Eosinophils # (Auto) (test code = 711-2) 0.4 0.0-0.4 [facility] HospitalAutomated blood basophil count (count/volume)2020-02-22 05:05:00* Test Item Value Reference Range Interpretation Comments Basophils # (Auto) (test code = 704-7) 0.0 0.0-0.1 [facility] HospitalFluoroscopic procedure less than one hour thrwzhkb2837-10-71 05:05:00* Test Item Value Reference Range Interpretation Comments Absolute Immature Granulocyte (auto (christie t code = Absolute Immature Granulocyte (auto) 0.02 0-0.1 [facility]um or plasma sodium measurement (moles/volume)2020-02-22 05:05:00* Test Item Value Reference Range Interpretation Comments Sodium Level (test code = 2951-2) 140 136-145 [facility] Lakeerum or plasma potassium measurement (moles/volume)2020-02-22 05:05:00* Test Item Value Reference Range Interpretation Comments Potassium Level (test code = 2823-3) 3.7 3.5-5.1 [facility] Lake[facility]um or plasma chloride measurement (moles/volume)2020-02-22 05:05:00* Test Item Value Reference Range Interpretation Comments Chloride Level (test code = 2075-0) 109 98-107 [facility] Lakeerum or plasma carbon dioxide, total measurement (moles/volume)2020-02-22 05:05:00* Test Item Value Reference Range Interpretation Comments Carbon Dioxide Level (test code = 2028-9) 20 22-29 [facility] Lake[facility]um or plasma anion ylx3552-61-40 05:05:00* Test Item Value Reference Range Interpretation Comments Anion Gap (test code = 52706-5) 14.7 8-16 [facility] Lake[facility] or plasma urea nitrogen measurement (mass/volume)2020-02-22 05:05:00* Test Item Value Reference Range Interpretation Comments Blood Urea Nitrogen (test code = 3094-0) 5 7-26 [facility] Lake[facility] or plasma creatinine measurement (mass/volume)2020-02-22 05:05:00* Test Item Value Reference Range Interpretation Comments Creatinine (test code = 2160-0) 1.18 0.57-1.11 [facility] Lake[facility]um or plasma urea nitrogen/creatinine mass tnlke3140-38-35 05:05:00* Test Item Value Reference Range Interpretation Comments BUN/Creatinine Ratio (test code = 3097-3) 4 6-25 [facility] HospitalEstimated glomerular filtration rate (GFR) bzeuqqujtzexl0275-16-86 05:05:00* Test Item Value Reference Range Interpretation Comments Estimat Glomerular Filtration Rate (test code = 561710797) 46 >60 Ranges were taken from the National Kidney Disease Education Program and the [facility] Kidney Foundation literature.Reference ranges:60 or greater: Kxctoh51-45 ( for 3 consecutive months): Chronic kidney disease 15 or less: Kidney failureMemorial Hermann Greater Heights HospitalGlucose ptooridudme4594-04-87 05:05:00* Test Item Value Reference Range Interpretation Comments Glucose Level (test code = TQY7900) 130 74-118 [facility] or plasma calcium measurement (mass/volume)2020-02-22 05:05:00* Test Item Value Reference Range Interpretation Comments Calcium Level (test code = 31113-7) 9.3 8.4-10.2 [facility] Lake[facility]um or plasma total bilirubin measurement (mass/volume)2020-02-22 05:05:00* Test Item Value Reference Range Interpretation Comments Total Bilirubin (test code = 1975-2) 0.2 0.2-1.2 [facility] HospitalFluoroscopic procedure less than one hour khdkduwp8225-78-08 05:05:00* Test Item Value Reference Range Interpretation Comments Aspartate Amino Transf (AST/SGOT) (test code = Aspartate Amino Transf (AST/SGOT)) 33 5-34 [facility] Lake[facility]um or plasma alanine aminotransferase measurement (enzymatic activity/volume)2020-02-22 05:05:00* Test Item Value Reference Range Interpretation Comments Alanine Aminotransferase (ALT/SGPT) (test code = 1742-6) 22 0-55 [facility] Lake[facility]um or plasma protein measurement (mass/volume)2020-02-22 05:05:00* Test Item Value Reference Range Interpretation Comments Total Protein (test code = 2885-2) 7.5 6.5-8.1 [facility] Lakeerum or plasma albumin measurement (mass/volume)2020-02-22 05:05:00* Test Item Value Reference Range Interpretation Comments Albumin (test code = 1751-7) 3.9 3.5-5.0 [facility] HospitalPlasma globulin measurement (mass/volume) 2020-02-22 05:05:00* Test Item Value Reference Range Interpretation Comments Globulin (test code = 37707-3) 3.6 2.3-3.5 [facility] Lake[facility]um or plasma albumin/globulin mass rzzog3822-14-01 05:05:00* Test Item Value Reference Range Interpretation Comments Albumin/Globulin Ratio (test code = 1759-0) 1.1 0.8-2.0 [facility] Lake[facility]um or plasma alkaline phosphatase measurement (enzymatic activity/volume)2020-02-22 05:05:00* Test Item Value Reference Range Interpretation Comments Alkaline Phosphatase (test code = 6768-6) 34 40-150 [facility] LakeMALL BOWEL ARBHTC3712-98-27 15:06:00 [facility] [address] [place] [address] Patient Name: ROBBIE GILES MR #: [id number] : 1955 Age/Sex: 64/F Req #: [id number] Adm Physician: ANNI MACKENZIE MD Ordered by: WU MACKENZIE MD Report #: [id number] Location: MED/SURG2 Room/Bed: [facility] Procedure: [id number] DX/SMA LL BOWEL SERIES Exam Date: 02/20/20 Exam Time: 1120 REPORT STATUS: Signed SMALL RICKEY L FOLLOW THROUGH HISTORY: Abdominal pain 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 Preliminary image was obtai latia before administration of contrast and serial overhead images were obtained after administration of oral barium. Fluoroscopy was performed and spot imag es were obtained. 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 [...] 02/20/2020 3: 08 PM Dictated By: AURORA NANEC MD 1508 Transcribed By: CAMELIA on 02/20/20 1508 COPY TO: WU ELAM MD Automated reticulocyte count as percentage of total vtakknxepqtv7825-14-13 04:40:00* Test Item Value Reference Range Interpretation Comments Percent Reticulocyte Count (test code = 56920-0) 2.0 0.8-2 .2 [facility] or plasma iron measurement (mass/volume)2020-02-20 04:40:00* Test Item Value Reference Range Interpretation Comments Iron Level (test code = 2498-4) 83 50-170 [facility] Lake[facility] or plasma iron binding capacity measurement (mass/volume)2020-02-20 04:40:00* Test Item Value Reference Range Interpretation Comments Total Iron Binding Capacity (test code = 2500-7) 449 261-4 78 [facility] Lake[facility]um or plasma iron saturation measurement (mass fraction)2020-02-20 04:40:00* Test Item Value Reference Range Interpretation Comments Percent Iron Saturation (test code = 2502-3) 18 15-50 [facility] Lake[facility]um or plasma transferrin measurement (mass/volume)2020-02-20 04:40:00* Test Item Value Reference Range Interpretation Comments Transferrin (test code = 3034-6) 321 180-382 [facility] Lake[facility]um or plasma ferritin measurement (mass/volume)2020-02-20 04:40:00* Test Item Value Reference Range Interpretation Comments Ferritin (test code = 2276-4) 92.38 4.63-204.00 [facility] Lake[facility]um or plasma lipase measurement (enzymatic activity/volume)2020-02-20 04:40:00* Test Item Value Reference Range Interpretation Comments Lipase (test code = 3040-3) 20 8-78 [facility] HospitalBlood cobalamin (vitamin B12) measurement (mass/volume)2020-02-20 04:40:00* Test Item Value Reference Range Interpretation Comments Vitamin B12 Level (test code = 02960-2) 403 213-816 [facility] Lakeerum vernon's yeast IgG antibody assay (units/volume)2020-02-20 04:40:00* Test Item Value Reference Range Interpretation Comments Saccharomyces cerevisiae IgG Ab (test code = 6713-2) 41.9 0 .0-24.9 Negative <20.0 Equivocal 20.1 - 24.9 Positive >or= 25.0[facility] Lakeerum vernon's yeast IgA antibody assay (units/volume)2020-02-20 04:40:00* Test Item Value Reference Range Interpretation Comments Saccharomyces cerevisiae IgA Ab (test code = 37826-6) 29.6 0.0-24.9 Negative <20.0 Equivocal 20.1 - [...] and no healthy controls had antib odyfor both.[facility] Lake[facility]um atypical perinuclear neutrophil cytoplasmic antibody titer by fnzydcgnbpceggefcl2798-17-87 04:40:00* Test Item Value Reference Range Interpretation Comments Atypical p-ANCA (test code = 10820-1) <1:20 Neg:<1:20 The atypical pANCA pattern has been observed in asignificant percentage of patie nts with ulcerative colitis,primary sclerosing cholangitis and autoimmune hepati tis. ASCA+/PANCA- Suggestive of Crohn's disease ASCA-/PANCA+ S uggestive of Ulcerative colitisPerformed at: BN - [facility] [address] [id number] Director: Zohreh Laws MD, Phone: [phone] Lakeerum or plasma folate measurement (mass/volume)2020-02-20 04:40:00* Test Item Value Reference Range Interpretation Comments Folate (test code = 2284-8) >20.0 >3.0 A serum folate concentration of less than 3.1 ng/mL isconsidered to represent cl inical deficiency.Performed at: HD - [facility] [address] [id number] Director: Lewis Torrez MD, Phone: [phone] Hermann Greater Heights HospitalAutomated reticulocyte count as percentage of total ioffupzvuzai8636-72-47 04:40:00* Test Item Value Reference Range Interpretation Comments Percent Reticulocyte Count (test code = 96206-6) 2.0 0.8-2 .2 [facility] or plasma iron measurement (mass/volume)2020-02-20 04:40:00* Test Item Value Reference Range Interpretation Comments Iron Level (test code = 2498-4) 83 50-170 [facility] or plasma iron binding capacity measurement (mass/volume)2020-02-20 04:40:00* Test Item Value Reference Range Interpretation Comments Total Iron Binding Capacity (test code = 2500-7) 449 261-4 78 [facility] Lake[facility] or plasma iron saturation measurement (mass fraction)2020-02-20 04:40:00* Test Item Value Reference Range Interpretation Comments Percent Iron Saturation (test code = 2502-3) 18 15-50 [facility] or plasma transferrin measurement (mass/volume)2020-02-20 04:40:00* Test Item Value Reference Range Interpretation Comments Transferrin (test code = 3034-6) 321 180-382 [facility] or plasma ferritin measurement (mass/volume)2020-02-20 04:40:00* Test Item Value Reference Range Interpretation Comments Ferritin (test code = 2276-4) 92.38 4.63-204.00 [facility] or plasma lipase measurement (enzymatic activity/volume)2020-02-20 04:40:00* Test Item Value Reference Range Interpretation Comments Lipase (test code = 3040-3) 20 8-78 [facility] HospitalBlood cobalamin (vitamin B12) measurement (mass/volume)2020-02-20 04:40:00* Test Item Value Reference Range Interpretation Comments Vitamin B12 Level (test code = 13435-8) 403 213-816 [facility] vernon's yeast IgG antibody assay (units/volume)2020-02-20 04:40:00* Test Item Value Reference Range Interpretation Comments Saccharomyces cerevisiae IgG Ab (test code = 6713-2) 41.9 0 .0-24.9 Negative <20.0 Equivocal 20.1 - 24.9 Positive >or= 25.0[facility] vernon's yeast IgA antibody assay (units/volume)2020-02-20 04:40:00* Test Item Value Reference Range Interpretation Comments Saccharomyces cerevisiae IgA Ab (test code = 92818-9) 29.6 0.0-24.9 Negative <20.0 Equivocal 20.1 - [...] and no healthy controls had antib odyfor both.[facility] Lakeerum atypical perinuclear neutrophil cytoplasmic antibody titer by stoaamhmlnycahkjmb5333-55-72 04:40:00* Test Item Value Reference Range Interpretation Comments Atypical p-ANCA (test code = 03446-5) <1:20 Neg:<1:20 The atypical pANCA pattern has been observed in asignificant percentage of patie nts with ulcerative colitis,primary sclerosing cholangitis and autoimmune hepati tis. ASCA+/PANCA- Suggestive of Crohn's disease ASCA-/PANCA+ S uggestive of Ulcerative colitisPerformed at: - [facility] [address] [id number] Director: Zohreh Laws MD, Phone: [phone] Lakeerum or plasma folate measurement (mass/volume)2020-02-20 04:40:00* Test Item Value Reference Range Interpretation Comments Folate (test code = 2284-8) >20.0 >3.0 A serum folate concentration of less than 3.1 ng/mL isconsidered to represent cl inical deficiency.Performed at: - [facility] [address] [id number] Director: Lewis Torrez MD, Phone: [phone] Hermann Greater Heights HospitalUrine color wpaflhwtmawhh0447-82-98 03:26:00* Test Item Value Reference Range Interpretation Comments Urine Color (test code = 5778-6) YELLOW YELLOW [facility] HospitalUrine wxqwfle5771-67-91 03:26:00* Test Item Value Reference Range Interpretation Comments Urine Clarity (test code = 49802-3) CLEAR CLEAR [facility] Lakepecific gravity of Urine by Test strip 2020-02-20 03:26:00* Test Item Value Reference Range Interpretation Comments Urine Specific [place] (test code = 5811-5) 1.015 1.010-1.02 5 [facility] HospitalUrine pH measurement by automated test dpkqi3096-58-41 03:26:00* Test Item Value Reference Range Interpretation Comments Urine pH (test code = 36906-5) 7 5-7 [facility] HospitalUrine leukocyte esterase detection by jvoypyfv1961-24-51 03:26:00* Test Item Value Reference Range Interpretation Comments Urine Leukocyte Esterase (test code = 5799-2) NEGATIVE NEGATIVE [facility] HospitalUrine nitrite zhdcrabrq9988-12-88 03:26:00* Test Item Value Reference Range Interpretation Comments Urine Nitrite (test code = 24870-9) NEGATIVE NEGATIVE [facility] HospitalUrine protein measurement by test strip (mass/volume)2020-02-20 03:26:00* Test Item Value Reference Range Interpretation Comments Urine Protein (test code = 5804-0) NEGATIVE NEGATIVE [facility] HospitalUrine glucose jvgiawvjm9903-35-55 03:26:00* Test Item Value Reference Range Interpretation Comments Urine Glucose (UA) (test code = 2349-9) NEGATIVE NEGATIVE [facility] HospitalUrine ketones detection by automated test ptkti6630-71-41 03:26:00* Test Item Value Reference Range Interpretation Comments Urine Ketones (test code = 77427-5) NEGATIVE NEGATIVE [facility] HospitalUrine urobilinogen measurement by test strip (mass/volume)2020-02-20 03:26:00* Test Item Value Reference Range Interpretation Comments Urine Urobilinogen (test code = 30438-2) 0.2 0.2-1 [facility] HospitalUrine total bilirubin measurement (mass/volume)2020-02-20 03:26:00* Test Item Value Reference Range Interpretation Comments Urine Bilirubin (test code = 1978-6) NEGATIVE NEGATIVE [facility] HospitalUrine erythrocytes mmwxruxui7832-56-46 03:26:00* Test Item Value Reference Range Interpretation Comments Urine Blood (test code = 96523-0) NEGATIVE NEGATIVE [facility] HospitalAutomated urine sediment leukocyte count by microscopy (number/high power field)2020-02-20 03:26:00* Test Item Value Reference Range Interpretation Comments Urine WBC (test code = 5821-4) 11-20 0-5 [facility] HospitalErythrocytes detection in urine sediment by light kbppkxxhng8106-94-76 03:26:00* Test Item Value Reference Range Interpretation Comments Urine RBC (test code = 03202-5) 0-5 0-5 [facility] HospitalBacteria detection in urine sediment by light ycxkvimfmt4438-19-70 03:26:00* Test Item Value Reference Range Interpretation Comments Urine Bacteria (test code = 33573-2) FEW NONE [facility] HospitalEpithelial cells detection in urine sediment by light eqiywupdtm6200-60-67 03:26:00* Test Item Value Reference Range Interpretation Comments Urine Epithelial Cells (test code = 36097-4) FEW NONE [facility] HospitalTransitional cells detection in urine sediment by light kaxbcxepin3491-23-43 03:26:00* Test Item Value Reference Range Interpretation Comments Urine Transitional Epithelial Cells (test code = 8249-5) FEW NONE [facility] HospitalRenal epithelial cells detection in urine sediment by light rtrrstsahe9387-12-72 03:26:00* Test Item Value Reference Range Interpretation Comments Urine Renal Epithelial Cells (test code = 52939-2) FEW NON E [facility] HospitalUrine color kdiuymoofyluz2271-93-18 03:26:00* Test Item Value Reference Range Interpretation Comments Urine Color (test code = 5778-6) YELLOW YELLOW [facility] HospitalUrine ekdxjnk9720-75-84 03:26:00* Test Item Value Reference Range Interpretation Comments Urine Clarity (test code = 79081-2) CLEAR CLEAR [facility] Lakepecific gravity of Urine by Test strip 2020-02-20 03:26:00* Test Item Value Reference Range Interpretation Comments Urine Specific [place] (test code = 5811-5) 1.015 1.010-1.02 5 [facility] HospitalUrine pH measurement by automated test rmson3632-50-08 03:26:00* Test Item Value Reference Range Interpretation Comments Urine pH (test code = 30657-9) 7 5-7 [facility] HospitalUrine leukocyte esterase detection by jucrazva4500-34-02 03:26:00* Test Item Value Reference Range Interpretation Comments Urine Leukocyte Esterase (test code = 5799-2) NEGATIVE NEGATIVE [facility] HospitalUrine nitrite tqukhvzyd6851-80-69 03:26:00* Test Item Value Reference Range Interpretation Comments Urine Nitrite (test code = 08978-3) NEGATIVE NEGATIVE [facility] HospitalUrine protein measurement by test strip (mass/volume)2020-02-20 03:26:00* Test Item Value Reference Range Interpretation Comments Urine Protein (test code = 5804-0) NEGATIVE NEGATIVE [facility] HospitalUrine glucose jcjqanigy2353-11-62 03:26:00* Test Item Value Reference Range Interpretation Comments Urine Glucose (UA) (test code = 2349-9) NEGATIVE NEGATIVE [facility] HospitalUrine ketones detection by automated test jjzrq4698-84-31 03:26:00* Test Item Value Reference Range Interpretation Comments Urine Ketones (test code = 94461-0) NEGATIVE NEGATIVE [facility] HospitalUrine urobilinogen measurement by test strip (mass/volume)2020-02-20 03:26:00* Test Item Value Reference Range Interpretation Comments Urine Urobilinogen (test code = 94543-9) 0.2 0.2-1 [facility] HospitalUrine total bilirubin measurement (mass/volume)2020-02-20 03:26:00* Test Item Value Reference Range Interpretation Comments Urine Bilirubin (test code = 1978-6) NEGATIVE NEGATIVE [facility] HospitalUrine erythrocytes fjaoqwxez7940-54-74 03:26:00* Test Item Value Reference Range Interpretation Comments Urine Blood (test code = 92283-3) NEGATIVE NEGATIVE [facility] HospitalAutomated urine sediment leukocyte count by microscopy (number/high power field)2020-02-20 03:26:00* Test Item Value Reference Range Interpretation Comments Urine WBC (test code = 5821-4) 11-20 0-5 [facility] HospitalErythrocytes detection in urine sediment by light odrdebzlrk0513-24-11 03:26:00* Test Item Value Reference Range Interpretation Comments Urine RBC (test code = 15938-7) 0-5 0-5 [facility] HospitalBacteria detection in urine sediment by light wenoghvycv2656-20-61 03:26:00* Test Item Value Reference Range Interpretation Comments Urine Bacteria (test code = 94434-1) FEW NONE [facility] HospitalEpithelial cells detection in urine sediment by light oanrvxojpb8805-04-64 03:26:00* Test Item Value Reference Range Interpretation Comments Urine Epithelial Cells (test code = 44923-5) FEW NONE [facility] HospitalTransitional cells detection in urine sediment by light jtbfszlcoo6026-36-08 03:26:00* Test Item Value Reference Range Interpretation Comments Urine Transitional Epithelial Cells (test code = 8249-5) FEW NONE [facility] HospitalRenal epithelial cells detection in urine sediment by light yzxlxgbqdj9924-96-63 03:26:00* Test Item Value Reference Range Interpretation Comments Urine Renal Epithelial Cells (test code = 84038-6) FEW NON E [facility] Laketool lactoferrin lkadjvdjy9313-53-25 08:15:00* Test Item Value Reference Range Interpretation Comments Stool Lactoferrin (LAB) (test code = 48211-1) POSITIVE NEGATIVE Testing on stool aspirate specimens is outside custom seamstress claims since specime n type not validated on this assay.[facility] Clostridium difficile A and B toxin yljrm5910-51-03 08:15:00* Test Item Value Reference Range Interpretation Comments Clostridium Difficile Toxin A & B (test code = 097824049) NEGATIVE NEGATIVE Testing on stool aspirate specimens is outside custom seamstress claims since specime n type not validated on this assay.[facility] Laketool lactoferrin leyuvqrex1991-97-38 08:15:00* Test Item Value Reference Range Interpretation Comments Stool Lactoferrin (LAB) (test code = 66117-6) POSITIVE NEGATIVE Testing on stool aspirate specimens is outside custom seamstress claims since specime n type not validated on this assay.[facility] Laketool calprotectin measurement (mass/mass)2020-02-19 08:15:00* Test Item Value Reference Range Interpretation Comments Stool Calprotectin (test code = 48367-1) 33 0-120 Concentration Interpretation Follow-Up<16 - 50 ug/g Normal None>50 -120 ug/g Borderline Re-evaluate in 4-6 weeks >120 ug/g Abnormal Repeat as clinically indicatedPerformed at: - [facility] [id number] Director: Zohreh Laws MD, Phone: [phone] Hermann Greater Heights HospitalClostridium difficile A and B toxin vruoi5551-99-88 08:15:00* Test Item Value Reference Range Interpretation Comments Clostridium Difficile Toxin A & B (test code = 332951835) NEGATIVE NEGATIVE Testing on stool aspirate specimens is outside custom seamstress claims since specime n type not validated on this assay.[facility] Erythrocyte sedimentation rate by Westergren htwvrx0801-70-14 05:20:00* Test Item Value Reference Range Interpretation Comments Erythrocyte Sedimentation Rate (test code = 4537-7) 42 0- 20 [facility] Lakeerum or plasma C reactive protein measurement (mass/volume)2020-02-19 05:20:00* Test Item Value Reference Range Interpretation Comments C-Reactive Protein (test code = 1988-5) 8 0-10 Performed at: [facility] [id number] Director: Lewis Torrez MD, Phone: [phone] Hermann Greater Heights HospitalErythrocyte sedimentation rate by Westergren ltipan9378-68-27 05:20:00* Test Item Value Reference Range Interpretation Comments Erythrocyte Sedimentation Rate (test code = 4537-7) 42 0- 20 [facility] Lake[facility]um or plasma C reactive protein measurement (mass/volume)2020-02-19 05:20:00* Test Item Value Reference Range Interpretation Comments C-Reactive Protein (test code = 1987-5) 8 0-10 Performed at: [facility] [id number] Director: Lewis Torrez MD, Phone: [phone] Hermann Greater Heights HospitalFluoroscopic procedure less than one hour hqwxlsbi0422-76-88 21:15:00* Test Item Value Reference Range Interpretation [...] complexity tests.Testing performed by [facility] [address] [place] [address] [phone] Director: Jose E Pop M.D.CLIA # [id number] [facility] Fluoroscopic procedure less than one hour scktbiod0305-41-74 21:15:00* Test Item Value Reference Range Interpretation [...] complexity tests.Testing performed by [facility] [address] [place], [place] [phone] Director: Jose E Pop M.D.CLIA # [id number] [facility] HospitalCT ABD/PEL WO GJMSYKBC-PWXW1101-65-24 18:27:00 [place] [address] Patient Name: ROBBIE GILES MR #: [id number] : 1955 Age/Sex: 64/F Req #: [id number] Adm Physician: Ordered by: CARMELLA GRIFFITHS MD Report #: [id number] Location: [facility] Room/Bed: Procedure: [id number] HOPD/ CT ABD/PEL WO CONTRAST-HOPD Exam Date: 02/18/20 Exam Time: 1824 REPORT STATUS: Signed EXAM: CT Abdomen and [...] ically Signed By: WALLACE MICHELLE MD on 02/18/201847 Transcribed By: CAMELIA on 02/18/201847 COPY TO: CARMELLA GRIFFITHS MD ABDOMEN-1VIEW (KUB)2020-02-17 17:08:00 [address], [place] [address] Patient Name: ROBBIE GILES MR #: [id number] : 1955 Age/Sex: 64/F Req #: [id number] Adm Physician: Ordered by: WU MACKENZIE MD Report #: [id number] Location: [facility] Room/Bed: Procedure: [id number] DX/ABD OMEN-1VIEW (KUB) Exam Date: 02/17/20 Exam [...] TO: WU MACKENZIE MD CT ABD/PEL WO [id number]-[id number] 20:17:00 [facility] [address] [id number] Patient Name: ROBBIE GILES MR #: [id number] : 1955 Age/Sex: 64/F Req #: [id number] [facility] Physician: Ordered by: ABEBE CLEMENTS MD Report #: [id number] Location: [facility] Room/Bed: Procedure: [id number] HOPD/C T ABD/PEL WO CONTRAST-HOPD Exam Date: [...] Interpretation Comments Bedside Glucose (test code = 77390-7) 161 70-120 Meter ID: [id number] [facility] HospitalFluoroscopic procedure less than one hour ebjlkczm5244-47-00 13:10:00* Test Item Value Reference Range Interpretation [...] Pathology Laboratories are certified under the C [place] [facility] hospitalical Laboratory Improvement Amendments of 1988 (CLIA), 42 U.S.C. section 263a , to perform high complexity tests.Testing performed by [facility] [address] [place], [place] [phone] Director: Jose E Pop M.D.CLIA # [id number] [facility] HospitalMRI ABDOMEN IJ0990-33-15 17:35:00 [facility] [address] [place] [address] Patient Name: ROBBIE GILES MR #: [id number] : 1955 Age/Sex: 64/F Req #: [id number] Adm Physician: Ordered by: WU MACKENZIE MD Report #: [id number] Location: MRI Room/Bed: Procedure: [id number] MRI /MRI ABDOMEN WO Exam Date: Exam [...] MACKENZIE MD MRI PELVIS WO 2019-07-29 17:35:00 [place] [address] Patient Name: ROBBIE GILES MR #: [id number] : 1955 Age/Sex: 64/F Req #: [id number] Adm Physician: Ordered by: WU MACKENZIE MD Report #: [id number] Location: MRI Room/Bed: Procedure: [id number] MRI /MRI PELVIS WO Exam Date: Exam [...] Urea Nitrogen (test code = 3094-0) 25 7-26 [facility]um or plasma creatinine measurement (mass/volume)2019-07-29 12:53:00* Test Item Value Reference Range Interpretation Comments Creatinine (test code = 2160-0) 1.34 0.57-1.11 [facility] Lakeerum or plasma urea nitrogen/creatinine mass rkedi1135-76-13 12:53:00* Test Item Value Reference Range Interpretation Comments BUN/Creatinine Ratio (test code = 3097-3) 19 6-25 [facility] HospitalEstimated glomerular filtration rate (GFR) ngovcxkcwhtyt1555-91-62 12:53:00* Test Item Value Reference Range Interpretation Comments Estimat Glomerular Filtration Rate (test code = 619258358) 40 >60 Ranges were taken from the National Kidney Disease Education Program and the [facility] Kidney Foundation literature.Reference ranges:60 or greater: Myvmdk58-57 ( for 3 consecutive months): Chronic kidney disease 15 or less: Kidney failureMemorial Hermann Greater Heights HospitalCT ABDOMEN/PELVIS ZN4848-66-77 15:36:00 [place] [address] Patient Name: ROBBIE GILES MR #: [id number] : 1955 Age/Sex: 63/F Req #: [id number] Adm Physician: Ordered by: WU MACKENZIE MD Report #: [id number] Location: CT Room/Bed: Procedure: [id number] CT/ CT ABDOMEN/PELVIS WO Exam Date: 02/05/19 [...] 1545 Transcribe d By: CAMELIA on 02/05/19 1885 COPY TO: WU MACKENZIE MD ABDOMEN COMP INCL UPR or DECUB [place] [address] Patient Name: ROBBIE GILES MR #: [id number] : 1955 Age/Sex: 62/F Req #: [id number] Adm Physician: Ordered by: WU MACKENZIE MD Report #: [id number] Location: [facility] Room/Bed: Procedure: [id number] DX/ABDOMEN COMP INCL UPR or D ECUB [...] TO: WU MACKENZIE MD SMALL BOWEL SERIES [place] [address] Patient Name: ROBBIE GILES MR #: [id number] : 0 1955 Age/Sex: 62/F Req #: [id number] Adm Physician: Ordered by: WU MACKENZIE MD Report #: [id number] Location: DX Room/Bed : Procedure: [id number] DX/SMALL BOWEL SERIES Exam Da te: 10/23/17 [...] 10/23/2017 at 1 1:55 Electronically approved by: Freeodm Saunders M.D. on 10/23/2017 at 11:55 Dictated By: FREEDOM SAUNDERS MD 1155 Transcribed By: RAMAN on 10/23/17 1155 COPY TO: WU MACKENZIE MD CT ABDOMEN/PELVIS WO [place] [address] Patient Name: ROBBIE GILES MR #: [id number] : 1955 Age/Sex: 62/F Req #: [id number] Adm Physician: Ordered by: WU MACKENZIE MD Report #: [id number] Location: CT Room/Bed: Procedure: [id number] CT/CT ABDOMEN/PELVIS WO Exam Date: 10/01/17 Exam Time: 1337 REPORT STATUS: S igned PROCEDURE: CT ABDOMEN AND PELVIS WITHOUT CONTRAST COMPARISON: [facility], CT, CT ABDOMEN/PELVIS WO, 12/28/2015, 17:12. [...]
[2020-04-12] MEDS ORDERED: PROAIR HFA INH8.5 GM PO (17:01)
[2020-04-12] MEDS ORDERED: AZITHROMYCIN500 MG PO (17:01)
[2020-04-12] MEDS ORDERED: PREDNISONE20 MG PO (17:01)
[2020-04-12] MEDS ORDERED: CEFDINIR300 MG PO (17:01)
== END 2020-04-12 17:28 | disposition home or self-care (01) ==
LOC: FSED 15:17
DX: R07.89 Other chest pain (principal); S29.011A Strain of muscle and tendon of front wall of thorax, initial encounter; J45.909 Unspecified asthma, uncomplicated; I10 Essential (primary) hypertension; E11.9 Type 2 diabetes mellitus without complications; E78.5 Hyperlipidemia, unspecified; K21.9 Gastro-esophageal reflux disease without esophagitis; F41.9 Anxiety disorder, unspecified; E03.9 Hypothyroidism, unspecified; R94.31 Abnormal electrocardiogram [ECG] [EKG]
CPT/HCPCS: 71046; 80048; 80076; 82553; 83880; 84484; 85025; 93005; 99284; J1885

== ENCOUNTER → 2021-04-19 | Outpatient (CLI) | payer OTHER ==
[~2021-04-19] MED LIST changes: +AZITHROMYCIN500 MG PO; +CEFDINIR300 MG PO; +IOPAMIDOL 370 MG/ML 200 ML INFUS..BTL INJ ONE; +PREDNISONE20 MG PO; +PROAIR HFA INH8.5 GM PO; +SODIUM CHLORIDE 0.9% 50ML 50 ML ONE
== END ==
LOC: CT 13:29
PROVIDERS: ATTEND Internal Medicine Gastroenterology
DX: K50.90 Crohn's disease, unspecified, without complications (principal); R10.84 Generalized abdominal pain
CPT/HCPCS: 74177; Q9967

== ENCOUNTER 2021-05-06 14:55 | Emergency (ER) | payer OTHER ==
[~2021-05-06] VITALS: Ht 149.9 cm; Wt 65.8 kg
[~2021-05-06 14:55] MED LIST changes: -IOPAMIDOL 370 MG/ML 200 ML INFUS..BTL INJ ONE; -SODIUM CHLORIDE 0.9% 50ML 50 ML ONE
[2021-05-06] MEDS ORDERED: SODIUM CHLORIDE 0.9% 1000ML 1,000 ML IV SCH (16:00)
[2021-05-06] MEDS ORDERED: DONNATAL/LIDOCAINE/MAALOX 30 ML SUSP PO SCH (16:00)
[2021-05-06] MEDS ORDERED: LIDOCAINE VISC 2% SOLN 15 ML UDC ONE (16:06)
[2021-05-06] MEDS ORDERED: BELLADONNA ALK/PHENOBARBITAL 5 ML UDC ONE (16:06)
[2021-05-06] MEDS ORDERED: MAGNESIUM/ALUMINUM/SIMETHICONE 30 ML UDC ONE (16:06)
[2021-05-06] MEDS ORDERED: SODIUM CHLORIDE 0.9% 1000ML 1,000 ML ONE (16:07)
[2021-05-06] MEDS ORDERED: DIPHENHYDRAMINE HCL INJ 50 MG/ML VIAL IV STA (16:33)
[2021-05-06] MEDS ORDERED: METHYLPREDNISOLONE SOD SUCC 125 MG/2ML VIAL IV SCH (16:45)
[2021-05-06] MEDS ORDERED: IOPAMIDOL 370 MG/ML 200 ML INFUS..BTL INJ ONE (16:46)
[2021-05-06] MEDS ORDERED: SODIUM CHLORIDE 0.9% 50ML 50 ML ONE (16:46)
[2021-05-06] MEDS ORDERED: METHYLPREDNISOLONE SOD SUCC 125 MG/2ML VIAL ONE (17:05)
[2021-05-06] MEDS ORDERED: DIPHENHYDRAMINE HCL INJ 50 MG/ML VIAL ONE (17:05)
[2021-05-06] MEDS ORDERED: FAMOTIDINE20 MG PO (18:51)
[2021-05-06 19:03] VITALS: BP 144/86
== END 2021-05-06 19:06 | disposition home or self-care (01) ==
LOC: FSED 15:03
DX: R07.89 Other chest pain (principal); K20.90 Esophagitis, unspecified without bleeding; E11.65 Type 2 diabetes mellitus with hyperglycemia; I10 Essential (primary) hypertension; E78.5 Hyperlipidemia, unspecified; E03.9 Hypothyroidism, unspecified; F41.9 Anxiety disorder, unspecified; K21.9 Gastro-esophageal reflux disease without esophagitis
CPT/HCPCS: 71045; 71260; 80053; 84484; 85025; 93005; 99284; J1200; J2930; J7030; Q9967

== ENCOUNTER → 2021-05-19 | Day surgery (SDC) | payer OTHER ==
[~2021-05-19] MED LIST changes: +DEXTROSE 5% 250ML 250 ML IV ONE; +FAMOTIDINE20 MG PO; +NEXIUM40 MG PO
[2021-05-19 08:30] VITALS: BP 128/80
[2021-05-24 06:11] LABS: ENDOMYSIAL ANTIBODIES, IGA Negative (Negative)
== END | disposition home or self-care (01) ==
LOC: OR 07:54
PROVIDERS: ATTEND Internal Medicine Gastroenterology
DX: K20.90 Esophagitis, unspecified without bleeding (principal); K29.50 Unspecified chronic gastritis without bleeding; K44.9 Diaphragmatic hernia without obstruction or gangrene; K21.9 Gastro-esophageal reflux disease without esophagitis; K50.90 Crohn's disease, unspecified, without complications; I10 Essential (primary) hypertension; E11.9 Type 2 diabetes mellitus without complications; E03.9 Hypothyroidism, unspecified; Z88.8 Allergy status to other drugs, medicaments and biological substances; Z88.6 Allergy status to analgesic agent; Z91.041 Radiographic dye allergy status; Z01.810 Encounter for preprocedural cardiovascular examination; Z01.812 Encounter for preprocedural laboratory examination; Z20.822 Contact with and (suspected) exposure to COVID-19; Z79.4 Long term (current) use of insulin
CPT/HCPCS: 36415; 43239; 82784; 82948; 83516; 86256; 93005; C9113; J7070; U0002

== ENCOUNTER → 2022-10-25 | Day surgery (SDC) | payer MEDICARE, OTHER ==
[~2022-10-25] MED LIST changes: +ASPIRIN81 MG PO; -DEXTROSE 5% 250ML 250 ML IV ONE; +FENTANYL CITRATE/PF 100MCG/2 ML INJ ONE; +GLYCOPYRROLATE INJ 0.2 MG/ML VIAL ONE; +LIDOCAINE HCL 2% LOCAL INJ 5 ML SDV VIAL INJ ONE; +METOCLOPRAMIDE HCL 10 MG/2ML VIAL ONE; +MIDAZOLAM HCL 2 MG/2 ML VIAL ONE; +PANTOPRAZOLE SO40 MG PO; +PLAVIX75 MG PO; +POVIDONE IODINE 0.05% 0.05 % ML PO ONE; +PROPOFOL IV EMULSION 10 MG/ML 20 ML VIAL ONE; +VSL#3 CAPSULE1 EACH PO
[2022-10-25 09:49] LABS: BASOPHILS % 0.5 % (0.0-1.0); EOSINOPHILS # (AUTO) 0.1 (0.0-0.4); EOSINOPHILS % 1.7 % (0.0-6.0); HEMOGLOBIN 12.6 g/dL (12.0-16.0); LYMPHOCYTES # (AUTO) 2.7 (1.0-3.2); MEAN CORPUSCULAR HEMOGLOBIN 28.1 pg (28-32); MEAN CORPUSCULAR HGB CONC 32.3 g/dL (31-35); MEAN CORPUSCULAR VOLUME 86.9 fL (81-99); MONOCYTES # (AUTO) 0.5 (0.2-0.8); MONOCYTES % 6.9 % (4.4-11.3); NEUTROPHILS # (AUTO) 4.1 (2.1-6.9); NEUTROPHILS % 54.5 % (38.7-80.0); PLATELET COUNT 205 x10e3/uL (140-360); RED BLOOD COUNT 4.49 x10e6/uL (3.6-5.1); RED CELL DISTRIBUTION WIDTH 14.2 % (11.7-14.4)
[2022-10-25 13:45] VITALS: BP 146/78
[2022-10-25 13:56] LABS: WBC,FECAL (FECAL LACTOFERRIN) NEGATIVE (NEGATIVE)
[2022-10-28 21:08] LABS: ENDOMYSIAL ANTIBODIES, IGA Negative (Negative)
== END | disposition home or self-care (01) ==
LOC: OR 09:22
PROVIDERS: ATTEND Internal Medicine Gastroenterology
DX: K29.50 Unspecified chronic gastritis without bleeding (principal); D12.5 Benign neoplasm of sigmoid colon; K50.90 Crohn's disease, unspecified, without complications; K20.90 Esophagitis, unspecified without bleeding; K44.9 Diaphragmatic hernia without obstruction or gangrene; K21.9 Gastro-esophageal reflux disease without esophagitis; K57.30 Diverticulosis of large intestine without perforation or abscess without bleeding; K62.89 Other specified diseases of anus and rectum; K64.8 Other hemorrhoids; E11.9 Type 2 diabetes mellitus without complications; I25.10 Atherosclerotic heart disease of native coronary artery without angina pectoris; E78.5 Hyperlipidemia, unspecified; M06.9 Rheumatoid arthritis, unspecified; M19.90 Unspecified osteoarthritis, unspecified site; F31.9 Bipolar disorder, unspecified; F41.9 Anxiety disorder, unspecified; Z88.8 Allergy status to other drugs, medicaments and biological substances; Z88.6 Allergy status to analgesic agent; Z91.041 Radiographic dye allergy status; Z91.013 Allergy to seafood; Z79.02 Long term (current) use of antithrombotics/antiplatelets; Z79.82 Long term (current) use of aspirin; Z79.84 Long term (current) use of oral hypoglycemic drugs; Z79.899 Other long term (current) drug therapy; Z95.5 Presence of coronary angioplasty implant and graft
CPT/HCPCS: 36415; 43239; 45380; 82784; 82948; 83516; 83630; 83993; 85025; 86140; 86256 ×2; 86671; 87045; 87177; 87324; 87328; 87449; 88305; 88342; 93005; C9113; J2001; J2250; J2704; J2765; J3010; 45378; 88304; 88312

== ENCOUNTER 2023-02-08 08:58 | Inpatient (IN) | payer MEDICARE, OTHER ==
[~2023-02-08] VITALS: Ht 149.9 cm; Wt 65.8 kg
[~2023-02-08 08:58] MED LIST changes: -FENTANYL CITRATE/PF 100MCG/2 ML INJ ONE; -GLYCOPYRROLATE INJ 0.2 MG/ML VIAL ONE; -LIDOCAINE HCL 2% LOCAL INJ 5 ML SDV VIAL INJ ONE; -METOCLOPRAMIDE HCL 10 MG/2ML VIAL ONE; -MIDAZOLAM HCL 2 MG/2 ML VIAL ONE; -POVIDONE IODINE 0.05% 0.05 % ML PO ONE; -PROPOFOL IV EMULSION 10 MG/ML 20 ML VIAL ONE
[2023-02-08 11:40] VITALS: BP 113/64; PULSE 98; RESP 16; TEMP 98.3; O2SAT 96
[2023-02-08] MEDS ORDERED: VITAMIN D250 MC1 PO (11:52)
[2023-02-08] MEDS ORDERED: CLOBETASOL1 EA/15 GM TOP (11:52)
[2023-02-08] MEDS ORDERED: VIBERZI100 MG PO (11:52)
[2023-02-08] MEDS ORDERED: ROSUVASTATIN CA20 MG PO (11:52)
[2023-02-08] MEDS ORDERED: CLOPIDOGREL75 MG PO (11:52)
[2023-02-08] MEDS ORDERED: CICLOPIROX15 GM TOP (11:52)
[2023-02-08] MEDS ORDERED: DESVENLAFAXINE100 MG PO (11:52)
[2023-02-08] MEDS ORDERED: METFORMIN HCL1000 MG PO (11:52)
[2023-02-08] MEDS ORDERED: HUMIRA(CF)40 MG/0.1 SQ (11:52)
[2023-02-08] MEDS ORDERED: FENOFIBRATE160 MG PO (11:52)
[2023-02-08] MEDS ORDERED: LAMOTRIGINE200 MG PO (11:52)
[2023-02-08] MEDS ORDERED: LEVOTHYROXINE137 MCG PO (11:52)
[2023-02-08] MEDS ORDERED: LORAZEPAM PO (11:52)
[2023-02-08] MEDS ORDERED: QUETIAPINE FUM200 MG PO (11:52)
[2023-02-08] MEDS ORDERED: PERINDOPRIL ERBU8 MG PO (11:52)
[2023-02-08] MEDS ORDERED: DEXLANSOPRAZOLE60 MG PO (11:52)
[2023-02-08] MEDS ORDERED: DEXTROSE 50% SYRINGE 50 ML IV PRN (12:30)
[2023-02-08] MEDS ORDERED: MINERAL OIL 132 ML BTL PR ONE (12:30)
[2023-02-08] MEDS ORDERED: ONDANSETRON HCL INJ 2MG/ML 2ML 2 MG/ML VIAL IV PRN (12:30)
[2023-02-08] MEDS ORDERED: ACETAMINOPHEN 325 MG TAB PO PRN (12:30)
[2023-02-08] MEDS ORDERED: LACTULOSE SYRUP 20 GM/30 ML UDC PO PRN (12:45)
[2023-02-08 12:58] LABS: BASOPHILS % 0.5 % (0.0-1.0); EOSINOPHILS # (AUTO) 0.4 (0.0-0.4); EOSINOPHILS % 9.4 % (0.0-6.0); HEMATOCRIT 33.7 % (34.2-44.1); HEMOGLOBIN 10.9 g/dL (12.0-16.0); LYMPHOCYTES # (AUTO) 1.7 (1.0-3.2); LYMPHOCYTES % 41.6 % (18.0-39.1); MEAN CORPUSCULAR HEMOGLOBIN 27.4 pg (28-32); MEAN CORPUSCULAR HGB CONC 32.3 g/dL (31-35); MEAN CORPUSCULAR VOLUME 84.7 fL (81-99); MONOCYTES # (AUTO) 0.3 (0.2-0.8); MONOCYTES % 6.7 % (4.4-11.3); NEUTROPHILS # (AUTO) 1.7 (2.1-6.9); NEUTROPHILS % 41.8 % (38.7-80.0); PLATELET COUNT 220 x10e3/uL (140-360); RED BLOOD COUNT 3.98 x10e6/uL (3.6-5.1); RED CELL DISTRIBUTION WIDTH 14.2 % (11.7-14.4)
[2023-02-08 13:17] LABS: ALBUMIN/GLOBULIN RATIO 1.2 (0.8-2.0); ANION GAP 14.5 mmol/L (8-16); CALCIUM 8.6 mg/dL (8.4-10.2); CREATININE, SERUM 1.12 mg/dL (0.57-1.11); POTASSIUM 4.5 mmol/L (3.5-5.1)
[2023-02-08 13:51] VITALS: BP 113/64; PULSE 98; RESP 16; TEMP 98.3; O2SAT 96
[2023-02-08 14:00] VITALS: BP 113/64; PULSE 98; RESP 16; TEMP 98.3; O2SAT 96
[2023-02-08] MEDS: SODIUM CHLORIDE 0.9% 1000ML 1,000 ML IV SCH ×2 (14:37→21:43)
[2023-02-08 16:11] VITALS: BP 108/74; PULSE 76; RESP 17; TEMP 98.3; O2SAT 97
[2023-02-08] MEDS: INSULIN LISPRO 100 UNIT/1 ML 3ML VIAL SQ SCH ×2 (16:30→21:00)
[2023-02-08 20:00] VITALS: BP 108/74; PULSE 76; RESP 17; TEMP 98.3; O2SAT 97
[2023-02-08 20:27] VITALS: BP 125/79; PULSE 97; RESP 18; TEMP 97.9; O2SAT 99
[2023-02-08] MEDS: CRESTOR 10MG PO SCH (21:46)
[2023-02-08] MEDS: QUETIAPINE FUMARATE 100 MG TAB PO SCH (21:46)
[2023-02-08] MEDS: LACTULOSE SYRUP 20 GM/30 ML UDC PO SCH (21:47)
[2023-02-08] MEDS ORDERED: CHLORDIAZEPOXIDE/CLIDINIUM 1 CAP PO STA (22:47)
[2023-02-08] MEDS: METOCLOPRAMIDE HCL 10 MG/2ML VIAL IV SCH (23:14)
[2023-02-08] MEDS ORDERED: BISACODYL 10 MG SUPP PR PRN (23:15)
[2023-02-08 23:30] LABS: % IRON SATURATION 12 % (15-50); IRON 70 ug/dL (50-170); TOTAL IRON BINDING CAPACITY 573 ug/dL (261-478); TRANSFERRIN 409 mg/dL (180-382)
[2023-02-09] VITALS (8 sets, daily range): BP systolic 113–144; BP diastolic 64–79; PULSE 89–111; RESP 17–20; TEMP 97.7–98.5; O2SAT 96–100
[2023-02-09 05:42] LABS: BASOPHILS % 0.5 % (0.0-1.0); EOSINOPHILS # (AUTO) 0.4 (0.0-0.4); HEMATOCRIT 32.1 % (34.2-44.1); HEMOGLOBIN 10.4 g/dL (12.0-16.0); LYMPHOCYTES # (AUTO) 2.2 (1.0-3.2); LYMPHOCYTES % 52.7 % (18.0-39.1); MEAN CORPUSCULAR HEMOGLOBIN 27.6 pg (28-32); MEAN CORPUSCULAR HGB CONC 32.4 g/dL (31-35); MEAN CORPUSCULAR VOLUME 85.1 fL (81-99); MONOCYTES # (AUTO) 0.4 (0.2-0.8); MONOCYTES % 9.5 % (4.4-11.3); NEUTROPHILS # (AUTO) 1.2 (2.1-6.9); NEUTROPHILS % 28.1 % (38.7-80.0); PLATELET COUNT 204 x10e3/uL (140-360); RED BLOOD COUNT 3.77 x10e6/uL (3.6-5.1)
[2023-02-09] MEDS ORDERED: LEVOTHYROXINE SODIUM 75 MCG TAB PO SCH (06:00)
[2023-02-09] MEDS ORDERED: LEVOTHYROXINE SODIUM 100 MCG TAB PO SCH (06:00)
[2023-02-09 06:09] LABS: ALBUMIN 3.6 g/dL (3.5-5.0); ALBUMIN/GLOBULIN RATIO 1.2 (0.8-2.0); ANION GAP 12.7 mmol/L (8-16); CALCIUM 8.5 mg/dL (8.4-10.2); CREATININE, SERUM 0.94 mg/dL (0.57-1.11); POTASSIUM 3.7 mmol/L (3.5-5.1)
[2023-02-09] MEDS: METOCLOPRAMIDE HCL 10 MG/2ML VIAL IV SCH ×3 (06:39→17:49)
[2023-02-09] MEDS: LEVOTHYROXINE SODIUM 112 MCG TAB PO SCH (06:39)
[2023-02-09] MEDS: LEVOTHYROXINE SODIUM 25 MCG TABLET PO SCH (06:39)
[2023-02-09] MEDS: SODIUM CHLORIDE 0.9% 1000ML 1,000 ML IV SCH ×3 (06:39→18:42)
[2023-02-09] MEDS: INSULIN LISPRO 100 UNIT/1 ML 3ML VIAL SQ SCH ×4 (07:30→21:38)
[2023-02-09] MEDS ORDERED: PANTOPRAZOLE SOD 40 MG TABEC PO SCH (07:30)
[2023-02-09] MEDS ORDERED: PREDNISONE 20 MG TAB PO ONE ×3 (09:30→21:30)
[2023-02-09] MEDS: CHLORDIAZEPOXIDE/CLIDINIUM 1 CAP PO SCH ×4 (09:38→21:00)
[2023-02-09] MEDS: FENOFIBRATE 145 MG TAB PO SCH (09:39)
[2023-02-09] MEDS: SENNOSIDES 8.6 MG TAB PO SCH (09:39)
[2023-02-09] MEDS: LAMOTRIGINE 100 MG TAB PO SCH (09:39)
[2023-02-09] MEDS: MAGNESIUM OXIDE 400 MG TAB PO SCH (09:39)
[2023-02-09] MEDS: DOCUSATE SODIUM 100 MG CAP PO SCH (09:39)
[2023-02-09] MEDS: TOPIRAMATE 100 MG TAB PO SCH (09:39)
[2023-02-09] MEDS: LACTULOSE SYRUP 20 GM/30 ML UDC PO SCH ×3 (09:39→21:01)
[2023-02-09] MEDS: HYDROCODONE/APAP 10MG-325MG TAB PO PRN ×2 (12:29→18:39)
[2023-02-09] MEDS ORDERED: DIATRIZOATE MEGL/DIATRIZOA SOD 30 ML BTL PO ONE (19:57)
[2023-02-09] MEDS: CRESTOR 10MG PO SCH (21:00)
[2023-02-09] MEDS ORDERED: HYDROMORPHONE 1MG/1ML INJ IV ONE (21:00)
[2023-02-09] MEDS: QUETIAPINE FUMARATE 100 MG TAB PO SCH (21:00)
[2023-02-09] MEDS ORDERED: DIPHENHYDRAMINE HCL 25 MG CAP PO ONE (21:30)
[2023-02-09] MEDS: NYSTATIN 15 GM POWDER UD BTL TOP SCH (21:31)
[2023-02-09] MEDS: BALSAM PERU/CASTOR OIL 60 GM OINT...G. TP SCH (21:31)
[2023-02-09] MEDS ORDERED: CYANOCOBALAMIN INJ 1,000 MCG/ML VIAL IM ONE (22:15)
[2023-02-09] MEDS ORDERED: IOPAMIDOL 370 MG/ML 100 ML INFUS..BTL INJ ONE (22:35)
[2023-02-10] VITALS (9 sets, daily range): BP systolic 103–137; BP diastolic 65–75; PULSE 97–103; RESP 16–20; TEMP 97.5–98.6; O2SAT 20–100
[2023-02-10] MEDS: METOCLOPRAMIDE HCL 10 MG/2ML VIAL IV SCH ×4 (00:08→17:03)
[2023-02-10] MEDS: HYDROCODONE/APAP 10MG-325MG TAB PO PRN ×3 (03:06→21:30)
[2023-02-10] MEDS: SODIUM CHLORIDE 0.9% 1000ML 1,000 ML IV SCH ×2 (05:00→14:41)
[2023-02-10 05:38] LABS: BASOPHILS % 0.1 % (0.0-1.0); HEMATOCRIT 33.3 % (34.2-44.1); LYMPHOCYTES # (AUTO) 1.1 (1.0-3.2); LYMPHOCYTES % 14.9 % (18.0-39.1); MEAN CORPUSCULAR HEMOGLOBIN 27.6 pg (28-32); MEAN CORPUSCULAR VOLUME 83.5 fL (81-99); MONOCYTES # (AUTO) 0.1 (0.2-0.8); MONOCYTES % 1.5 % (4.4-11.3); NEUTROPHILS # (AUTO) 6.3 (2.1-6.9); NEUTROPHILS % 83.2 % (38.7-80.0); PLATELET COUNT 239 x10e3/uL (140-360); RED BLOOD COUNT 3.99 x10e6/uL (3.6-5.1); RED CELL DISTRIBUTION WIDTH 14.1 % (11.7-14.4)
[2023-02-10] MEDS: LEVOTHYROXINE SODIUM 112 MCG TAB PO SCH (05:38)
[2023-02-10] MEDS: LEVOTHYROXINE SODIUM 25 MCG TABLET PO SCH (05:41)
[2023-02-10 05:55] LABS: ALBUMIN 3.7 g/dL (3.5-5.0); ALBUMIN/GLOBULIN RATIO 1.1 (0.8-2.0); ANION GAP 14.4 mmol/L (8-16); CALCIUM 8.6 mg/dL (8.4-10.2); CREATININE, SERUM 1.07 mg/dL (0.57-1.11); POTASSIUM 4.4 mmol/L (3.5-5.1)
[2023-02-10] MEDS: LAMOTRIGINE 100 MG TAB PO SCH (08:30)
[2023-02-10] MEDS: DOCUSATE SODIUM 100 MG CAP PO SCH (08:31)
[2023-02-10] MEDS: LACTULOSE SYRUP 20 GM/30 ML UDC PO SCH ×3 (08:31→21:00)
[2023-02-10] MEDS: CHLORDIAZEPOXIDE/CLIDINIUM 1 CAP PO SCH ×4 (08:31→20:27)
[2023-02-10] MEDS: TOPIRAMATE 100 MG TAB PO SCH (08:31)
[2023-02-10] MEDS: FENOFIBRATE 145 MG TAB PO SCH (08:31)
[2023-02-10] MEDS: SENNOSIDES 8.6 MG TAB PO SCH (08:31)
[2023-02-10] MEDS: MAGNESIUM OXIDE 400 MG TAB PO SCH (08:31)
[2023-02-10] MEDS: INSULIN LISPRO 100 UNIT/1 ML 3ML VIAL SQ SCH ×4 (08:44→20:26)
[2023-02-10] MEDS ORDERED: CYANOCOBALAMIN INJ 1,000 MCG/ML VIAL IM SCH (09:00)
[2023-02-10] MEDS ORDERED: BALSAM PERU/CASTOR OIL 60 GM OINT...G. TP SCH (09:00)
[2023-02-10] MEDS ORDERED: NYSTATIN 15 GM POWDER UD BTL TOP SCH (09:00)
[2023-02-10] MEDS: IRON SUCROSE 100 MG in SODIUM CHLORIDE 0.9% 100 ML IV SCH (09:59)
[2023-02-10] MEDS: LORAZEPAM 1 MG TAB PO PRN (17:31)
[2023-02-10] MEDS: CRESTOR 10MG PO SCH (20:27)
[2023-02-10] MEDS: QUETIAPINE FUMARATE 100 MG TAB PO SCH (20:27)
[2023-02-10] MEDS: NYSTATIN 15 GM POWDER UD BTL TOP SCH (21:00)
[2023-02-10] MEDS: BALSAM PERU/CASTOR OIL 60 GM OINT...G. TP SCH (21:31)
[2023-02-11] VITALS (9 sets, daily range): BP systolic 124–153; BP diastolic 63–90; PULSE 94–106; RESP 17–20; TEMP 97.8–98.6; O2SAT 96–100
[2023-02-11] MEDS: METOCLOPRAMIDE HCL 10 MG/2ML VIAL IV SCH ×4 (00:40→16:50)
[2023-02-11] MEDS: SODIUM CHLORIDE 0.9% 1000ML 1,000 ML IV SCH ×3 (04:54→17:30)
[2023-02-11] MEDS: LEVOTHYROXINE SODIUM 25 MCG TABLET PO SCH (06:16)
[2023-02-11] MEDS: LEVOTHYROXINE SODIUM 112 MCG TAB PO SCH (06:16)
[2023-02-11] MEDS: INSULIN LISPRO 100 UNIT/1 ML 3ML VIAL SQ SCH ×4 (07:30→20:59)
[2023-02-11] MEDS: CHLORDIAZEPOXIDE/CLIDINIUM 1 CAP PO SCH ×4 (08:42→20:48)
[2023-02-11] MEDS: LACTULOSE SYRUP 20 GM/30 ML UDC PO SCH (08:43)
[2023-02-11] MEDS: IRON SUCROSE 100 MG in SODIUM CHLORIDE 0.9% 100 ML IV SCH (08:43)
[2023-02-11] MEDS: DOCUSATE SODIUM 100 MG CAP PO SCH (08:43)
[2023-02-11] MEDS: FENOFIBRATE 145 MG TAB PO SCH (08:44)
[2023-02-11] MEDS: MAGNESIUM OXIDE 400 MG TAB PO SCH (08:44)
[2023-02-11] MEDS: TOPIRAMATE 100 MG TAB PO SCH (08:44)
[2023-02-11] MEDS: SENNOSIDES 8.6 MG TAB PO SCH (08:44)
[2023-02-11] MEDS: LAMOTRIGINE 100 MG TAB PO SCH (08:44)
[2023-02-11] MEDS: LORAZEPAM 1 MG TAB PO PRN ×2 (12:51→21:50)
[2023-02-11] MEDS: QUETIAPINE FUMARATE 100 MG TAB PO SCH (20:48)
[2023-02-11] MEDS: CRESTOR 10MG PO SCH (20:48)
[2023-02-11] MEDS: NYSTATIN 15 GM POWDER UD BTL TOP SCH (20:53)
[2023-02-11] MEDS: BALSAM PERU/CASTOR OIL 60 GM OINT...G. TP SCH (20:53)
[2023-02-11] MEDS ORDERED: CYANOCOBALAMIN INJ 1,000 MCG/ML VIAL IM SCH (21:00)
[2023-02-12] MEDS: METOCLOPRAMIDE HCL 10 MG/2ML VIAL IV SCH ×3 (00:23→11:08)
[2023-02-12] MEDS: HYDROCODONE/APAP 10MG-325MG TAB PO PRN (00:28)
[2023-02-12 04:00] VITALS: BP 148/81; PULSE 99; RESP 16; TEMP 98.9; O2SAT 99
[2023-02-12] MEDS: SODIUM CHLORIDE 0.9% 1000ML 1,000 ML IV SCH ×2 (05:00→06:21)
[2023-02-12 05:30] LABS: BASOPHILS % 0.5 % (0.0-1.0); EOSINOPHILS # (AUTO) 0.3 (0.0-0.4); EOSINOPHILS % 4.9 % (0.0-6.0); HEMATOCRIT 31.9 % (34.2-44.1); HEMOGLOBIN 10.2 g/dL (12.0-16.0); LYMPHOCYTES # (AUTO) 2.8 (1.0-3.2); MEAN CORPUSCULAR HEMOGLOBIN 27.6 pg (28-32); MEAN CORPUSCULAR VOLUME 86.2 fL (81-99); MONOCYTES # (AUTO) 0.5 (0.2-0.8); MONOCYTES % 7.2 % (4.4-11.3); NEUTROPHILS % 45.1 % (38.7-80.0); PLATELET COUNT 236 x10e3/uL (140-360); RED CELL DISTRIBUTION WIDTH 14.5 % (11.7-14.4)
[2023-02-12 05:46] LABS: ALBUMIN 3.5 g/dL (3.5-5.0); ALBUMIN/GLOBULIN RATIO 1.2 (0.8-2.0); ANION GAP 12.6 mmol/L (8-16); CALCIUM 8.7 mg/dL (8.4-10.2); CREATININE, SERUM 1.03 mg/dL (0.57-1.11); MAGNESIUM 1.6 MG/DL (1.3-2.1); POTASSIUM 3.6 mmol/L (3.5-5.1)
[2023-02-12] MEDS: LEVOTHYROXINE SODIUM 112 MCG TAB PO SCH (06:22)
[2023-02-12] MEDS: LEVOTHYROXINE SODIUM 25 MCG TABLET PO SCH (06:22)
[2023-02-12] MEDS: CHLORDIAZEPOXIDE/CLIDINIUM 1 CAP PO SCH ×2 (07:53→11:08)
[2023-02-12 07:55] VITALS: BP 138/86; PULSE 102; RESP 17; TEMP 98.4; O2SAT 98
[2023-02-12] MEDS: IRON SUCROSE 100 MG in SODIUM CHLORIDE 0.9% 100 ML IV SCH (08:50)
[2023-02-12] MEDS: SENNOSIDES 8.6 MG TAB PO SCH (08:51)
[2023-02-12] MEDS: TOPIRAMATE 100 MG TAB PO SCH (08:51)
[2023-02-12] MEDS: LACTULOSE SYRUP 20 GM/30 ML UDC PO SCH (08:51)
[2023-02-12] MEDS: FENOFIBRATE 145 MG TAB PO SCH (08:51)
[2023-02-12] MEDS: DOCUSATE SODIUM 100 MG CAP PO SCH (08:51)
[2023-02-12] MEDS: MAGNESIUM OXIDE 400 MG TAB PO SCH (08:51)
[2023-02-12] MEDS: LAMOTRIGINE 100 MG TAB PO SCH (08:52)
[2023-02-12] MEDS: LORAZEPAM 1 MG TAB PO PRN (13:51)
[2023-02-12] MEDS ORDERED: LACTULOSE20 GM/30 M PO (14:57)
[2023-02-12] MEDS ORDERED: LIBRAX CAPSULE1 EACH PO (14:57)
[2023-02-12 16:22] VITALS: BP 138/85; PULSE 99; RESP 16; TEMP 98; O2SAT 97
[2023-02-12] MEDS ORDERED: METOCLOPRAMIDE HCL 10 MG TAB PO SCH (21:00)
== END 2023-02-12 16:25 | disposition home or self-care (01) | DRG 392 ==
LOC: MED/SURG 08:58
PROVIDERS: ADMIT Internal Medicine; ATTEND Internal Medicine
DX: K59.00 Constipation, unspecified (principal); N17.9 Acute kidney failure, unspecified; K50.919 Crohn's disease, unspecified, with unspecified complications; F31.75 Bipolar disorder, in partial remission, most recent episode depressed; I25.10 Atherosclerotic heart disease of native coronary artery without angina pectoris; K21.9 Gastro-esophageal reflux disease without esophagitis; E78.5 Hyperlipidemia, unspecified; E11.9 Type 2 diabetes mellitus without complications; Z95.5 Presence of coronary angioplasty implant and graft; Z91.041 Radiographic dye allergy status
CPT/HCPCS: 36415; 74018; 74177; 80053; 82607; 82746; 82948; 83540; 83690; 83735; 84466; 85025; 85045; 86140; 96360; 99252; J1170; J1756; J2765; J3420; J7030; J7050; J7512; Q9963; Q9967

== ENCOUNTER 2023-06-21 10:39 | Emergency (ER) | payer MEDICARE, OTHER ==
[~2023-06-21] VITALS: Ht 149.9 cm; Wt 64.0 kg
[~2023-06-21 10:39] MED LIST changes: +CICLOPIROX15 GM TOP; +CLOBETASOL1 EA/15 GM TOP; +CLOPIDOGREL75 MG PO; +DESVENLAFAXINE100 MG PO; +DEXLANSOPRAZOLE60 MG PO; +FENOFIBRATE160 MG PO; +HUMIRA(CF)40 MG/0.1 SQ; +LACTULOSE20 GM/30 M PO; +LAMOTRIGINE200 MG PO; +LEVOTHYROXINE137 MCG PO; +LORAZEPAM PO; +QUETIAPINE FUM200 MG PO; +ROSUVASTATIN CA20 MG PO; +TRULANCE3 MG; +VIBERZI100 MG PO; +VITAMIN D250 MC1 PO
[2023-06-21] MEDS ORDERED: NEURONTIN300 MG PO (11:23)
[2023-06-21] MEDS ORDERED: HUMALOG MI100 UNIT/2 SQ (11:59)
[2023-06-21] MEDS ORDERED: TOUJEO SOL300 UNIT/1 SQ (11:59)
[2023-06-21] MEDS ORDERED: PLAVIX75 MG PO (11:59)
[2023-06-21] MEDS ORDERED: CALTRATE 600 W1 EACH (11:59)
[2023-06-21] MEDS ORDERED: MIRALAX17 GM PO (11:59)
[2023-06-21] MEDS ORDERED: LOMOTIL TABLET1 EACH PO (11:59)
[2023-06-21] MEDS ORDERED: PROBIOTIC & AC1 EACH PO (11:59)
[2023-06-21] MEDS ORDERED: DEXILANT60 MG (11:59)
[2023-06-21 12:49] VITALS: O2SAT 98
== END 2023-06-21 12:49 | disposition home or self-care (01) ==
LOC: FSED 10:47
DX: E11.65 Type 2 diabetes mellitus with hyperglycemia (principal); E11.40 Type 2 diabetes mellitus with diabetic neuropathy, unspecified; F31.9 Bipolar disorder, unspecified; Z87.19 Personal history of other diseases of the digestive system
CPT/HCPCS: 72131; 80053; 81003; 85025; 99284

== ENCOUNTER 2023-08-14 05:21 | Inpatient (IN) | payer MEDICARE, OTHER ==
[2023-08-14] VITALS (48 sets, daily range): BP systolic 92–124; BP diastolic 55–101; PULSE 102–118; RESP 10–27; TEMP 98.5–100.4; O2SAT 96–100
[~2023-08-14] VITALS: Ht 149.9 cm; Wt 64.0 kg
[~2023-08-14 05:21] MED LIST changes: +CALTRATE 600 W1 EACH; +DEXILANT60 MG; +HUMALOG MI100 UNIT/2 SQ; +NEURONTIN300 MG PO; +PROBIOTIC & AC1 EACH PO; +TOUJEO SOL300 UNIT/1 SQ
[2023-08-14] MEDS ORDERED: SODIUM CHLORIDE 0.9% 1000ML 1,000 ML IV STA ×2 (05:27→05:36)
[2023-08-14] MEDS ORDERED: ACETAMINOPHEN 325 MG TAB PO STA (05:36)
[2023-08-14] MEDS ORDERED: NALOXONE HCL 2MG/2 ML SYRINGE ONE (05:40)
[2023-08-14] MEDS ORDERED: SODIUM CHLORIDE 0.9% 1000ML 2,000 ML IV STA (05:49)
[2023-08-14] MEDS ORDERED: SODIUM CHLORIDE 0.9% 1000ML 1,000 ML ONE (06:08)
[2023-08-14 06:13] LABS: BASOPHILS % 0.1 % (0.0-1.0); HEMATOCRIT 35.5 % (34.2-44.1); HEMOGLOBIN 11.3 g/dL (12.0-16.0); LYMPHOCYTES # (AUTO) 0.8 (1.0-3.2); MEAN CORPUSCULAR HEMOGLOBIN 28.3 pg (28-32); MEAN CORPUSCULAR HGB CONC 31.8 g/dL (31-35); MEAN CORPUSCULAR VOLUME 88.8 fL (81-99); MONOCYTES # (AUTO) 0.5 (0.2-0.8); MONOCYTES % 5.2 % (4.4-11.3); NEUTROPHILS # (AUTO) 8.8 (2.1-6.9); NEUTROPHILS % 86.3 % (38.7-80.0); PLATELET COUNT 186 x10e3/uL (140-360); RED CELL DISTRIBUTION WIDTH 13.7 % (11.7-14.4); WHITE BLOOD COUNT 10.16 x10e3/uL (4.8-10.8)
[2023-08-14] MEDS ORDERED: NALOXONE HCL 2MG/2 ML SYRINGE IV ONE (06:15)
[2023-08-14] MEDS: NOREPINEPHRINE 8 MG/D5W 250 ML 250 ML IV SCH (06:25)
[2023-08-14 06:46] LABS: INR 1.19; PROTHROMBIN TIME 15.4 seconds (11.9-14.5)
[2023-08-14 06:47] LABS: PARTIAL THROMBOPLASTIN TIME 32.4 seconds (23.8-35.5)
[2023-08-14 06:50] LABS: CLARITY,URINE SL CLOUDY (CLEAR); COLOR,URINE YELLOW (YELLOW); GLUCOSE, URINE NEGATIVE (NEGATIVE); LEUKOCYTE ESTERASE ,URINE NEGATIVE (NEGATIVE); NITRITE,URINE NEGATIVE (NEGATIVE); PH,URINE 5.5 (5 - 7); PROTEIN,URINE DIPSTICK NEGATIVE (NEGATIVE)
[2023-08-14 06:51] LABS: AMPHETAMINES SCREEN,URINE NEGATIVE (NEGATIVE); BENZODIAZEPINES SCREEN,URINE POSITIVE (NEGATIVE); BILIRUBIN,URINE SMALL (NEGATIVE); CANNABINOIDS SCREEN,URINE NEGATIVE (NEGATIVE); KETONES,URINE NEGATIVE (NEGATIVE); METHADONE SCREEN, URINE NEGATIVE (NEGATIVE); OPIATES SCREEN,URINE POSITIVE (NEGATIVE); PHENCYCLIDINE SCREEN,URINE NEGATIVE (NEGATIVE); URINE UROBILINOGEN 0.2 mg/dL (0.2 - 1)
[2023-08-14 06:54] LABS: ALBUMIN 3.3 g/dL (3.5-5.0); ALBUMIN/GLOBULIN RATIO 1.1 (0.8-2.0); BILIRUBIN,TOTAL 0.6 mg/dL (0.2-1.2); CALCIUM 7.7 mg/dL (8.4-10.2); CREATININE, SERUM 3.84 mg/dL (0.57-1.11); TOTAL PROTEIN 6.3 g/dL (6.5-8.1)
[2023-08-14 07:00] LABS: TROPONIN I 0.052 ng/mL (0-0.300)
[2023-08-14 07:00] LABS: EPITHELIAL CELLS,URINE FEW /LPF
[2023-08-14 07:01] LABS: BACTERIA,URINE FEW /HPF; RBC,URINE 0-5 /HPF (0-5); WBC,URINE (MAN) 0-5 /HPF (0-5)
[2023-08-14] MEDS ORDERED: ONDANSETRON HCL INJ 2MG/ML 2ML 2 MG/ML VIAL IV PRN (07:45)
[2023-08-14] MEDS ORDERED: DEXTROSE 50% SYRINGE 50 ML IV PRN (07:45)
[2023-08-14 08:10] LABS: BASOPHILS % 0.1 % (0.0-1.0); HEMATOCRIT 28.8 % (34.2-44.1); HEMOGLOBIN 9.2 g/dL (12.0-16.0); LYMPHOCYTES # (AUTO) 0.9 (1.0-3.2); LYMPHOCYTES % 9.7 % (18.0-39.1); MEAN CORPUSCULAR HEMOGLOBIN 28.6 pg (28-32); MEAN CORPUSCULAR HGB CONC 31.9 g/dL (31-35); MEAN CORPUSCULAR VOLUME 89.4 fL (81-99); MONOCYTES # (AUTO) 0.5 (0.2-0.8); MONOCYTES % 5.8 % (4.4-11.3); NEUTROPHILS # (AUTO) 7.5 (2.1-6.9); NEUTROPHILS % 84.1 % (38.7-80.0); PLATELET COUNT 135 x10e3/uL (140-360); RED BLOOD COUNT 3.22 x10e6/uL (3.6-5.1); RED CELL DISTRIBUTION WIDTH 13.7 % (11.7-14.4); WHITE BLOOD COUNT 8.95 x10e3/uL (4.8-10.8)
[2023-08-14] MEDS: INSULIN REGULAR, HUMAN 3ML VL 100 UNIT in SODIUM CHLORIDE 0.9% 99 ML IV SCH ×2 (08:17)
[2023-08-14 08:22] LABS: ALBUMIN 2.6 g/dL (3.5-5.0); ALBUMIN/GLOBULIN RATIO 1.2 (0.8-2.0); ANION GAP 14.7 mmol/L (8-16); BILIRUBIN,TOTAL 0.4 mg/dL (0.2-1.2); POTASSIUM 3.7 mmol/L (3.5-5.1); TOTAL PROTEIN 4.8 g/dL (6.5-8.1)
[2023-08-14 08:25] LABS: CALCIUM 6.2 mg/dL (8.4-10.2)
[2023-08-14] MEDS ORDERED: LACTULOSE SYRUP 20 GM/30 ML UDC PO ONE (12:15)
[2023-08-14] MEDS ORDERED: CALCIUM GLUCONATE 10% INJ 13.95 MEQ in SODIUM CHLORIDE 0.9% 100 ML IV ONE (12:45)
[2023-08-14 12:47] LABS: ANION GAP 14.6 mmol/L (8-16); CREATININE, SERUM 2.52 mg/dL (0.57-1.11); POTASSIUM 3.6 mmol/L (3.5-5.1)
[2023-08-14 12:51] LABS: CALCIUM 6.7 mg/dL (8.4-10.2)
[2023-08-14] MEDS: CLOPIDOGREL BISULFATE 75 MG TAB PO SCH (14:06)
[2023-08-14] MEDS: ACETAMINOPHEN 325 MG TAB PO PRN (17:06)
[2023-08-14 18:14] LABS: ANION GAP 15.5 mmol/L (8-16); CALCIUM 7.5 mg/dL (8.4-10.2); CREATININE, SERUM 2.05 mg/dL (0.57-1.11); POTASSIUM 3.5 mmol/L (3.5-5.1)
[2023-08-14 23:11] LABS: ANION GAP 13.4 mmol/L (8-16); CALCIUM 7.5 mg/dL (8.4-10.2); CREATININE, SERUM 1.83 mg/dL (0.57-1.11)
[2023-08-14 23:12] LABS: POTASSIUM 3.4 mmol/L (3.5-5.1)
[2023-08-15] VITALS (57 sets, daily range): BP systolic 97–144; BP diastolic 63–79; PULSE 98–113; RESP 0–23; TEMP 98.3–100; O2SAT 95–100
[2023-08-15 02:58] LABS: ANION GAP 12.5 mmol/L (8-16); CALCIUM 7.5 mg/dL (8.4-10.2); CREATININE, SERUM 1.67 mg/dL (0.57-1.11); MAGNESIUM 1.7 MG/DL (1.3-2.1); POTASSIUM 3.5 mmol/L (3.5-5.1)
[2023-08-15] MEDS: ACETAMINOPHEN 325 MG TAB PO PRN ×2 (05:04→20:22)
[2023-08-15] MEDS: NOREPINEPHRINE 8 MG/D5W 250 ML 250 ML IV SCH (05:57)
[2023-08-15 06:31] LABS: BASOPHILS % 0.2 % (0.0-1.0); EOSINOPHILS # (AUTO) 0.1 (0.0-0.4); EOSINOPHILS % 1.1 % (0.0-6.0); HEMATOCRIT 30.2 % (34.2-44.1); HEMOGLOBIN 9.8 g/dL (12.0-16.0); LYMPHOCYTES # (AUTO) 1.3 (1.0-3.2); LYMPHOCYTES % 20.8 % (18.0-39.1); MEAN CORPUSCULAR HEMOGLOBIN 28.1 pg (28-32); MEAN CORPUSCULAR HGB CONC 32.5 g/dL (31-35); MEAN CORPUSCULAR VOLUME 86.5 fL (81-99); MONOCYTES # (AUTO) 0.7 (0.2-0.8); MONOCYTES % 10.5 % (4.4-11.3); NEUTROPHILS # (AUTO) 4.3 (2.1-6.9); NEUTROPHILS % 67.1 % (38.7-80.0); PLATELET COUNT 151 x10e3/uL (140-360); RED BLOOD COUNT 3.49 x10e6/uL (3.6-5.1); WHITE BLOOD COUNT 6.39 x10e3/uL (4.8-10.8)
[2023-08-15 07:07] LABS: ALBUMIN 2.7 g/dL (3.5-5.0); ANION GAP 12.5 mmol/L (8-16); BILIRUBIN,TOTAL 0.3 mg/dL (0.2-1.2); CALCIUM 7.5 mg/dL (8.4-10.2); CREATININE, SERUM 1.54 mg/dL (0.57-1.11); MAGNESIUM 1.7 MG/DL (1.3-2.1); POTASSIUM 3.5 mmol/L (3.5-5.1); TOTAL PROTEIN 5.3 g/dL (6.5-8.1)
[2023-08-15 07:32] LABS: FERRITIN 161.99 ng/mL (4.63-204.00)
[2023-08-15] MEDS: POTASSIUM CHLORIDE 20MEQ/100ML 100 ML IV SCH ×2 (10:17→13:00)
[2023-08-15] MEDS: SENNOSIDES 8.6 MG TAB PO SCH (10:17)
[2023-08-15] MEDS: DOCUSATE SODIUM 100 MG CAP PO SCH (10:18)
[2023-08-15] MEDS: CLOPIDOGREL BISULFATE 75 MG TAB PO SCH (10:18)
[2023-08-15] MEDS ORDERED: LACTULOSE SYRUP 20 GM/30 ML UDC PO ONE (11:15)
[2023-08-15] MEDS ORDERED: POLYETHYLENE GLYCOL 3350 17 GM PACK PO PRN (12:15)
[2023-08-15] MEDS ORDERED: BISACODYL 10 MG SUPP PR PRN (12:15)
[2023-08-15 16:54] LABS: CALCIUM 7.4 mg/dL (8.4-10.2); CREATININE, SERUM 1.15 mg/dL (0.57-1.11)
[2023-08-15] MEDS: DULOXETINE HCL 30 MG DELAYED RELEASE PO SCH (18:12)
[2023-08-15] MEDS ORDERED: MAGNESIUM SULFATE 2GM/50ML 50 ML IV ONE (18:15)
[2023-08-15] MEDS ORDERED: MAALOX/LIDOCAINE/BENADRYL/NYST 30 ML BTL PO PRN (19:15)
[2023-08-15] MEDS: INSULIN REGULAR, HUMAN 3ML VL 100 UNIT in SODIUM CHLORIDE 0.9% 99 ML IV SCH ×2 (19:44)
[2023-08-15] MEDS ORDERED: DEXMEDETOMIDINE IV PRN (20:00)
[2023-08-15] MEDS ORDERED: [UNRECOGNIZED DRUG - OTHER] IV PRN (20:00)
[2023-08-15] MEDS: HEPARIN SOD (PORCINE) 5,000 UNIT/ML VIAL SC SCH (20:23)
[2023-08-16] VITALS (18 sets, daily range): BP systolic 79–151; BP diastolic 57–83; PULSE 76–107; RESP 0–26; TEMP 96.9–98.5; O2SAT 94–100
[2023-08-16] MEDS: INSULIN REGULAR, HUMAN 3ML VL 100 UNIT in SODIUM CHLORIDE 0.9% 99 ML IV SCH ×2 (01:20)
[2023-08-16] MEDS: ACETAMINOPHEN 325 MG TAB PO PRN ×2 (05:46→12:08)
[2023-08-16] MEDS: NOREPINEPHRINE 8 MG/D5W 250 ML 250 ML IV SCH (06:15)
[2023-08-16 06:35] LABS: EOSINOPHILS # (AUTO) 0.1 (0.0-0.4); EOSINOPHILS % 1.3 % (0.0-6.0); HEMATOCRIT 28.1 % (34.2-44.1); HEMOGLOBIN 9.2 g/dL (12.0-16.0); LYMPHOCYTES # (AUTO) 1.2 (1.0-3.2); LYMPHOCYTES % 26.2 % (18.0-39.1); MEAN CORPUSCULAR HEMOGLOBIN 28.3 pg (28-32); MEAN CORPUSCULAR HGB CONC 32.7 g/dL (31-35); MEAN CORPUSCULAR VOLUME 86.5 fL (81-99); MONOCYTES # (AUTO) 0.4 (0.2-0.8); MONOCYTES % 9.1 % (4.4-11.3); NEUTROPHILS # (AUTO) 2.8 (2.1-6.9); NEUTROPHILS % 63.2 % (38.7-80.0); PLATELET COUNT 152 x10e3/uL (140-360); RED BLOOD COUNT 3.25 x10e6/uL (3.6-5.1); RED CELL DISTRIBUTION WIDTH 14.1 % (11.7-14.4)
[2023-08-16 06:59] LABS: ALBUMIN 2.7 g/dL (3.5-5.0); ANION GAP 13.5 mmol/L (8-16); BILIRUBIN,TOTAL 0.3 mg/dL (0.2-1.2); CALCIUM 7.8 mg/dL (8.4-10.2); CREATININE, SERUM 1.2 mg/dL (0.57-1.11); POTASSIUM 4.5 mmol/L (3.5-5.1); TOTAL PROTEIN 5.4 g/dL (6.5-8.1)
[2023-08-16] MEDS: DOCUSATE SODIUM 100 MG CAP PO SCH (08:40)
[2023-08-16] MEDS: CLOPIDOGREL BISULFATE 75 MG TAB PO SCH (08:40)
[2023-08-16] MEDS: SENNOSIDES 8.6 MG TAB PO SCH (08:40)
[2023-08-16] MEDS: DULOXETINE HCL 30 MG DELAYED RELEASE PO SCH ×2 (08:40→19:03)
[2023-08-16] MEDS: HEPARIN SOD (PORCINE) 5,000 UNIT/ML VIAL SC SCH ×2 (08:42→21:25)
[2023-08-16] MEDS ORDERED: DEXTROSE 50% SYRINGE 50 ML IV PRN (09:00)
[2023-08-16] MEDS: INSULIN REGULAR, HUMAN 100 UNIT/1 ML SQ SCH ×3 (12:12→21:26)
[2023-08-16] MEDS ORDERED: SODIUM CHLORIDE 0.9% 250ML 250 ML ONE (13:00)
[2023-08-16] MEDS ORDERED: HYOSCYAMINE 0.125 MG TAB PO PRN (18:45)
[2023-08-16] MEDS: LAMOTRIGINE 100 MG TAB PO SCH (19:03)
[2023-08-16] MEDS: TOPIRAMATE 100 MG TAB PO SCH (19:03)
[2023-08-16] MEDS ORDERED: QUETIAPINE FUMARATE 100 MG TAB PO SCH (21:00)
[2023-08-16] MEDS ORDERED: INSULIN GLARGINE 100 UNITS/ML VIAL SQ SCH (21:00)
[2023-08-16] MEDS: LORAZEPAM 0.5 MG TAB PO PRN (21:45)
[2023-08-16] MEDS: ONDANSETRON HCL 4 MG ORAL DISINTEGRATING TAB PO PRN (22:18)
[2023-08-16] MEDS: METOCLOPRAMIDE HCL 10 MG/2ML VIAL IV SCH (22:45)
[2023-08-17] VITALS (9 sets, daily range): BP systolic 100–146; BP diastolic 60–79; PULSE 72–102; RESP 18–20; TEMP 97.8–98.8; O2SAT 95–100
[2023-08-17] MEDS ORDERED: CYANOCOBALAMIN INJ 1,000 MCG/ML VIAL IM ONE (01:00)
[2023-08-17] MEDS: ACETAMINOPHEN 325 MG TAB PO PRN (04:48)
[2023-08-17] MEDS: ONDANSETRON HCL 4 MG ORAL DISINTEGRATING TAB PO PRN (04:48)
[2023-08-17] MEDS: METOCLOPRAMIDE HCL 10 MG/2ML VIAL IV SCH ×3 (06:00→12:00)
[2023-08-17 06:24] LABS: BASOPHILS % 0.2 % (0.0-1.0); EOSINOPHILS # (AUTO) 0.1 (0.0-0.4); EOSINOPHILS % 1.8 % (0.0-6.0); HEMATOCRIT 28.8 % (34.2-44.1); HEMOGLOBIN 9.3 g/dL (12.0-16.0); LYMPHOCYTES % 43.6 % (18.0-39.1); MEAN CORPUSCULAR HEMOGLOBIN 28.1 pg (28-32); MEAN CORPUSCULAR HGB CONC 32.3 g/dL (31-35); MONOCYTES # (AUTO) 0.3 (0.2-0.8); MONOCYTES % 6.6 % (4.4-11.3); NEUTROPHILS # (AUTO) 2.2 (2.1-6.9); NEUTROPHILS % 47.4 % (38.7-80.0); PLATELET COUNT 182 x10e3/uL (140-360); RED BLOOD COUNT 3.31 x10e6/uL (3.6-5.1); RED CELL DISTRIBUTION WIDTH 13.7 % (11.7-14.4); WHITE BLOOD COUNT 4.56 x10e3/uL (4.8-10.8)
[2023-08-17 06:53] LABS: ALBUMIN/GLOBULIN RATIO 1.1 (0.8-2.0); ANION GAP 13.8 mmol/L (8-16); BILIRUBIN,TOTAL 0.3 mg/dL (0.2-1.2); CALCIUM 8.3 mg/dL (8.4-10.2); CREATININE, SERUM 1.15 mg/dL (0.57-1.11); MAGNESIUM 1.7 MG/DL (1.3-2.1); POTASSIUM 3.8 mmol/L (3.5-5.1); TOTAL PROTEIN 5.8 g/dL (6.5-8.1)
[2023-08-17 07:08] LABS: FREE THYROXINE INDEX 0.474 (1.4-3.8); T3 UPTAKE 27.4 % (22.5-37.0)
[2023-08-17 07:09] LABS: T4 (THYROXINE) 1.73 ug/dL (4.5-10.9)
[2023-08-17] MEDS: LORAZEPAM 0.5 MG TAB PO PRN ×2 (07:22→13:32)
[2023-08-17] MEDS: DULOXETINE HCL 30 MG DELAYED RELEASE PO SCH (08:59)
[2023-08-17] MEDS ORDERED: IRON SUCROSE 100 MG in SODIUM CHLORIDE 0.9% 100 ML IV SCH (09:00)
[2023-08-17] MEDS: DOCUSATE SODIUM 100 MG CAP PO SCH (09:00)
[2023-08-17] MEDS: CLOPIDOGREL BISULFATE 75 MG TAB PO SCH (09:00)
[2023-08-17] MEDS ORDERED: CYANOCOBALAMIN INJ 1,000 MCG/ML VIAL IM SCH (09:00)
[2023-08-17] MEDS ORDERED: DESVENLAFAXINE SUCCINATE 50 MG TAB.SR.24H PO SCH (09:00)
[2023-08-17] MEDS: SENNOSIDES 8.6 MG TAB PO SCH (09:00)
[2023-08-17] MEDS: LAMOTRIGINE 100 MG TAB PO SCH (09:00)
[2023-08-17] MEDS ORDERED: PANTOPRAZOLE SOD 40 MG TABEC PO SCH (09:00)
[2023-08-17] MEDS ORDERED: ASPIRIN 81 MG CHEW TAB PO SCH (09:00)
[2023-08-17] MEDS ORDERED: POLYETHYLENE GLYCOL 3350 17 GM PACK PO SCH (09:00)
[2023-08-17] MEDS: TOPIRAMATE 100 MG TAB PO SCH (09:01)
[2023-08-17] MEDS: HEPARIN SOD (PORCINE) 5,000 UNIT/ML VIAL SC SCH (09:04)
[2023-08-17] MEDS: INSULIN REGULAR, HUMAN 100 UNIT/1 ML SQ SCH ×2 (09:06→12:18)
[2023-08-17] MEDS ORDERED: INSULIN GLARGINE 100 UNITS/ML VIAL SQ SCH (10:00)
[2023-08-17] MEDS ORDERED: VALTREX1000 MG PO (15:00)
[2023-08-17] MEDS ORDERED: PRISTIQ ER50 MG PO (15:00)
[2023-08-17] MEDS ORDERED: CYMBALTA30 MG PO (15:00)
[2023-08-17] MEDS ORDERED: NEURONTIN300 MG PO (15:02)
== END 2023-08-17 17:10 | disposition home or self-care (01) | DRG 917 ==
LOC: ER 05:29 → ERHOLD 07:51 → ICU 09:42 → MED/SURG3 08-16 10:29
PROVIDERS: ADMIT Internal Medicine; ATTEND Internal Medicine
DX: T40.2X1A Poisoning by other opioids, accidental (unintentional), initial encounter (principal); E11.10 Type 2 diabetes mellitus with ketoacidosis without coma; R57.1 Hypovolemic shock; G93.41 Metabolic encephalopathy; G92.8 Other toxic encephalopathy; N17.9 Acute kidney failure, unspecified; D84.821 Immunodeficiency due to drugs; K50.919 Crohn's disease, unspecified, with unspecified complications; M62.82 Rhabdomyolysis; Z11.52 Encounter for screening for COVID-19; T42.6X1A Poisoning by other antiepileptic and sedative-hypnotic drugs, accidental (unintentional), initial encounter; F11.10 Opioid abuse, uncomplicated; E86.1 Hypovolemia; R00.0 Tachycardia, unspecified; E78.2 Mixed hyperlipidemia; I95.9 Hypotension, unspecified; I25.10 Atherosclerotic heart disease of native coronary artery without angina pectoris; G43.909 Migraine, unspecified, not intractable, without status migrainosus; F41.9 Anxiety disorder, unspecified; K21.9 Gastro-esophageal reflux disease without esophagitis; E78.5 Hyperlipidemia, unspecified; F31.9 Bipolar disorder, unspecified; I44.4 Left anterior fascicular block; R94.31 Abnormal electrocardiogram [ECG] [EKG]; D50.9 Iron deficiency anemia, unspecified; E11.22 Type 2 diabetes mellitus with diabetic chronic kidney disease; I12.9 Hypertensive chronic kidney disease with stage 1 through stage 4 chronic kidney disease, or unspecified chronic kidney disease; N18.9 Chronic kidney disease, unspecified; G89.29 Other chronic pain; B00.9 Herpesviral infection, unspecified; E11.42 Type 2 diabetes mellitus with diabetic polyneuropathy; E11.65 Type 2 diabetes mellitus with hyperglycemia; Z79.620 Long term (current) use of immunosuppressive biologic; Z90.49 Acquired absence of other specified parts of digestive tract; Z95.5 Presence of coronary angioplasty implant and graft; Z79.02 Long term (current) use of antithrombotics/antiplatelets; Z79.82 Long term (current) use of aspirin; Z79.84 Long term (current) use of oral hypoglycemic drugs; Z79.4 Long term (current) use of insulin; Z79.899 Other long term (current) drug therapy
CPT/HCPCS: 36415; 36555; 70450; 71250; 74176; 80048; 80053; 80307; 81001; 82550; 82607; 82728; 82746; 82948; 83540; 83605; 83735; 83880; 84436; 84443; 84466; 84479; 84484; 85025; 85610; 85730; 86850; 86900; 87040; 93005; 94799; 99252; 99285; J0612; J1644; J1756; J1815; J2310; J2543; J2765; J3420; J3475; J3480; J7030; J7050; Q0162; U0002

== ENCOUNTER → 2023-12-19 | Outpatient (REF) | payer MEDICARE, OTHER ==
[~2023-12-19] MED LIST changes: +CYMBALTA30 MG PO; +PRISTIQ ER50 MG PO; +VALTREX1000 MG PO
== END ==
LOC: RAD 15:19
PROVIDERS: ATTEND Internal Medicine
DX: M79.662 Pain in left lower leg (principal)
CPT/HCPCS: 93971

== ENCOUNTER 2024-01-28 15:08 | Outpatient (RCR) | payer MEDICARE, OTHER | END 2024-02-24 | disposition home or self-care (01) | LOC: PT 15:08 | PROVIDERS: ATTEND Internal Medicine | DX: M47.816 Spondylosis without myelopathy or radiculopathy, lumbar region (principal); M54.32 Sciatica, left side; M53.86 Other specified dorsopathies, lumbar region; M17.0 Bilateral primary osteoarthritis of knee; M62.81 Muscle weakness (generalized); R26.2 Difficulty in walking, not elsewhere classified ==

== ENCOUNTER 2024-03-24 13:55 | Outpatient (RCR) | payer MEDICARE, OTHER | END 2024-03-26 | LOC: PT 13:55 | PROVIDERS: ATTEND Internal Medicine | DX: M47.816 Spondylosis without myelopathy or radiculopathy, lumbar region (principal); M54.32 Sciatica, left side; M17.0 Bilateral primary osteoarthritis of knee; M62.81 Muscle weakness (generalized); R26.2 Difficulty in walking, not elsewhere classified; M53.86 Other specified dorsopathies, lumbar region ==

== ENCOUNTER 2024-03-28 09:26 | Outpatient (RCR) | payer MEDICARE, OTHER | END 2024-04-26 | LOC: PT 09:26 | PROVIDERS: ATTEND Internal Medicine | DX: M47.816 Spondylosis without myelopathy or radiculopathy, lumbar region (principal); M54.32 Sciatica, left side; M17.0 Bilateral primary osteoarthritis of knee; M62.81 Muscle weakness (generalized); R26.2 Difficulty in walking, not elsewhere classified; M53.86 Other specified dorsopathies, lumbar region ==

== ENCOUNTER 2024-07-03 09:02 | Emergency (ER) | payer MEDICARE, OTHER ==
[~2024-07-03] VITALS: Ht 149.9 cm; Wt 64.9 kg
[2024-07-03 09:15] VITALS: TEMP 98.6
[2024-07-03] MEDS: SODIUM CHLORIDE 0.9% 1000ML 1,000 ML IV STA (10:59)
[2024-07-03] MEDS: ONDANSETRON HCL INJ 2MG/ML 2ML 2 MG/ML VIAL IV STA (11:00)
[2024-07-03] MEDS: DICYCLOMINE HCL 20 MG/2 ML VIAL IM ONE (11:00)
[2024-07-03 11:02] LABS: BASOPHILS % 0.6 % (0.0-1.0); EOSINOPHILS # (AUTO) 0.1 (0.0-0.4); EOSINOPHILS % 1.1 % (0.0-6.0); HEMATOCRIT 44.1 % (34.2-44.1); HEMOGLOBIN 13.9 g/dL (12.0-16.0); LYMPHOCYTES # (AUTO) 1.6 (1.0-3.2); LYMPHOCYTES % 30.6 % (18.0-39.1); MEAN CORPUSCULAR HEMOGLOBIN 29.4 pg (28-32); MEAN CORPUSCULAR HGB CONC 31.5 g/dL (31-35); MEAN CORPUSCULAR VOLUME 93.2 fL (81-99); MONOCYTES # (AUTO) 0.3 (0.2-0.8); MONOCYTES % 4.9 % (4.4-11.3); NEUTROPHILS # (AUTO) 3.3 (2.1-6.9); NEUTROPHILS % 62.6 % (38.7-80.0); PLATELET COUNT 207 x10e3/uL (140-360); RED BLOOD COUNT 4.73 x10e6/uL (3.6-5.1); RED CELL DISTRIBUTION WIDTH 12.5 % (11.7-14.4); WHITE BLOOD COUNT 5.26 x10e3/uL (4.8-10.8)
[2024-07-03 11:13] LABS: INR 0.98; PROTHROMBIN TIME 13.6 seconds (11.9-14.5)
[2024-07-03 11:14] LABS: PARTIAL THROMBOPLASTIN TIME 29.9 seconds (23.8-35.5)
[2024-07-03 11:24] LABS: ALBUMIN 5.1 g/dL (3.5-5.0); ALBUMIN/GLOBULIN RATIO 1.3 (0.8-2.0); ANION GAP 17.9 mmol/L (8-16); BILIRUBIN,TOTAL 0.4 mg/dL (0.2-1.2); CALCIUM 10.2 mg/dL (8.4-10.2); CREATININE, SERUM 1.55 mg/dL (0.57-1.11); MAGNESIUM 1.9 MG/DL (1.3-2.1); POTASSIUM 3.9 mmol/L (3.5-5.1); TOTAL PROTEIN 9.1 g/dL (6.5-8.1)
[2024-07-03 11:29] VITALS: PULSE 97; RESP 18
[2024-07-03 11:30] LABS: TROPONIN I 0.012 ng/mL (0-0.300)
[2024-07-03 13:49] LABS: BILIRUBIN,URINE NEGATIVE (NEGATIVE); CLARITY,URINE CLEAR (CLEAR); COLOR,URINE YELLOW (YELLOW); GLUCOSE, URINE NEGATIVE (NEGATIVE); KETONES,URINE NEGATIVE (NEGATIVE); LEUKOCYTE ESTERASE ,URINE NEGATIVE (NEGATIVE); NITRITE,URINE NEGATIVE (NEGATIVE); PH,URINE 6 (5 - 7); PROTEIN,URINE DIPSTICK NEGATIVE (NEGATIVE); URINE UROBILINOGEN 0.2 mg/dL (0.2 - 1)
[2024-07-03 13:50] LABS: BACTERIA,URINE RARE /HPF; EPITHELIAL CELLS,URINE FEW /LPF; RBC,URINE 0-5 /HPF (0-5); WBC,URINE (MAN) 0-5 /HPF (0-5)
[2024-07-03] MEDS ORDERED: GOLYTELY SOLU4000 M1 PO (14:35)
[2024-07-03 14:57] VITALS: BP 142/78; PULSE 78; RESP 18; O2SAT 100
== END 2024-07-03 14:59 | disposition home or self-care (01) ==
LOC: ER 09:09
DX: R10.30 Lower abdominal pain, unspecified (principal); K59.00 Constipation, unspecified; N28.9 Disorder of kidney and ureter, unspecified; E11.65 Type 2 diabetes mellitus with hyperglycemia; I10 Essential (primary) hypertension; E78.5 Hyperlipidemia, unspecified; K21.9 Gastro-esophageal reflux disease without esophagitis; F41.9 Anxiety disorder, unspecified; F31.9 Bipolar disorder, unspecified; R94.31 Abnormal electrocardiogram [ECG] [EKG]; Z87.19 Personal history of other diseases of the digestive system
CPT/HCPCS: 36415; 71045; 74176; 80053; 81001; 82550; 83690; 83735; 84484; 85025; 85610; 85730; 87086; 93005; 99284; J0500; J2405; J2470; J7030

== ENCOUNTER 2024-08-14 13:00 | Observation (INO) | payer MEDICARE, OTHER ==
[2024-08-11 14:08] LABS: BASOPHILS % 0.5 % (0.0-1.0); EOSINOPHILS # (AUTO) 0.2 (0.0-0.4); EOSINOPHILS % 3.1 % (0.0-6.0); HEMATOCRIT 35.8 % (34.2-44.1); HEMOGLOBIN 11.5 g/dL (12.0-16.0); LYMPHOCYTES # (AUTO) 1.8 (1.0-3.2); LYMPHOCYTES % 29.9 % (18.0-39.1); MEAN CORPUSCULAR HEMOGLOBIN 29.9 pg (28-32); MEAN CORPUSCULAR HGB CONC 32.1 g/dL (31-35); MONOCYTES # (AUTO) 0.5 (0.2-0.8); NEUTROPHILS # (AUTO) 3.4 (2.1-6.9); PLATELET COUNT 240 x10e3/uL (140-360); RED BLOOD COUNT 3.85 x10e6/uL (3.6-5.1); RED CELL DISTRIBUTION WIDTH 13.1 % (11.7-14.4); WHITE BLOOD COUNT 5.86 x10e3/uL (4.8-10.8)
[2024-08-11 14:15] LABS: ALBUMIN 4.5 g/dL (3.5-5.0); ALBUMIN/GLOBULIN RATIO 1.2 (0.8-2.0); ANION GAP 15.9 mmol/L (8-16); BILIRUBIN,TOTAL 0.3 mg/dL (0.2-1.2); CALCIUM 9.7 mg/dL (8.4-10.2); CREATININE, SERUM 1.77 mg/dL (0.57-1.11); POTASSIUM 4.9 mmol/L (3.5-5.1); TOTAL PROTEIN 8.3 g/dL (6.5-8.1)
[~2024-08-14] VITALS: Ht 149.9 cm; Wt 65.8 kg
[2024-08-14] VITALS (15 sets, daily range): BP systolic 97–138; BP diastolic 59–74; PULSE 90–110; RESP 12–20; TEMP 97–97.8; O2SAT 100
[~2024-08-14 13:00] MED LIST changes: +CYMBALTA30 MG; +GOLYTELY SOLU4000 M1 PO; +IRON159 MG PO; +LEQVIO284 MG/1.5 IM; +LEVSIN-SL0.125 MG SL; +LURASIDONE HCL60 MG PO; +MOUNJARO2.5 MG/0.5 INJ; -MULTI-VITAMIN1 EACH; +MULTI-VITAMIN1 EACH PO; +VITAMIN D250 MCG PO; +[UNRECOGNIZED DRUG - OTHER] SC
[2024-08-14] MEDS: FAMOTIDINE 20 MG/2 ML VIAL IV ONE (13:37)
[2024-08-14] MEDS: METHYLPREDNISOLONE SOD SUCC 125 MG/2ML VIAL ONE (13:38)
[2024-08-14] MEDS: DIPHENHYDRAMINE HCL 25 MG CAP ONE (13:38)
[2024-08-14] MEDS ORDERED: SODIUM CHLORIDE FLUSH 10 ML SYR INJ PRN (16:00)
[2024-08-14 17:02] LABS: BASOPHILS % 0.2 % (0.0-1.0); EOSINOPHILS # (AUTO) 0.1 (0.0-0.4); EOSINOPHILS % 1.3 % (0.0-6.0); HEMATOCRIT 34.7 % (34.2-44.1); HEMOGLOBIN 10.5 g/dL (12.0-16.0); LYMPHOCYTES # (AUTO) 1.5 (1.0-3.2); LYMPHOCYTES % 17.4 % (18.0-39.1); MEAN CORPUSCULAR HEMOGLOBIN 29.5 pg (28-32); MEAN CORPUSCULAR HGB CONC 30.3 g/dL (31-35); MEAN CORPUSCULAR VOLUME 97.5 fL (81-99); MONOCYTES # (AUTO) 0.1 (0.2-0.8); MONOCYTES % 1.6 % (4.4-11.3); NEUTROPHILS # (AUTO) 6.6 (2.1-6.9); PLATELET COUNT 262 x10e3/uL (140-360); RED BLOOD COUNT 3.56 x10e6/uL (3.6-5.1); RED CELL DISTRIBUTION WIDTH 12.8 % (11.7-14.4); WHITE BLOOD COUNT 8.31 x10e3/uL (4.8-10.8)
[2024-08-14] MEDS ORDERED: Morphine 4mg INJECTION 4 MG/ML INJ IV PRN (18:30)
[2024-08-14] MEDS ORDERED: DEXTROSE 50% SYRINGE 50 ML IV PRN (18:30)
[2024-08-14] MEDS: HEPARIN SOD/SOD CHLORIDE 1,000 ML ONE ×2 (19:50→19:58)
[2024-08-14] MEDS: FENTANYL CITRATE/PF 100MCG/2 ML INJ ONE ×2 (19:51→19:58)
[2024-08-14] MEDS: MIDAZOLAM HCL 2 MG/2 ML VIAL ONE ×3 (19:51→19:58)
[2024-08-14] MEDS: VERAPAMIL HCL 2.5 MG/ML 2 ML VIAL ONE (19:51)
[2024-08-14] MEDS: IOPAMIDOL 370 MG/ML 100 ML INFUS..BTL INJ ONE ×3 (19:51→19:58)
[2024-08-14] MEDS: HEPARIN SOD (PORCINE) 1000 UNIT/ML 30ML ONE (19:51)
[2024-08-14] MEDS: SODIUM CHLORIDE 0.9% 1000ML 1,000 ML ONE (19:51)
[2024-08-14] MEDS: NITROGLYCERIN/D5W 200 MCG/ML 250 ML ONE (19:51)
[2024-08-14] MEDS: ADENOSINE 3MG/1ML 30ML VIAL ONE (19:58)
[2024-08-14] MEDS: ASPIRIN 325 MG TAB ONE (19:59)
[2024-08-14] MEDS: TICAGRELOR 90 MG TABLET ONE (19:59)
[2024-08-14] MEDS: ONDANSETRON HCL INJ 2MG/ML 2ML 2 MG/ML VIAL ONE (19:59)
[2024-08-14] MEDS ORDERED: QUETIAPINE FUMARATE 100 MG TAB PO SCH (21:00)
[2024-08-14] MEDS: INSULIN LISPRO 100 UNIT/1 ML 3ML VIAL SQ SCH (21:15)
[2024-08-14] MEDS: SODIUM CHLORIDE 0.9% 1000ML 1,000 ML IV ONE (21:15)
[2024-08-14] MEDS ORDERED: NEURONTIN300 MG PO (21:28)
[2024-08-14] MEDS ORDERED: SEROQUEL50 MG PO (21:28)
[2024-08-14] MEDS ORDERED: TOPIRAMATE200 MG PO (21:31)
[2024-08-15] MEDS: QUETIAPINE FUMARATE 100 MG TAB PO SCH (00:45)
[2024-08-15 01:21] VITALS: BP 115/67; PULSE 102; RESP 18; TEMP 97.7; O2SAT 100
[2024-08-15 05:21] VITALS: BP 89/60; PULSE 94; RESP 16; TEMP 97; O2SAT 100
[2024-08-15 08:00] VITALS: BP 89/60; PULSE 94; RESP 16; TEMP 97; O2SAT 100
[2024-08-15 08:44] VITALS: BP 108/69; PULSE 111; RESP 18; TEMP 97.8; O2SAT 100
[2024-08-15] MEDS ORDERED: HYOSCYAMINE 0.125 MG TAB SL PRN (11:30)
[2024-08-15] MEDS ORDERED: DIPHENOXYLATE/ATROPINE TAB PO PRN (11:30)
[2024-08-15] MEDS ORDERED: ONDANSETRON HCL 4 MG ORAL DISINTEGRATING TAB SL PRN (11:30)
[2024-08-15] MEDS ORDERED: QUETIAPINE FUMARATE 25 MG TAB PO PRN (11:30)
[2024-08-15 12:23] VITALS: BP 108/54; PULSE 85; RESP 18; TEMP 97.6; O2SAT 100
[2024-08-15] MEDS: CLOPIDOGREL BISULFATE 75 MG TAB PO SCH (12:40)
[2024-08-15] MEDS: CHLORDIAZEPOXIDE/CLIDINIUM 1 CAP PO SCH (12:40)
[2024-08-15] MEDS: ASPIRIN 81 MG CHEW TAB PO SCH (12:40)
[2024-08-15] MEDS ORDERED: HYDROCODONE/APAP 10MG-325MG TAB PO SCH (14:00)
[2024-08-15] MEDS: GABAPENTIN 300 MG CAP PO SCH (15:18)
[2024-08-15 16:22] VITALS: BP 117/70; PULSE 105; RESP 20; TEMP 97.8; O2SAT 95
[2024-08-15] MEDS: PANTOPRAZOLE SOD 40 MG TABEC PO SCH (16:40)
[2024-08-16] MEDS ORDERED: ASPIRIN 81 MG CHEW TAB PO SCH (09:00)
[2024-08-16] MEDS ORDERED: DULOXETINE HCL 30 MG DELAYED RELEASE PO SCH (09:00)
[2024-08-16] MEDS ORDERED: TOPIRAMATE 100 MG TAB PO SCH (09:00)
[2024-08-16] MEDS ORDERED: MULTIVITAMINS/MINERALS TAB PO SCH (09:00)
[2024-08-16] MEDS ORDERED: CLOPIDOGREL BISULFATE 75 MG TAB PO SCH (09:00)
== END 2024-08-15 18:07 | disposition home or self-care (01) ==
LOC: CATH LAB 13:00 → CATH LAB V 16:13 → MED/SURG2 19:44
PROVIDERS: ADMIT Internal Medicine Cardiovascular Disease; ATTEND Internal Medicine Cardiovascular Disease
DX: I25.10 Atherosclerotic heart disease of native coronary artery without angina pectoris (principal); T82.855A Stenosis of coronary artery stent, initial encounter; Z95.5 Presence of coronary angioplasty implant and graft; Y83.1 Surgical operation with implant of artificial internal device as the cause of abnormal reaction of the patient, or of later complication, without mention of misadventure at the time of the procedure; Y92.009 Unspecified place in unspecified non-institutional (private) residence as the place of occurrence of the external cause; I10 Essential (primary) hypertension; E78.00 Pure hypercholesterolemia, unspecified; E11.9 Type 2 diabetes mellitus without complications; Z79.4 Long term (current) use of insulin; K50.90 Crohn's disease, unspecified, without complications; E07.9 Disorder of thyroid, unspecified; Z01.812 Encounter for preprocedural laboratory examination; Z79.899 Other long term (current) drug therapy; Z79.02 Long term (current) use of antithrombotics/antiplatelets; Z79.82 Long term (current) use of aspirin
CPT/HCPCS: 92921; 92978; 93571; C9600; 36415; 76937; 80053; 82948; 85025; 92920; 92928; 93454; 96372; 99152; 99153; 99252; C1725; C1753; C1769; C1874; C1887; C1894; G0378; J0153; J1644; J2250; J2405; J2919; J7030; Q9967

== ENCOUNTER 2024-09-03 13:04 | Emergency (ER) | payer MEDICARE, OTHER ==
[~2024-09-03] VITALS: Ht 157.5 cm; Wt 72.6 kg
[~2024-09-03 13:04] MED LIST changes: -MULTI-VITAMIN1 EACH; +MULTI-VITAMIN1 EACH PO
[2024-09-03 14:09] LABS: BASOPHILS % 0.5 % (0.0-1.0); EOSINOPHILS % 0.3 % (0.0-6.0); HEMATOCRIT 34.4 % (34.2-44.1); HEMOGLOBIN 10.3 g/dL (12.0-16.0); LYMPHOCYTES # (AUTO) 1.3 (1.0-3.2); LYMPHOCYTES % 20.4 % (18.0-39.1); MEAN CORPUSCULAR HEMOGLOBIN 30.7 pg (28-32); MEAN CORPUSCULAR HGB CONC 29.9 g/dL (31-35); MEAN CORPUSCULAR VOLUME 102.4 fL (81-99); MONOCYTES # (AUTO) 0.3 (0.2-0.8); MONOCYTES % 4.4 % (4.4-11.3); NEUTROPHILS # (AUTO) 4.5 (2.1-6.9); NEUTROPHILS % 74.2 % (38.7-80.0); PLATELET COUNT 312 x10e3/uL (140-360); RED BLOOD COUNT 3.36 x10e6/uL (3.6-5.1); RED CELL DISTRIBUTION WIDTH 14.6 % (11.7-14.4); WHITE BLOOD COUNT 6.12 x10e3/uL (4.8-10.8)
[2024-09-03 14:15] LABS: CLARITY,URINE CLEAR (CLEAR); COLOR,URINE YELLOW (YELLOW); LEUKOCYTE ESTERASE ,URINE SMALL (NEGATIVE); NITRITE,URINE NEGATIVE (NEGATIVE); PH,URINE 5.5 (5 - 7)
[2024-09-03 14:16] LABS: BACTERIA,URINE FEW /HPF; BILIRUBIN,URINE NEGATIVE (NEGATIVE); EPITHELIAL CELLS,URINE FEW /LPF; GLUCOSE, URINE NEGATIVE (NEGATIVE); KETONES,URINE TRACE (NEGATIVE); PROTEIN,URINE DIPSTICK NEGATIVE (NEGATIVE); RBC,URINE 0-5 /HPF (0-5); URINE UROBILINOGEN 0.2 mg/dL (0.2 - 1)
[2024-09-03 14:22] LABS: ALBUMIN 4.8 g/dL (3.5-5.0); ALBUMIN/GLOBULIN RATIO 1.2 (0.8-2.0); ANION GAP 18.6 mmol/L (8-16); CALCIUM 10.7 mg/dL (8.4-10.2); CREATININE, SERUM 1.9 mg/dL (0.57-1.11); POTASSIUM 4.6 mmol/L (3.5-5.1); TOTAL PROTEIN 8.9 g/dL (6.5-8.1)
[2024-09-03] MEDS: Morphine 4mg INJECTION 4 MG/ML INJ IV ONE (14:35)
[2024-09-03 14:39] LABS: TROPONIN I 0.001 ng/mL (0-0.300)
[2024-09-03 15:15] LABS: BILIRUBIN,TOTAL 0.3 mg/dL (0.2-1.2)
[2024-09-03 15:37] VITALS: PULSE 100; RESP 18; TEMP 97.5; O2SAT 99
== END 2024-09-03 15:43 | disposition home or self-care (01) ==
LOC: ER 14:04
DX: R11.2 Nausea with vomiting, unspecified (principal); R10.13 Epigastric pain; E11.65 Type 2 diabetes mellitus with hyperglycemia; I10 Essential (primary) hypertension; E78.5 Hyperlipidemia, unspecified; I25.10 Atherosclerotic heart disease of native coronary artery without angina pectoris; F41.9 Anxiety disorder, unspecified; F32.A Depression, unspecified; Z95.5 Presence of coronary angioplasty implant and graft; Z87.19 Personal history of other diseases of the digestive system
CPT/HCPCS: 36415; 74176; 80053; 81001; 83690; 84484; 85025; 99284; J2270

== ENCOUNTER → 2024-09-03 | Outpatient (REF) | payer MEDICARE, OTHER ==
[~2024-09-03] MED LIST changes: +MULTI-VITAMIN1 EACH; -MULTI-VITAMIN1 EACH PO; +TOPIRAMATE200 MG PO
== END ==
LOC: RAD 11:44
PROVIDERS: ATTEND Nurse Practitioner
DX: R10.84 Generalized abdominal pain (principal); K59.03 Drug induced constipation
CPT/HCPCS: 74018

== ENCOUNTER 2024-09-08 21:14 | Inpatient (IN) | payer MEDICARE, OTHER ==
[~2024-09-08] VITALS: Ht 149.9 cm; Wt 64.0 kg
[2024-09-08 21:38] VITALS: TEMP 98.4
[2024-09-08 22:03] VITALS: PULSE 94; RESP 17
[2024-09-08] MEDS: Morphine 4mg INJECTION 4 MG/ML INJ IV ONE (22:11)
[2024-09-08] MEDS: ONDANSETRON HCL INJ 2MG/ML 2ML 2 MG/ML VIAL IV STA (22:12)
[2024-09-08 22:15] LABS: BASOPHILS % 0.7 % (0.0-1.0); EOSINOPHILS # (AUTO) 0.1 (0.0-0.4); EOSINOPHILS % 2.3 % (0.0-6.0); HEMATOCRIT 31.6 % (34.2-44.1); HEMOGLOBIN 10.2 g/dL (12.0-16.0); LYMPHOCYTES # (AUTO) 2.5 (1.0-3.2); LYMPHOCYTES % 42.8 % (18.0-39.1); MEAN CORPUSCULAR HEMOGLOBIN 30.8 pg (28-32); MEAN CORPUSCULAR HGB CONC 32.3 g/dL (31-35); MEAN CORPUSCULAR VOLUME 95.5 fL (81-99); MONOCYTES # (AUTO) 0.5 (0.2-0.8); MONOCYTES % 8.5 % (4.4-11.3); NEUTROPHILS # (AUTO) 2.6 (2.1-6.9); NEUTROPHILS % 45.4 % (38.7-80.0); PLATELET COUNT 273 x10e3/uL (140-360); RED BLOOD COUNT 3.31 x10e6/uL (3.6-5.1); RED CELL DISTRIBUTION WIDTH 14.3 % (11.7-14.4); WHITE BLOOD COUNT 5.77 x10e3/uL (4.8-10.8)
[2024-09-08 22:31] LABS: ALBUMIN 4.6 g/dL (3.5-5.0); ALBUMIN/GLOBULIN RATIO 1.3 (0.8-2.0); ANION GAP 18.6 mmol/L (8-16); BILIRUBIN,TOTAL 0.4 mg/dL (0.2-1.2); CREATININE, SERUM 1.59 mg/dL (0.57-1.11); POTASSIUM 3.6 mmol/L (3.5-5.1); TOTAL PROTEIN 8.2 g/dL (6.5-8.1)
[2024-09-08 23:12] LABS: BILIRUBIN,URINE NEGATIVE (NEGATIVE); CLARITY,URINE CLEAR (CLEAR); COLOR,URINE YELLOW (YELLOW); GLUCOSE, URINE NEGATIVE (NEGATIVE); KETONES,URINE NEGATIVE (NEGATIVE); LEUKOCYTE ESTERASE ,URINE TRACE (NEGATIVE); NITRITE,URINE NEGATIVE (NEGATIVE); PH,URINE 6.5 (5 - 7); PROTEIN,URINE DIPSTICK NEGATIVE (NEGATIVE); URINE UROBILINOGEN 0.2 mg/dL (0.2 - 1)
[2024-09-08 23:24] LABS: BACTERIA,URINE MANY /HPF; EPITHELIAL CELLS,URINE FEW /LPF; RBC,URINE 0-5 /HPF (0-5)
[2024-09-08 23:37] VITALS: PULSE 88; RESP 16; O2SAT 99
[2024-09-09] VITALS (13 sets, daily range): BP systolic 100–132; BP diastolic 60–72; PULSE 84–97; RESP 16–19; TEMP 98–98.2; O2SAT 96–100
[2024-09-09] MEDS: SODIUM CHLORIDE 0.9% 1000ML 1,000 ML IV SCH (01:31)
[2024-09-09] MEDS: Morphine 4mg INJECTION 4 MG/ML INJ IV PRN (06:12)
[2024-09-09 06:28] LABS: BASOPHILS % 0.7 % (0.0-1.0); EOSINOPHILS # (AUTO) 0.1 (0.0-0.4); HEMATOCRIT 25.9 % (34.2-44.1); HEMOGLOBIN 8.3 g/dL (12.0-16.0); LYMPHOCYTES # (AUTO) 2.6 (1.0-3.2); LYMPHOCYTES % 46.6 % (18.0-39.1); MEAN CORPUSCULAR VOLUME 96.6 fL (81-99); MONOCYTES # (AUTO) 0.5 (0.2-0.8); MONOCYTES % 8.5 % (4.4-11.3); NEUTROPHILS # (AUTO) 2.3 (2.1-6.9); PLATELET COUNT 205 x10e3/uL (140-360); RED BLOOD COUNT 2.68 x10e6/uL (3.6-5.1); RED CELL DISTRIBUTION WIDTH 14.3 % (11.7-14.4); WHITE BLOOD COUNT 5.52 x10e3/uL (4.8-10.8)
[2024-09-09 06:46] LABS: ALBUMIN 3.6 g/dL (3.5-5.0); ALBUMIN/GLOBULIN RATIO 1.3 (0.8-2.0); ANION GAP 15.5 mmol/L (8-16); BILIRUBIN,TOTAL 0.2 mg/dL (0.2-1.2); CALCIUM 8.5 mg/dL (8.4-10.2); CREATININE, SERUM 1.44 mg/dL (0.57-1.11); POTASSIUM 3.5 mmol/L (3.5-5.1); TOTAL PROTEIN 6.4 g/dL (6.5-8.1)
[2024-09-09] MEDS ORDERED: HYOSCYAMINE 0.125 MG TAB SL PRN (11:00)
[2024-09-09] MEDS ORDERED: ALBUTEROL/IPRATROPIUM 3 ML NEB NEB PRN (11:00)
[2024-09-09] MEDS ORDERED: DEXTROSE 50% SYRINGE 50 ML IV PRN (11:00)
[2024-09-09] MEDS ORDERED: KLONOPIN0.5 MG PO (11:42)
[2024-09-09] MEDS ORDERED: CALTRATE 600 +1 EAC1 PO (11:42)
[2024-09-09] MEDS ORDERED: FENOFIBRATE145 MG PO (11:42)
[2024-09-09] MEDS ORDERED: DICYCLOMINE HCL20 MG PO (11:42)
[2024-09-09] MEDS ORDERED: AMITIZA24 MCG PO (11:42)
[2024-09-09] MEDS ORDERED: DICYCLOMINE HCL 20 MG TAB PO PRN (12:00)
[2024-09-09] MEDS ORDERED: CLONAZEPAM 0.5 MG TAB PO PRN (12:00)
[2024-09-09] MEDS: ASPIRIN 81 MG CHEW TAB PO SCH (12:18)
[2024-09-09] MEDS: DULOXETINE HCL 30 MG DELAYED RELEASE PO SCH (12:18)
[2024-09-09] MEDS: INSULIN LISPRO 100 UNIT/1 ML 3ML VIAL SQ SCH (12:18)
[2024-09-09] MEDS: LAMOTRIGINE 100 MG TAB PO SCH (12:19)
[2024-09-09] MEDS: FERROUS SULFATE 325 MG TAB PO SCH (12:19)
[2024-09-09] MEDS: CLOPIDOGREL BISULFATE 75 MG TAB PO SCH (12:19)
[2024-09-09] MEDS: METRONIDAZOLE 500MG/NS 100ML 100 ML IV SCH (13:09)
[2024-09-09] MEDS: GABAPENTIN 100 MG CAP PO SCH (16:40)
[2024-09-09 18:33] LABS: CDIFF AG QUIK CHEK NEGATIVE (NEGATIVE); CDIFF TOX QUIK CHEK NEGATIVE (NEGATIVE)
[2024-09-09] MEDS: QUETIAPINE FUMARATE 100 MG TAB PO SCH (20:36)
[2024-09-09] MEDS: TOPIRAMATE 100 MG TAB PO SCH (20:37)
[2024-09-10] VITALS (10 sets, daily range): BP systolic 106–141; BP diastolic 61–84; PULSE 78–93; RESP 18; TEMP 97.6–98.4; O2SAT 95–100
[2024-09-10] MEDS: LEVOTHYROXINE SODIUM 75 MCG TAB PO SCH (05:43)
[2024-09-10] MEDS: LEVOTHYROXINE SODIUM 100 MCG TAB PO SCH (05:43)
[2024-09-10 07:00] LABS: BASOPHILS % 0.4 % (0.0-1.0); EOSINOPHILS # (AUTO) 0.2 (0.0-0.4); EOSINOPHILS % 3.3 % (0.0-6.0); HEMATOCRIT 27.9 % (34.2-44.1); HEMOGLOBIN 8.2 g/dL (12.0-16.0); LYMPHOCYTES # (AUTO) 2.2 (1.0-3.2); LYMPHOCYTES % 49.4 % (18.0-39.1); MEAN CORPUSCULAR HEMOGLOBIN 30.8 pg (28-32); MEAN CORPUSCULAR HGB CONC 29.4 g/dL (31-35); MEAN CORPUSCULAR VOLUME 104.9 fL (81-99); MONOCYTES # (AUTO) 0.4 (0.2-0.8); MONOCYTES % 7.8 % (4.4-11.3); NEUTROPHILS # (AUTO) 1.7 (2.1-6.9); NEUTROPHILS % 38.9 % (38.7-80.0); PLATELET COUNT 190 x10e3/uL (140-360); RED BLOOD COUNT 2.66 x10e6/uL (3.6-5.1); WHITE BLOOD COUNT 4.49 x10e3/uL (4.8-10.8)
[2024-09-10 07:32] LABS: ALBUMIN 3.6 g/dL (3.5-5.0); ALBUMIN/GLOBULIN RATIO 1.3 (0.8-2.0); BILIRUBIN,TOTAL 0.2 mg/dL (0.2-1.2); CALCIUM 7.9 mg/dL (8.4-10.2); CREATININE, SERUM 1.18 mg/dL (0.57-1.11); MAGNESIUM 2.1 MG/DL (1.3-2.1); TOTAL PROTEIN 6.4 g/dL (6.5-8.1)
[2024-09-10 07:56] LABS: FERRITIN 156.63 ng/mL (4.63-204.00); THYROID STIMULATING HORMONE 4.625 uIU/mL (0.350-4.940)
[2024-09-10 08:35] LABS: FOLATE 16.5 ng/mL (7.0-15.4)
[2024-09-10] MEDS ORDERED: FLUCONAZOLE 100 MG TAB PO SCH (09:00)
[2024-09-10] MEDS: TOPIRAMATE 100 MG TAB PO SCH (09:43)
[2024-09-10] MEDS: FENOFIBRATE 145 MG TAB PO SCH (09:43)
[2024-09-10 13:09] LABS: EOSINOPHILS % (MANUAL) 2 % (0-7); LYMPHOCYTES % (MANUAL) 51 % (19-48); NEUTROPHILS % (MANUAL) 47 % (40-74); PLATELET ESTIMATE ADEQUATE; PLATELET MORPHOLOGY COMMENT NORMAL; RBC MORPHOLOGY COMMENT NORMAL
[2024-09-10] MEDS: DIPHENHYDRAMINE HCL 25 MG CAP PO PRN (20:26)
[2024-09-10] MEDS: RIFAXIMIN 550 MG TABLET PO STA (23:53)
[2024-09-11] VITALS (8 sets, daily range): BP systolic 113–135; BP diastolic 58–74; PULSE 82–92; RESP 16–20; TEMP 97–98.6; O2SAT 95–100
[2024-09-11 06:57] LABS: BASOPHILS % 0.6 % (0.0-1.0); EOSINOPHILS # (AUTO) 0.2 (0.0-0.4); EOSINOPHILS % 5.2 % (0.0-6.0); HEMATOCRIT 26.2 % (34.2-44.1); HEMOGLOBIN 8.1 g/dL (12.0-16.0); LYMPHOCYTES # (AUTO) 1.5 (1.0-3.2); LYMPHOCYTES % 44.3 % (18.0-39.1); MEAN CORPUSCULAR HEMOGLOBIN 30.3 pg (28-32); MEAN CORPUSCULAR HGB CONC 30.9 g/dL (31-35); MEAN CORPUSCULAR VOLUME 98.1 fL (81-99); MONOCYTES # (AUTO) 0.3 (0.2-0.8); MONOCYTES % 7.8 % (4.4-11.3); NEUTROPHILS # (AUTO) 1.5 (2.1-6.9); NEUTROPHILS % 41.8 % (38.7-80.0); PLATELET COUNT 187 x10e3/uL (140-360); RED BLOOD COUNT 2.67 x10e6/uL (3.6-5.1); RED CELL DISTRIBUTION WIDTH 14.1 % (11.7-14.4); WHITE BLOOD COUNT 3.48 x10e3/uL (4.8-10.8)
[2024-09-11 07:26] LABS: ALBUMIN 3.5 g/dL (3.5-5.0); ALBUMIN/GLOBULIN RATIO 1.5 (0.8-2.0); BILIRUBIN,TOTAL 0.2 mg/dL (0.2-1.2); CALCIUM 7.7 mg/dL (8.4-10.2); CREATININE, SERUM 1.12 mg/dL (0.57-1.11); TOTAL PROTEIN 5.8 g/dL (6.5-8.1)
[2024-09-11 07:43] LABS: MAGNESIUM 1.9 MG/DL (1.3-2.1)
[2024-09-11] MEDS: ONDANSETRON HCL INJ 2MG/ML 2ML 2 MG/ML VIAL IV PRN (08:17)
[2024-09-11] MEDS: RIFAXIMIN 550 MG TABLET PO SCH (08:21)
[2024-09-11] MEDS: DICYCLOMINE HCL 20 MG TAB PO SCH (08:22)
[2024-09-11] MEDS: IRON SUCROSE 100 MG in SODIUM CHLORIDE 0.9% 100 ML IV SCH (08:23)
[2024-09-12] VITALS (11 sets, daily range): BP systolic 119–149; BP diastolic 64–73; PULSE 77–90; RESP 16–18; TEMP 97.5–98.4; O2SAT 96–100
[2024-09-12 06:27] LABS: BASOPHILS % 0.6 % (0.0-1.0); EOSINOPHILS # (AUTO) 0.2 (0.0-0.4); EOSINOPHILS % 4.2 % (0.0-6.0); HEMATOCRIT 30.3 % (34.2-44.1); LYMPHOCYTES # (AUTO) 1.7 (1.0-3.2); LYMPHOCYTES % 35.4 % (18.0-39.1); MEAN CORPUSCULAR HEMOGLOBIN 30.7 pg (28-32); MEAN CORPUSCULAR HGB CONC 29.7 g/dL (31-35); MEAN CORPUSCULAR VOLUME 103.4 fL (81-99); MONOCYTES # (AUTO) 0.3 (0.2-0.8); MONOCYTES % 7.1 % (4.4-11.3); NEUTROPHILS # (AUTO) 2.5 (2.1-6.9); NEUTROPHILS % 52.5 % (38.7-80.0); PLATELET COUNT 196 x10e3/uL (140-360); RED BLOOD COUNT 2.93 x10e6/uL (3.6-5.1); RED CELL DISTRIBUTION WIDTH 13.5 % (11.7-14.4); WHITE BLOOD COUNT 4.77 x10e3/uL (4.8-10.8)
[2024-09-12 06:47] LABS: ANION GAP 13.2 mmol/L (8-16); CALCIUM 8.2 mg/dL (8.4-10.2); CREATININE, SERUM 1.21 mg/dL (0.57-1.11); POTASSIUM 4.2 mmol/L (3.5-5.1)
[2024-09-12] MEDS: CALCIUM CARBONATE 500 MG CHEWABLE TABS PO SCH (15:44)
[2024-09-12] MEDS: SUCRALFATE 1 GM/10 ML SUSP NG SCH (15:44)
[2024-09-13] VITALS (11 sets, daily range): BP systolic 114–144; BP diastolic 58–80; PULSE 78–87; RESP 16–18; TEMP 97.8–99.2; O2SAT 97–100
[2024-09-13 09:04] LABS: ANION GAP 13.8 mmol/L (8-16); CALCIUM 8.4 mg/dL (8.4-10.2); CREATININE, SERUM 1.3 mg/dL (0.57-1.11); POTASSIUM 3.8 mmol/L (3.5-5.1)
[2024-09-13 09:36] LABS: BASOPHILS % 0.7 % (0.0-1.0); EOSINOPHILS # (AUTO) 0.1 (0.0-0.4); EOSINOPHILS % 2.9 % (0.0-6.0); HEMATOCRIT 27.4 % (34.2-44.1); HEMOGLOBIN 8.6 g/dL (12.0-16.0); LYMPHOCYTES # (AUTO) 1.4 (1.0-3.2); LYMPHOCYTES % 33.7 % (18.0-39.1); MEAN CORPUSCULAR HEMOGLOBIN 30.7 pg (28-32); MEAN CORPUSCULAR HGB CONC 31.4 g/dL (31-35); MEAN CORPUSCULAR VOLUME 97.9 fL (81-99); MONOCYTES # (AUTO) 0.3 (0.2-0.8); MONOCYTES % 8.3 % (4.4-11.3); NEUTROPHILS # (AUTO) 2.2 (2.1-6.9); NEUTROPHILS % 53.9 % (38.7-80.0); PLATELET COUNT 208 x10e3/uL (140-360); RED CELL DISTRIBUTION WIDTH 14.1 % (11.7-14.4)
[2024-09-13] MEDS: ACETAMINOPHEN 325 MG TAB PO PRN (17:21)
[2024-09-13] MEDS: Morphine 4mg INJECTION 4 MG/ML INJ IV PRN (20:11)
[2024-09-14] VITALS (8 sets, daily range): BP systolic 127–154; BP diastolic 64–76; PULSE 77–92; RESP 16–18; TEMP 97.7–98.2; O2SAT 96–99
[2024-09-14] MEDS ORDERED: OFLOXACIN 0.3% (OTIC SOL) 5 ML BTL LEFT EAR SCH (17:00)
[2024-09-14] MEDS ORDERED: Sucralfate Susp 1GM/10ML NG (17:02)
[2024-09-14] MEDS ORDERED: XIFAXAN550 MG PO (17:02)
[2024-09-14] MEDS ORDERED: OFLOXACIN 0.3% LEFT EAR (17:08)
== END 2024-09-14 18:10 | disposition home or self-care (01) | DRG 386 ==
LOC: ER 21:40 → ERHOLD 23:05 → MED/SURG3 09-09 00:19 → OBSVTOIN 09-10 09:51
PROVIDERS: ADMIT Internal Medicine; ATTEND Internal Medicine
DX: K50.018 Crohn's disease of small intestine with other complication (principal); D84.821 Immunodeficiency due to drugs; N17.9 Acute kidney failure, unspecified; L76.32 Postprocedural hematoma of skin and subcutaneous tissue following other procedure; F31.32 Bipolar disorder, current episode depressed, moderate; K58.2 Mixed irritable bowel syndrome; E11.22 Type 2 diabetes mellitus with diabetic chronic kidney disease; D50.9 Iron deficiency anemia, unspecified; I12.9 Hypertensive chronic kidney disease with stage 1 through stage 4 chronic kidney disease, or unspecified chronic kidney disease; N18.31 Chronic kidney disease, stage 3a; E78.2 Mixed hyperlipidemia; H60.92 Unspecified otitis externa, left ear; K21.9 Gastro-esophageal reflux disease without esophagitis; R74.8 Abnormal levels of other serum enzymes; Z79.620 Long term (current) use of immunosuppressive biologic; I25.10 Atherosclerotic heart disease of native coronary artery without angina pectoris; G43.909 Migraine, unspecified, not intractable, without status migrainosus; Y84.0 Cardiac catheterization as the cause of abnormal reaction of the patient, or of later complication, without mention of misadventure at the time of the procedure; Z79.4 Long term (current) use of insulin; Z79.85 Long-term (current) use of injectable non-insulin antidiabetic drugs; Z79.82 Long term (current) use of aspirin; Z79.02 Long term (current) use of antithrombotics/antiplatelets; Z79.890 Hormone replacement therapy; Z79.84 Long term (current) use of oral hypoglycemic drugs; Z95.5 Presence of coronary angioplasty implant and graft; Z90.49 Acquired absence of other specified parts of digestive tract; Z91.041 Radiographic dye allergy status; Z91.013 Allergy to seafood; Z88.8 Allergy status to other drugs, medicaments and biological substances
CPT/HCPCS: 36415; 80048; 80053; 81001; 82607; 82728; 82746; 82948; 83036; 83540; 83630; 83690; 83735; 83993; 84443; 84466; 85025; 85045; 86140; 87045; 87086; 87177; 87324; 87328; 87449; 94799; 99284; G0378; J1756; J2270; J2405; J2470; J7030; J7050

== ENCOUNTER 2024-09-28 13:56 | Inpatient (IN) | payer MEDICARE, OTHER ==
[~2024-09-28] VITALS: Ht 149.9 cm; Wt 64.0 kg
[~2024-09-28 13:56] MED LIST changes: +AMITIZA24 MCG PO; +CALTRATE 600 +1 EAC1 PO; +DICYCLOMINE HCL20 MG PO; +FENOFIBRATE145 MG PO; +KLONOPIN0.5 MG PO; +OFLOXACIN 0.3% LEFT EAR; +Sucralfate Susp 1GM/10ML NG; +XIFAXAN550 MG PO
[2024-09-28 14:20] VITALS: TEMP 98.6
[2024-09-28] MEDS ORDERED: ONDANSETRON HCL INJ 2MG/ML 2ML 2 MG/ML VIAL IV PRN (14:45)
[2024-09-28 14:52] LABS: BASOPHILS % 0.6 % (0.0-1.0); EOSINOPHILS # (AUTO) 0.2 (0.0-0.4); EOSINOPHILS % 2.7 % (0.0-6.0); HEMATOCRIT 40.1 % (34.2-44.1); HEMOGLOBIN 13.1 g/dL (12.0-16.0); LYMPHOCYTES # (AUTO) 2.4 (1.0-3.2); LYMPHOCYTES % 34.4 % (18.0-39.1); MEAN CORPUSCULAR HEMOGLOBIN 31.6 pg (28-32); MEAN CORPUSCULAR HGB CONC 32.7 g/dL (31-35); MEAN CORPUSCULAR VOLUME 96.6 fL (81-99); MONOCYTES # (AUTO) 0.6 (0.2-0.8); MONOCYTES % 7.7 % (4.4-11.3); NEUTROPHILS # (AUTO) 3.9 (2.1-6.9); NEUTROPHILS % 54.2 % (38.7-80.0); PLATELET COUNT 271 x10e3/uL (140-360); RED BLOOD COUNT 4.15 x10e6/uL (3.6-5.1); RED CELL DISTRIBUTION WIDTH 13.6 % (11.7-14.4)
[2024-09-28 15:11] LABS: ALBUMIN 4.9 g/dL (3.5-5.0); ALBUMIN/GLOBULIN RATIO 1.3 (0.8-2.0); BILIRUBIN,TOTAL 0.3 mg/dL (0.2-1.2); CREATININE, SERUM 1.67 mg/dL (0.57-1.11); TOTAL PROTEIN 8.6 g/dL (6.5-8.1)
[2024-09-28 15:12] LABS: CALCIUM 10.1 mg/dL (8.4-10.2)
[2024-09-28] MEDS: ONDANSETRON HCL INJ 2MG/ML 2ML 2 MG/ML VIAL IV PRN (15:14)
[2024-09-28] MEDS: SODIUM CHLORIDE 0.9% 1000ML 1,000 ML IV STA (15:14)
[2024-09-28] MEDS: Morphine 4mg INJECTION 4 MG/ML INJ IV ONE (15:14)
[2024-09-28 16:00] VITALS: PULSE 100; RESP 18
[2024-09-28 16:45] VITALS: BP 145/73; PULSE 95; RESP 18; TEMP 97.5; O2SAT 99
[2024-09-28 17:42] VITALS: BP 145/73; PULSE 97; RESP 20; TEMP 97.5; O2SAT 97
[2024-09-28] MEDS: SODIUM CHLORIDE 0.9% 1000ML 1,000 ML IV SCH (18:02)
[2024-09-28 20:23] VITALS: PULSE 94; RESP 18; O2SAT 97
[2024-09-28] MEDS: RIFAXIMIN 550 MG TABLET PO SCH (20:23)
[2024-09-28] MEDS: METRONIDAZOLE 500MG/NS 100ML 100 ML IV STA (20:24)
[2024-09-28] MEDS: METOCLOPRAMIDE HCL 10 MG/2ML VIAL IV ONE (20:24)
[2024-09-28] MEDS ORDERED: DEXTROSE 50% SYRINGE 50 ML IV PRN (20:30)
[2024-09-28] MEDS ORDERED: DONNATAL/LIDOCAINE/MAALOX 30 ML SUSP PO ONE (20:45)
[2024-09-28 20:54] VITALS: BP 116/67; PULSE 97; RESP 18; TEMP 97.5; O2SAT 98
[2024-09-28] MEDS: METOCLOPRAMIDE HCL 10 MG/2ML VIAL IV SCH (21:00)
[2024-09-28] MEDS: INSULIN LISPRO 100 UNIT/1 ML 3ML VIAL SQ SCH (21:00)
[2024-09-28] MEDS: TOPIRAMATE 100 MG TAB PO SCH (21:05)
[2024-09-28] MEDS: QUETIAPINE FUMARATE 100 MG TAB PO SCH (21:05)
[2024-09-28] MEDS: Morphine 4mg INJECTION 4 MG/ML INJ IV PRN (21:07)
[2024-09-28] MEDS ORDERED: BELLADONNA ALK/PHENOBARBITAL 5 ML UDC ONE (21:22)
[2024-09-28] MEDS ORDERED: LIDOCAINE VISC 2% SOLN 15 ML UDC ONE (21:22)
[2024-09-28] MEDS: LIDOCAINE VISC 2% SOLN 15 ML UDC PO ONE (22:17)
[2024-09-28] MEDS: MAGNESIUM/ALUMINUM/SIMETHICONE 30 ML UDC PO ONE (22:18)
[2024-09-28] MEDS: BELLADONNA ALK/PHENOBARBITAL 5 ML UDC PO ONE (22:18)
[2024-09-28] MEDS: DICYCLOMINE HCL 20 MG TAB PO SCH (22:38)
[2024-09-29] VITALS (8 sets, daily range): BP systolic 108–137; BP diastolic 71–76; PULSE 80–109; RESP 16–20; TEMP 97.5–98.2; O2SAT 97–100
[2024-09-29] MEDS: METRONIDAZOLE 500MG/NS 100ML 100 ML IV SCH (00:32)
[2024-09-29 04:51] LABS: BASOPHILS % 0.4 % (0.0-1.0); EOSINOPHILS # (AUTO) 0.2 (0.0-0.4); EOSINOPHILS % 4.3 % (0.0-6.0); HEMATOCRIT 30.1 % (34.2-44.1); HEMOGLOBIN 9.6 g/dL (12.0-16.0); LYMPHOCYTES # (AUTO) 2.4 (1.0-3.2); LYMPHOCYTES % 51.2 % (18.0-39.1); MEAN CORPUSCULAR HEMOGLOBIN 31.1 pg (28-32); MEAN CORPUSCULAR HGB CONC 31.9 g/dL (31-35); MEAN CORPUSCULAR VOLUME 97.4 fL (81-99); MONOCYTES # (AUTO) 0.3 (0.2-0.8); MONOCYTES % 6.2 % (4.4-11.3); NEUTROPHILS # (AUTO) 1.7 (2.1-6.9); NEUTROPHILS % 37.5 % (38.7-80.0); PLATELET COUNT 171 x10e3/uL (140-360); RED BLOOD COUNT 3.09 x10e6/uL (3.6-5.1); RED CELL DISTRIBUTION WIDTH 13.7 % (11.7-14.4); WHITE BLOOD COUNT 4.65 x10e3/uL (4.8-10.8)
[2024-09-29 05:19] LABS: CALCIUM 8.2 mg/dL (8.4-10.2); CREATININE, SERUM 1.71 mg/dL (0.57-1.11)
[2024-09-29] MEDS ORDERED: LEVOTHYROXINE SODIUM 100 MCG TAB PO SCH (06:00)
[2024-09-29] MEDS: LEVOTHYROXINE SODIUM 25 MCG TABLET PO SCH (06:31)
[2024-09-29] MEDS: LEVOTHYROXINE SODIUM 112 MCG TAB PO SCH (06:31)
[2024-09-29] MEDS: CLOPIDOGREL BISULFATE 75 MG TAB PO SCH (08:46)
[2024-09-29] MEDS: ASPIRIN 81 MG CHEW TAB PO SCH (08:46)
[2024-09-29] MEDS: DULOXETINE HCL 30 MG DELAYED RELEASE PO SCH (08:46)
[2024-09-29] MEDS: LAMOTRIGINE 100 MG TAB PO SCH (08:46)
[2024-09-29] MEDS: TOPIRAMATE 100 MG TAB PO SCH (08:46)
[2024-09-29 10:35] LABS: BILIRUBIN,URINE NEGATIVE (NEGATIVE); CLARITY,URINE CLEAR (CLEAR); COLOR,URINE YELLOW (YELLOW); GLUCOSE, URINE NEGATIVE (NEGATIVE); KETONES,URINE NEGATIVE (NEGATIVE); LEUKOCYTE ESTERASE ,URINE TRACE (NEGATIVE); NITRITE,URINE NEGATIVE (NEGATIVE); PH,URINE 6 (5 - 7); PROTEIN,URINE DIPSTICK NEGATIVE (NEGATIVE); URINE UROBILINOGEN 0.2 mg/dL (0.2 - 1)
[2024-09-29 11:06] LABS: EPITHELIAL CELLS,URINE RARE /LPF
[2024-09-29] MEDS: QUETIAPINE FUMARATE 25 MG TAB PO PRN (12:31)
[2024-09-29] MEDS: CLONAZEPAM 0.5 MG TAB PO PRN (13:18)
[2024-09-29] MEDS: HEPARIN SOD (PORCINE) 5,000 UNIT/ML VIAL SC SCH (14:51)
[2024-09-29] MEDS ORDERED: DONNATAL/LIDOCAINE/MAALOX 30 ML SUSP PO PRN (18:00)
[2024-09-29] MEDS: DONNATAL/LIDOCAINE/MAALOX 30 ML SUSP PO SCH (21:03)
[2024-09-30] VITALS (7 sets, daily range): BP systolic 116–139; BP diastolic 60–79; PULSE 77–98; RESP 16–20; TEMP 97.3–99.2; O2SAT 96–100
[2024-09-30 03:23] LABS: WBC,FECAL (FECAL LACTOFERRIN) POSITIVE (NEGATIVE)
[2024-09-30 03:24] LABS: CDIFF AG QUIK CHEK NEGATIVE (NEGATIVE); CDIFF TOX QUIK CHEK NEGATIVE (NEGATIVE)
[2024-09-30 06:05] LABS: % IRON SATURATION 25 % (15-50); IRON 86 ug/dL (50-170); TOTAL IRON BINDING CAPACITY 349 ug/dL (261-478); TRANSFERRIN 249 mg/dL (180-382)
[2024-09-30 06:11] LABS: ALBUMIN 3.4 g/dL (3.5-5.0); ALBUMIN/GLOBULIN RATIO 1.5 (0.8-2.0); ANION GAP 12.3 mmol/L (8-16); BILIRUBIN,TOTAL 0.2 mg/dL (0.2-1.2); CALCIUM 7.6 mg/dL (8.4-10.2); CREATININE, SERUM 1.17 mg/dL (0.57-1.11); MAGNESIUM 1.8 MG/DL (1.3-2.1); POTASSIUM 4.3 mmol/L (3.5-5.1); TOTAL PROTEIN 5.6 g/dL (6.5-8.1)
[2024-09-30 07:08] LABS: FOLATE 17.7 ng/mL (7.0-15.4)
[2024-09-30 08:42] LABS: BASOPHILS % 0.6 % (0.0-1.0); EOSINOPHILS # (AUTO) 0.2 (0.0-0.4); EOSINOPHILS % 6.1 % (0.0-6.0); HEMATOCRIT 30.8 % (34.2-44.1); HEMOGLOBIN 9.7 g/dL (12.0-16.0); LYMPHOCYTES # (AUTO) 1.7 (1.0-3.2); LYMPHOCYTES % 49.1 % (18.0-39.1); MEAN CORPUSCULAR HEMOGLOBIN 31.1 pg (28-32); MEAN CORPUSCULAR HGB CONC 31.5 g/dL (31-35); MEAN CORPUSCULAR VOLUME 98.7 fL (81-99); MONOCYTES # (AUTO) 0.4 (0.2-0.8); MONOCYTES % 10.8 % (4.4-11.3); NEUTROPHILS # (AUTO) 1.1 (2.1-6.9); NEUTROPHILS % 33.1 % (38.7-80.0); RED BLOOD COUNT 3.12 x10e6/uL (3.6-5.1); RED CELL DISTRIBUTION WIDTH 13.5 % (11.7-14.4); WHITE BLOOD COUNT 3.44 x10e3/uL (4.8-10.8)
[2024-09-30 08:44] LABS: PLATELET COUNT 147 x10e3/uL (140-360)
[2024-09-30] MEDS: CYANOCOBALAMIN INJ 1,000 MCG/ML VIAL IM ONE (22:17)
[2024-10-01 03:33] VITALS: BP 114/62; PULSE 84; RESP 16; TEMP 98.1; O2SAT 92
[2024-10-01 05:06] LABS: BASOPHILS % 0.3 % (0.0-1.0); EOSINOPHILS # (AUTO) 0.2 (0.0-0.4); EOSINOPHILS % 5.6 % (0.0-6.0); HEMATOCRIT 28.1 % (34.2-44.1); HEMOGLOBIN 9.1 g/dL (12.0-16.0); LYMPHOCYTES # (AUTO) 1.7 (1.0-3.2); MEAN CORPUSCULAR HEMOGLOBIN 31.5 pg (28-32); MEAN CORPUSCULAR HGB CONC 32.4 g/dL (31-35); MEAN CORPUSCULAR VOLUME 97.2 fL (81-99); MONOCYTES # (AUTO) 0.3 (0.2-0.8); MONOCYTES % 10.1 % (4.4-11.3); NEUTROPHILS # (AUTO) 1.1 (2.1-6.9); NEUTROPHILS % 32.7 % (38.7-80.0); PLATELET COUNT 164 x10e3/uL (140-360); RED BLOOD COUNT 2.89 x10e6/uL (3.6-5.1); RED CELL DISTRIBUTION WIDTH 13.4 % (11.7-14.4); WHITE BLOOD COUNT 3.37 x10e3/uL (4.8-10.8)
[2024-10-01 05:33] LABS: ANION GAP 10.7 mmol/L (8-16); CALCIUM 7.9 mg/dL (8.4-10.2); CREATININE, SERUM 1.2 mg/dL (0.57-1.11); POTASSIUM 3.7 mmol/L (3.5-5.1)
[2024-10-01 09:05] VITALS: BP 114/62; PULSE 84; RESP 16; TEMP 98.1; O2SAT 92
[2024-10-01] MEDS: CYANOCOBALAMIN INJ 1,000 MCG/ML VIAL IM SCH (09:16)
[2024-10-01 16:10] VITALS: BP 139/84; PULSE 92; RESP 18; TEMP 98.9; O2SAT 99
[2024-10-01] MEDS ORDERED: DIATRIZOATE MEGL/DIATRIZOA SOD 30 ML BTL PO ONE (16:59)
[2024-10-01] MEDS ORDERED: LACTULOSE SYRUP 20 GM/30 ML UDC PO PRN (17:00)
[2024-10-01] MEDS: HYDROMORPHONE 1MG/1ML INJ IV PRN (17:16)
[2024-10-01 20:00] VITALS: BP 138/75; PULSE 87; RESP 18; TEMP 97.7; O2SAT 97
[2024-10-02] VITALS (7 sets, daily range): BP systolic 125–151; BP diastolic 65–82; PULSE 72–99; RESP 17–18; TEMP 97.6–98.3; O2SAT 92–100
[2024-10-02 05:11] LABS: BASOPHILS % 0.6 % (0.0-1.0); EOSINOPHILS # (AUTO) 0.2 (0.0-0.4); EOSINOPHILS % 6.3 % (0.0-6.0); HEMATOCRIT 29.6 % (34.2-44.1); HEMOGLOBIN 9.6 g/dL (12.0-16.0); LYMPHOCYTES # (AUTO) 1.8 (1.0-3.2); LYMPHOCYTES % 52.4 % (18.0-39.1); MEAN CORPUSCULAR HGB CONC 32.4 g/dL (31-35); MEAN CORPUSCULAR VOLUME 95.5 fL (81-99); MONOCYTES # (AUTO) 0.3 (0.2-0.8); MONOCYTES % 9.3 % (4.4-11.3); NEUTROPHILS % 31.1 % (38.7-80.0); PLATELET COUNT 156 x10e3/uL (140-360); RED CELL DISTRIBUTION WIDTH 13.2 % (11.7-14.4); WHITE BLOOD COUNT 3.34 x10e3/uL (4.8-10.8)
[2024-10-02 05:45] LABS: ALBUMIN 3.7 g/dL (3.5-5.0); ALBUMIN/GLOBULIN RATIO 1.5 (0.8-2.0); ANION GAP 12.2 mmol/L (8-16); BILIRUBIN,TOTAL 0.2 mg/dL (0.2-1.2); CALCIUM 8.1 mg/dL (8.4-10.2); CREATININE, SERUM 1.4 mg/dL (0.57-1.11); TOTAL PROTEIN 6.2 g/dL (6.5-8.1)
[2024-10-02 05:50] LABS: POTASSIUM 3.2 mmol/L (3.5-5.1)
[2024-10-02] MEDS: CITRATE OF MAGNESIA 300ML BOTTLE PO ONE ×2 (07:48→08:19)
[2024-10-02] MEDS: POTASSIUM CHLORIDE 10MEQ EA PO ONE (11:48)
[2024-10-02] MEDS ORDERED: CITRATE OF MAGNESIA 300ML BOTTLE PO ONE (12:00)
[2024-10-02] MEDS: ADALIMUMAB 40 MG SC SCH (12:53)
[2024-10-02] MEDS ORDERED: LACTULOSE SYRUP 20 GM/30 ML UDC PO SCH (16:00)
[2024-10-03] VITALS (7 sets, daily range): BP systolic 126–154; BP diastolic 74–96; PULSE 82–115; RESP 18–19; TEMP 97.7–98.4; O2SAT 98–100
[2024-10-03 05:07] LABS: BASOPHILS % 0.5 % (0.0-1.0); EOSINOPHILS # (AUTO) 0.2 (0.0-0.4); EOSINOPHILS % 4.7 % (0.0-6.0); LYMPHOCYTES % 50.1 % (18.0-39.1); MEAN CORPUSCULAR HEMOGLOBIN 31.4 pg (28-32); MEAN CORPUSCULAR HGB CONC 33.3 g/dL (31-35); MEAN CORPUSCULAR VOLUME 94.3 fL (81-99); MONOCYTES # (AUTO) 0.4 (0.2-0.8); MONOCYTES % 8.8 % (4.4-11.3); NEUTROPHILS # (AUTO) 1.5 (2.1-6.9); NEUTROPHILS % 35.7 % (38.7-80.0); PLATELET COUNT 157 x10e3/uL (140-360); RED BLOOD COUNT 3.18 x10e6/uL (3.6-5.1); RED CELL DISTRIBUTION WIDTH 13.2 % (11.7-14.4); WHITE BLOOD COUNT 4.07 x10e3/uL (4.8-10.8)
[2024-10-03 05:38] LABS: ALBUMIN 3.7 g/dL (3.5-5.0); ALBUMIN/GLOBULIN RATIO 1.4 (0.8-2.0); ANION GAP 13.5 mmol/L (8-16); BILIRUBIN,TOTAL 0.2 mg/dL (0.2-1.2); CALCIUM 8.4 mg/dL (8.4-10.2); CREATININE, SERUM 1.19 mg/dL (0.57-1.11); MAGNESIUM 1.7 MG/DL (1.3-2.1); POTASSIUM 3.5 mmol/L (3.5-5.1); TOTAL PROTEIN 6.3 g/dL (6.5-8.1)
[2024-10-03] MEDS: SODIUM CHLORIDE 0.9% 250ML 250 ML ONE (09:30)
[2024-10-03] MEDS: LACTULOSE SYRUP 20 GM/30 ML UDC PO SCH (10:18)
[2024-10-03] MEDS ORDERED: HALOPERIDOL LACTATE 5 MG/ML VIAL IV ONE (11:15)
[2024-10-03] MEDS: HALOPERIDOL LACTATE 5 MG/ML VIAL IM ONE (11:26)
[2024-10-03] MEDS: POTASSIUM CHLORIDE 10MEQ EA PO ONE (13:31)
[2024-10-03] MEDS: MAGNESIUM OXIDE 400 MG TAB PO ONE (13:32)
[2024-10-03] MEDS: LORAZEPAM 1 MG TAB PO PRN (14:47)
[2024-10-03] MEDS ORDERED: BELLADONNA ALK/PHENOBARBITAL 5 ML UDC ONE (21:37)
[2024-10-03] MEDS ORDERED: LIDOCAINE VISC 2% SOLN 15 ML UDC ONE (21:37)
[2024-10-03] MEDS ORDERED: MAGNESIUM/ALUMINUM/SIMETHICONE 30 ML UDC ONE (21:38)
[2024-10-04] VITALS (8 sets, daily range): BP systolic 119–166; BP diastolic 67–83; PULSE 93–109; RESP 17–22; TEMP 97.5–98.2; O2SAT 94–100
[2024-10-04] MEDS ORDERED: MAGNESIUM/ALUMINUM/SIMETHICONE 30 ML UDC ONE (05:51)
[2024-10-04] MEDS ORDERED: BELLADONNA ALK/PHENOBARBITAL 5 ML UDC ONE (05:51)
[2024-10-04 05:59] LABS: BASOPHILS % 0.5 % (0.0-1.0); EOSINOPHILS # (AUTO) 0.2 (0.0-0.4); EOSINOPHILS % 3.7 % (0.0-6.0); HEMATOCRIT 29.9 % (34.2-44.1); HEMOGLOBIN 9.8 g/dL (12.0-16.0); LYMPHOCYTES # (AUTO) 1.7 (1.0-3.2); LYMPHOCYTES % 41.9 % (18.0-39.1); MEAN CORPUSCULAR HEMOGLOBIN 30.9 pg (28-32); MEAN CORPUSCULAR HGB CONC 32.8 g/dL (31-35); MEAN CORPUSCULAR VOLUME 94.3 fL (81-99); MONOCYTES # (AUTO) 0.4 (0.2-0.8); MONOCYTES % 9.9 % (4.4-11.3); NEUTROPHILS # (AUTO) 1.8 (2.1-6.9); NEUTROPHILS % 43.8 % (38.7-80.0); PLATELET COUNT 154 x10e3/uL (140-360); RED BLOOD COUNT 3.17 x10e6/uL (3.6-5.1); RED CELL DISTRIBUTION WIDTH 13.3 % (11.7-14.4); WHITE BLOOD COUNT 4.06 x10e3/uL (4.8-10.8)
[2024-10-04 06:17] LABS: ALBUMIN 3.9 g/dL (3.5-5.0); ALBUMIN/GLOBULIN RATIO 1.5 (0.8-2.0); ANION GAP 14.6 mmol/L (8-16); BILIRUBIN,TOTAL 0.2 mg/dL (0.2-1.2); CALCIUM 8.5 mg/dL (8.4-10.2); CREATININE, SERUM 1.2 mg/dL (0.57-1.11); MAGNESIUM 1.6 MG/DL (1.3-2.1); POTASSIUM 3.6 mmol/L (3.5-5.1); TOTAL PROTEIN 6.5 g/dL (6.5-8.1)
[2024-10-04] MEDS: SODIUM CHLORIDE 0.9% 1000ML 1,000 ML IV SCH (09:31)
[2024-10-04] MEDS ORDERED: HALOPERIDOL LACTATE 5 MG/ML VIAL IM PRN (14:15)
[2024-10-04] MEDS ORDERED: ACETYLCYSTEINE 200 MG/1 ML 10 ML VIAL PO SCH (17:00)
[2024-10-04] MEDS: PREDNISONE 20 MG TAB PO ONE (18:27)
[2024-10-05] VITALS (8 sets, daily range): BP systolic 132–150; BP diastolic 73–86; PULSE 81–109; RESP 16–20; TEMP 97.5–99.6; O2SAT 99–100
[2024-10-05] MEDS: PREDNISONE 20 MG TAB PO ONE ×2 (00:28→06:19)
[2024-10-05 06:01] LABS: ANION GAP 16.5 mmol/L (8-16); CALCIUM 8.5 mg/dL (8.4-10.2); CREATININE, SERUM 1.08 mg/dL (0.57-1.11); POTASSIUM 3.5 mmol/L (3.5-5.1)
[2024-10-05] MEDS: DIPHENHYDRAMINE HCL 25 MG CAP PO ONE (06:19)
[2024-10-05] MEDS: ACETYLCYSTEINE 200 MG/1 ML 10 ML VIAL PO SCH (06:21)
[2024-10-05 06:30] LABS: MAGNESIUM 1.5 MG/DL (1.3-2.1); PHOSPHORUS 3.4 MG/DL (2.3-4.7)
[2024-10-05] MEDS ORDERED: IOPAMIDOL 370 MG/ML 100 ML INFUS..BTL INJ ONE (06:55)
[2024-10-05] MEDS: HALOPERIDOL LACTATE 5 MG/ML VIAL IV PRN (12:18)
[2024-10-05] MEDS: MAGNESIUM SULFATE 2GM/50ML 50 ML IV ONE (14:34)
[2024-10-05] MEDS: SODIUM BICARBONATE 650 MG TAB PO SCH (17:32)
[2024-10-05] MEDS: POLYETHYLENE GLYCOL 3350 17 GM PACK PO ONE (22:09)
[2024-10-06] VITALS: BP 146/78; PULSE 96; RESP 17; TEMP 98.1; O2SAT 100
[2024-10-06 04:00] VITALS: BP 134/76; PULSE 96; RESP 17; TEMP 98.2; O2SAT 100
[2024-10-06] MEDS: POLYETHYLENE GLYCOL 3350 17 GM PACK PO ONE (05:36)
[2024-10-06 06:54] LABS: ABG HCO3 18 mmol/L (22-26); ABG PCO2 29 mmHg (35-45); ABG PH 7.39 (7.35-7.45); ABG PO2 133 mmHg (80-105); ABG TCO2 18
[2024-10-06 07:55] VITALS: BP 149/87; PULSE 99; RESP 18; TEMP 98; O2SAT 98
[2024-10-06 09:02] VITALS: BP 134/76; PULSE 96; RESP 17; TEMP 98.2; O2SAT 100
[2024-10-06] MEDS: POLYETHYLENE GLYCOL 3350 17 GM PACK PO SCH (09:23)
[2024-10-06 14:04] LABS: ANION GAP 12.8 mmol/L (8-16); CALCIUM 7.8 mg/dL (8.4-10.2); CREATININE, SERUM 1.13 mg/dL (0.57-1.11); MAGNESIUM 1.7 MG/DL (1.3-2.1); POTASSIUM 3.8 mmol/L (3.5-5.1)
[2024-10-06] MEDS ORDERED: DONNATAL/LIDOCAINE/MAALOX 30 ML SUSP PO PRN (15:45)
[2024-10-06 16:13] LABS: BILIRUBIN,URINE NEGATIVE (NEGATIVE); CLARITY,URINE CLEAR (CLEAR); COLOR,URINE YELLOW (YELLOW); GLUCOSE, URINE 2+ (NEGATIVE); KETONES,URINE NEGATIVE (NEGATIVE); LEUKOCYTE ESTERASE ,URINE NEGATIVE (NEGATIVE); NITRITE,URINE NEGATIVE (NEGATIVE); PH,URINE 7 (5 - 7); PROTEIN,URINE DIPSTICK NEGATIVE (NEGATIVE); URINE UROBILINOGEN 0.2 mg/dL (0.2 - 1)
[2024-10-06 16:17] LABS: BACTERIA,URINE RARE /HPF; EPITHELIAL CELLS,URINE RARE /LPF; RBC,URINE 0-5 /HPF (0-5); WBC,URINE (MAN) 0-5 /HPF (0-5)
[2024-10-06 16:38] VITALS: BP 145/82; PULSE 94; RESP 20; TEMP 98.5; O2SAT 100
[2024-10-06 20:00] VITALS: BP 156/77; PULSE 90; RESP 18; TEMP 97.9; O2SAT 100
[2024-10-06] MEDS: QUETIAPINE FUMARATE 100 MG TAB PO SCH (21:21)
[2024-10-07] VITALS: BP 154/86; PULSE 91; RESP 20; TEMP 98.1; O2SAT 98
[2024-10-07 05:30] LABS: BASOPHILS % 0.3 % (0.0-1.0); EOSINOPHILS % 0.7 % (0.0-6.0); HEMATOCRIT 32.1 % (34.2-44.1); HEMOGLOBIN 10.5 g/dL (12.0-16.0); LYMPHOCYTES # (AUTO) 1.5 (1.0-3.2); LYMPHOCYTES % 26.4 % (18.0-39.1); MEAN CORPUSCULAR HEMOGLOBIN 30.9 pg (28-32); MEAN CORPUSCULAR HGB CONC 32.7 g/dL (31-35); MEAN CORPUSCULAR VOLUME 94.4 fL (81-99); MONOCYTES # (AUTO) 0.5 (0.2-0.8); MONOCYTES % 8.2 % (4.4-11.3); NEUTROPHILS # (AUTO) 3.7 (2.1-6.9); NEUTROPHILS % 63.9 % (38.7-80.0); PLATELET COUNT 178 x10e3/uL (140-360); RED CELL DISTRIBUTION WIDTH 13.7 % (11.7-14.4); WHITE BLOOD COUNT 5.84 x10e3/uL (4.8-10.8)
[2024-10-07 05:58] LABS: ANION GAP 16.6 mmol/L (8-16); CALCIUM 8.6 mg/dL (8.4-10.2); CREATININE, SERUM 1.02 mg/dL (0.57-1.11); MAGNESIUM 1.7 MG/DL (1.3-2.1); POTASSIUM 3.6 mmol/L (3.5-5.1)
[2024-10-07] MEDS: HYDROCODONE/APAP 10MG-325MG TAB PO PRN (07:19)
[2024-10-07 08:00] VITALS: BP 155/77; PULSE 105; RESP 19; TEMP 98.2; O2SAT 100
[2024-10-07 09:25] VITALS: BP 155/77; PULSE 105; RESP 19; TEMP 98.2; O2SAT 100
[2024-10-07 12:16] VITALS: BP 145/78; PULSE 101; RESP 20; TEMP 97.6; O2SAT 100
[2024-10-07] MEDS ORDERED: QUETIAPINE FUM100 MG PO (12:53)
[2024-10-07] MEDS ORDERED: HALOPERIDOL5 MG PO (12:53)
== END 2024-10-07 15:40 | disposition home or self-care (01) | DRG 920 ==
LOC: ER 14:10 → ERHOLD 14:49 → MED/SURG 16:25 → OBSVTOIN 09-29 17:42
PROVIDERS: ADMIT Internal Medicine; ATTEND Internal Medicine
PROC: 4A133R1 Monitoring of Arterial Saturation, Peripheral, Percutaneous Approach (ICD-10-PCS; principal; 2024-10-05)
DX: L76.32 Postprocedural hematoma of skin and subcutaneous tissue following other procedure (principal); D84.821 Immunodeficiency due to drugs; N17.9 Acute kidney failure, unspecified; E87.20 Acidosis, unspecified; K50.90 Crohn's disease, unspecified, without complications; K59.00 Constipation, unspecified; E11.22 Type 2 diabetes mellitus with diabetic chronic kidney disease; I25.10 Atherosclerotic heart disease of native coronary artery without angina pectoris; I12.9 Hypertensive chronic kidney disease with stage 1 through stage 4 chronic kidney disease, or unspecified chronic kidney disease; N18.31 Chronic kidney disease, stage 3a; D50.9 Iron deficiency anemia, unspecified; E83.42 Hypomagnesemia; K76.0 Fatty (change of) liver, not elsewhere classified; E78.2 Mixed hyperlipidemia; F41.9 Anxiety disorder, unspecified; R45.1 Restlessness and agitation; F31.77 Bipolar disorder, in partial remission, most recent episode mixed; K21.9 Gastro-esophageal reflux disease without esophagitis; Y84.0 Cardiac catheterization as the cause of abnormal reaction of the patient, or of later complication, without mention of misadventure at the time of the procedure; Z79.4 Long term (current) use of insulin; Z79.82 Long term (current) use of aspirin; Z79.02 Long term (current) use of antithrombotics/antiplatelets; Z79.620 Long term (current) use of immunosuppressive biologic; Z79.85 Long-term (current) use of injectable non-insulin antidiabetic drugs; Z79.890 Hormone replacement therapy; Z79.84 Long term (current) use of oral hypoglycemic drugs; Z95.5 Presence of coronary angioplasty implant and graft; Z90.49 Acquired absence of other specified parts of digestive tract; Z91.041 Radiographic dye allergy status; Z88.5 Allergy status to narcotic agent; Z88.8 Allergy status to other drugs, medicaments and biological substances; Z91.013 Allergy to seafood
CPT/HCPCS: 36415; 74018; 74174; 74176; 80048; 80053; 81001; 82607; 82746; 82805; 82948; 83540; 83630; 83690; 83735; 83993; 84100; 84466; 85025; 86140; 87045; 87177; 87324; 87449; 94799; 96372; 99252; 99284; G0378; J1171; J1630; J1644; J2270; J2405; J2470; J2765; J3420; J3475; J7030; J7050; J7512; Q9963; Q9967

== ENCOUNTER 2025-01-08 22:13 | Emergency (ER) | payer MEDICARE, OTHER ==
[~2025-01-08] VITALS: Ht 149.9 cm; Wt 60.3 kg
[~2025-01-08 22:13] MED LIST changes: +HALOPERIDOL5 MG PO
[2025-01-08 22:45] VITALS: PULSE 90; RESP 20; TEMP 97.7
[2025-01-09 00:28] VITALS: BP 125/77; PULSE 87; RESP 16; TEMP 97.9; O2SAT 98
== END 2025-01-09 00:30 | disposition home or self-care (01) ==
LOC: ER 22:51
DX: M79.662 Pain in left lower leg (principal); I10 Essential (primary) hypertension; E11.9 Type 2 diabetes mellitus without complications; I25.10 Atherosclerotic heart disease of native coronary artery without angina pectoris; E78.5 Hyperlipidemia, unspecified; F41.9 Anxiety disorder, unspecified; F32.A Depression, unspecified
CPT/HCPCS: 93971; 99283

== ENCOUNTER 2025-03-05 11:43 | Inpatient (IN) | payer MEDICARE, OTHER ==
[~2025-03-05] VITALS: Ht 149.9 cm; Wt 55.4 kg
[~2025-03-05 11:43] MED LIST changes: -ALPRAZOLAM0.25 M1 PO; -LIDOCAINE HCL 2% LOCAL INJ 5 ML SDV VIAL INJ ONE; -MIDAZOLAM HCL 2 MG/2 ML VIAL ONE; -PROPOFOL IV EMULSION 10 MG/ML 20 ML VIAL ONE
[2025-03-05 11:45] VITALS: TEMP 98.2
[2025-03-05 13:03] LABS: BASOPHILS % 0.3 % (0.0-1.0); EOSINOPHILS % 0.5 % (0.0-6.0); LYMPHOCYTES % 19.9 % (18.0-39.1); MONOCYTES % 5.7 % (4.4-11.3); NEUTROPHILS % 73.2 % (38.7-80.0); RED CELL DISTRIBUTION WIDTH 12.8 % (11.7-14.4)
[2025-03-05] MEDS: ONDANSETRON HCL INJ 2MG/ML 2ML 2 MG/ML VIAL IV STA (13:18)
[2025-03-05] MEDS: SODIUM CHLORIDE 0.9% 1000ML 1,000 ML IV STA (13:18)
[2025-03-05 13:22] LABS: EPITHELIAL CELLS,URINE FEW /LPF; LEUKOCYTE ESTERASE ,URINE NEGATIVE (NEGATIVE); PROTEIN,URINE DIPSTICK NEGATIVE (NEGATIVE); URINE UROBILINOGEN 0.2 mg/dL (0.2 - 1); WBC,URINE (MAN) 0-5 /HPF (0-5)
[2025-03-05 13:23] LABS: INR 1.08
[2025-03-05 13:29] LABS: EST GLOMERULAR FILTRATION RATE 68.0 ML/MIN (>=60)
[2025-03-05] MEDS: Morphine 4mg INJECTION 4 MG/ML INJ IV STA (13:36)
[2025-03-05 13:59] VITALS: PULSE 107; RESP 14
[2025-03-05] MEDS: SODIUM CHLORIDE 0.9% 1000ML 1,000 ML IV SCH (15:36)
[2025-03-05] MEDS: ONDANSETRON HCL INJ 2MG/ML 2ML 2 MG/ML VIAL IV PRN (17:46)
[2025-03-05] MEDS: Morphine 4mg INJECTION 4 MG/ML INJ IV PRN (17:46)
[2025-03-05 20:00] VITALS: BP 118/69; PULSE 99; RESP 20; TEMP 97.9; O2SAT 99
[2025-03-05] MEDS: MAGNESIUM HYDROXIDE 30 ML UDC PO ONE (20:47)
[2025-03-05 22:03] VITALS: BP 118/69; PULSE 99; RESP 20; TEMP 97.9; O2SAT 99
[2025-03-05] MEDS ORDERED: POLYETHYLENE GLYCOL 3350 17 GM PACK PO PRN (23:00)
[2025-03-05] MEDS ORDERED: DEXTROSE 50% SYRINGE 50 ML IV PRN (23:00)
[2025-03-06] VITALS (7 sets, daily range): BP systolic 117–150; BP diastolic 68–81; PULSE 95–99; RESP 18–20; TEMP 97.7–98; O2SAT 97–100
[2025-03-06 01:09] LABS: % IRON SATURATION 14 % (15-50)
[2025-03-06] MEDS: LEVOTHYROXINE SODIUM 25 MCG TABLET PO SCH (06:20)
[2025-03-06] MEDS: LEVOTHYROXINE SODIUM 112 MCG TAB PO SCH (06:20)
[2025-03-06 06:31] LABS: BASOPHILS % 0.4 % (0.0-1.0); EOSINOPHILS % 1.3 % (0.0-6.0); LYMPHOCYTES % 39.1 % (18.0-39.1); MONOCYTES % 8.1 % (4.4-11.3); NEUTROPHILS % 50.7 % (38.7-80.0); RED CELL DISTRIBUTION WIDTH 13.2 % (11.7-14.4)
[2025-03-06 07:04] LABS: EST GLOMERULAR FILTRATION RATE 74.0 ML/MIN (>=60)
[2025-03-06] MEDS: TOPIRAMATE 100 MG TAB PO SCH ×2 (07:25→21:10)
[2025-03-06] MEDS ORDERED: QUETIAPINE FUMARATE 100 MG TAB PO SCH (09:00)
[2025-03-06] MEDS: INSULIN LISPRO 100 UNIT/1 ML 3ML VIAL SQ SCH (09:42)
[2025-03-06] MEDS: ALPRAZOLAM 0.25 MG TAB PO PRN (10:56)
[2025-03-06] MEDS: QUETIAPINE FUMARATE 25 MG TAB PO SCH (17:34)
[2025-03-06] MEDS ORDERED: POLYETHYLENE GLYCOL 3350 17 GM PACK PO PRN (23:45)
[2025-03-06] MEDS ORDERED: ACETAMINOPHEN 325 MG TAB PO PRN (23:45)
[2025-03-06] MEDS ORDERED: BISACODYL 10 MG SUPP PR PRN (23:45)
[2025-03-07] VITALS (7 sets, daily range): BP systolic 132–154; BP diastolic 70–85; PULSE 91–103; RESP 16–20; TEMP 97.6–98.1; O2SAT 98–100
[2025-03-07 05:53] LABS: BASOPHILS % 0.2 % (0.0-1.0); EOSINOPHILS % 1.7 % (0.0-6.0); LYMPHOCYTES % 36.0 % (18.0-39.1); MONOCYTES % 8.6 % (4.4-11.3); NEUTROPHILS % 53.3 % (38.7-80.0); RED CELL DISTRIBUTION WIDTH 13.3 % (11.7-14.4)
[2025-03-07 06:18] LABS: EST GLOMERULAR FILTRATION RATE 75.0 ML/MIN (>=60)
[2025-03-07] MEDS: SENNOSIDES 8.6 MG TAB PO SCH (08:46)
[2025-03-07] MEDS: DOCUSATE SODIUM 100 MG CAP PO SCH (08:46)
[2025-03-07] MEDS: IRON SUCROSE 100 MG in SODIUM CHLORIDE 0.9% 100 ML IV SCH (08:47)
[2025-03-07] MEDS: HYDROCODONE/APAP 10MG-325MG TAB PO PRN (14:52)
[2025-03-08] VITALS (9 sets, daily range): BP systolic 139–161; BP diastolic 74–88; PULSE 94–109; RESP 16–19; TEMP 97.5–98.6; O2SAT 98–100
[2025-03-08] MEDS: BISACODYL 5 MG TAB EC PO ONE ×2 (14:38→16:21)
[2025-03-08] MEDS: CITRATE OF MAGNESIA 300ML BOTTLE PO ONE (17:31)
[2025-03-09] VITALS (7 sets, daily range): BP systolic 128–153; BP diastolic 68–87; PULSE 97–118; RESP 18–20; TEMP 97.4–98.3; O2SAT 99–100
[2025-03-09] MEDS: CITRATE OF MAGNESIA 300ML BOTTLE PO ONE (05:02)
[2025-03-09 08:20] LABS: BASOPHILS % 0.4 % (0.0-1.0); EOSINOPHILS % 1.0 % (0.0-6.0); LYMPHOCYTES % 21.1 % (18.0-39.1); MONOCYTES % 7.4 % (4.4-11.3); NEUTROPHILS % 69.7 % (38.7-80.0); RED CELL DISTRIBUTION WIDTH 12.9 % (11.7-14.4)
[2025-03-09 08:45] LABS: EST GLOMERULAR FILTRATION RATE 62.0 ML/MIN (>=60)
[2025-03-10 03:27] VITALS: BP 126/71; PULSE 98; RESP 18; TEMP 97.6; O2SAT 100
[2025-03-10 08:12] VITALS: BP 145/85; PULSE 100; RESP 18; TEMP 98; O2SAT 96
[2025-03-10 09:00] VITALS: BP 145/85; PULSE 100; RESP 18; TEMP 98; O2SAT 96
[2025-03-10 12:02] VITALS: BP 130/58; PULSE 107; RESP 17; TEMP 98.7; O2SAT 99
[2025-03-10] MEDS: PEG (High)/E-LYTE SOLN 4,000 ML BTL PO ONE (14:31)
[2025-03-10 16:01] VITALS: BP 143/67; PULSE 106; RESP 18; TEMP 98.2; O2SAT 100
[2025-03-10 20:00] VITALS: BP 131/62; PULSE 97; RESP 18; TEMP 98; O2SAT 100
[2025-03-11] VITALS (7 sets, daily range): BP systolic 134–152; BP diastolic 62–81; PULSE 88–113; RESP 18–19; TEMP 97.6–98.7; O2SAT 99–100
[2025-03-12] VITALS: BP 149/81; PULSE 95; RESP 18; TEMP 98.2; O2SAT 100
[2025-03-12 04:00] VITALS: BP 148/80; PULSE 95; RESP 18; TEMP 98.4; O2SAT 99
[2025-03-12 06:28] LABS: BASOPHILS % 0.2 % (0.0-1.0); EOSINOPHILS % 0.8 % (0.0-6.0); LYMPHOCYTES % 40.1 % (18.0-39.1); MONOCYTES % 9.0 % (4.4-11.3); NEUTROPHILS % 49.7 % (38.7-80.0); RED CELL DISTRIBUTION WIDTH 13.3 % (11.7-14.4)
[2025-03-12 07:15] LABS: EST GLOMERULAR FILTRATION RATE 83 ML/MIN (>=60)
[2025-03-12 08:21] VITALS: BP 164/61; PULSE 88; RESP 18; TEMP 98; O2SAT 100
[2025-03-12 12:46] VITALS: BP 147/63; PULSE 76; RESP 18; TEMP 97.9; O2SAT 100
[2025-03-12] MEDS: POTASSIUM CHLORIDE 10MEQ/100ML 100 ML IV SCH (13:00)
[2025-03-12] MEDS: MAGNESIUM SULFATE 2GM/50ML 50 ML IV ONE (13:02)
[2025-03-12] MEDS: METRONIDAZOLE 500 MG TAB PO SCH (13:13)
[2025-03-12] MEDS: NEOMYCIN SULFATE 500 MG TAB PO SCH (13:14)
[2025-03-12 16:23] VITALS: BP 139/69; PULSE 88; RESP 18; TEMP 98; O2SAT 98
[2025-03-12 20:00] VITALS: BP_SYST 148; BP_SYST 157; BP_DIAS 71; BP_DIAS 76; PULSE 83; PULSE 92; RESP 18; TEMP 97.8; O2SAT 98; O2SAT 99
[2025-03-12] MEDS: PERIPHERAL TPN FORMULA 1 BAG IV SCH (21:05)
[2025-03-13] VITALS (7 sets, daily range): BP systolic 144–155; BP diastolic 62–80; PULSE 69–104; RESP 18–20; TEMP 97.6–98.2; O2SAT 97–100
[2025-03-13 06:11] LABS: BASOPHILS % 0.4 % (0.0-1.0); EOSINOPHILS % 0.8 % (0.0-6.0); LYMPHOCYTES % 21.9 % (18.0-39.1); MONOCYTES % 7.2 % (4.4-11.3); NEUTROPHILS % 69.3 % (38.7-80.0); RED CELL DISTRIBUTION WIDTH 13.4 % (11.7-14.4)
[2025-03-13 06:48] LABS: EST GLOMERULAR FILTRATION RATE 78 ML/MIN (>=60); PHOSPHORUS 4.1 MG/DL (2.3-4.7)
[2025-03-13] MEDS ORDERED: ROCURONIUM BROMIDE 1 ML IV ONE ×2 (07:52→09:32)
[2025-03-13] MEDS ORDERED: SUCCINYLCHOLINE CHLORIDE 20 MG/ML 10ML VIAL ONE (07:52)
[2025-03-13] MEDS ORDERED: PROPOFOL IV EMULSION 10 MG/ML 20 ML VIAL ONE (07:52)
[2025-03-13] MEDS ORDERED: MIDAZOLAM HCL 2 MG/2 ML VIAL ONE (07:53)
[2025-03-13] MEDS ORDERED: DEXMEDETOMIDINE HCL 2 ML ONE (07:53)
[2025-03-13] MEDS ORDERED: FENTANYL CITRATE/PF 100MCG/2 ML INJ ONE (07:53)
[2025-03-13] MEDS ORDERED: KETAMINE HCL INJ 50 MG/ML 10 ML VIAL ONE (07:54)
[2025-03-13] MEDS ORDERED: SODIUM CHLORIDE 0.9% 100 ML ONE ×2 (07:59→08:23)
[2025-03-13] MEDS ORDERED: SUGAMMADEX SODIUM 200 MG/2 ML VIAL IV ONE (08:49)
[2025-03-13] MEDS ORDERED: LABETALOL HCL 20 ML ONE (11:29)
[2025-03-13] MEDS: LACTATED RINGER'S 1,000 ML INJ SCH (11:45)
[2025-03-13] MEDS: FENTANYL CITRATE/PF 100MCG/2 ML INJ IV ONE ×2 (11:50→12:05)
[2025-03-13] MEDS: FENTANYL CITRATE/PF 100MCG/2 ML INJ ONE (13:56)
[2025-03-13] MEDS: Cefoxitin 2 G in SODIUM CHLORIDE 0.9% 100 ML IV ONE (14:01)
[2025-03-13] MEDS: Morphine 4mg INJECTION 4 MG/ML INJ IV PRN (15:06)
[2025-03-13] MEDS: ONDANSETRON HCL INJ 2MG/ML 2ML 2 MG/ML VIAL IV PRN (15:06)
[2025-03-13] MEDS: HYDROMORPHONE 1MG/1ML INJ IV PRN ×2 (17:37→21:44)
[2025-03-14] VITALS (8 sets, daily range): BP systolic 124–144; BP diastolic 8–68; PULSE 97–109; RESP 16–20; TEMP 97.6–98.6; O2SAT 97–100
[2025-03-14] MEDS: KETOROLAC TROMETHAMINE 30 MG/ML VIAL IV PRN (00:35)
[2025-03-14 05:53] LABS: BASOPHILS % 0.2 % (0.0-1.0); EOSINOPHILS % 0.2 % (0.0-6.0); LYMPHOCYTES % 13.0 % (18.0-39.1); MONOCYTES % 6.9 % (4.4-11.3); NEUTROPHILS % 79.4 % (38.7-80.0); RED CELL DISTRIBUTION WIDTH 13.4 % (11.7-14.4)
[2025-03-14 06:13] LABS: EST GLOMERULAR FILTRATION RATE 76.0 ML/MIN (>=60)
[2025-03-14] MEDS: POTASSIUM CHLORIDE 10MEQ EA PO ONE (11:55)
[2025-03-14] MEDS: HYDROMORPHONE 1MG/1ML INJ IV PRN (14:40)
[2025-03-14] MEDS: HALOPERIDOL LACTATE 5 MG/ML VIAL IV ONE (18:38)
[2025-03-14] MEDS: ALPRAZOLAM 0.25 MG TAB PO PRN (23:20)
[2025-03-15] VITALS (11 sets, daily range): BP systolic 143–154; BP diastolic 70–78; PULSE 94–118; RESP 16–21; TEMP 97–99.3; O2SAT 97–100
[2025-03-15 05:54] LABS: BASOPHILS % 0.1 % (0.0-1.0); EOSINOPHILS % 0.4 % (0.0-6.0); LYMPHOCYTES % 16.3 % (18.0-39.1); MONOCYTES % 6.5 % (4.4-11.3); NEUTROPHILS % 76.4 % (38.7-80.0); RED CELL DISTRIBUTION WIDTH 13.2 % (11.7-14.4)
[2025-03-15 06:13] LABS: EST GLOMERULAR FILTRATION RATE 82.0 ML/MIN (>=60)
[2025-03-15] MEDS ORDERED: HALOPERIDOL LACTATE 5 MG/ML VIAL IM PRN (09:00)
[2025-03-15] MEDS: HYDROMORPHONE 1MG/1ML INJ IV PRN (17:34)
[2025-03-16] VITALS (10 sets, daily range): BP systolic 138–158; BP diastolic 66–79; PULSE 92–113; RESP 16–20; TEMP 97.3–98.5; O2SAT 95–100
[2025-03-16 06:06] LABS: BASOPHILS % 0.3 % (0.0-1.0); EOSINOPHILS % 1.2 % (0.0-6.0); LYMPHOCYTES % 15.4 % (18.0-39.1); MONOCYTES % 6.4 % (4.4-11.3); NEUTROPHILS % 75.5 % (38.7-80.0); RED CELL DISTRIBUTION WIDTH 13.0 % (11.7-14.4)
[2025-03-16 06:33] LABS: EST GLOMERULAR FILTRATION RATE 77.0 ML/MIN (>=60)
[2025-03-16] MEDS: POTASSIUM CHLORIDE 10MEQ EA PO ONE (09:27)
[2025-03-16] MEDS: DOCUSATE SODIUM 100 MG CAP PO SCH (17:00)
[2025-03-16] MEDS: HYDROCODONE/APAP 7.5MG-325MG 1 EA TAB PO PRN (17:56)
[2025-03-16] MEDS: PERIPHERAL TPN FORMULA 1 BAG IV SCH (21:36)
[2025-03-16] MEDS: TRAZODONE HCL 50 MG TAB PO PRN (21:43)
[2025-03-17] VITALS (11 sets, daily range): BP systolic 132–160; BP diastolic 60–90; PULSE 87–110; RESP 16–21; TEMP 97.7–98.6; O2SAT 97–100
[2025-03-17 07:01] LABS: BASOPHILS % 0.2 % (0.0-1.0); EOSINOPHILS % 1.4 % (0.0-6.0); LYMPHOCYTES % 17.0 % (18.0-39.1); MONOCYTES % 7.7 % (4.4-11.3); NEUTROPHILS % 73.2 % (38.7-80.0); RED CELL DISTRIBUTION WIDTH 13.1 % (11.7-14.4)
[2025-03-17 07:22] LABS: CALCIUM IONIZED 1.2 mmol/L (1.09-1.30)
[2025-03-17 07:31] LABS: EST GLOMERULAR FILTRATION RATE 84.0 ML/MIN (>=60)
[2025-03-17 07:41] LABS: PHOSPHORUS 3.7 MG/DL (2.3-4.7)
[2025-03-17] MEDS: INSULIN GLARGINE 100 UNITS/ML VIAL SQ SCH (08:24)
[2025-03-17] MEDS: PERIPHERAL TPN FORMULA 1 BAG IV SCH (20:46)
[2025-03-18] VITALS (8 sets, daily range): BP systolic 124–148; BP diastolic 60–77; PULSE 70–100; RESP 20–21; TEMP 97.2–98.8; O2SAT 96–100
[2025-03-18 08:20] LABS: BASOPHILS % 0.3 % (0.0-1.0); EOSINOPHILS % 1.5 % (0.0-6.0); LYMPHOCYTES % 26.8 % (18.0-39.1); MONOCYTES % 9.3 % (4.4-11.3); NEUTROPHILS % 60.9 % (38.7-80.0); RED CELL DISTRIBUTION WIDTH 13.1 % (11.7-14.4)
[2025-03-18 09:04] LABS: EST GLOMERULAR FILTRATION RATE 84.0 ML/MIN (>=60)
[2025-03-18] MEDS: MAGNESIUM SULFATE 2GM/50ML 50 ML IV ONE (17:55)
[2025-03-18] MEDS: CLOPIDOGREL BISULFATE 75 MG TAB PO ONE (18:51)
[2025-03-19] VITALS (8 sets, daily range): BP systolic 121–149; BP diastolic 68–79; PULSE 86–100; RESP 16–20; TEMP 98.1–98.8; O2SAT 96–100
[2025-03-19 06:08] LABS: BASOPHILS % 0.4 % (0.0-1.0); EOSINOPHILS % 1.8 % (0.0-6.0); LYMPHOCYTES % 25.7 % (18.0-39.1); MONOCYTES % 10.6 % (4.4-11.3); NEUTROPHILS % 60.5 % (38.7-80.0); RED CELL DISTRIBUTION WIDTH 13.2 % (11.7-14.4)
[2025-03-19 06:49] LABS: EST GLOMERULAR FILTRATION RATE 81.0 ML/MIN (>=60)
[2025-03-19] MEDS: CLOPIDOGREL BISULFATE 75 MG TAB PO SCH (08:41)
[2025-03-19] MEDS: ASPIRIN 81 MG ENTERIC COATED PO SCH (08:41)
[2025-03-19] MEDS: MAGNESIUM SULFATE 2GM/50ML 50 ML IV SCH (13:02)
[2025-03-20] VITALS (9 sets, daily range): BP systolic 129–141; BP diastolic 52–82; PULSE 82–101; RESP 16–20; TEMP 97.7–98.3; O2SAT 96–100
[2025-03-20 06:52] LABS: BASOPHILS % 0.6 % (0.0-1.0); EOSINOPHILS % 1.7 % (0.0-6.0); LYMPHOCYTES % 26.8 % (18.0-39.1); MONOCYTES % 9.1 % (4.4-11.3); NEUTROPHILS % 60.3 % (38.7-80.0); RED CELL DISTRIBUTION WIDTH 13.2 % (11.7-14.4)
[2025-03-20 06:56] LABS: EST GLOMERULAR FILTRATION RATE 83.0 ML/MIN (>=60)
[2025-03-20] MEDS ORDERED: HYDROCODONE/APAP 7.5MG-325MG 1 EA TAB PO PRN (16:00)
[2025-03-20] MEDS: HYDROMORPHONE 1MG/1ML INJ IV PRN (18:21)
[2025-03-21 00:56] VITALS: BP 146/67; PULSE 97; RESP 17; TEMP 98.2; O2SAT 100
[2025-03-21 04:39] VITALS: BP 144/66; PULSE 94; RESP 16; TEMP 98.1; O2SAT 100
[2025-03-21 07:13] VITALS: PULSE 85; RESP 20; O2SAT 98
[2025-03-21 09:00] VITALS: BP 144/66; PULSE 85; RESP 20; TEMP 98.1; O2SAT 98
[2025-03-21 09:13] VITALS: BP 157/83; PULSE 104; RESP 18; TEMP 98.6; O2SAT 100
[2025-03-21] MEDS ORDERED: ALPRAZOLAM0.25 M1 PO ×2 (10:22→14:01)
[2025-03-21 12:20] VITALS: BP 140/68; PULSE 100; RESP 20; TEMP 98.1; O2SAT 100
== END 2025-03-21 14:00 | disposition home health service (06) | DRG 329 ==
LOC: ER 12:23 → ERHOLD 14:10 → MED/SURG2 17:14
PROVIDERS: ADMIT Internal Medicine; ATTEND Internal Medicine
PROC: 02HV33Z Insertion of Infusion Device into Superior Vena Cava, Percutaneous Approach (ICD-10-PCS; 2025-03-11)
PROC: 0DNU4ZZ Release Omentum, Percutaneous Endoscopic Approach (ICD-10-PCS; 2025-03-13)
PROC: 0DTN0ZZ Resection of Sigmoid Colon, Open Approach (ICD-10-PCS; principal; 2025-03-13 08:48)
DX: K66.0 Peritoneal adhesions (postprocedural) (postinfection) (principal); E43 Unspecified severe protein-calorie malnutrition; K50.019 Crohn's disease of small intestine with unspecified complications; F31.32 Bipolar disorder, current episode depressed, moderate; I45.2 Bifascicular block; D50.9 Iron deficiency anemia, unspecified; E11.22 Type 2 diabetes mellitus with diabetic chronic kidney disease; E78.2 Mixed hyperlipidemia; I12.9 Hypertensive chronic kidney disease with stage 1 through stage 4 chronic kidney disease, or unspecified chronic kidney disease; N18.31 Chronic kidney disease, stage 3a; E87.6 Hypokalemia; K21.9 Gastro-esophageal reflux disease without esophagitis; I25.10 Atherosclerotic heart disease of native coronary artery without angina pectoris; F41.9 Anxiety disorder, unspecified; Z68.24 Body mass index [BMI] 24.0-24.9, adult; Z79.4 Long term (current) use of insulin; Z79.82 Long term (current) use of aspirin; Z79.02 Long term (current) use of antithrombotics/antiplatelets; Z79.85 Long-term (current) use of injectable non-insulin antidiabetic drugs; Z79.890 Hormone replacement therapy; Z79.84 Long term (current) use of oral hypoglycemic drugs; Z95.5 Presence of coronary angioplasty implant and graft; Z90.49 Acquired absence of other specified parts of digestive tract; Z91.041 Radiographic dye allergy status; Z88.5 Allergy status to narcotic agent; Z88.8 Allergy status to other drugs, medicaments and biological substances; Z91.013 Allergy to seafood; Z82.49 Family history of ischemic heart disease and other diseases of the circulatory system
CPT/HCPCS: 36415; 36568; 45380; 45385; 71045; 74176; 80048; 80053; 81001; 82550; 82607; 82728; 82746; 82948; 83010; 83540; 83615; 83690; 83735; 83993; 84100; 84466; 84484; 85025; 85045; 85610; 85730; 88305; 88307; 93005; 94799; 96372; 99252; 99284; J0295; J0330; J0694; J1171; J1630; J1756; J1815; J1885; J2003; J2250; J2270; J2405; J2470; J3475; J3480; J7030; J7050

== ENCOUNTER → 2025-03-05 | Outpatient (REF) | payer MEDICARE, OTHER ==
[~2025-03-05] MED LIST changes: +ALPRAZOLAM0.25 M1 PO; +AMITRIPTYLINE H25 MG PO; +COLACE100 MG/10 PO; +LIDOCAINE HCL 2% LOCAL INJ 5 ML SDV VIAL INJ ONE; +MIDAZOLAM HCL 2 MG/2 ML VIAL ONE; +NOVALOG; +PROPOFOL IV EMULSION 10 MG/ML 20 ML VIAL ONE; +SERTRALINE HCL50 MG PO; +VITAMIN D31 ML
[2025-03-05 11:27] LABS: BASOPHILS % 0.3 % (0.0-1.0); EOSINOPHILS % 0.4 % (0.0-6.0); LYMPHOCYTES % 17.4 % (18.0-39.1); MONOCYTES % 5.1 % (4.4-11.3); NEUTROPHILS % 76.5 % (38.7-80.0); RED CELL DISTRIBUTION WIDTH 12.8 % (11.7-14.4)
[2025-03-13 08:33] LABS: ABG BASE EXCESS -8.0 mmol/L (-2 - 3); ABG HCO3 18 mmol/L (22-26); ABG OXYGEN SATURATION 86.0 % (95-98); ABG PCO2 33 mmHg (35-45); ABG PH 7.35 (7.35-7.45); ABG PO2 53 mmHg (80-105); ABG TCO2 19
[2025-03-18 13:17] LABS: ABG BASE EXCESS -9.0 mmol/L (-2 - 3); ABG HCO3 17 mmol/L (22-26); ABG OXYGEN SATURATION 99.0 % (95-98); ABG PCO2 30 mmHg (35-45); ABG PH 7.36 (7.35-7.45); ABG PO2 127 mmHg (80-105); ABG TCO2 18
== END ==
LOC: RAD 12:00 → EDSTATUS 03-09 14:00
PROVIDERS: ATTEND Internal Medicine Gastroenterology
DX: Z01.818 Encounter for other preprocedural examination (principal); R19.7 Diarrhea, unspecified; K59.03 Drug induced constipation; R10.9 Unspecified abdominal pain
CPT/HCPCS: 36415; 82805; 85025; 93005; J2003; J2250

== ENCOUNTER 2025-03-22 11:38 | Observation (INO) | payer MEDICARE, OTHER ==
[~2025-03-22] VITALS: Ht 149.9 cm; Wt 55.3 kg
[~2025-03-22 11:38] MED LIST changes: +ALPRAZOLAM0.25 M1 PO
[2025-03-22 12:10] VITALS: TEMP 97.7
[2025-03-22 12:55] LABS: BASOPHILS % 0.6 % (0.0-1.0); EOSINOPHILS % 1.2 % (0.0-6.0); LYMPHOCYTES % 18.0 % (18.0-39.1); MONOCYTES % 5.7 % (4.4-11.3); NEUTROPHILS % 73.1 % (38.7-80.0); RED CELL DISTRIBUTION WIDTH 13.1 % (11.7-14.4)
[2025-03-22] MEDS: ONDANSETRON HCL INJ 2MG/ML 2ML 2 MG/ML VIAL IV STA (13:05)
[2025-03-22] MEDS: SODIUM CHLORIDE 0.9% 1000ML 1,000 ML IV STA (13:05)
[2025-03-22] MEDS: DICYCLOMINE HCL 20 MG/2 ML VIAL IM ONE (13:05)
[2025-03-22] MEDS: HYDROMORPHONE 1MG/1ML INJ IV STA (13:05)
[2025-03-22 13:09] LABS: INR 0.98
[2025-03-22 13:21] LABS: EST GLOMERULAR FILTRATION RATE 65.0 ML/MIN (>=60)
[2025-03-22 13:57] LABS: LEUKOCYTE ESTERASE ,URINE NEGATIVE (NEGATIVE)
[2025-03-22 13:58] LABS: PROTEIN,URINE DIPSTICK 2+ (NEGATIVE); URINE UROBILINOGEN 0.2 mg/dL (0.2 - 1)
[2025-03-22 14:24] LABS: EPITHELIAL CELLS,URINE MANY /LPF
[2025-03-22 14:25] LABS: HYALINE CASTS 0-1 (0-1)
[2025-03-22] MEDS: SODIUM CHLORIDE 0.9% 1000ML 1,000 ML IV SCH (15:15)
[2025-03-22] MEDS: ONDANSETRON HCL INJ 2MG/ML 2ML 2 MG/ML VIAL IV PRN (16:08)
[2025-03-22] MEDS: HYDROMORPHONE 1MG/1ML INJ IV PRN (16:09)
[2025-03-22 18:10] VITALS: PULSE 90; RESP 18
[2025-03-22 20:00] VITALS: BP 137/60; PULSE 73; RESP 18; TEMP 97.8; O2SAT 100
[2025-03-22 21:00] VITALS: BP 137/60; PULSE 73; RESP 18; TEMP 97.8; O2SAT 100
[2025-03-22 21:33] VITALS: BP 137/60; PULSE 73; RESP 18; TEMP 97.8
[2025-03-22] MEDS ORDERED: QUETIAPINE FUMARATE 25 MG TAB PO PRN (22:30)
[2025-03-22] MEDS ORDERED: ALPRAZOLAM 0.25 MG TAB PO PRN (23:00)
[2025-03-23] VITALS (7 sets, daily range): BP systolic 117–159; BP diastolic 45–70; PULSE 71–90; RESP 18–20; TEMP 97.2–98.3; O2SAT 98–100
[2025-03-23 05:32] LABS: BASOPHILS % 0.5 % (0.0-1.0); EOSINOPHILS % 2.3 % (0.0-6.0); LYMPHOCYTES % 27.7 % (18.0-39.1); MONOCYTES % 7.6 % (4.4-11.3); NEUTROPHILS % 60.3 % (38.7-80.0); RED CELL DISTRIBUTION WIDTH 13.3 % (11.7-14.4)
[2025-03-23 06:07] LABS: EST GLOMERULAR FILTRATION RATE 78.0 ML/MIN (>=60)
[2025-03-23] MEDS: TOPIRAMATE 100 MG TAB PO SCH (08:06)
[2025-03-23] MEDS: CLOPIDOGREL BISULFATE 75 MG TAB PO SCH (08:06)
[2025-03-23] MEDS: FENOFIBRATE 160 MG PO SCH (08:13)
[2025-03-23] MEDS: RIFAXIMIN 550 MG TABLET PO SCH (09:28)
[2025-03-23] MEDS: DICYCLOMINE HCL 20 MG TAB PO SCH (09:28)
[2025-03-23] MEDS ORDERED: LACTULOSE SYRUP 20 GM/30 ML UDC PO PRN (12:30)
[2025-03-23] MEDS: SERTRALINE HCL 50 MG TAB PO SCH (20:14)
[2025-03-23] MEDS ORDERED: DEXTROSE 50% SYRINGE 50 ML IV PRN (22:45)
[2025-03-24] VITALS: BP 103/73; PULSE 98; RESP 18; TEMP 98.6; O2SAT 100
[2025-03-24 05:35] LABS: BASOPHILS % 0.5 % (0.0-1.0); EOSINOPHILS % 2.2 % (0.0-6.0); LYMPHOCYTES % 28.5 % (18.0-39.1); MONOCYTES % 6.8 % (4.4-11.3); NEUTROPHILS % 60.9 % (38.7-80.0); RED CELL DISTRIBUTION WIDTH 13.2 % (11.7-14.4)
[2025-03-24 05:55] VITALS: BP 120/65; PULSE 93; RESP 20; TEMP 98.8; O2SAT 100
[2025-03-24 06:15] LABS: EST GLOMERULAR FILTRATION RATE 90.0 ML/MIN (>=60)
[2025-03-24 08:05] VITALS: BP 134/55; PULSE 73; RESP 17; TEMP 98.6; O2SAT 100
[2025-03-24] MEDS: PANTOPRAZOLE SOD 40 MG TABEC PO SCH (08:27)
[2025-03-24] MEDS: INSULIN LISPRO 100 UNIT/1 ML 3ML VIAL SQ SCH (08:34)
[2025-03-24 08:51] VITALS: BP 134/55; PULSE 73; RESP 17; TEMP 98.6; O2SAT 100
[2025-03-24] MEDS ORDERED: DICYCLOMINE HCL20 MG PO (10:12)
[2025-03-24] MEDS ORDERED: XIFAXAN550 MG PO (10:12)
[2025-03-24 11:38] VITALS: BP 126/53; PULSE 66; RESP 19; TEMP 97.4; O2SAT 100
== END 2025-03-24 15:00 | disposition home or self-care (01) ==
LOC: ER 12:20 → ERHOLD 14:50 → MED/SURG 20:03
PROVIDERS: ADMIT Internal Medicine; ATTEND Internal Medicine
DX: R10.84 Generalized abdominal pain (principal); K51.919 Ulcerative colitis, unspecified with unspecified complications; I13.10 Hypertensive heart and chronic kidney disease without heart failure, with stage 1 through stage 4 chronic kidney disease, or unspecified chronic kidney disease; E11.22 Type 2 diabetes mellitus with diabetic chronic kidney disease; N18.31 Chronic kidney disease, stage 3a; Z79.4 Long term (current) use of insulin; K21.9 Gastro-esophageal reflux disease without esophagitis; Z98.890 Other specified postprocedural states; Z95.5 Presence of coronary angioplasty implant and graft; I25.10 Atherosclerotic heart disease of native coronary artery without angina pectoris; F31.9 Bipolar disorder, unspecified
CPT/HCPCS: 36415 ×3; 71045; 74176; 80053 ×3; 81001; 82550 ×2; 82948; 83690; 83735 ×2; 84484 ×2; 85025 ×3; 85610; 85730; 93005; 99284; G0378 ×3; J0500; J1171 ×3; J2405 ×2; J2470 ×2; J7030 ×3

== ENCOUNTER 2025-03-30 01:17 | Emergency (ER) | payer MEDICARE, OTHER ==
[~2025-03-30] VITALS: Ht 149.9 cm; Wt 55.3 kg
[2025-03-30 01:18] VITALS: PULSE 89; RESP 19; TEMP 98.4
[2025-03-30 01:49] LABS: BASOPHILS % 0.8 % (0.0-1.0); EOSINOPHILS % 2.7 % (0.0-6.0); LYMPHOCYTES % 32.9 % (18.0-39.1); MONOCYTES % 8.8 % (4.4-11.3); NEUTROPHILS % 54.1 % (38.7-80.0); RED CELL DISTRIBUTION WIDTH 13.7 % (11.7-14.4)
[2025-03-30 01:51] LABS: LEUKOCYTE ESTERASE ,URINE TRACE (NEGATIVE); PROTEIN,URINE DIPSTICK NEGATIVE (NEGATIVE); URINE UROBILINOGEN 0.2 mg/dL (0.2 - 1)
[2025-03-30] MEDS: SODIUM CHLORIDE 0.9% 1000ML 1,000 ML IV STA (02:01)
[2025-03-30] MEDS: ONDANSETRON HCL INJ 2MG/ML 2ML 2 MG/ML VIAL IV STA (02:01)
[2025-03-30 02:11] LABS: EST GLOMERULAR FILTRATION RATE 56.0 ML/MIN (>=60)
[2025-03-30 02:34] LABS: EPITHELIAL CELLS,URINE FEW /LPF; WBC,URINE (MAN) 21-50 /HPF (0-5)
[2025-03-30] MEDS: HALOPERIDOL LACTATE 5 MG/ML VIAL IV ONE (02:42)
[2025-03-30 03:06] VITALS: BP 134/52; PULSE 86; RESP 16; O2SAT 100
[2025-03-31] MEDS ORDERED: CHLORDIAZEPOXI1 EACH PO (16:34)
[2025-03-31] MEDS ORDERED: TIZANIDINE HCL4 MG PO (16:34)
[2025-03-31] MEDS ORDERED: MOVANTIK25 MG PO (17:36)
== END 2025-03-30 03:20 | disposition home or self-care (01) ==
LOC: ER 01:25
DX: R10.33 Periumbilical pain (principal); G89.29 Other chronic pain; E11.9 Type 2 diabetes mellitus without complications; E78.5 Hyperlipidemia, unspecified; M19.09 Primary osteoarthritis, other specified site; K21.9 Gastro-esophageal reflux disease without esophagitis; F41.9 Anxiety disorder, unspecified; F32.A Depression, unspecified; Z82.49 Family history of ischemic heart disease and other diseases of the circulatory system
CPT/HCPCS: 36415; 80053; 81001; 82550; 83690; 84484; 85025; 93005; 99284; J1630; J2405; J7030

== ENCOUNTER 2025-03-31 11:35 | Inpatient (IN) | payer MEDICARE, OTHER ==
[~2025-03-31] VITALS: Ht 149.9 cm; Wt 55.3 kg
[2025-03-31 11:56] VITALS: TEMP 98.6
[2025-03-31 13:42] LABS: BASOPHILS % 0.5 % (0.0-1.0); EOSINOPHILS % 0.9 % (0.0-6.0); LYMPHOCYTES % 20.0 % (18.0-39.1); MONOCYTES % 5.7 % (4.4-11.3); NEUTROPHILS % 72.3 % (38.7-80.0); RED CELL DISTRIBUTION WIDTH 13.6 % (11.7-14.4)
[2025-03-31 14:00] VITALS: PULSE 94; RESP 24
[2025-03-31 14:08] LABS: EST GLOMERULAR FILTRATION RATE 63.0 ML/MIN (>=60); INR 0.94
[2025-03-31] MEDS: ONDANSETRON HCL INJ 2MG/ML 2ML 2 MG/ML VIAL IV STA (14:57)
[2025-03-31] MEDS: LORAZEPAM INJ 2 MG/ML VIAL IV ONE (14:57)
[2025-03-31] MEDS: SODIUM CHLORIDE 0.9% 1000ML 1,000 ML IV STA (14:57)
[2025-03-31] MEDS: HYDROCORTISONE SOD SUCCINATE 100 MG VIAL IV ONE (14:57)
[2025-03-31] MEDS: SODIUM CHLORIDE 0.9% 1000ML 1,000 ML IV SCH (15:47)
[2025-03-31 15:50] VITALS: BP 132/77; PULSE 103; RESP 19; TEMP 98; O2SAT 99
[2025-03-31 15:59] VITALS: BP 132/77; PULSE 103; RESP 18; TEMP 98; O2SAT 100
[2025-03-31] MEDS: DIPHENHYDRAMINE HCL INJ 50 MG/ML VIAL IV ONE (16:21)
[2025-03-31] MEDS ORDERED: CHLORDIAZEPOXI1 EACH PO (16:34)
[2025-03-31] MEDS ORDERED: TIZANIDINE HCL4 MG PO (16:34)
[2025-03-31] MEDS: HYDROCORTISONE SOD SUCCINATE 250 MG VIAL IV ONE (16:35)
[2025-03-31] MEDS ORDERED: IOPAMIDOL 370 MG/ML 100 ML INFUS..BTL INJ ONE (17:03)
[2025-03-31] MEDS ORDERED: MOVANTIK25 MG PO (17:36)
[2025-03-31 20:00] VITALS: BP 159/88; PULSE 108; RESP 16; TEMP 97.9; O2SAT 100
[2025-04-01] VITALS (8 sets, daily range): BP systolic 129–152; BP diastolic 67–84; PULSE 61–113; RESP 16–20; TEMP 97.6–98.8; O2SAT 95–100
[2025-04-01 06:35] LABS: BASOPHILS % 0.2 % (0.0-1.0); EOSINOPHILS % 0.0 % (0.0-6.0); LYMPHOCYTES % 15.9 % (18.0-39.1); MONOCYTES % 4.0 % (4.4-11.3); NEUTROPHILS % 79.6 % (38.7-80.0); RED CELL DISTRIBUTION WIDTH 13.4 % (11.7-14.4)
[2025-04-01] MEDS ORDERED: HALOPERIDOL LACTATE 5 MG/ML VIAL IV ONE ×2 (07:00→07:15)
[2025-04-01 07:04] LABS: EST GLOMERULAR FILTRATION RATE 76.0 ML/MIN (>=60)
[2025-04-01] MEDS: HALOPERIDOL LACTATE 5 MG/ML VIAL IV ONE (07:40)
[2025-04-01 08:36] LABS: LEUKOCYTE ESTERASE ,URINE NEGATIVE (NEGATIVE); PROTEIN,URINE DIPSTICK 1+ (NEGATIVE)
[2025-04-01 08:37] LABS: URINE UROBILINOGEN 0.2 mg/dL (0.2 - 1)
[2025-04-01] MEDS ORDERED: HYDROCODONE/APAP 5MG-325MG TAB PO PRN (08:45)
[2025-04-01] MEDS ORDERED: POLYETHYLENE GLYCOL 3350 17 GM PACK PO PRN (08:45)
[2025-04-01] MEDS ORDERED: HYDRALAZINE HCL 20 MG/ML VIAL IV PRN (08:45)
[2025-04-01] MEDS ORDERED: BISACODYL 10 MG SUPP PR PRN (08:45)
[2025-04-01] MEDS ORDERED: DEXTROSE 50% SYRINGE 50 ML IV PRN (08:45)
[2025-04-01 08:57] LABS: EPITHELIAL CELLS,URINE MANY /LPF; WBC,URINE (MAN) >50 /HPF (0-5)
[2025-04-01] MEDS: TOPIRAMATE 100 MG TAB PO SCH (09:00)
[2025-04-01] MEDS: CLOPIDOGREL BISULFATE 75 MG TAB PO SCH (09:00)
[2025-04-01] MEDS: DICYCLOMINE HCL 20 MG TAB PO SCH (09:00)
[2025-04-01] MEDS: DOCUSATE SODIUM 100 MG CAP PO SCH (09:00)
[2025-04-01] MEDS: FENOFIBRATE 160 MG PO SCH (09:00)
[2025-04-01] MEDS: RIFAXIMIN 550 MG TABLET PO SCH (09:00)
[2025-04-01] MEDS: ONDANSETRON HCL INJ 2MG/ML 2ML 2 MG/ML VIAL IV PRN (09:16)
[2025-04-01] MEDS: Morphine 4mg INJECTION 4 MG/ML INJ IV PRN (09:16)
[2025-04-01] MEDS: INSULIN LISPRO 100 UNIT/1 ML 3ML VIAL SQ SCH (11:30)
[2025-04-01] MEDS: HYDROMORPHONE 1MG/1ML INJ IV PRN (12:27)
[2025-04-01] MEDS: ENOXAPARIN SOD INJ 40 MG/0.4 ML SYR SC SCH (16:16)
[2025-04-01] MEDS: SERTRALINE HCL 50 MG TAB PO SCH (20:44)
[2025-04-01] MEDS: QUETIAPINE FUMARATE 25 MG TAB PO SCH (20:44)
[2025-04-01] MEDS: HYDROCODONE/APAP 10MG-325MG TAB PO PRN (23:05)
[2025-04-02] VITALS (8 sets, daily range): BP systolic 131–162; BP diastolic 72–87; PULSE 87–98; RESP 16–18; TEMP 97.2–98.5; O2SAT 98–100
[2025-04-02 05:17] LABS: BASOPHILS % 0.6 % (0.0-1.0); EOSINOPHILS % 1.7 % (0.0-6.0); LYMPHOCYTES % 39.6 % (18.0-39.1); MONOCYTES % 6.3 % (4.4-11.3); NEUTROPHILS % 51.5 % (38.7-80.0); RED CELL DISTRIBUTION WIDTH 13.6 % (11.7-14.4)
[2025-04-02 05:47] LABS: EST GLOMERULAR FILTRATION RATE 87.0 ML/MIN (>=60)
[2025-04-02] MEDS: LEVOTHYROXINE SODIUM 75 MCG TAB PO SCH (06:06)
[2025-04-02] MEDS: LEVOTHYROXINE SODIUM 100 MCG TAB PO SCH (06:06)
[2025-04-02] MEDS: HYDROMORPHONE 1MG/1ML INJ IV PRN (13:14)
[2025-04-02] MEDS ORDERED: ENOXAPARIN SOD INJ 40 MG/0.4 ML SYR SC SCH (17:00)
[2025-04-02] MEDS: POTASSIUM CHLORIDE 10MEQ EA PO ONE (21:15)
[2025-04-02] MEDS: LACTULOSE SYRUP 20 GM/30 ML UDC PO PRN (21:15)
[2025-04-03] VITALS (8 sets, daily range): BP systolic 139–162; BP diastolic 70–84; PULSE 83–90; RESP 16–18; TEMP 97.9–98.3; O2SAT 99–100
[2025-04-03 06:25] LABS: BASOPHILS % 0.7 % (0.0-1.0); EOSINOPHILS % 3.7 % (0.0-6.0); LYMPHOCYTES % 35.6 % (18.0-39.1); MONOCYTES % 8.9 % (4.4-11.3); NEUTROPHILS % 50.8 % (38.7-80.0); RED CELL DISTRIBUTION WIDTH 13.1 % (11.7-14.4)
[2025-04-03 06:48] LABS: EST GLOMERULAR FILTRATION RATE 81.0 ML/MIN (>=60)
[2025-04-03] MEDS: LACTULOSE SYRUP 20 GM/30 ML UDC PO SCH (11:48)
[2025-04-04] VITALS (7 sets, daily range): BP systolic 151–156; BP diastolic 73–88; PULSE 80–90; RESP 17–18; TEMP 98.1–98.7; O2SAT 100
[2025-04-04 06:31] LABS: BASOPHILS % 0.5 % (0.0-1.0); EOSINOPHILS % 6.0 % (0.0-6.0); LYMPHOCYTES % 30.9 % (18.0-39.1); MONOCYTES % 9.2 % (4.4-11.3); NEUTROPHILS % 53.0 % (38.7-80.0); RED CELL DISTRIBUTION WIDTH 13.1 % (11.7-14.4)
[2025-04-04 06:52] LABS: EST GLOMERULAR FILTRATION RATE 78.0 ML/MIN (>=60)
[2025-04-04] MEDS: ALPRAZOLAM 0.25 MG TAB PO PRN (19:43)
[2025-04-05 00:20] VITALS: BP 151/73; PULSE 88; RESP 18; TEMP 98.7; O2SAT 100
[2025-04-05 05:53] VITALS: BP 141/77; PULSE 89; RESP 18; TEMP 98; O2SAT 100
[2025-04-05 06:54] LABS: BASOPHILS % 0.6 % (0.0-1.0); EOSINOPHILS % 6.1 % (0.0-6.0); LYMPHOCYTES % 31.1 % (18.0-39.1); MONOCYTES % 8.1 % (4.4-11.3); NEUTROPHILS % 53.6 % (38.7-80.0); RED CELL DISTRIBUTION WIDTH 13.1 % (11.7-14.4)
[2025-04-05 07:16] LABS: EST GLOMERULAR FILTRATION RATE 68.0 ML/MIN (>=60)
[2025-04-05 07:44] VITALS: BP 148/85; PULSE 98; RESP 20; TEMP 98; O2SAT 100
[2025-04-05 08:18] VITALS: BP 148/85; PULSE 98; RESP 20; TEMP 98; O2SAT 100
[2025-04-05 15:46] VITALS: BP 156/82; PULSE 89; RESP 20; TEMP 98.2; O2SAT 100
[2025-04-05 20:00] VITALS: BP 147/77; PULSE 87; RESP 18; TEMP 98; O2SAT 100
[2025-04-06] VITALS: BP 128/73; PULSE 84; RESP 18; TEMP 98.1; O2SAT 100
[2025-04-06 04:00] VITALS: BP 145/86; PULSE 96; RESP 18; TEMP 97.7; O2SAT 100
[2025-04-06 06:40] LABS: BASOPHILS % 0.5 % (0.0-1.0); EOSINOPHILS % 6.6 % (0.0-6.0); LYMPHOCYTES % 31.1 % (18.0-39.1); MONOCYTES % 9.2 % (4.4-11.3); NEUTROPHILS % 52.1 % (38.7-80.0); RED CELL DISTRIBUTION WIDTH 13.2 % (11.7-14.4)
[2025-04-06 07:22] LABS: EST GLOMERULAR FILTRATION RATE 67.0 ML/MIN (>=60)
[2025-04-06 08:10] VITALS: BP 139/74; PULSE 94; RESP 16; TEMP 98.1; O2SAT 100
[2025-04-06 11:04] VITALS: BP 130/71; PULSE 80; RESP 16; TEMP 98; O2SAT 100
[2025-04-06 16:54] VITALS: BP 156/84; PULSE 93; RESP 19; TEMP 98.6; O2SAT 100
[2025-04-06 20:00] VITALS: BP 163/84; PULSE 88; RESP 20; TEMP 98.2; O2SAT 100
[2025-04-07] VITALS: BP 130/69; PULSE 91; RESP 17; TEMP 98.1; O2SAT 100
[2025-04-07 04:00] VITALS: BP 135/69; PULSE 95; RESP 18; TEMP 98.3; O2SAT 98
[2025-04-07 08:30] VITALS: BP 143/79; PULSE 86; RESP 19; TEMP 98; O2SAT 100
[2025-04-07 08:52] VITALS: BP 143/79; PULSE 86; RESP 19; TEMP 98; O2SAT 100
[2025-04-07] MEDS: SODIUM CHLORIDE 0.9% 250ML 250 ML ONE (10:28)
[2025-04-07 12:06] VITALS: BP 142/96; PULSE 103; RESP 20; TEMP 98; O2SAT 100
[2025-04-08] MEDS ORDERED: PANTOPRAZOLE SOD 40 MG TABEC PO SCH (07:30)
== END 2025-04-07 14:40 | disposition home or self-care (01) | DRG 948 ==
LOC: ER 11:42 → ERHOLD 14:13 → MED/SURG 15:41 → OBSVTOIN 04-01 13:20 → MED/SURG3 04-06 15:36
PROVIDERS: ADMIT Internal Medicine; ATTEND Internal Medicine
PROC: 02HV33Z Insertion of Infusion Device into Superior Vena Cava, Percutaneous Approach (ICD-10-PCS; principal; 2025-03-31)
DX: G89.18 Other acute postprocedural pain (principal); N30.00 Acute cystitis without hematuria; B96.1 Klebsiella pneumoniae [K. pneumoniae] as the cause of diseases classified elsewhere; E11.22 Type 2 diabetes mellitus with diabetic chronic kidney disease; I12.9 Hypertensive chronic kidney disease with stage 1 through stage 4 chronic kidney disease, or unspecified chronic kidney disease; K58.2 Mixed irritable bowel syndrome; F41.9 Anxiety disorder, unspecified; I25.10 Atherosclerotic heart disease of native coronary artery without angina pectoris; N18.31 Chronic kidney disease, stage 3a; K21.9 Gastro-esophageal reflux disease without esophagitis; F31.9 Bipolar disorder, unspecified; R10.9 Unspecified abdominal pain; R11.2 Nausea with vomiting, unspecified; E78.5 Hyperlipidemia, unspecified; M19.90 Unspecified osteoarthritis, unspecified site; Z79.4 Long term (current) use of insulin; Z79.85 Long-term (current) use of injectable non-insulin antidiabetic drugs; Z79.02 Long term (current) use of antithrombotics/antiplatelets; Z79.890 Hormone replacement therapy; Z79.84 Long term (current) use of oral hypoglycemic drugs; Z95.5 Presence of coronary angioplasty implant and graft; Z90.49 Acquired absence of other specified parts of digestive tract; Z91.041 Radiographic dye allergy status; Z91.013 Allergy to seafood; Z88.8 Allergy status to other drugs, medicaments and biological substances
CPT/HCPCS: 36415; 36569; 71045; 74177; 80053; 81001; 82550; 82948; 83605; 83690; 83735; 84484; 85025; 85610; 85730; 87040; 87086; 87186; 93005; 99284; G0378; J0696; J1171; J1200; J1630; J1650; J1720; J2060; J2270; J2405; J2470; J7030; J7050; Q9967